=== PATIENT | male | born 1960 | race African-American/Black ===

== ENCOUNTER 2018-08-30 11:48 | Inpatient (IN) | payer SELFPAY ==
[2018-08-30] MEDS ORDERED: ONDANSETRON 4 MG/2 ML VIAL ONE (11:58)
[2018-08-30] MEDS ORDERED: NA CHLORIDE 0.9% 2,000 ML ONE (11:58)
[2018-08-30 12:06] LABS: Absolute Lymphocytes (CBC) 3.4 K/uL (0.7-4.9); Absolute Monocytes 0.7 K/uL (0.1-1.3); Absolute Neutrophil 4.2 K/uL (1.8-8.0); Basophils % 1.1 % (0-1.3); Hematocrit 43.3 % (39.6-49.0); Lymphocytes % 40.2 % (15.3-44.8); MCV 86.4 fL (80-100); MPV 8.7 fL (7.6-11.3); Monocytes % 8.1 % (3.3-12.3); RBC Red Blood Cell Count 5.01 M/uL (4.33-5.43)
[2018-08-30] MEDS ORDERED: ASPIRIN 81 MG CHEWABLE TABLET ONE (12:11)
[2018-08-30] MEDS ORDERED: PROMETHAZINE 25 MG/ML VIAL ONE ×2 (12:11→12:43)
[2018-08-30] MEDS ORDERED: HEPARIN/D5W 25,000 UNIT/500 ML BAG IV ONE (12:11)
[2018-08-30] MEDS ORDERED: TICAGRELOR 90 MG TABLET PO ONE (12:11)
[2018-08-30] MEDS ORDERED: HEPARIN 5000 UNIT/ML 1 ML VIAL ONE (12:11)
[2018-08-30] MEDS ORDERED: HEPA 1000U/500MLS 2,000 UNIT/1,000 ML BAG IV ONE (12:19)
[2018-08-30] MEDS ORDERED: LIDOCAINE 1% MPF 30 ML VIAL ONE (12:20)
[2018-08-30] MEDS ORDERED: ATROPINE SULF 1 MG/10 ML SYR IV ONE (12:20)
[2018-08-30] MEDS ORDERED: NA CHLORIDE 0.9% 50 ML ONE (12:20)
--- NOTE | 2018-08-30 12:21 | EDPHYS ---
Physician Documentation [facility] Name: Chad Rahman Age: 57 yrs Sex: Male : 1960 Arrival Date: 08/30/2018 Time: 11:50 Bed 4 Private MD: ED Physician Jonathon Sorensen HPI: 08/30 12:12 This 57 yrs old Black Male presents to ER via EMS with complaints of Chest Pain. rn 12:12 The patient has experienced near-syncope. Onset: The symptoms/episode began/occurred rn just prior to arrival. Duration: This was a single episode. Associated injury: The patient did not suffer any apparent associated injury. Current symptoms: chest pain, nausea. The patient has not experienced similar symptoms in the past. Was outside for 1 hour, drinking water, felt generalized weakness, nausea, chest pain, getting worse, brought in by EMS for heat exhaustion.. Historical: - Allergies: 11:55 No Known Allergies; ph - Home Meds: 11:55 None [Active]; ph - PMHx: 11:55 None; ph - Immunization history:: Adult Immunizations unknown. - Social history:: Smoking status: unknown. - Family history:: not pertinent. - Ebola Screening: : No symptoms or risks identified at this time. - Hospitalizations: : No recent hospitalization is reported. ROS: 12:12 Constitutional: Negative for fever, chills, and weight loss, Eyes: Negative for injury, rn pain, redness, and discharge, Neck: Negative for injury, pain, and swelling, Cardiovascular: + chest pain Respiratory: Negative for shortness of breath, cough, wheezing, and pleuritic chest pain, Abdomen/GI: + nausea/vomiting MS/Extremity: Negative for injury and deformity, Skin: Negative for injury, rash, and discoloration, Neuro: Negative for headache, numbness, tingling, and seizure. Exam: 12:12 Constitutional: This is a well developed, well nourished patient who is awake, answers rn questions, vomiting Head/Face: Normocephalic, atraumatic. Eyes: Pupils equal round and reactive to light, extra-ocular motions intact. Lids and lashes normal. Conjunctiva and sclera are non-icteric and not injected. Cornea within normal limits. Periorbital areas with no swelling, redness, or edema. Neck: Trachea midline, no thyromegaly or masses palpated, and no cervical lymphadenopathy. Supple, full range of motion without nuchal rigidity, or vertebral point tenderness. No Meningismus. Cardiovascular: regular rate, occasional PVCs, no murmur Respiratory: + mild tachypnea, no retractions, clear bilaterally Abdomen/GI: soft, non-tender Skin: clammy, diaphoretic MS/ Extremity: Pulses equal, no cyanosis. Neurovascular intact. Full, normal range of motion. Equal circumference. Neuro: Awake, vomiting, moves all 4 extremities Vital Signs: 11:54 BP 144 / 108; Pulse 67; Resp 26; Temp 97.6(O); Weight 83.91 kg; Height 5 ft. 11 in. ph (180.34 cm); 11:54 Body Mass Index 25.80 (83.91 kg, 180.34 cm) ph MDM: 11:50 Patient medically screened. rn 12:00 ED course: Pt with ST elevation on ECG, dynamic changes, story of heat exhaustion does rn not fit given vitals and was drinking water, only outside for 1 hour. Pt diaphoretic, + chest pain is mild, + nausea. Treating as STEMI, paging cardiology. . 12:10 ED course: Spoke with Dr. Downs, will take him to laborer pipelines right now.. rn 12:12 Differential Diagnosis: STEMI, dehydration, heat exhaustion. Data reviewed: vital rn signs, nurses notes, EKG, and as a result, I will admit patient. Counseling: I had a detailed discussion with the patient and/or guardian regarding: the historical points, exam findings, and any diagnostic results supporting the discharge/admit diagnosis, the need for further work-up and treatment in the hospital. Response to treatment: the patient's symptoms have mildly improved after treatment. 08/30 11:52 Order name: CBC with Diff rn 08/30 11:52 Order name: Basic Metabolic Panel rn 08/30 11:52 Order name: CK rn 08/30 11:52 Order name: Troponin (emerg Dept Use Only) rn 08/30 11:52 Order name: Urine Drug Screen rn 08/30 12:07 Order name: CBC Smear Scan EDMS 08/30 11:52 Order name: CT Head Brain wo Cont rn 08/30 12:03 Order name: XRAY Chest (1 view) rn 08/30 11:52 Order name: IV Start; Complete Time: 12:10 rn 08/30 11:52 Order name: EKG; Complete Time: 11:52 rn 08/30 11:52 Order name: EKG - Nurse/Tech; Complete Time: 12:09 rn Administered Medications: 12:05 Drug: Zofran 4 mg Route: IVP; Site: right antecubital; ph 12:15 Follow up: Response: No adverse reaction; Nausea unchanged; Vomiting unchanged ph 12:05 Drug: NS 0.9% 1000 ml Route: IV; Rate: 1000 ml; Site: right antecubital; sv 12:20 Follow up: Response: No adverse reaction; IV Status: Infusion continued upon admission ph 12:05 Drug: NS 0.9% 1000 ml Route: IV; Rate: 1000 ml; Site: left antecubital; sv 12:20 Follow up: Response: No adverse reaction; IV Status: Infusion continued upon admission ph 12:13 Drug: Phenergan 12.5 mg Route: IVP; Site: right antecubital; ph 12:16 Follow up: Response: No adverse reaction; Nausea unchanged ph 12:15 Drug: Heparin (OK Drip) 12 units/kg/hr - (HEParin 22612 units, D5W 500 ml) ph {Co-Signature: hb (Maryam Lemus RN).} Route: IV; Rate: calculated rate; Site: right antecubital; 12:25 Follow up: Response: No adverse reaction; IV Status: Infusion continued upon admission ph 12:15 Drug: Heparin (OK-Bolus No thrombolytic) - HEParin 60 units/kg {Co-Signature: hb ph (Maryam Lemus RN).} Route: IVP; Site: right antecubital; 12:25 Follow up: Response: No adverse reaction ph 12:17 Drug: Phenergan 12.5 mg Route: IVP; Site: left antecubital; ph 12:21 Follow up: Response: No adverse reaction; Vomiting decreased ph 12:19 Drug: Aspirin Chewable Tablet 324 mg Route: PO; ph 12:22 Follow up: Response: No adverse reaction ph 12:19 Drug: Brilinta - Ticagrelor 180 mg Route: PO; ph 12:25 Follow up: Response: No adverse reaction ph Point of Care Testing: Blood Glucose: 12:02 Blood Glucose: 200 mg/dL; ph Ranges: Critical Glucose Levels:Adult <50 mg/dl or >400 mg/dl <40 mg/dl or >180 mg/dl Disposition: 08/30/18 12:20 Hospitalization ordered by Cece Renteria for Inpatient Admission. Preliminary diagnosis is ST elevation (STEMI) myocardial infarction of unspecified site. - Bed requested for Intensive Care Unit. - Status is Inpatient Admission. ph - Condition is Fair. - Problem is new. - Symptoms have improved. UTI on Admission? No Critical care time excluding procedures: 12:12 Critical care time: Bedside Care: 20 minutes, Consultation: 5 minutes, Family rn Intervention: 5 minutes. Total time: 30 minutes Signatures: Dispatcher [employer] Magy Alarcon, RN RN Jonathon Sorensen MD MD rn Hall, Patricia, RN RN Maryam Lemus RN Corrections: (The following items were deleted from the chart) 12:26 12:20 Hospitalization Ordered by Cece Renteria MD for Inpatient Admission. Preliminary ph diagnosis is ST elevation (STEMI) myocardial infarction of unspecified site. Bed requested for Intensive Care Unit. Status is Inpatient Admission. Condition is Fair. Problem is new. Symptoms have improved. UTI on Admission? No. rn
--- NOTE | 2018-08-30 12:21 | ER ---
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 Transition of care: patient was not received from another setting of care. Onset of symptoms was August 30, 2018. Risk Assessment: Do you want to hurt yourself or someone else? Patient reports no desire to harm self or others. Initial Sepsis Screen: Does the patient meet any 2 criteria? No. Patient's initial sepsis screen is negative. Does the patient have a suspected source of infection? No. Patient's initial sepsis screen is negative. Care prior to arrival: None. 11:51 Method Of Arrival: EMS: [facility] 11:51 Acuity: ROSALIA 2 ph Historical: - Allergies: 11:55 No Known Allergies; ph - Home Meds: 11:55 None [Active]; ph - PMHx: 11:55 None; ph - Immunization history:: Adult Immunizations unknown. - Social history:: Smoking status: unknown. - Family history:: not pertinent. - Ebola Screening: : No symptoms or risks identified at this time. - Hospitalizations: : No recent hospitalization is reported. Screenin:13 Abuse screen: Denies threats or abuse. Denies injuries from another. Nutritional sv screening: No deficits noted. Tuberculosis screening: No symptoms or risk factors identified. Fall Risk No fall in past 12 months (0 pts). No secondary diagnosis (0 pts). IV access (20 points). Ambulatory Aid- None/Bed Rest/Nurse Assist (0 pts). Gait- Weak (10 pts.). Mental Status- Overestimates/Forgets Limitations (15 pts.). Total Melendez Fall Scale indicates High Risk Score (45 or more points). Fall prevention measures have been instituted. Side Rails Up X 2 Placed Close to Nursing Station Frequent Obs/Assessments Occuring Family Present and informed to notify staff if the need to leave the bedside As available patient and family educated on Fall Prevention Program and Strategies. Assessment: 12:05 General: Appears distressed, uncomfortable, slender, Behavior is calm, cooperative, ph quiet. Pain: Complains of pain in chest. Neuro: Level of Consciousness is awake, alert, obeys commands, Oriented to person, place, time, situation. Cardiovascular: Reports chest pain, nausea, vomiting, Capillary refill < 3 seconds Patient's skin is warm and dry. Chest pain quality is heaviness, pressure, is located in left anterior chest wall substernal area began suddenly. Respiratory: Airway is patent Respiratory effort is even, Respiratory pattern is tachypnea. GI: Reports nausea, vomiting, Patient currently denies abdominal pain, diarrhea. Derm: Skin is intact, Skin is clammy, Skin is normal, Skin temperature is cool. Musculoskeletal: Circulation, motion, and sensation intact. Range of motion: intact in all extremities. 12:21 Reassessment: Pt taken to cath lab manager. ph Vital Signs: 11:54 BP 144 / 108; Pulse 67; Resp 26; Temp 97.6(O); Weight 83.91 kg; Height 5 ft. 11 in. ph (180.34 cm); 11:54 Body Mass Index 25.80 (83.91 kg, 180.34 cm) ph ED Course: 11:50 Patient arrived in ED. rn 11:50 Jonathon Sorensen MD is Attending Physician. rn 11:51 Ketty Hernandez, EBONI is Primary Nurse. ph 11:54 Triage completed. ph 11:54 Inserted saline lock: 18 gauge in right antecubital area, using aseptic technique. sv Blood collected. Flushed right antecubital with 5 ml normal saline. 11:55 monitoring analyst on. Pulse ox on. NIBP on. sv 12:04 EKG DONE BY TECH REVIEWED BY YU STALLINGS x3. sm3 12:06 Inserted saline lock: 18 gauge in left antecubital area, using aseptic technique. sv Flushed left antecubital with 5 ml normal saline. 12:13 Arm band placed on. sv 12:13 Patient has correct armband on for positive identification. Bed in low position. Side sv rails up X2. Adult w/ patient. 12:19 Cece Renteria MD is Hospitalizing Provider. rn 12:24 Note: cxr delayed due to pt taken to cath lab manager. ml 12:24 No provider procedures requiring assistance completed. Patient admitted, IV remains in ph place. Administered Medications: 12:05 Drug: Zofran 4 mg Route: IVP; Site: right antecubital; ph 12:15 Follow up: Response: No adverse reaction; Nausea unchanged; Vomiting unchanged ph 12:05 Drug: NS 0.9% 1000 ml Route: IV; Rate: 1000 ml; Site: right antecubital; sv 12:20 Follow up: Response: No adverse reaction; IV Status: Infusion continued upon admission ph 12:05 Drug: NS 0.9% 1000 ml Route: IV; Rate: 1000 ml; Site: left antecubital; sv 12:20 Follow up: Response: No adverse reaction; IV Status: Infusion continued upon admission ph 12:13 Drug: Phenergan 12.5 mg Route: IVP; Site: right antecubital; ph 12:16 Follow up: Response: No adverse reaction; Nausea unchanged ph 12:15 Drug: Heparin (IA Drip) 12 units/kg/hr - (HEParin 37699 units, D5W 500 ml) ph {Co-Signature: hb (Maryam Lemus RN).} Route: IV; Rate: calculated rate; Site: right antecubital; 12:25 Follow up: Response: No adverse reaction; IV Status: Infusion continued upon admission ph 12:15 Drug: Heparin (IA-Bolus No thrombolytic) - HEParin 60 units/kg {Co-Signature: hb ph (Maryam Lemus RN).} Route: IVP; Site: right antecubital; 12:25 Follow up: Response: No adverse reaction ph 12:17 Drug: Phenergan 12.5 mg Route: IVP; Site: left antecubital; ph 12:21 Follow up: Response: No adverse reaction; Vomiting decreased ph 12:19 Drug: Aspirin Chewable Tablet 324 mg Route: PO; ph 12:22 Follow up: Response: No adverse reaction ph 12:19 Drug: Brilinta - Ticagrelor 180 mg Route: PO; ph 12:25 Follow up: Response: No adverse reaction ph Point of Care Testing: Blood Glucose: 12:02 Blood Glucose: 200 mg/dL; ph Ranges: Outcome: 12:20 Decision to Hospitalize by Provider. rn 12:26 Patient left the ED. ph 12:26 Admitted to Pipe C[facility] accompanied by nurse, accompanied by tech, family with patient, ph via stretcher, with oxygen, on monitor, with chart. 12:26 critical 12:26 Instructed on the need for admit. Signatures: Magy Mak RN RN sv Lopez, Melissa ml Nieto, Roman, MD MD rn Hall, Patricia, RN RN Luo, Sindi [facility] Maryam Lemus RN hb Corrections: (The following items were deleted from the chart) 12:01 11:54 BP 144 / 108; Pulse 67bpm; Resp 26bpm; 83.91 kg; Height 5 ft. 11 in.; BMI: 25.8; ph ph 12:05 12:03 EKG done, by sleep tech. reviewed by Jonathon Sorensen MD [place] [id number] 12:06 11:54 Inserted saline lock: 18 gauge in right antecubital area, using aseptic sv technique. Blood collected. ph
[2018-08-30 12:25] LABS: Potassium 3.5 mmol/L (3.5-5.1); Troponin (Emerg Dept Use Only) 0.05 ng/mL (0.0-0.045)
[2018-08-30] MEDS ORDERED: FENTANYL CITR 100 MCG/2 ML ONE (12:39)
[2018-08-30] MEDS ORDERED: MIDAZOLAM HCL 2 MG/2 ML INJ ONE ×2 (12:39→13:02)
[2018-08-30] MEDS ORDERED: ACETAMINOPHEN 500 MG TAB PO PRN (12:41)
[2018-08-30] MEDS ORDERED: MORPHINE 4 MG/ML SYR IV PRN (12:41)
[2018-08-30] MEDS ORDERED: METOPROLOL TARTRATE 5 MG/5 ML INJ IV ONE (13:11)
[2018-08-30] MEDS ORDERED: AMIODARONE HCL 150 MG/3 ML INJ IV ONE (13:12)
[2018-08-30] MEDS ORDERED: NITROGLYCERIN 0.4 MG/TAB SL PRN (14:01)
[2018-08-30 14:03] LABS: Blood Morphology Comment NOT SEEN (NOT SEEN); Platelet Estimate ADEQ; Urine White Blood Cell Casts OK
[2018-08-30] MEDS ORDERED: NA CHLORIDE 0.9% 1,000 ML ONE (14:51)
[2018-08-30] MEDS ORDERED: NA CHLORIDE 0.9% 1,000 ML IV SCH (15:00)
[2018-08-30] MEDS: ONDANSETRON 4 MG/2 ML VIAL IV PRN ×2 (15:11→19:45)
[2018-08-30] MEDS ORDERED: CLOPIDOGREL 75 MG TABLET PO SCH (15:15)
[2018-08-30] MEDS ORDERED: ENOXAPARIN 80 MG/0.8 ML SQ SCH (15:30)
[2018-08-30 16:51] LABS: Barbiturates NEGATIVE (NEGATIVE); Benzodiazepines POSITIVE (NEGATIVE); Cocaine NEGATIVE (NEGATIVE); METHAMPHETAM NEGATIVE (NEGATIVE); Methadone NEGATIVE (NEGATIVE); Opiates NEGATIVE (NEGATIVE); Phencyclidine NEGATIVE (NEGATIVE); THC Cannibis POSITIVE (NEGATIVE)
[2018-08-30] MEDS: PROMETHAZINE 25 MG/ML VIAL IV PRN ×2 (17:49→23:16)
[2018-08-30] MEDS: METOPROLOL TAR 25 MG TAB PO SCH (18:20)
[2018-08-30] MEDS: ENOXAPARIN 80 MG/0.8 ML SQ SCH (18:20)
--- NOTE | 2018-08-30 18:24 | RAD REPORT ---
EXAM DESCRIPTION: RAD - Chest Single View - 08/30/2018 6:18 pm CLINICAL HISTORY: CHEST PAIN Chest pain. COMPARISON: No comparisons FINDINGS: Portable technique limits examination quality. The lungs are grossly clear. The heart is normal in size. No displaced fractures. IMPRESSION: No acute intrathoracic process suspected.
[2018-08-30] MEDS: ATORVASTATIN 80 MG TAB PO SCH (19:45)
[2018-08-30] MEDS ORDERED: METOPROLOL TAR 25 MG TAB PO SCH (21:00)
--- NOTE | 2018-08-31 03:57 | HP ---
Date of Admission: 08/30/2018 Consultants: Dr. Downs with Cardiology. Chief Complaint: Chest pain. Hpi: The patient is a 57-year-old male with no significant past medical history, comes in with chest pain and near syncopal episode. The patient had some nausea, vomiting, chest pressure, felt to have heat exhaustion. His symptoms are constant, moderate, progressively worsening. The patient did fee l better after about an hour after drinking water, but due to his generalized weakness and symptoms w orsening, he came into the ER. Upon arrival, his workup revealed rapid troponin level of 0.05. His EKG showed ST elevations in the anterior leads. Repeat EKG showed some ST depressions. Dr. Downs with Cardiology was consulted by the ER and the patient was taken to the quality assurance/r&d lab technician. The patient recei andreas a stent in the LAD and was transferred to the ICU. The patient was seen in the ICU. After the p rocedure in the quality assurance/r&d lab technician, he was feeling better, stating that he feels weak and tired. Past Medical History: None. Surgical History: None other than cardiac catheterization couple of hours ago. Allergies: NO KNOWN DRUG ALLERGIES. Medications: None. Social History: The patient denies any alcohol use. States he smokes 5 cigarettes per day for the p ast 5 years. Denies any illicit drug use or alcohol use. Family History: Sister has diabetes. Review of Systems: Ten point system reviewed, negative except as per HPI. Physical Examination: Vital Signs: Blood pressure 144/108, pulse 67, respirations 26, temperature 97.6, O2 is 96% on 3 L v ia nasal cannula. General: Awake, alert, oriented x3, some mild distress, ill-appearing male. HEENT: Normocephalic, atraumatic. PERRLA. EOMI. Moist mucous membranes. Oropharynx is clear. Co njunctivae anicteric. Neck: Supple. No JVD. Trachea midline. CV: S1, S2. No murmurs. Regular rate and rhythm. Peripheral pulses present bilaterally. Respiratory: Clear to auscultation bilaterally. No wheezing or stridor. No use of accessory muscle s. Gastrointestinal: Abdomen is soft, nontender, nondistended. Positive bowel sounds. No guarding or rigidity. Extremities: No clubbing, cyanosis, or edema. No calf tenderness. Neuro: Cranial nerves 2 through 12 intact grossly. No focal neurological deficits. Speech is ruddy l. Strength is 5/5 bilateral upper and lower extremities. Skin: No rashes. Normal skin turgor. Incision site at the right groin is clean, dry, intact. No h ematoma. Laboratory Data: Sodium 140, potassium 3.5, chloride 106, CO2 20, BUN 19, creatinine 1.8, glucose 22 4, calcium 9.8. CK 177, troponin 0.05. WBC 8.6, H and H 14.6 and 43.3, platelets 314, neutrophils 4 9%. UDS positive for benzodiazepines and THC, negative for cocaine. Of note, the patient did receiv e sedated medications including fentanyl, Versed, morphine. Chest x-ray pending. EKG shows ST eleva tions in the anterior leads. Assessment And Plan: A 57-year-old male with: 1.Acute ST-elevation myocardial infarction, status post cardiac catheterization with stent in the le ft anterior descending. The patient has been started on Plavix and therapeutic Lovenox. We will sta rt on chest pain guidelines with statin, RALPH inhibitor, beta-teresita, nitroglycerin p.r.n., morphine for angina. 2.Uncontrolled blood pressure. 3.Marijuana abuse. 4.Acute kidney injury. We will start on IV fluids and monitor. We will likely expect worsening kid babak function due to contrast. 5.Heat exhaustion. 6.Intractable nausea and vomiting, improved. 7.Continue antiemetics. Plan: Admit to ICU, place as inpatient. OLE Voice ID: [id number]
[2018-08-31] MEDS: METOPROLOL TAR 25 MG TAB PO SCH ×2 (05:46→18:18)
[2018-08-31] MEDS: ONDANSETRON 4 MG/2 ML VIAL IV PRN (05:47)
[2018-08-31 06:16] LABS: Absolute Lymphocytes (CBC) 1.2 K/uL (0.7-4.9); Absolute Monocytes 0.8 K/uL (0.1-1.3); Absolute Neutrophil 9.9 K/uL (1.8-8.0); Basophils % 0.2 % (0-1.3); Hematocrit 41.7 % (39.6-49.0); Lymphocytes % 9.8 % (15.3-44.8); MCH 28.8 pg (27.0-35.0); MCV 87.3 fL (80-100); MPV 8.6 fL (7.6-11.3); Monocytes % 6.9 % (3.3-12.3); RBC Red Blood Cell Count 4.77 M/uL (4.33-5.43)
[2018-08-31 06:47] LABS: Albumin 3.5 g/dL (3.4-5.0); Bilirubin Total 0.7 mg/dL (0.2-1.0); Phosphorus 3.3 mg/dL (2.5-4.9); Potassium 4.9 mmol/L (3.5-5.1); Protein, Total 7.8 g/dL (6.4-8.2)
--- NOTE | 2018-08-31 07:27 | OP ---
Surgeon: Jarret Downs MD Active Directory Specialist: Zee Marsh. Indications: Admitted to Dr. Renteria's service for an acute HI on 08/30/2018. Reason for consultation was acute anterior HI. Mr. Rahman is a 57-year-old black male without any past medical history who came into the emergency room with an acute anterior HI. I was called then. The patient was brought from the emergency room to the laborer [facility] emergently for an acute intervention. Procedure Note: The patient was brought to the laborer [facility] and prepped and draped in the routine steril e fashion. He was given 4 mg of Versed for sedation. He was having severe chest pain with ST elevat ion in leads V1 through V4. A 6-Sinhala sheath was introduced in the right common femoral artery succ essfully. Angio-Seal was used to close the case. 6-Sinhala Joseluis catheter was used to do the diagn ostic catheterization. He was found to have a normal RCA. Circumflex had about 30% to 40% distal st enosis. The LAD was completely occluded proximally with a large thrombus load. XB LAD 3.5 with side holes was used as a guide catheter. A Henderson wire was used to cross the lesion in the LAD successfu lly. Multiple dilatations with an Emerge balloon 3.0 x 15 were done throughout the proximal LAD lesi on. We established MAO-3 flow after that, but prior to it, the patient had MAO 0 flow. The angiop lasty was followed with a 3.5 x 16 Synergy stent. There was some thrombus remaining. Thrombectomy w as done using an EXPO catheter. The patient received intracoronary nitroglycerin. The result was ex cellent with minimal thrombus residual. The patient received Angiomax during the procedure. He had gotten Brilinta in the emergency room and aspirin. We will resume Lovenox 6 hours after the case. T otal conscious sedation was 45 minutes. Complications: None. Blood Loss: 10 cc. Final Diagnoses: Status post acute myocardial infarction. Status post successful angioplasty, stent , and thrombectomy of the left anterior descending. Pluck Separator: Kathryn Borjas Voice ID: [id number] Report ID: [id number]
--- NOTE | 2018-08-31 07:42 | CON ---
Date of Consultation: 08/30/2018 Reason For Consultation: Acute anterior AK. History Of Present Illness: Mr. Rahman is a 57-year-old black male without any significant past med ical history, who came into the emergency room with chest pain. His symptoms have been going on for about an hour or two. He was found to have acute AK in the anterior lead with ST elevation in V1 thr ough V4 and severe chest pain. He was given Brilinta, aspirin, started on heparin. He was given nit roglycerin and beta-blockers, and I was consulted. He was sent to the [facility] lab[facility] emergently for a proc edure, where he underwent an angioplasty and stent and a thrombectomy of the LAD and he did very well and he was being admitted to the ICU for further evaluation and treatment. Past Medical History: Negative. Allergies: NONE. Review of Systems: Negative. Social History: Positive for tobacco. Possible drug use. No alcohol use. Family History: Positive for heart disease. Medications: None. Physical Examination: General: When I initially saw him in the [facility] conservation lab[facility], he was having chest pain, he was diaphoretic, he was having occasional PVCs. Vital Signs: Stable. He was afebrile. HEENT: Negative. Neck: Supple. No bruit. Chest: Clear. Cardiac Exam: Revealed a regular rhythm and rate without any murmurs, gallops, or rubs. Abdomen: Benign. Extremities: Revealed no clubbing, cyanosis, or edema. Diagnostic Data: Basically was pretty unremarkable, except for the glucose of 224. His initial crea tinine was 1.8, troponin was 0.05. He has positive THC in his urine. EKG showed acute anterior AK. Chest x-ray was negative. Impression And Plan: 1.Acute anterior myocardial infarction, now status post angioplasty, stent, and thrombectomy of the left anterior descending artery. The patient now is on aspirin, Plavix, Lipitor, metoprolol, lisinop ril. I will resume Lovenox because of persistent thrombus. The patient received 1 dose of amiodaron e bolus and IV beta-teresita in the [facility]lands conservation laborer because he had ventricular tachycardia after reperfusion. That has resolved. We will continue his present regimen, keep him in the ICU 24 hours, move on to the regular floor, and then send him home in about a day or two. It may be good to have him do an ec hocardiogram sometimes as an outpatient. 2.Elevated creatinine. We will have to watch that. 3.Elevated glucose. We will have to watch that as well. I will discuss the case further with Dr. Renteria. RHIANNON/ABNER Voice ID: [id number] Report ID: [id number]
--- NOTE | 2018-08-31 07:51 | EKG ---
Test Date: 2018-08-30 Test Time: 11:59:26 Conduit Helper: TAMMY MEASUREMENT RESULTS: Intervals: Rate: 64 SC: 168 QRSD: 88 QT: 434 QTc: 447 Adin: P: 7 SC: 168 QRS: 18 T: 37 INTERPRETIVE STATEMENTS: Normal sinus rhythm Anteroseptal infarct, possibly acute ACUTE CO Abnormal ECG Compared to ECG 08/30/2018 11:54:12 No significant changes Electronically Signed On 08-31-18 07:48:57 CDT by Jarret Downs
--- NOTE | 2018-08-31 07:51 | EKG ---
Test Date: 2018-08-30 Test Time: 11:54:12 General Repairer: TAMMY MEASUREMENT RESULTS: Intervals: Rate: 68 [place]: 166 QRSD: 86 QT: 420 QTc: 446 [place]: P: 16 [place]: 166 QRS: 39 T: 36 INTERPRETIVE STATEMENTS: Normal sinus rhythm Anteroseptal infarct, possibly acute ACUTE VT Abnormal ECG Compared to ECG 08/30/2018 11:53:16 No significant changes Electronically Signed On 08-31-18 07:48:58 CDT by Jarret Donws
--- NOTE | 2018-08-31 07:52 | EKG ---
Test Date: 2018-08-30 Test Time: 11:53:16 Artifacts Conservator: TAMMY MEASUREMENT RESULTS: Intervals: Rate: 71 [place]: 160 QRSD: 90 QT: 416 QTc: 452 [place]: P: 17 [place]: 160 QRS: 39 T: -24 INTERPRETIVE STATEMENTS: Normal sinus rhythm Anteroseptal infarct, possibly acute Lateral injury pattern ACUTE ND Abnormal ECG No previous ECG available for comparison Electronically Signed On 08-31-18 07:48:59 CDT by Jarret Downs
[2018-08-31] MEDS: ENOXAPARIN 80 MG/0.8 ML SQ SCH ×2 (08:43→20:57)
[2018-08-31] MEDS: CLOPIDOGREL 75 MG TABLET PO SCH (08:44)
[2018-08-31] MEDS: ASPIRIN EC 81 MG TAB PO SCH (08:44)
[2018-08-31] MEDS: LISINOPRIL 10 MG TAB PO SCH (08:44)
--- NOTE | 2018-08-31 10:57 | PN ---
Date of Progress Note: 08/31/2018 Subjective: The patient was admitted on 08/30/2018 with an acute anterior OR. Had a thrombectomy of the LAD with angioplasty and stent with excellent results. Had ventricular tachycardia during reper fusion during the procedure, resolved after IV amiodarone bolus of 150 mg as well as beta-blockers. Overnight, he had done well. No arrhythmia. No CHF. Objective: Vital signs: Stable. General: No complaint. Extremities: Right groin is intact. He is on aspirin, Plavix, Lovenox, metoprolol, lisinopril, and Lipitor. We will send him to a regula r room for today and then home tomorrow. I will make arrangement for an outpatient appointment and a n echocardiogram in the near future. RHIANNON/ABNER Voice ID: [id number] Report ID: [id number]
[2018-08-31] MEDS ORDERED: METOCLOPRAMIDE 10 MG/2mL INJ IV ONE (12:00)
[2018-08-31 17:06] LABS: Albumin 3.5 g/dL (3.4-5.0); Bilirubin Direct 0.1 mg/dL (0-0.2); Bilirubin Total 0.6 mg/dL (0.2-1.0); Protein, Total 7.5 g/dL (6.4-8.2)
--- NOTE | 2018-08-31 18:18 | PN ---
Subjective: Currently, the patient lying in bed. He looks comfortable. He has no chest pain. No a bdominal pain. this morning. No fever no chills. Dr. Yareli edwards to transfer to the [facility]. Objective: Vital Signs: Blood pressure 129/88, respiratory rate 22, pulse 70, temperature 98.1. General: The patient is alert and oriented x3. Does not look in any distress. HEENT: Atraumatic, normocephalic. PERRLA. Oral mucosa is moist. Neck: Supple. No JVD. No carotid bruits. Chest: Clear to auscultation. Good air entry. Heart: Regular rate, regular rhythm. S1, S2 normal. No gallop or murmur. Abdomen: Soft, nontender. No masses. No hepatosplenomegaly. Positive bowel sounds. Positive mariano l sounds. Laboratory Data: Today, CBC within normal except for white blood cells 7.9. Chemistry within normal except for GFR of 68, creatinine down to 1.3 from 1.8. Glucose 138, AST of 5.2, ALT of 83. Plan: 1.Acute ST-elevation myocardial infarction. Status post cardiac cath with stent to the left anterio r descending artery. Continue the patient on Plavix, Lovenox, aspirin, RALPH inhibitor which is lisino pril, and Lopressor 25 mg twice a day p.r.n. pain medication. 2.Transfer to regular [facility]. 3.Lipid panel checked in patient with elevated triglyceride and low HDL. Continue statin. 4.Elevated AST. We will check LFTs tomorrow and if it still continues to be elevated, we will consider an ultrasound. 5. hopefully we will discharge in a.m. GREGG/ABNER Voice ID: [id number] Report ID: [id number]
[2018-08-31] MEDS ORDERED: ZOLPIDEM TARTRATE 10 MG TABLET PO PRN (19:24)
[2018-08-31] MEDS: ATORVASTATIN 80 MG TAB PO SCH (20:56)
[2018-09-01] MEDS: ONDANSETRON 4 MG/2 ML VIAL IV PRN ×2 (03:10→08:12)
[2018-09-01 06:20] LABS: Absolute Lymphocytes (CBC) 1.5 K/uL (0.7-4.9); Absolute Neutrophil 7.7 K/uL (1.8-8.0); Basophils % 0.2 % (0-1.3); Hematocrit 40.6 % (39.6-49.0); Lymphocytes % 14.4 % (15.3-44.8); MCH 29.1 pg (27.0-35.0); MCV 86.4 fL (80-100); MPV 9.4 fL (7.6-11.3); Monocytes % 9.8 % (3.3-12.3)
[2018-09-01] MEDS: METOPROLOL TAR 25 MG TAB PO SCH (06:32)
[2018-09-01 06:37] LABS: Albumin 3.1 g/dL (3.4-5.0); Bilirubin Total 0.7 mg/dL (0.2-1.0); Protein, Total 7.2 g/dL (6.4-8.2)
[2018-09-01] MEDS: CLOPIDOGREL 75 MG TABLET PO SCH (08:12)
[2018-09-01] MEDS: LISINOPRIL 10 MG TAB PO SCH (08:12)
[2018-09-01] MEDS: ENOXAPARIN 80 MG/0.8 ML SQ SCH (08:13)
[2018-09-01] MEDS: ASPIRIN EC 81 MG TAB PO SCH (08:13)
[2018-09-01] MEDS ORDERED: CHLORPROMAZINE 25 MG TAB PO PRN (10:42)
--- NOTE | 2018-09-02 12:20 | DS ---
Date of Discharge: 09/01/2018 Discharge Diagnoses: 1.Acute myocardial infarction status post cardiac cath with stent placement in his left anterior karyna cending. 2.Hyperlipidemia. 3.Elevated liver enzymes, improving. 4. . Consult: Dr. Downs. Procedure: Cardiac cath done on August 31 with successful angioplasty stent placement, thrombectomy of the left anterior descending. History Of Present Illness: Please refer to Dr. Renteria's admission note. Hospital Course: Initially, the patient presented with the progressive chest pain and near syncopal episode associated with nausea vomiting. In the ER, he was evaluated and EKG showed ST elevations in the anterior leads. The cardiac consult requested, Dr. Downs proceeded immediately to the cath la b. The patient had cardiac cath and stent placed in the left anterior descending artery with thrombe ctomy. The patient had done well. He was watched overnight in the ICU and will be discharged today in stable condition. RAPLH inhibitor, statin, aspirin and Plavix, and he was advised to yadi id extreme exertion. He will follow up with Dr. Downs as advised , followup with primary care phys aliyah this week. Discharge Condition: Stable. Discharged Diet: Cardiac. Discharge Followup: With Dr. Downs as advised follow up with Physician this week. Discharge Physical Examination: Vital Signs: Blood pressure is 135/88, respiratory rate 16, pulse 7 2, temperature 97.9, saturating 97% on room air. General: He is alert and oriented x3. Does not look in any distress. HEENT: Atraumatic, normocephalic. PERRLA. Oral mucosa is moist. Neck: Supple. No JVD. No carotid bruits. Chest: Clear to auscultation. Good air entry. Heart: Regular rate and rhythm. S1, S2 normal. No gallop or murmur. Abdomen: Soft, nontender. No masses. No hepatosplenomegaly. Positive bowel sounds. Extremities: No clubbing, cyanosis, or edema. No calf tenderness. Neurologic: Grossly intact. Discharge Medications: Aspirin 81 mg once a day, Lipitor 80 mg once a day, Plavix 75 mg once a day, metoprolol 25 mg twice a day, nitroglycerin sublingual 0.5 mg as needed. MT/MODL Voice ID: [id number] Report ID: [id number]
== END 2018-09-01 13:10 | disposition home or self-care (01) | DRG 247 ==
LOC: ER 11:48 → CCL 12:25 → 3RD-ICU 13:30 → 4TH 08-31 14:35
PROVIDERS: ADMIT Internal Medicine; ATTEND Internal Medicine
PROC: 027034Z Dilation of Coronary Artery, One Artery with Drug-eluting Intraluminal Device, Percutaneous Approach (ICD-10-PCS; principal; 2018-08-30)
PROC: 02C03ZZ Extirpation of Matter from Coronary Artery, One Artery, Percutaneous Approach (ICD-10-PCS; 2018-08-30)
PROC: 4A023N7 Measurement of Cardiac Sampling and Pressure, Left Heart, Percutaneous Approach (ICD-10-PCS; 2018-08-30)
PROC: B211YZZ Fluoroscopy of Multiple Coronary Arteries using Other Contrast (ICD-10-PCS; 2018-08-30)
DX: I21.09 ST elevation (STEMI) myocardial infarction involving other coronary artery of anterior wall (principal); N17.9 Acute kidney failure, unspecified; F17.210 Nicotine dependence, cigarettes, uncomplicated; F12.10 Cannabis abuse, uncomplicated; R11.2 Nausea with vomiting, unspecified; E78.5 Hyperlipidemia, unspecified; R74.8 Abnormal levels of other serum enzymes
CPT/HCPCS: 36415; 71045; 80048; 80053; 80061; 80076; 80307; 82550; 82962; 83735; 84100; 84484; 85025; 85347; 92941; 93005; 93454; 94760; 99285; C1725; C1760; C1877; C1893; J0282; J0583; J1644; J1650; J2250; J2405; J2550; J2765; J3010; J7030

== ENCOUNTER 2019-03-25 18:27 | Emergency (ER) | payer SELFPAY ==
[2019-03-25 18:49] LABS: Protime INR 1.07
[2019-03-25] MEDS ORDERED: ASPIRIN 81 MG CHEWABLE TABLET ONE (18:53)
[2019-03-25] MEDS ORDERED: ONDANSETRON 4 MG/2 ML VIAL ONE (18:56)
[2019-03-25] MEDS ORDERED: FENTANYL CITR 100 MCG/2 ML ONE (18:56)
[2019-03-25 19:00] LABS: Absolute Lymphocytes (CBC) 1.1 K/uL (0.7-4.9); Absolute Monocytes 0.5 K/uL (0.1-1.3); Absolute Neutrophil 8.6 K/uL (1.8-8.0); Basophils % 0.4 % (0-1.3); Eosinophils % 0.1 % (0-4.4); Hematocrit 43.6 % (39.6-49.0); Lymphocytes % 11.1 % (15.3-44.8); MPV 8.7 fL (7.6-11.3); Monocytes % 4.9 % (3.3-12.3); RBC Red Blood Cell Count 4.98 M/uL (4.33-5.43)
[2019-03-25] MEDS ORDERED: NA CHLORIDE 0.9% 1,000 ML ONE (19:04)
[2019-03-25 19:08] LABS: Bilirubin Direct 0.1 mg/dL (0-0.2); Bilirubin Total 0.7 mg/dL (0.2-1.0); Protein, Total 8.7 g/dL (6.4-8.2)
[2019-03-25 19:10] LABS: Troponin (Emerg Dept Use Only) 1.3 ng/mL (0.0-0.045)
[2019-03-25] MEDS ORDERED: CLOPIDOGREL 75 MG TABLET ONE (19:21)
[2019-03-25] MEDS ORDERED: HEPARIN 5000 UNIT/ML 1 ML VIAL ONE (19:22)
[2019-03-25] MEDS ORDERED: TENECTEPLASE 50 MG/10 ML VIAL IV ONE (19:22)
[2019-03-25] MEDS ORDERED: HEPARIN/D5W 25,000 UNIT/500 ML BAG IV ONE (19:22)
--- NOTE | 2019-03-25 19:22 | EDPHYS ---
Physician Documentation [facility] Name: Chad Rahman Age: 58 yrs Sex: Male : 1960 Arrival Date: 03/25/2019 Time: 18:28 Bed 6 Private MD: ED Physician Kwame Sanders HPI: 03/25 18:40 This 58 yrs old Black Male presents to ER via Wheelchair with complaints of Abdominal jmm Pain. 18:40 The patient presents with abdominal pain in the epigastric area. Onset: The jmm symptoms/episode began/occurred gradually, at 11:00. The symptoms radiate to chest. Associated signs and symptoms: Pertinent positives: nausea and vomiting. The symptoms are described as achy, sharp. This is a 58 year old male with a history of CAD that presents to the ED with complaints of epigastric abdominal pain radiating to his chest. Patient states his symptoms began at 11 am this morning. Patient states he currently takes no medications and denies known chronic medical conditions. Patient was admitted for STEMI in 2016 with stent placement. . Historical: - Allergies: 18:31 No Known Allergies; ss - Home Meds: 18:31 None [Active]; ss - PMHx: 18:31 Myocardial infarction; ss - PSHx: 18:31 unknown cardiac stents; ss - Immunization history:: Adult Immunizations up to date. - Social history:: Smoking status: Patient uses tobacco products, denies chronic smoking, but will smoke occasionally. - Ebola Screening: : Patient denies exposure to infectious person Patient denies travel to an Ebola-affected area in the 21 days before illness onset. ROS: 18:40 Constitutional: Negative for fever, chills, and weight loss. jmm 18:40 Respiratory: Negative for shortness of breath, cough, wheezing, and pleuritic chest pain. 18:40 Cardiovascular: Positive for chest pain. 18:40 Abdomen/GI: Positive for abdominal pain, nausea and vomiting. 18:40 Back: Negative for pain at rest, radiated pain. 18:40 All other systems are negative. Exam: 18:40 Head/Face: atraumatic. Eyes: EOMI, no conjunctival erythema appreciated ENT: Moist jmm Mucus Membranes Neck: Trachea midline, Supple Chest/axilla: Normal chest wall appearance and motion. 18:40 Constitutional: The patient appears alert, awake, anxious, uncomfortable. 18:40 Cardiovascular: Rate: normal, Rhythm: regular, Pulses: no pulse deficits are appreciated. 18:40 Respiratory: the patient does not display signs of respiratory distress, Respirations: normal, Breath sounds: are clear throughout. 18:40 Abdomen/GI: Inspection: abdomen appears normal, Bowel sounds: normal, Palpation: abdomen is soft and non-tender. 18:40 Back: ROM is normal, vertebral tenderness, is not appreciated. 18:40 Musculoskeletal/extremity: Extremities: ROM: no acute changes, no edema appreciated bilaterally. 18:40 Skin: Appearance: Color: normal in color. 18:40 Neuro: Orientation: is normal, Mentation: is normal, Memory: is normal. 18:40 Psych: Behavior/mood is pleasant, cooperative. 19:35 ECG was reviewed by the Attending Physician. Vital Signs: 18:31 BP 136 / 95; Pulse 67; Resp 15; Pulse Ox 100% on R/A; hb 18:31 Weight 73.03 kg; Height 5 ft. 8 in. (172.72 cm); Pain 8/10; ss 19:10 Temp 97.4(TE); bb 19:19 Weight 75.2 kg (M); ak1 19:33 BP 145 / 99; Pulse 68; Resp 20; Temp 97.4; Pulse Ox 100% on 2 lpm NC; ak1 19:19 Body Mass Index 25.21 (75.20 kg, 172.72 cm) ak1 MDM: 18:40 Patient medically screened. [facility] 19:05 Data reviewed: vital signs, nurses notes. ED course: Dr. Sanders evaluated the patient at [facility] bedside upon reviewing EKG. Cardiology was immediately notified. Dr. Sanders then discussed the patient with Dr. Downs whom recommended transfer for catheterization. Sr. Sandres then consulted with Dr. Mkuherjee from [facility] whom advised to administer heparin and tenecteplase. Accepted transfer. 19:35 Differential Diagnosis cad,mi,nstemi. Response to treatment: the patient's symptoms gs have markedly improved after treatment. 19:35 Counseling: I had a detailed discussion with the patient and/or guardian regarding: the gs historical points, exam findings, and any diagnostic results supporting the discharge/admit diagnosis, the need to transfer to another facility. 04/30 18:32 Order name: Basic Metabolic Panel; Complete Time: 19:22 sv 30 18:32 Order name: CBC with Diff; Complete Time: 19:22 sv 03/25 18:32 Order name: LFT's; Complete Time: 19:22 sv 03/25 18:32 Order name: Magnesium; Complete Time: 19:22 sv 03/25 18:32 Order name: NT PRO-BNP; Complete Time: 19:22 sv 03/25 18:32 Order name: PT-INR; Complete Time: 19: sv 03/25 18:32 Order name: Troponin (emerg Dept Use Only); Complete Time: 19:22 sv 03/25 18:32 Order name: XRAY Chest (1 view); Complete Time: 20:09 sv 03/25 18:32 Order name: EKG; Complete Time: 18:33 sv 03/25 18:32 Order name: Cardiac monitoring; Complete Time: 18:32 sv 03/25 18:32 Order name: EKG - Nurse/Tech; Complete Time: 18:32 sv 03/25 18:32 Order name: IV Saline Lock; Complete Time: 18:32 sv 03/25 18:32 Order name: Labs collected and sent; Complete Time: 18:32 sv 03/25 18:32 Order name: O2 Per Protocol; Complete Time: 18:32 sv 03/25 18:32 Order name: O2 Sat Monitoring; Complete Time: 18:33 sv EC:35 Rate is 67 beats/min. AR interval is normal. QRS interval is prolonged. Q waves are New gs in leads V2, V3, V4, V5. ST Segment is elevated in leads V2, V3, V4, V5. Clinical impression: Anterior MO - acute. Interpreted by me. Administered Medications: 18:40 Drug: Aspirin Chewable Tablet 324 mg Route: PO; sv 18:49 Follow up: Response: No adverse reaction sv 18:45 Drug: Zofran 4 mg Route: IVP; Site: right antecubital; sv 20:48 Follow up: Response: No adverse reaction ak1 18:47 Drug: fentaNYL (PF) 50 mcg Route: IVP; Site: right antecubital; sv 20:49 Follow up: Response: No adverse reaction ak1 18:52 Drug: NS 0.9% 1000 ml Route: IV; Rate: 1 bolus; Site: left antecubital; sv 19:05 CANCELLED (Physician Discretion): Tenecteplase 45 mg IV at 40 calculated rate once bb 19:15 Drug: Heparin (MO-Bolus with thrombolytic) - HEParin 60 units/kg {Co-Signature: lp1 ruba (Yaima Wild RN).} Route: IVP; Site: left antecubital; 19:40 Follow up: Response: No adverse reaction ak1 19:15 Drug: PlaVIX 300 mg Route: PO; bb 19:40 Follow up: Response: No adverse reaction ak1 19:33 Drug: Tenecteplase 40 mg {Co-Signature: lp1 (Yaima Wild RN).} Route: IV; Rate: bb calculated rate; Site: right antecubital; 19:33 Follow up: IV Intake: 8ml ak1 19:41 Drug: Heparin (MO Drip) 12 units/kg/hr - (HEParin 70393 units, D5W 500 ml) bb {Co-Signature: lp1 (Yaima Wild RN).} Route: IV; Rate: calculated rate; Site: left antecubital; Disposition: 19:35 Co-signature as Attending Physician, Kwame Sanders MD. Disposition: 03/25/19 19:21 Transfer ordered to [facility]. Diagnosis is ST elevation (STEMI) myocardial infarction of anterior wall. - Reason for transfer: Higher level of care. - Accepting physician is Yaz. - Condition is Stable. - Problem is new. - Symptoms are unchanged. Critical care time excluding procedures: 19:35 Critical care time: Bedside Care: 10 minutes, Consultation: 10 minutes, Family Intervention: 10 minutes. Total time: 30 minutes Signatures: Dispatcher [employer] Magy Alarcon RN RN Catrachito Larson PA PA jmm Ballard, Brenda RN Sharona Oakley RN RN ss Krenek, Amber, RN RN ak1 Starr, Gregory, MD MD Yaima Wild RN lp1 Corrections: (The following items were deleted from the chart) 19:05 19:03 Tenecteplase 45 mg IV at 40 calculated rate once ordered. bb 19:48 19:21 03/25/2019 19:21 Transfer ordered to [facility]. Diagnosis is ak1 ST elevation (STEMI) myocardial infarction of anterior wall. Reason for transfer: Higher level of care. Accepting physician is Yaz. Condition is Stable. Problem is new. Symptoms are unchanged. marycarmen
--- NOTE | 2019-03-25 19:22 | ER ---
Nurse's Notes [facility] Name: Chad Rahman Age: 58 yrs Sex: Male : 1960 Arrival Date: 03/25/2019 Time: 18:28 Bed 6 Private MD: Diagnosis: ST elevation (STEMI) myocardial infarction of anterior wall Presentation: 03/25 18:25 Presenting complaint: Patient states: abd pain, N/V that began mid-morning today. ss Transition of care: patient was not received from another setting of care. Onset of symptoms was March 25, 2019. Risk Assessment: Do you want to hurt yourself or someone else? Patient reports no desire to harm self or others. Initial Sepsis Screen: Does the patient meet any 2 criteria? No. Patient's initial sepsis screen is negative. Does the patient have a suspected source of infection? No. Patient's initial sepsis screen is negative. Care prior to arrival: None. 18:25 Method Of Arrival: Wheelchair ss 18:25 Acuity: ROSALIA 3 ss Historical: - Allergies: 18:31 No Known Allergies; ss - Home Meds: 18:31 None [Active]; ss - PMHx: 18:31 Myocardial infarction; ss - PSHx: 18:31 unknown cardiac stents; ss - Immunization history:: Adult Immunizations up to date. - Social history:: Smoking status: Patient uses tobacco products, denies chronic smoking, but will smoke occasionally. - Ebola Screening: : Patient denies exposure to infectious person Patient denies travel to an Ebola-affected area in the 21 days before illness onset. Screenin:31 Abuse screen: Denies threats or abuse. Denies injuries from another. Nutritional hb screening: No deficits noted. Tuberculosis screening: No symptoms or risk factors identified. Fall Risk None identified. Assessment: 18:30 General: Appears in no apparent distress. uncomfortable, well developed, Behavior is sv cooperative, appropriate for age. Pain: Complains of pain in epigastric area Pain currently is 8 out of 10 on a pain scale. Pain began this morning Is continuous. Neuro: Level of Consciousness is awake, alert, obeys commands, Oriented to person, place, time, situation, Moves all extremities. Full function Speech is normal. Cardiovascular: Patient's skin is warm and dry. Pulses are 3+ in right brachial artery and left brachial artery Rhythm is sinus rhythm. Respiratory: Airway is patent Respiratory effort is even, unlabored, Respiratory pattern is regular, symmetrical. GI: Abdomen is flat, Abd is soft X 4 quads Reports nausea, vomiting. Derm: Skin is normal. 19:46 GI: ak1 Vital Signs: 18:31 BP 136 / 95; Pulse 67; Resp 15; Pulse Ox 100% on R/A; hb 18:31 Weight 73.03 kg; Height 5 ft. 8 in. (172.72 cm); Pain 8/10; ss 19:10 Temp 97.4(TE); bb 19:19 Weight 75.2 kg (M); ak1 19:33 BP 145 / 99; Pulse 68; Resp 20; Temp 97.4; Pulse Ox 100% on 2 lpm NC; ak1 19:19 Body Mass Index 25.21 (75.20 kg, 172.72 cm) ak1 ED Course: 18:28 Patient arrived in ED. mr 18:30 Triage completed. ss 18:30 Catrachito Saravia PA is PHCP. [facility] 18:30 Kwame Sanders MD is Attending Physician. [facility] 18:30 Initial lab(s) drawn, by wi, sent to lab. Inserted saline lock: 18 gauge in right sv antecubital area, using aseptic technique. Blood collected. Flushed right antecubital with 5 ml normal saline. 18:31 Magy Mak, RN is Primary Nurse. sv 18:31 Arm band placed on. hb 18:31 Patient has correct armband on for positive identification. Bed in low position. Call hb light in reach. Side rails up X 1. gambling monitor on. Pulse ox on. NIBP on. 18:48 Inserted saline lock: 20 gauge in left antecubital area, using aseptic technique. hb 19:02 Report given to Temitope RN and Temitope RN. sv 19:03 Primary Nurse role handed off by Magy Mak, EBONI sv 19:08 X-ray completed. Portable x-ray completed in exam room. Patient tolerated procedure mh1 well. 19:10 XRAY Chest (1 view) In Process Unspecified. EDMS 19:11 Fe Le, RN is Primary Nurse. ak1 19:13 Notified ED physician of a critical lab result(s). 1.30 trop. ak1 19:15 Tenecteplase consent signed. ak1 19:45 No provider procedures requiring assistance completed. Missed attempt(s): 20 gauge in ak1 right forearm. 19:46 Patient transferred, IV remains in place. ak1 Administered Medications: 18:40 Drug: Aspirin Chewable Tablet 324 mg Route: PO; sv 18:49 Follow up: Response: No adverse reaction sv 18:45 Drug: Zofran 4 mg Route: IVP; Site: right antecubital; sv 20:48 Follow up: Response: No adverse reaction ak1 18:47 Drug: fentaNYL (PF) 50 mcg Route: IVP; Site: right antecubital; sv 20:49 Follow up: Response: No adverse reaction ak1 18:52 Drug: NS 0.9% 1000 ml Route: IV; Rate: 1 bolus; Site: left antecubital; sv 19:05 CANCELLED (Physician Discretion): Tenecteplase 45 mg IV at 40 calculated rate once bb 19:15 Drug: Heparin (PR-Bolus with thrombolytic) - HEParin 60 units/kg {Co-Signature: iqra1 ruba (Yaima Wild RN).} Route: IVP; Site: left antecubital; 19:40 Follow up: Response: No adverse reaction ak1 19:15 Drug: PlaVIX 300 mg Route: PO; bb 19:40 Follow up: Response: No adverse reaction ak1 19:33 Drug: Tenecteplase 40 mg {Co-Signature: iqra1 (Yaima Wild RN).} Route: IV; Rate: bb calculated rate; Site: right antecubital; 19:33 Follow up: IV Intake: 8ml ak1 19:41 Drug: Heparin (PR Drip) 12 units/kg/hr - (HEParin 25011 units, D5W 500 ml) bb {Co-Signature: lp1 (Yaima Wild RN).} Route: IV; Rate: calculated rate; Site: left antecubital; Intake: 19:33 IV: 8ml; Total: 8ml. ak1 Outcome: 19:21 ER care complete, transfer ordered by . marycarmen 19:47 Transferred by helicopter to [facility], Transfer form completed. ak1 X-rays sent w/ patient. Note: pt transferred to [facility]. report given to Latrell LYN for [facility] geophysical [facility], report given to Carrillo Nichols telesales agent with [employer]. 19:47 critical 19:47 Instructed on the need for transfer. 19:48 Patient left the ED. ak1 Signatures: Dispatcher [employer] EDMagy Rodriguez, RN RN Catrachito Larson PA PA jmm Rivera, Mary mr Nivia Reynolds 1 Jossy Phillips RN RN bb Sharona Robert RN RN Fe Le RN RN ak1 Maryam Lemus RN RN Yaima Wild RN lp1
--- NOTE | 2019-03-25 19:45 | RAD REPORT ---
EXAM DESCRIPTION: RAD - Chest Single View - 03/25/2019 7:11 pm CLINICAL HISTORY: Chest pain COMPARISON: August 1018 TECHNIQUE: AP portable chest image was obtained 1907 hours . FINDINGS: Lungs are clear. Heart and vasculature are normal. No measurable pleural effusion and no p neumothorax. No acute bony abnormality seen. No acute aortic findings suspected. IMPRESSION: No acute cardiopulmonary process.
--- NOTE | 2019-03-26 16:53 | EKG ---
Test Date: 2019-03-25 Test Time: 18:34:43 Sales Service Representative: MEASUREMENT RESULTS: Intervals: Rate: 72 NM: 168 QRSD: 80 QT: 498 QTc: 545 [place]: P: 36 NM: 168 QRS: 36 T: 69 INTERPRETIVE STATEMENTS: Normal sinus rhythm Anteroseptal infarct, possibly acute T wave abnormality, consider lateral ischemia Prolonged QT ST abnormality possibly due to LV aneurysm Abnormal ECG Compared to ECG 08/30/2018 11:59:26 T-wave abnormality now present ST less depressed in anterior leads Myocardial infarct finding still present Electronically Signed On 03-26-19 16:53:09 CDT by Connor Price
== END 2019-03-25 19:48 | disposition short-term general hospital (02) ==
LOC: ER 18:27
DX: I21.09 ST elevation (STEMI) myocardial infarction involving other coronary artery of anterior wall (principal); I25.2 Old myocardial infarction; Z72.0 Tobacco use; Z95.818 Presence of other cardiac implants and grafts
CPT/HCPCS: 36415; 71045; 80048; 80076; 83735; 83880; 84484; 85025; 85610; 93005; J1644; J2405; J3010; J3101; J7030

== ENCOUNTER 2021-06-09 14:38 | Inpatient (IN) | payer SELFPAY ==
--- OUTSIDE RECORDS SUMMARY | 2021-06-09 14:41 | XMS REPORT | Continuity of Care Document ---
:1960 Author Organization [facility] t Address [address] [place] [address] Care Team Providers Name Role Phone SRAVANI HOLDEN Attending Clinician Unavailable SRAVANI HOLDEN Admitting Clinician Unavailable Problems Condition Condition Condition Status Onset Resolution Last Treating Co mments Source Name Details Category Date Date Treatment Clinician Date ST ST Disease Active [facility] - [facility] - myocardial myocardial 00:00: Me dical infarction infarction 00 Ce nter involving involving left left anterior anterior descending descending (LAD) (LAD) coronary coronary artery artery Allergies, Adverse Reactions, Alerts This patient has no known allergies or adverse reactions. Social History Social Habit Start Date Stop Date Quantity Comments Source History [facility] - Alcohol Binge Medical [facility] Sex Assigned At [facility] History [facility] - Alcohol Std Drinks [facility] Cigarettes smoked 2019-03-31 2019-03-[address] [facility] - current (pack per 00:00:00 00:00:00 [facility] day) - Reported Cigarette 2019-03-31 2019-03-[address] [facility] - pack-years 00:00:00 00:00:00 [facility] Tobacco use and 2019-03-31 2019-03-31 Never used [facility] - exposure 00:00:00 00:00:00 [facility] Alcohol intake 2019-03-31 2019-03-[address] [facility] - 00:00:00 00:00:00 non-drinker of Medical Ce nter alcohol (finding) History SDOH 2019-03-27 2019-03-[address] [facility] - Alcohol Frequency 00:00:00 00:00:00 [facility] Smoking Status Start Date Stop Date Source Current some day smoker 2019-03-31 00:00:[address] [facility] - [facility] Medications Ordered Filled Start Stop Current Ordering Indication Dosage Frequency Signature Comments Components Source Medication Medication Date Date Medication? Clinician (SIG) Name Name rivaroxaban Yes 20mg Take [address] (XARELTO) 5-03 tablet (20 [facility] - 20 mg Tab 00:00: mg total) Med ical tablet 00 by mouth Center daily with dinner. Procedures This patient has no known procedures. Plan of Care Planned Activity Planned Date Details Comments Source Future Scheduled 2022-03-[address] [facility] - Test 00:00:00 (procedure) [code = [facility] [id number]] Future Scheduled 2020-11-[address] [facility] - Test 00:00:00 (12+) [code = [facility] DEPRESSION SCREENING (12+)] Future Scheduled 2020-07-27 INFLUENZA VACCINE (#1) [facility] 00:[facility]:00 [code = INFLUENZA Medical Ce nter VACCINE (#1)] Future Scheduled 2008 SHINGLES VACCINES ([address] [facility] - Test 00:00:00 of 2) [code = SHINGLES Medic al Center VACCINES (1 of 2)] Future Scheduled 1977 DTAP/TDAP/TD VACCINES [facility] Test 00:00:00 (1 - Tdap) [code = Medical C enter DTAP/TDAP/TD VACCINES (1 - Tdap)] Future Scheduled 1976 HEPATITIS C [facility]CRE[facility]ING [facility] Test 00:00:00 [code = HEPATITIS C Medical Center SCREENING] Future Scheduled [address] [facility] - Test 00:00:00 0-64 YRS (1 of 1 - Medical C enter PPSV23) [code = PNEUMOCOCCAL VACCINE 0-64 YRS (1 of 1 - PPSV23)] Future Scheduled [address] [facility] - Test 00:00:00 malignant neoplasm of Medica l Center colon (procedure) [code = 166314485] Results Test Description Test Time Test Comments Results Result Comments Source MAGNESIUM 2019-03-28 06:18:00 Test Item Value Reference Range Interpretation Comme nts MAGNESIUM (BEAKER) (test code = 627) 1.9 mg/dL 1.6-2.6 BASIC METABOLIC [id number] 06:18:00 Test Item Value Reference Range Interpretation Comments SODIUM (BEAKER) 138 meq/L 136-145 (test code = 381) POTASSIUM (BEAKER) 4.0 meq/L 3.5-5.1 (test code = 379) CHLORIDE (BEAKER) 106 meq/L 98-107 (test code = 382) CO2 (BEAKER) (test 26 meq/L 22-29 code = 355) BLOOD UREA NITROGEN 19 mg/dL 7-21 (BEAKER) (test code = 354) CREATININE (BEAKER) 1.00 mg/dL 0.57-1.25 (test code = 358) GLUCOSE RANDOM 96 mg/dL 70-105 (BEAKER) (test code = 652) CALCIUM (BEAKER) 8.9 mg/dL 8.4-10.2 (test code = 697) EGFR (BEAKER) (test 92 mL/min/1.73 ESTIMA SIMIN GFR IS code = 1092) sq m NOT ACCURATE CREATININE CLEARANCE IN PREDICTING GLOMERULAR FILTRATION RATE . ESTIMATED GFR I S NOT APPLICABLE FOR DIALYSIS PATIEN TS. [id number] 06:01:00 Test Item Value Reference Range Interpretation Comments PARTIAL THROMBOPLASTIN TIME 39.4 seconds 22.5-36.0 H (BEAKER) (test code = 760) 6 hours after starting heparin infusion and as indicated per sliding scaleCBC W/PLT COUNT & AUTO [id number] 05:54:00 Test Item Value Reference Range Interpretation Comments WHITE BLOOD CELL COUNT (BEAKER) 8.2 K/ L 3.5-10.5 (test code = 775) RED BLOOD CELL COUNT (BEAKER) 4.41 M/ L 4.63-6.08 L (test code = 761) HEMOGLOBIN (BEAKER) (test code = 12.5 GM/DL 13.7-17.5 L 410) HEMATOCRIT (BEAKER) (test code = 39.1 % 40.1-51.0 L 411) MEAN CORPUSCULAR VOLUME (BEAKER) 88.7 fL 79.0-92.2 (test code = 753) MEAN CORPUSCULAR HEMOGLOBIN 28.3 pg 25.7-32.2 (BEAKER) (test code = 751) MEAN CORPUSCULAR HEMOGLOBIN CONC 32.0 GM/DL 32.3-36.5 L (BEAKER) (test code = 752) RED CELL DISTRIBUTION WIDTH 15.6 % 11.6-14.4 H (BEAKER) (test code = 412) PLATELET COUNT (BEAKER) (test 271 K/CU MM 150-450 code = 756) MEAN PLATELET VOLUME (BEAKER) 9.9 fL 9.4-12.4 (test code = 754) NUCLEATED RED BLOOD CELLS 0 /100 WBC 0-0 (BEAKER) (test code = 413) NEUTROPHILS RELATIVE PERCENT 58 % (BEAKER) (test code = 429) LYMPHOCYTES RELATIVE PERCENT 31 % (BEAKER) (test code = 430) MONOCYTES RELATIVE PERCENT 9 % (BEAKER) (test code = 431) EOSINOPHILS RELATIVE PERCENT 0 % (BEAKER) (test code = 432) BASOPHILS RELATIVE PERCENT 0 % (BEAKER) (test code = 437) NEUTROPHILS ABSOLUTE COUNT 4.76 K/ L 1.78-5.38 (BEAKER) (test code = 670) LYMPHOCYTES ABSOLUTE COUNT 2.56 K/ L 1.32-3.57 (BEAKER) (test code = 414) MONOCYTES ABSOLUTE COUNT (BEAKER) 0.75 K/ L 0.30-0.82 (test code = 415) EOSINOPHILS ABSOLUTE COUNT 0.03 K/ L 0.04-0.54 L (BEAKER) (test code = 416) BASOPHILS ABSOLUTE COUNT (BEAKER) 0.02 K/ L 0.01-0.08 (test code = 417) IMMATURE GRANULOCYTES-RELATIVE 0 % 0-1 PERCENT (BEAKER) (test code = 2801) [id number] 11:15:00 Test Item Value Reference Range Interpretation Comments PARTIAL THROMBOPLASTIN TIME 92.3 seconds 22.5-36.0 H (BEAKER) (test code = 760) TROPONIN [id number] 05:41:00 Test Item Value Reference Range Interpretation Comments TROPONIN I (BEAKER) (test code = 31.56 ng/mL 0.00-0.03 HH [facility]) Troponin I (TnI) levels must be interpreted in the context of the presenting symptoms and the clinical findings. Elevated TnI levels indicate myocardial damage, but are not specific for ischemic heart disease. Elevated TnI levels are seen in patients with other cardiac conditions (including myocarditis and congestive heart failure), and slight TnI elevations occur in patients with other conditions, including sepsis, renal failure, acidosis, acute neurological disease, and persistent tachyarrhythmia.[id number] 04:09:00 Test Item Value Reference Range Interpretation Comments MAGNESIUM (BEAKER) (test code = 1.9 mg/dL 1.6-2.6 627) BASIC METABOLIC [id number] 04:09:00 Test Item Value Reference Range Interpretation Comments SODIUM (BEAKER) 139 meq/L 136-145 (test code = 381) POTASSIUM (BEAKER) 3.8 meq/L 3.5-5.1 (test code = 379) CHLORIDE (BEAKER) 105 meq/L 98-107 (test code = 382) CO2 (BEAKER) (test 27 meq/L 22-29 code = 355) BLOOD UREA NITROGEN 16 mg/dL 7-21 (BEAKER) (test code = 354) CREATININE (BEAKER) 1.03 mg/dL 0.57-1.25 (test code = 358) GLUCOSE RANDOM 82 mg/dL 70-105 (BEAKER) (test code = 652) CALCIUM (BEAKER) 9.3 mg/dL 8.4-10.2 (test code = 697) EGFR (BEAKER) (test 89 mL/min/1.73 ESTIMA SIMIN GFR IS code = 1092) sq m NOT ACCURATE CREATININE CLEARANCE IN PREDICTING GLOMERULAR FILTRATION RATE . ESTIMATED GFR I S NOT APPLICABLE FOR DIALYSIS PATIEN TS. HEPATIC FUNCTION [id number] 04:09:00 Test Item Value Reference Range Interpretation Comments TOTAL PROTEIN (BEAKER) (test code = 7.0 gm/dL 6.0-8.3 770) ALBUMIN (BEAKER) (test code = 1145) 3.6 g/dL 3.5-5.0 BILIRUBIN TOTAL (BEAKER) (test code 1.0 mg/dL 0.2-1.2 = 377) BILIRUBIN DIRECT (BEAKER) (test 0.3 mg/dL 0.1-0.5 code = 706) ALKALINE PHOSPHATASE (BEAKER) (test 35 U/L 40-150 L code = 346) AST (SGOT) (BEAKER) (test code = 126 U/L 5-34 H 353) ALT (SGPT) (BEAKER) (test code = 25 U/L 6-55 347) [id number] 03:36:00 Test Item Value Reference Range Interpretation Comments PARTIAL THROMBOPLASTIN TIME 57.8 seconds 22.5-36.0 H (BEAKER) (test code = 760) CBC W/PLT COUNT & AUTO [id number] 03:16:00 Test Item Value Reference Range Interpretation Comments WHITE BLOOD CELL COUNT (BEAKER) 9.6 K/ L 3.5-10.5 (test code = 775) RED BLOOD CELL COUNT (BEAKER) 4.13 M/ L 4.63-6.08 L (test code = 761) HEMOGLOBIN (BEAKER) (test code = 11.8 GM/DL 13.7-17.5 L 410) HEMATOCRIT (BEAKER) (test code = 36.1 % 40.1-51.0 L 411) MEAN CORPUSCULAR VOLUME (BEAKER) 87.4 fL 79.0-92.2 (test code = 753) MEAN CORPUSCULAR HEMOGLOBIN 28.6 pg 25.7-32.2 (BEAKER) (test code = 751) MEAN CORPUSCULAR HEMOGLOBIN CONC 32.7 GM/DL 32.3-36.5 (BEAKER) (test code = 752) RED CELL DISTRIBUTION WIDTH 15.7 % 11.6-14.4 H (BEAKER) (test code = 412) PLATELET COUNT (BEAKER) (test 259 K/CU MM 150-450 code = 756) MEAN PLATELET VOLUME (BEAKER) 10.1 fL 9.4-12.4 (test code = 754) NUCLEATED RED BLOOD CELLS 0 /100 WBC 0-0 (BEAKER) (test code = 413) NEUTROPHILS RELATIVE PERCENT 63 % (BEAKER) (test code = 429) LYMPHOCYTES RELATIVE PERCENT 27 % (BEAKER) (test code = 430) MONOCYTES RELATIVE PERCENT 9 % (BEAKER) (test code = 431) EOSINOPHILS RELATIVE PERCENT 0 % (BEAKER) (test code = 432) BASOPHILS RELATIVE PERCENT 0 % (BEAKER) (test code = 437) NEUTROPHILS ABSOLUTE COUNT 6.10 K/ L 1.78-5.38 H (BEAKER) (test code = 670) LYMPHOCYTES ABSOLUTE COUNT 2.59 K/ L 1.32-3.57 (BEAKER) (test code = 414) MONOCYTES ABSOLUTE COUNT (BEAKER) 0.88 K/ L 0.30-0.82 H (test code = 415) EOSINOPHILS ABSOLUTE COUNT 0.00 K/ L 0.04-0.54 L (BEAKER) (test code = 416) BASOPHILS ABSOLUTE COUNT (BEAKER) 0.01 K/ L 0.01-0.08 (test code = 417) IMMATURE GRANULOCYTES-RELATIVE 0 % 0-1 PERCENT (BEAKER) (test code = 2801) [id number] 17:05:00 Test Item Value Reference Range Interpretation Comments PROTIME (BEAKER) (test code = 14.4 seconds 11.7-14.7 759) INR (BEAKER) (test code = 370) 1.2 <=5.9 PARTIAL THROMBOPLASTIN TIME 31.0 seconds 22.5-36.0 (BEAKER) (test code = 760) RECOMMENDED COUMADIN/WARFARIN INR THERAPY RANGESSTANDARD DOSE: 2.0 - 3.0 Includes: PROPHYLAXIS forvenous thrombosis, systemic embolization; TREATMENT for venous thrombosis and/or pulmonary embolus.HIGH RISK: Target INR is 2.5-3.5 for patients with mechanical heart valves.PROTHROMBIN [id number] 17:04:00 Test Item Value Reference Range Interpretation Comments PROTIME (BEAKER) (test code = 14.4 seconds 11.7-14.7 759) INR (BEAKER) (test code = 370) 1.2 <=5.9 RECOMMENDED COUMADIN/WARFARIN INR THERAPY RANGESSTANDARD DOSE: 2.0 - 3.0 Includes: PROPHYLAXIS forvenous thrombosis, systemic embolization; TREATMENT for venous thrombosis and/or pulmonary embolus.HIGH RISK: Target INR is 2.5-3.5 for patients with mechanical heart valves.CBC W/PLT COUNT & AUTO DIFFERENTIAL 2019-03-26 16:50:00 Test Item Value Reference Range Interpretation Comments WHITE BLOOD CELL COUNT (BEAKER) 10.2 K/ L 3.5-10.5 (test code = 775) RED BLOOD CELL COUNT (BEAKER) 4.17 M/ L 4.63-6.08 L (test code = 761) HEMOGLOBIN (BEAKER) (test code = 12.0 GM/DL 13.7-17.5 L 410) HEMATOCRIT (BEAKER) (test code = 36.7 % 40.1-51.0 L 411) MEAN CORPUSCULAR VOLUME (BEAKER) 88.0 fL 79.0-92.2 (test code = 753) MEAN CORPUSCULAR HEMOGLOBIN 28.8 pg 25.7-32.2 (BEAKER) (test code = 751) MEAN CORPUSCULAR HEMOGLOBIN CONC 32.7 GM/DL 32.3-36.5 (BEAKER) (test code = 752) RED CELL DISTRIBUTION WIDTH 15.8 % 11.6-14.4 H (BEAKER) (test code = 412) PLATELET COUNT (BEAKER) (test 272 K/CU MM 150-450 code = 756) MEAN PLATELET VOLUME (BEAKER) 10.1 fL 9.4-12.4 (test code = 754) NUCLEATED RED BLOOD CELLS 0 /100 WBC 0-0 (BEAKER) (test code = 413) NEUTROPHILS RELATIVE PERCENT 80 % (BEAKER) (test code = 429) LYMPHOCYTES RELATIVE PERCENT 12 % (BEAKER) (test code = 430) MONOCYTES RELATIVE PERCENT 8 % (BEAKER) (test code = 431) EOSINOPHILS RELATIVE PERCENT 0 % (BEAKER) (test code = 432) BASOPHILS RELATIVE PERCENT 0 % (BEAKER) (test code = 437) NEUTROPHILS ABSOLUTE COUNT 8.15 K/ L 1.78-5.38 H (BEAKER) (test code = 670) LYMPHOCYTES ABSOLUTE COUNT 1.24 K/ L 1.32-3.57 L (BEAKER) (test code = 414) MONOCYTES ABSOLUTE COUNT (BEAKER) 0.79 K/ L 0.30-0.82 (test code = 415) EOSINOPHILS ABSOLUTE COUNT 0.00 K/ L 0.04-0.54 L (BEAKER) (test code = 416) BASOPHILS ABSOLUTE COUNT (BEAKER) 0.01 K/ L 0.01-0.08 (test code = 417) IMMATURE GRANULOCYTES-RELATIVE 0 % 0-1 PERCENT (BEAKER) (test code = 2801) TROPONIN [id number] 15:28:00 Test Item Value Reference Range Interpretation Comments TROPONIN I (BEAKER) (test code = 37.53 ng/mL 0.00-0.03 HH 397) Troponin I (TnI) levels must be interpreted in the context of the presenting symptoms and the clinical findings. Elevated TnI levels indicate myocardial damage, but are not specific for ischemic heart disease. Elevated TnI levels are seen in patients with other cardiac conditions (including myocarditis and congestive heart failure), and slight TnI elevations occur in patients with other conditions, including sepsis, renal failure, acidosis, acute neurological disease, and persistent tachyarrhythmia.HEMOGLOBIN [id number] 12:07:00 Test Item Value Reference Range Interpretation Comments HEMOGLOBIN A1C (BEAKER) (test code = 5.6 % 4.3-6.1 368) RAD, CHEST, 1 VIEW, NON [id number] 07:27:00Reason for exam:->chest painShould this be performed at the bedside?->YesFINAL REPORT Portable chest 03/26/2019, 0349 hours COMPARISON: None The lungs appear clear. Heart and mediastinal structures are within normal limits. No pleural effusions are seen. No significant osseous abnormalities are identified although there are some degenerative changes inboth acromioclavicular joints. Signed: Harry Green [facility] Verified Date/Time: 03/26/2019 07:27:22 Reading Location: [facility] Radiology Reading Room B-TYPE NATRIURETIC FACTOR (BNP) 2019-03-26 05:27:00 Test Item Value Reference Range Interpretation Comments B-TYPE NATRIURETIC PEPTIDE (BEAKER) 798 pg/mL 0-100 H (test code = 700) [id number] 05:22:00 Test Item Value Reference Range Interpretation Comments MAGNESIUM (BEAKER) 1.8 mg/dL 1.6-2.6 Specimen slightly (test code = 627) hemolyzed BASIC METABOLIC [id number] 05:22:00 Test Item Value Reference Range Interpretation Comments SODIUM (BEAKER) 136 meq/L 136-145 (test code = 381) POTASSIUM (BEAKER) 4.0 meq/L 3.5-5.1 Specimen slightly (test code = 379) hemolyzed CHLORIDE (BEAKER) 105 meq/L 98-107 (test code = 382) CO2 (BEAKER) (test 21 meq/L 22-29 L code = 355) BLOOD UREA NITROGEN 17 mg/dL 7-21 (BEAKER) (test code = 354) CREATININE (BEAKER) 0.83 mg/dL 0.57-1.25 Specimen slightly (test code = 358) hemolyzed GLUCOSE RANDOM 116 mg/dL 70-105 H (BEAKER) (test code = 652) CALCIUM (BEAKER) 9.2 mg/dL 8.4-10.2 (test code = 697) EGFR (BEAKER) (test 115 mL/min/1.73 ESTIM ATED GFR IS code = 1092) sq m NOT ACCURATE CREATININE CLEARANCE IN PREDICTING GLOMERULAR FILTRATION RATE . ESTIMATED GFR I S NOT APPLICABLE FOR DIALYSIS PATIEN TS. CBC W/PLT COUNT & AUTO [id number] 05:07:00 Test Item Value Reference Range Interpretation Comments WHITE BLOOD CELL COUNT (BEAKER) 9.6 K/ L 3.5-10.5 (test code = 775) RED BLOOD CELL COUNT (BEAKER) 4.04 M/ L 4.63-6.08 L (test code = 761) HEMOGLOBIN (BEAKER) (test code = 11.4 GM/DL 13.7-17.5 L 410) HEMATOCRIT (BEAKER) (test code = 35.2 % 40.1-51.0 L 411) MEAN CORPUSCULAR VOLUME (BEAKER) 87.1 fL 79.0-92.2 (test code = 753) MEAN CORPUSCULAR HEMOGLOBIN 28.2 pg 25.7-32.2 (BEAKER) (test code = 751) MEAN CORPUSCULAR HEMOGLOBIN CONC 32.4 GM/DL 32.3-36.5 (BEAKER) (test code = 752) RED CELL DISTRIBUTION WIDTH 15.5 % 11.6-14.4 H (BEAKER) (test code = 412) PLATELET COUNT (BEAKER) (test 260 K/CU MM 150-450 code = 756) MEAN PLATELET VOLUME (BEAKER) 10.0 fL 9.4-12.4 (test code = 754) NUCLEATED RED BLOOD CELLS 0 /100 WBC 0-0 (BEAKER) (test code = 413) NEUTROPHILS RELATIVE PERCENT 79 % (BEAKER) (test code = 429) LYMPHOCYTES RELATIVE PERCENT 14 % (BEAKER) (test code = 430) MONOCYTES RELATIVE PERCENT 7 % (BEAKER) (test code = 431) EOSINOPHILS RELATIVE PERCENT 0 % (BEAKER) (test code = 432) BASOPHILS RELATIVE PERCENT 0 % (BEAKER) (test code = 437) NEUTROPHILS ABSOLUTE COUNT 7.59 K/ L 1.78-5.38 H (BEAKER) (test code = 670) LYMPHOCYTES ABSOLUTE COUNT 1.34 K/ L 1.32-3.57 (BEAKER) (test code = 414) MONOCYTES ABSOLUTE COUNT (BEAKER) 0.65 K/ L 0.30-0.82 (test code = 415) EOSINOPHILS ABSOLUTE COUNT 0.00 K/ L 0.04-0.54 L (BEAKER) (test code = 416) BASOPHILS ABSOLUTE COUNT (BEAKER) 0.00 K/ L 0.01-0.08 L (test code = 417) IMMATURE GRANULOCYTES-RELATIVE 1 % 0-1 PERCENT (BEAKER) (test code = 2801) [id number] 00:56:00 Test Item Value Reference Range Interpretation Comments PARTIAL THROMBOPLASTIN TIME > seconds 22.5-36.0 HH (BEAKER) (test code = 760) TROPONIN [id number] 00:36:00 Test Item Value Reference Range Interpretation Comments TROPONIN I (BEAKER) (test code = 23.60 ng/mL 0.00-0.03 HH 397) Troponin I (TnI) levels must be interpreted in the context of the presenting symptoms and the clinical findings. Elevated TnI levels indicate myocardial damage, but are not specific for ischemic heart disease. Elevated TnI levels are seen in patients with other cardiac conditions (including myocarditis and congestive heart failure), and slight TnI elevations occur in patients with other conditions, including sepsis, renal failure, acidosis, acute neurological disease, and persistent tachyarrhythmia.PROTHROMBIN [id number] 00:28:00 Test Item Value Reference Range Interpretation Comments PROTIME (BEAKER) (test code = 35.8 seconds 11.7-14.7 H 759) INR (BEAKER) (test code = 370) 3.9 <=5.9 RECOMMENDED COUMADIN/WARFARIN INR THERAPY RANGESSTANDARD DOSE: 2.0 - 3.0 Includes: PROPHYLAXIS forvenous thrombosis, systemic embolization; TREATMENT for venous thrombosis and/or pulmonary embolus.HIGH RISK: Target INR is 2.5-3.5 for patients with mechanical heart valves.[id number] 00:25:00 Test Item Value Reference Range Interpretation Comments MAGNESIUM (BEAKER) (test code = 1.7 mg/dL 1.6-2.6 627) COMPREHENSIVE METABOLIC [id number] 00:25:00 Test Item Value Reference Range Interpretation Comments TOTAL PROTEIN 7.5 gm/dL 6.0-8.3 (BEAKER) (test code = 770) ALBUMIN (BEAKER) 3.9 g/dL 3.5-5.0 (test code = 1145) ALKALINE PHOSPHATASE 39 U/L 40-150 L (BEAKER) (test code = 346) BILIRUBIN TOTAL 1.0 mg/dL 0.2-1.2 (BEAKER) (test code = 377) SODIUM (BEAKER) (test 139 meq/L 136-145 code = 381) POTASSIUM (BEAKER) 4.0 meq/L 3.5-5.1 (test code = 379) CHLORIDE (BEAKER) 107 meq/L 98-107 (test code = 382) CO2 (BEAKER) (test 20 meq/L 22-29 L code = 355) BLOOD UREA NITROGEN 15 mg/dL 7-21 (BEAKER) (test code = 354) CREATININE (BEAKER) 0.96 mg/dL 0.57-1.25 (test code = 358) GLUCOSE RANDOM 126 mg/dL 70-105 H (BEAKER) (test code = 652) CALCIUM (BEAKER) 9.4 mg/dL 8.4-10.2 (test code = 697) AST (SGOT) (BEAKER) 90 U/L 5-34 H (test code = 353) ALT (SGPT) (BEAKER) 13 U/L 6-55 (test code = 347) EGFR (BEAKER) (test 97 mL/min/1.73 ESTIMA SIMIN GFR IS code = 1092) sq m NOT ACCURATE CREATININE CLEARANCE IN PREDICTING GLOMERULAR FILTRATION RATE . ESTIMATED GFR I S NOT APPLICABLE FOR DIALYSIS PATIEN TS. LIPID [id number] 00:25:00 Test Item Value Reference Range Interpretation Comments TRIGLYCERIDES (BEAKER) (test code = 52 mg/dL 540) CHOLESTEROL (BEAKER) (test code = 165 mg/dL 631) HDL CHOLESTEROL (BEAKER) (test code 35 mg/dL = 976) LDL CHOLESTEROL CALCULATED (BEAKER) 120 mg/dL (test code = 633) Triglyceride Reference Range: Low Risk <150 Borderline 150-199 High Risk 200-499 Very High Risk >=500Cholesterol Reference Range: Low Risk <200 Borderline 200-239 High Risk >240HDL Cholesterol Reference Range: Low Risk >=60 High Risk <40LDL Cholesterol Reference Range: Optimal <100 Near Optimal 100-129 Borderline 130-159 High 160-189 Very High >=190CBC W/PLT COUNT & AUTO [id number] 00:18:00 Test Item Value Reference Range Interpretation Comments WHITE BLOOD CELL COUNT (BEAKER) 9.7 K/ L 3.5-10.5 (test code = 775) RED BLOOD CELL COUNT (BEAKER) 4.51 M/ L 4.63-6.08 L (test code = 761) HEMOGLOBIN (BEAKER) (test code = 13.0 GM/DL 13.7-17.5 L 410) HEMATOCRIT (BEAKER) (test code = 40.1 % 40.1-51.0 411) MEAN CORPUSCULAR VOLUME (BEAKER) 88.9 fL 79.0-92.2 (test code = 753) MEAN CORPUSCULAR HEMOGLOBIN 28.8 pg 25.7-32.2 (BEAKER) (test code = 751) MEAN CORPUSCULAR HEMOGLOBIN CONC 32.4 GM/DL 32.3-36.5 (BEAKER) (test code = 752) RED CELL DISTRIBUTION WIDTH 15.8 % 11.6-14.4 H (BEAKER) (test code = 412) PLATELET COUNT (BEAKER) (test 298 K/CU MM 150-450 code = 756) MEAN PLATELET VOLUME (BEAKER) 9.9 fL 9.4-12.4 (test code = 754) NUCLEATED RED BLOOD CELLS 0 /100 WBC 0-0 (BEAKER) (test code = 413) NEUTROPHILS RELATIVE PERCENT 83 % (BEAKER) (test code = 429) LYMPHOCYTES RELATIVE PERCENT 12 % (BEAKER) (test code = 430) MONOCYTES RELATIVE PERCENT 5 % (BEAKER) (test code = 431) EOSINOPHILS RELATIVE PERCENT 0 % (BEAKER) (test code = 432) BASOPHILS RELATIVE PERCENT 0 % (BEAKER) (test code = 437) NEUTROPHILS ABSOLUTE COUNT 8.10 K/ L 1.78-5.38 H (BEAKER) (test code = 670) LYMPHOCYTES ABSOLUTE COUNT 1.15 K/ L 1.32-3.57 L (BEAKER) (test code = 414) MONOCYTES ABSOLUTE COUNT (BEAKER) 0.46 K/ L 0.30-0.82 (test code = 415) EOSINOPHILS ABSOLUTE COUNT 0.00 K/ L 0.04-0.54 L (BEAKER) (test code = 416) BASOPHILS ABSOLUTE COUNT (BEAKER) 0.00 K/ L 0.01-0.08 L (test code = 417) IMMATURE GRANULOCYTES-RELATIVE 0 % 0-1 PERCENT (BEAKER) (test code = 9967)
[2021-06-09] MEDS ORDERED: ONDANSETRON 4 MG/2 ML VIAL ONE (15:28)
[2021-06-09] MEDS ORDERED: MORPHINE 4 MG/ML SYR ONE ×2 (15:28→18:36)
[2021-06-09] MEDS ORDERED: NA CHLORIDE 0.9% 1,000 ML ONE ×2 (15:28→17:46)
[2021-06-09] MEDS ORDERED: FAMOTIDINE 20 MG/2 ML VIAL IV ONE (15:28)
[2021-06-09 16:08] LABS: Albumin 3.8 g/dL (3.4-5.0); Bilirubin Direct 0.1 mg/dL (0-0.2); Bilirubin Total 0.7 mg/dL (0.2-1.0); Protein, Total 8.6 g/dL (6.4-8.2)
[2021-06-09 16:09] LABS: Potassium 4.4 mmol/L (3.5-5.1)
--- NOTE | 2021-06-09 16:10 | RAD REPORT ---
EXAM DESCRIPTION: RAD - Chest Single View - 06/09/2021 3:44 pm CLINICAL HISTORY: abdominal pain COMPARISON: February 2019 TECHNIQUE: AP portable chest image was obtained 06/09/2021 3:44 pm . FINDINGS: No focal lung parenchymal process. Lung markings are similar to the prior study. Heart siz e and vasculature are normal range. Fullness along the right side of the mediastinum is believed to b e tortuous ascending aorta. Been no change from 2019. No measurable pleural effusion and no pneumothorax. No acute bony abnormality seen. No acute aortic findings suspected. IMPRESSION: No acute cardiopulmonary process. No significant change from comparison study.
--- NOTE | 2021-06-09 17:02 | RAD REPORT ---
EXAM DESCRIPTION: CT - Abdomen Pelvis W Contrast - 06/09/2021 4:39 pm CLINICAL HISTORY: epigastric and mid abdomen pain COMPARISON: No comparisons TECHNIQUE: Biphasic, helical CT imaging of the abdomen and pelvis was performed following 100 ml non -ionic IV contrast. No oral contrast administered. All CT scans are performed using dose optimization technique as appropriate and may include automated exposure control or mA/KV adjustment according to patient size. FINDINGS: No suspicious findings in the lung bases. The liver, spleen, and pancreas show no suspicious findings. Liver is borderline fatty infiltrated. N o gallbladder or biliary tree abnormality. Symmetric renal function is seen with no hydronephrosis or suspicious renal mass. No pyelonephritis o r acute parenchymal process. No bladder abnormalities. No adrenal abnormalities. A small [address] medial upper left renal cyst present. No gastric dilatation or wall thickening. Duodenal C-loop is unremarkable. The small bowel loops show no suspicious findings. Most of the colon is decompressed with no acute colon process identifiable. There is a very minimal hiatal hernia is seen. Appendix is not clearly defined. No focal abnormalitie s in the right lower quadrant. No free air, free fluid or inflammatory stranding. No mass or bulky lymphadenopathy. No omental thic kening. Small fat only inguinal hernias are present with small amount of fat extending into each No suspicious bony findings. IMPRESSION: Contrast enhanced CT abdomen and pelvis showing no acute or emergent finding.
[2021-06-09] MEDS ORDERED: PANTOPRAZOLE 40 MG INJ ONE (17:47)
[2021-06-09 17:56] LABS: Urine Blood Negative (Negative); Urine Glucose Negative (Negative); Urine Protein Negative (Negative); Urine Specific Gravity 1.015 (1.005-1.030)
[2021-06-09 18:20] LABS: Urine Bacteria NONE SEEN /HPF (NONE SEEN); Urine RBC NONE SEEN /HPF (NONE SEEN)
[2021-06-09 18:26] LABS: Barbiturates NEGATIVE (NEGATIVE); Benzodiazepines NEGATIVE (NEGATIVE); Cocaine NEGATIVE (NEGATIVE); METHAMPHETAM NEGATIVE (NEGATIVE); Methadone NEGATIVE (NEGATIVE); Opiates POSITIVE (NEGATIVE); Phencyclidine NEGATIVE (NEGATIVE); THC Cannibis POSITIVE (NEGATIVE)
--- NOTE | 2021-06-09 18:42 | ER ---
Nurse's Notes [facility] Name: Chad Rahman Age: 60 yrs Sex: Male : 1960 Arrival Date: 06/09/2021 Time: 14:41 Bed 24 Private MD: Diagnosis: Acute pancreatitis without necrosis or infection, unspecified Presentation: 06/09 14:43 Chief complaint: EMS states: Pt c/o abdominal pain that began this morning around 0400. vg1 Pt states sharp pain. Pt still has gallbladder and appendix. Coronavirus screen: Client denies travel out of the [place] in the last 14 days. Ebola Screen: Patient negative for fever greater than or equal to 101.5 degrees Fahrenheit, and additional compatible Ebola Virus Disease symptoms. Initial Sepsis Screen: Does the patient meet any 2 criteria? No. Patient's initial sepsis screen is negative. Does the patient have a suspected source of infection? No. Patient's initial sepsis screen is negative. Risk Assessment: Do you want to hurt yourself or someone else? Patient reports no desire to harm self or others. Onset of symptoms was June 09, 2021. 14:43 Method Of Arrival: EMS: [facility] vg1 14:43 Acuity: ROSALIA 3 vg1 Triage Assessment: 14:45 General: Appears in no apparent distress. uncomfortable, Behavior is calm, cooperative. vg1 Pain: Complains of pain in abdomen Pain currently is 9 out of 10 on a pain scale. Pain began this morning around 0400 Noted to be grimacing, moaning. EENT: No signs and/or symptoms were reported regarding the EENT system. Neuro: Level of Consciousness is awake, alert, obeys commands, Oriented to person, place, time, situation. Cardiovascular: Patient's skin is warm and dry. Respiratory: Airway Respiratory effort is even, unlabored. GI: Abdomen is round non-distended, Pt stated normal BM Bowel sounds present X 4 quads. Abdomen is tender to palpation X 4 quads. Reports nausea, Patient currently denies diarrhea, vomiting. : No signs and/or symptoms were reported regarding the genitourinary system. Derm: Skin is intact, is healthy with good turgor. Musculoskeletal: Circulation, motion, and sensation intact. Historical: - Allergies: 14:45 No Known Allergies; vg1 - PMHx: 14:45 Myocardial infarction; vg1 - PSHx: 14:45 Stented artery; vg1 - Immunization history:: Adult Immunizations up to date. - Social history:: Smoking status: Patient reports the use of cigarette tobacco products, denies chronic smoking, but will smoke occasionally. Screenin:48 Abuse screen: Denies threats or abuse. Nutritional screening: No deficits noted. vg1 Tuberculosis screening: No symptoms or risk factors identified. Fall Risk No fall in past 12 months (0 pts). No secondary diagnosis (0 pts). IV access (20 points). Ambulatory Aid- None/Bed Rest/Nurse Assist (0 pts). Gait- Normal/Bed Rest/Wheelchair (0 pts) Mental Status- Oriented to own ability (0 pts). Total Melendez Fall Scale indicates No Risk (0-24 pts). Assessment: 15:03 Reassessment: SEE TRIAGE. vg1 15:03 Reassessment: Pt stated last IN was 03/25/2019. vg1 16:14 Reassessment: Patient appears in no apparent distress at this time. No changes from vg1 previously documented assessment. Patient and/or family updated on plan of care and expected duration. Pain level reassessed. Patient is alert, oriented x 3, equal unlabored respirations, skin warm/dry/pink. 17:25 Reassessment: Received VO from NANCIE JACOBSON to administer Protonix 40 mg IVP x1. vg1 17:32 Reassessment: Patient appears in no apparent distress at this time. Patient and/or vg1 family updated on plan of care and expected duration. Pain level reassessed. Patient is alert, oriented x 3, equal unlabored respirations, skin warm/dry/pink. Patient states feeling better. 18:31 Reassessment: Patient appears in no apparent distress at this time. Patient and/or vg1 family updated on plan of care and expected duration. Pain level reassessed. Patient is alert, oriented x 3, equal unlabored respirations, skin warm/dry/pink. 20:22 Reassessment: Patient appears in no apparent distress at this time. Pt is resting with vg1 eyes closed. 21:52 Reassessment: Patient appears in no apparent distress at this time. Patient and/or vg1 family updated on plan of care and expected duration. Pain level reassessed. Patient is alert, oriented x 3, equal unlabored respirations, skin warm/dry/pink. Pt states is having hiccups that are causing ABD discomfort, refused morphine. Received VO from Hospitalist Cipriano, to administer GI cocktail PO x1. 22:45 Reassessment: Pt is A\T\O x 4, resp unlabored, IV to right AC intact, no erythema or bb edema noted. Report called to Mechelle LYN for room 215. Vital Signs: 14:43 BP 158 / 95; Pulse 63; Resp 18; Temp 97.5; Pulse Ox 100% ; Weight 80.74 kg; Height 5 vg1 ft. 8 in. (172.72 cm); Pain 9/10; 16:14 BP 137 / 86; Pulse 63; Resp 16; Pulse Ox 99% on R/A; vg1 17:33 BP 142 / 82; Pulse 62; Resp 14; Pulse Ox 100% ; vg1 18:30 BP 155 / 96; Pulse 77; Resp 16; Pulse Ox 100% ; vg1 19:00 BP 107 / 60; Pulse 83; Resp 14; Pulse Ox 100% on R/A; vg1 20:00 BP 122 / 82; Pulse 87; Resp 14; Pulse Ox 100% ; vg1 21:00 BP 154 / 93; Pulse 68; Resp 14; Temp 98.4(O); Pulse Ox 100% on R/A; vg1 22:48 BP 137 / 75; Pulse 73; Resp 18 S; Pulse Ox 99% on R/A; bb 14:43 Body Mass Index 27.06 (80.74 kg, 172.72 cm) vg1 ED Course: 14:41 Patient arrived in ED. am2 14:42 Jorge Davenport PA is PHCP. cp 14:42 Abdulkadir Garcia MD is Attending Physician. cp 14:43 Cherise Ambrocio, EBONI is Primary Nurse. vg1 14:45 Triage completed. vg1 14:45 Arm band placed on. vg1 14:48 Patient has correct armband on for positive identification. Bed in low position. Call vg1 light in reach. Side rails up X 1. 15:33 Inserted saline lock: 22 gauge in right antecubital area, using aseptic technique. aa5 15:44 XRAY Chest (1 view) In Process Unspecified. EDMS 16:39 CT Abd/Pelvis - IV Contrast Only In Process Unspecified. EDMS 18:41 Cipriano Rahman PA is Hospitalizing Provider. cp 22:45 No provider procedures requiring assistance completed. Patient admitted, IV remains in bb place. Administered Medications: 15:33 Drug: NS 0.9% 1000 ml Route: IV; Rate: 1 bolus; Site: right antecubital; aa5 17:31 Follow up: IV Status: Completed infusion; IV Intake: 1000ml vg1 15:33 Drug: Zofran (Ondansetron) 4 mg Route: IVP; Site: right antecubital; aa5 17:32 Follow up: Response: No adverse reaction; Marked relief of symptoms vg1 15:33 Drug: Pepcid (famotidine) 20 mg Route: IVP; Site: right antecubital; aa5 17:32 Follow up: Response: No adverse reaction vg1 15:35 Drug: morphine 4 mg Route: IVP; Site: right antecubital; aa5 17:31 Follow up: Response: No adverse reaction; Marked relief of symptoms vg1 17:31 Drug: NS 0.9% 1000 ml Route: IV; Rate: 1 bolus; Site: right antecubital; vg1 18:30 Follow up: IV Status: Completed infusion; IV Intake: 1000ml bb 17:31 Drug: ProTONIX (pantoprazole) 40 mg Route: IVP; Site: right antecubital; vg1 18:31 Follow up: Response: No adverse reaction vg1 18:25 Drug: morphine 4 mg Route: IVP; Site: right antecubital; vg1 20:23 Follow up: Response: No adverse reaction; Marked relief of symptoms vg1 22:01 Drug: GI Cocktail without - (Maalox Suspension 30 ml, Lidocaine Liquid 2 % 15 vg1 ml) Route: PO; 22:47 Follow up: Response: No adverse reaction bb Intake: 17:31 IV: 1000ml; Total: 1000ml. vg1 18:30 IV: 1000ml; Total: 2000ml. bb Outcome: 18:42 Decision to Hospitalize by Provider. cp 22:46 Admitted to Tele accompanied by tech, via wheelchair, room 215, with chart, Report bb called to Mechelle LYN 22:46 Condition: stable 22:46 Instructed on the need for admit. 23:01 Patient left the ED. bb Signatures: Dispatcher [employer] EDMervat Coronadonda, RN RN bb Carmella Salazar RN RN aa5 Jorge Davenport PA PA cp Moreno, Amanda am2 Cherise Ambrocio RN RN vg1
--- NOTE | 2021-06-09 18:42 | EDPHYS ---
Physician Documentation [facility] Name: Chad Rahman Age: 60 yrs Sex: Male : 1960 Arrival Date: 06/09/2021 Time: 14:41 Bed 24 Private MD: ED Physician Abdulkadir Garcia HPI: 06/09 14:51 This 60 yrs old Black Male presents to ER via EMS with complaints of Abdominal Pain. cp 14:51 The patient presents with abdominal pain in the epigastric area, in the periumbilical cp area. Onset: The symptoms/episode began/occurred this morning. The symptoms do not radiate. Associated signs and symptoms: Pertinent positives: nausea and vomiting, Pertinent negatives: constipation, diarrhea, fever, testicular pain, vomiting blood. The symptoms are described as throbbing. Historical: - Allergies: 14:45 No Known Allergies; vg1 - PMHx: 14:45 Myocardial infarction; vg1 - PSHx: 14:45 Stented artery; vg1 - Immunization history:: Adult Immunizations up to date. - Social history:: Smoking status: Patient reports the use of cigarette tobacco products, denies chronic smoking, but will smoke occasionally. ROS: 14:52 Cardiovascular: Negative for chest pain. cp 14:52 Abdomen/GI: Positive for abdominal pain, nausea and vomiting, Negative for hematemesis. 14:52 Eyes: Negative for injury, pain, redness, and discharge. cp 14:52 Constitutional: Negative for body aches, chills, fever, poor PO intake. 14:52 Respiratory: Negative for cough, shortness of breath, wheezing. 14:52 Neuro: Negative for altered mental status, dizziness, headache, weakness. 14:52 All other systems are negative. Exam: 14:57 Constitutional: The patient appears in no acute distress, alert, awake, cp non-diaphoretic, non-toxic, well developed, well nourished, uncomfortable. 14:57 Head/Face: Normocephalic, atraumatic. cp 14:57 Eyes: Periorbital structures: appear normal, Conjunctiva: normal, no exudate, no injection, Sclera: no appreciated abnormality, Lids and lashes: appear normal, bilaterally. 14:57 ENT: External ear(s): are unremarkable, Nose: is normal, Mouth: Lips: moist, Oral mucosa: moist, Posterior pharynx: Airway: no evidence of obstruction, patent. 14:57 Chest/axilla: Inspection: normal, Palpation: is normal, no crepitus, no tenderness. 14:57 Cardiovascular: Rate: normal, Rhythm: regular, Edema: is not appreciated, JVD: is not appreciated. 14:57 Respiratory: the patient does not display signs of respiratory distress, Respirations: normal, no use of accessory muscles, no retractions, labored breathing, is not present, Breath sounds: are clear throughout, no decreased breath sounds, no stridor, no wheezing. 14:57 Abdomen/GI: Inspection: abdomen appears normal, Bowel sounds: active, all quadrants, Palpation: soft, in all quadrants, severe abdominal tenderness, in the epigastric area and umbilical area, rebound tenderness, is not appreciated, voluntary guarding, is elicited in the epigastric area and umbilical area. 14:57 Back: ROM is normal. Vital Signs: 14:43 BP 158 / 95; Pulse 63; Resp 18; Temp 97.5; Pulse Ox 100% ; Weight 80.74 kg; Height 5 vg1 ft. 8 in. (172.72 cm); Pain 9/10; 16:14 BP 137 / 86; Pulse 63; Resp 16; Pulse Ox 99% on R/A; vg1 17:33 BP 142 / 82; Pulse 62; Resp 14; Pulse Ox 100% ; vg1 18:30 BP 155 / 96; Pulse 77; Resp 16; Pulse Ox 100% ; vg1 19:00 BP 107 / 60; Pulse 83; Resp 14; Pulse Ox 100% on R/A; vg1 20:00 BP 122 / 82; Pulse 87; Resp 14; Pulse Ox 100% ; vg1 21:00 BP 154 / 93; Pulse 68; Resp 14; Temp 98.4(O); Pulse Ox 100% on R/A; vg1 22:48 BP 137 / 75; Pulse 73; Resp 18 S; Pulse Ox 99% on R/A; bb 14:43 Body Mass Index 27.06 (80.74 kg, 172.72 cm) vg1 MDM: 14:46 Patient medically screened. cp 18:45 Data reviewed: vital signs, nurses notes, lab test result(s), radiologic studies, CT cp scan. 18:45 Differential diagnosis: AAA, bowel obstruction, cholecystitis, Cholelithiasis, cp pancreatitis, Peptic Ulcer Disease, Perf. Duodenal Ulcer, Perf. Gastric Ulcer, Ureterolithiasis, urinary tract infection. Counseling: I had a detailed discussion with the patient and/or guardian regarding: the historical points, exam findings, and any diagnostic results supporting the discharge/admit diagnosis, lab results, radiology results. Response to treatment: the patient's symptoms have markedly improved after treatment, and as a result, I will admit patient. Physician consultation: Cipriano JACOBSON was contacted at 18:45, regarding admission, to the medical/surgical unit. patient's condition. 06/09 14:51 Order name: Basic Metabolic Panel; Complete Time: 17:17 06/09 17:17 Interpretation: Normal except: CL 113; GLUC 140. 06/09 14:51 Order name: CBC with Diff 06/09 14:51 Order name: Hepatic Function; Complete Time: 17:17 06/09 18:52 Interpretation: Normal except: ALK 38; TP 8.6; GLOB 4.8; A/G 0.8. 06/09 14:51 Order name: Lipase; Complete Time: 17:17 06/09 18:51 Interpretation: Abnormal: LIP 428. 06/09 14:51 Order name: Lactate; Complete Time: 17:17 06/09 14:51 Order name: Urine Microscopic Only; Complete Time: 18:51 06/09 15:10 Order name: Magnesium 06/09 15:10 Order name: Magnesium; Complete Time: 17:17 EDCT 06/09 17:19 Order name: UDS; Complete Time: 18:51 06/09 18:52 Interpretation: Normal except: THC POSITIVE; OPI POSITIVE. 06/09 17:56 Order name: Urine Dipstick-Ancillary EDCT 06/09 17:56 Order name: Urine Dipstick-Ancillary; Complete Time: 18:25 EDCT 06/09 18:47 Order name: COVID-19 : Document "Date of Symptom Onset" if Symptomatic. vg1 06/09 18:50 Order name: Lactate Sepsis 2 HR Follow-up; Complete Time: 18:51 EDCT 06/09 20:21 Order name: SARS-COV-2 RT PCR EDCT 06/09 14:51 Order name: IV Saline Lock; Complete Time: 15:38 06/09 14:51 Order name: Labs collected and sent; Complete Time: 15:38 cp 06/09 14:51 Order name: XRAY Chest (1 view); Complete Time: 17:17 cp 06/09 14:51 Order name: Urine Dipstick-Ancillary (obtain specimen); Complete Time: 17:55 cp 06/09 15:32 Order name: CT Abd/Pelvis - IV Contrast Only; Complete Time: 17:17 cp 06/09 19:19 Order name: US Abdomen Limited: RUQ/epigastric area cp 06/09 20:33 Order name: US EDMS 06/09 20:51 Order name: CBC Smear Scan EDMS Administered Medications: 15:33 Drug: NS 0.9% 1000 ml Route: IV; Rate: 1 bolus; Site: right antecubital; aa5 17:31 Follow up: IV Status: Completed infusion; IV Intake: 1000ml vg1 15:33 Drug: Zofran (Ondansetron) 4 mg Route: IVP; Site: right antecubital; aa5 17:32 Follow up: Response: No adverse reaction; Marked relief of symptoms vg1 15:33 Drug: Pepcid (famotidine) 20 mg Route: IVP; Site: right antecubital; aa5 17:32 Follow up: Response: No adverse reaction vg1 15:35 Drug: morphine 4 mg Route: IVP; Site: right antecubital; aa5 17:31 Follow up: Response: No adverse reaction; Marked relief of symptoms vg1 17:31 Drug: NS 0.9% 1000 ml Route: IV; Rate: 1 bolus; Site: right antecubital; vg1 18:30 Follow up: IV Status: Completed infusion; IV Intake: 1000ml bb 17:31 Drug: ProTONIX (pantoprazole) 40 mg Route: IVP; Site: right antecubital; vg1 18:31 Follow up: Response: No adverse reaction vg1 18:25 Drug: morphine 4 mg Route: IVP; Site: right antecubital; vg1 20:23 Follow up: Response: No adverse reaction; Marked relief of symptoms vg1 22:01 Drug: GI Cocktail without - (Maalox Suspension 30 ml, Lidocaine Liquid 2 % 15 vg1 ml) Route: PO; 22:47 Follow up: Response: No adverse reaction bb Disposition: 06/10 07:28 Co-signature as Attending Physician, Abdulkadir Garcia MD I agree with the assessment and kdr plan of care. Disposition Summary: 06/09/21 18:42 Hospitalization Ordered Hospitalization Status: Observation cp Provider: Cipriano Rahman cp Location: Telemetry/MedSurg (observation) cp Condition: Stable cp Problem: new cp Symptoms: have improved cp Bed/Room Type: Standard cp Room Assignment: 215(06/09/21 22:40) bb Diagnosis - Acute pancreatitis without necrosis or infection, unspecified cp Forms: - Medication Reconciliation Form cp - SBAR form cp Signatures: Dispatcher [employer] EDAbdulkadir Cowan MD MD kdr Jossy Phillips RN RN bb Carmella Salazar, RN RN aa5 Jorge Davenport PA PA cp Garcia, Victoria, RN RN vg1 Corrections: (The following items were deleted from the chart) 06/09 18:52 18:52 Normal except: ALK 38; TP 8.6; GLOB 4.8. cp cp 22:40 18:42 cp bb
[2021-06-09 19:17] LABS: Absolute Lymphocytes (CBC) 0.8 K/uL (0.7-4.9); Basophils % 0.3 % (0-1.3); Hematocrit 38.7 % (39.6-49.0); Lymphocytes % 8.4 % (15.3-44.8); MPV 8.2 fL (7.6-11.3); RBC Red Blood Cell Count 4.38 M/uL (4.33-5.43)
--- NOTE | 2021-06-09 20:33 | RAD REPORT ---
EXAM DESCRIPTION: US - Abdomen Exam Limited - 06/09/2021 7:48 pm CLINICAL HISTORY: ABD PAIN COMPARISON: Abdomen Pelvis W Contrast dated 06/09/2021 FINDINGS: No gallstones, sludge or other abnormalities within the gallbladder lumen. There is no wal l thickening or pericholecystic fluid. No common duct stone or biliary tree dilatation identified. IMPRESSION: Normal gallbladder and biliary tree ultrasound.
[2021-06-09 20:51] LABS: Blood Morphology Comment NOT SEEN (NOT SEEN); Platelet Estimate ADEQ; White Blood Cell Scan OK (OK)
[2021-06-09] MEDS ORDERED: LIDOCAINE VISCOUS 2% SOLN 15 ML UDC ONE (22:18)
[2021-06-09] MEDS ORDERED: MAGNES/ALUMIN/SIMET 30ML UCUP ONE (22:18)
[2021-06-09] MEDS: INSULIN -REGULAR HUMAN 50 UNIT/0.5 ML ML SQ SCH (23:11)
[2021-06-09] MEDS ORDERED: ONDANSETRON 4 MG/2 ML VIAL IV PRN (23:11)
[2021-06-09] MEDS ORDERED: HYDRALAZINE HCL 20 MG/ML VIAL IV PRN (23:11)
[2021-06-09] MEDS ORDERED: ACETAMINOPHEN 500 MG TAB PO PRN (23:11)
[2021-06-09] MEDS ORDERED: MORPHINE 2 MG/ML SYR IV PRN (23:11)
[2021-06-09 23:13] VITALS: BMI 26.3
--- NOTE | 2021-06-09 23:33 | P.HP ---
Certification for Inpatient Patient admitted to: Observation With expected LOS: <2 Midnights Patient will require the following post-hospital care: None Practitioner: I am a practitioner with admitting privileges, knowledge of patient current condition, hospital course, and medical plan of care. Services: Services provided to patient in accordance with Admission requirements found in Title 42 Section 412.3 of the Code of Federal Regulations Patient History Date of Service: 06/09/21 Reason for admission: intractable nausea and vomiting History of Present Illness: Mr. Rahman is a 60 yo M with history of NSTEMIs here today with intractable nausea and vomiting that has continued to worsen since 4am. He says this is the first time symptoms have been this bad. reports anorexia. Denies diarrhea. Glu 140. Initial lactate 2.3, resolved. UDS positive for opiates and THC. Smokes, occasional alcohol consumption. CT Abdomen and Abdominal US wnl. Allergies No Known Allergies Allergy (Unverified 08/30/18 14:11) Home Medications: Aspirin Chewable [Aspirin Chewable*] 81 mg PO DAILY #30 tab.chew 09/01/18 Atorvastatin Calcium [Lipitor] 80 mg PO DAILY #30 tablet 09/01/18 Clopidogrel Bisulfate [Plavix] 75 mg PO DAILY #30 tablet 09/01/18 Metoclopramide HCl [Reglan] 10 mg PO Q6HP PRN #40 tablet 09/01/18 Metoprolol Tartrate [Lopressor*] 25 mg PO BID #60 tab 09/01/18 Nitroglycerin [Nitrostat*] 0.4 mg SL UD PRN tab 09/01/18 - Past Medical/Surgical History Diabetic: No -: history of VT -: 2 cardiac stents - Family History Mother -: Diabetes Father -: Diabetes - Social History Smoking Status: Current some day smoker Alcohol use: Yes CD- Drugs: No Caffeine use: Yes Place of Residence: Home Review of Systems 10-point ROS is otherwise unremarkable Gastrointestinal: Nausea Physical Examination - Vital Signs Blood Pressure: 142/82 Pulse: 62 Respirations: 14 - Physical Exam General: Alert, In no apparent distress HEENT: Atraumatic, PERRLA, Mucous membr. moist/pink, EOMI, Sclerae nonicteric Neck: Supple, 2+ carotid pulse no bruit, No LAD, Without JVD or thyroid abnormality Cardiovascular: Regular rate/rhythm, Normal S1 S2 Gastrointestinal: Normal bowel sounds, No tenderness Musculoskeletal: No tenderness Integumentary: No rashes Neurological: Normal gait, Normal speech, Normal strength at 5/5 x4 extr, Normal tone, Normal affect Lymphatics: No axilla or inguinal lymphadenopathy - Studies Laboratory Data (last 24 hrs) 06/09/21 15:27: Magnesium 1.9 06/09/21 15:27: Sodium 142, Potassium 4.4, BUN 15, Creatinine 1.02, Glucose 140 H, Total Bilirubin 0.7, AST 19, ALT 16, Alkaline Phosphatase 38 L, Lipase 428 H Assessment and Plan - Plan Assessment intractable nausea and vomiting CAD Plan lipid panel, amylase and lipase, CRP pending continue IVF hydration, advance diet as tolerated antiemetics, pain management, O2 as needed DVT ppx Discharge Plan: Home Plan to discharge in: 24 Hours - Advance Directives Does patient have a Living Will: No Does patient have a Durable POA for Healthcare: No - Code Status/Comfort Care Code Status Assessed: Yes (full code ) Critical Care: No Time Spent Managing Pts Care (In Minutes): 70
[2021-06-09] MEDS: NA CHLORIDE 0.9% 1,000 ML IV SCH (23:51)
[2021-06-10 00:37] LABS: C-Reactive Protein 13.4 mg/L (<3.00)
[2021-06-10 00:45] LABS: Urine Appearance CLEAR (Clear); Urine Bilirubin NEGATIVE (Negative); Urine Blood TRACE (Negative); Urine Color YELLOW (Yellow); Urine Glucose NEGATIVE (Negative); Urine Protein NEGATIVE (Negative); Urine Specific Gravity >=1.030 (1.005-1.030); Urine Urobilinogen 0.2 mg/dL (0.2-1.0); Urine pH 5.5 (5.0-7.0)
[2021-06-10 00:46] LABS: Urine Microscopic Reflex ORDER UMIC
[2021-06-10 01:26] LABS: Urine Bacteria <20 /HPF (NONE SEEN); Urine RBC <5 /HPF (NONE SEEN); Urine Trichomonas PRESENT (NONE SEEN)
[2021-06-10] MEDS ORDERED: METOCLOPRAMIDE 10 MG/2mL INJ IV SCH (06:00)
[2021-06-10 06:08] LABS: Absolute Lymphocytes (CBC) 1.5 K/uL (0.7-4.9); Basophils % 0.4 % (0-1.3); Hematocrit 38.6 % (39.6-49.0); Lymphocytes % 15.5 % (15.3-44.8); MPV 8.2 fL (7.6-11.3); RBC Red Blood Cell Count 4.36 M/uL (4.33-5.43)
[2021-06-10 06:20] LABS: ALT/SGPT 16 U/L (12-78); AST/SGOT 13 U/L (15-37); Albumin 3.6 g/dL (3.4-5.0); Alkaline Phosphatase 36 U/L (45-117); BUN Blood Urea Nitrogen 12 mg/dL (7-18); Bicarbonate 23 mmol/L (21-32); Bilirubin Total 0.5 mg/dL (0.2-1.0); Glucose Level 105 mg/dL (74-106); Phosphorus 2.8 mg/dL (2.5-4.9); Potassium 3.6 mmol/L (3.5-5.1); Protein, Total 7.7 g/dL (6.4-8.2); Sodium Level 142 mmol/L (136-145)
[2021-06-10] MEDS: NA CHLORIDE 0.9% 1,000 ML IV SCH (06:24)
[2021-06-10] MEDS: INSULIN -REGULAR HUMAN 50 UNIT/0.5 ML ML SQ SCH (07:30)
--- NOTE | 2021-06-10 08:51 | P.DS ---
Admission Date: 06/09/21 Discharge Date: 06/10/21 Disposition: ROUTINE DISCHARGE Discharge Condition: FAIR Reason for Admission: intractable nausea and vomiting - Problems (1) Acute pancreatitis Status: Acute (2) Trichomoniasis Status: Acute (3) Marijuana abuse Onset Date: 09/02/18 Status: Acute Brief History of Present Illness: 60-year-old gentleman with a history of coronary artery disease presented to the emergency department with a complaint of intractable nausea and vomiting. CT abdomen and pelvis done in the emergency department unremarkable. Lipase level elevated to 400. Abdominal ultrasound shows no gallstones and normal biliary tree. UDS positive for marijuana and opiates. Patient hospitalized for acute pancreatitis. Hospital Course: Patient admitted to the medical floor and treated supportively with IV hydration. Patient's symptoms resolved. He tolerated regular diet. His urinalysis is positive for Trichomonas. Patient prescribed 1 week course of oral Flagyl. He is informed that his partner also needs to be treated for the Trichomonas. Patient deemed stable for discharge. Vital Signs/Physical Exam: Temp Pulse Resp BP Pulse Ox 98.3 F 59 18 133/77 98 06/10/21 04:00 06/10/21 04:00 06/10/21 04:00 06/10/21 04:00 06/10/21 04:00 General: Alert, In no apparent distress, Oriented x3 HEENT: Mucous membr. moist/pink Neck: JVD not distended Respiratory: Clear to auscultation bilaterally, Normal air movement Cardiovascular: No edema, Regular rate/rhythm, Normal S1 S2 Gastrointestinal: Normal bowel sounds, Soft and benign, Non-distended, No tenderness Musculoskeletal: No swelling Integumentary: No rashes, No erythema Neurological: Normal speech, Normal strength at 5/5 x4 extr, Cranial nerves 3-12 intact Laboratory Data at Discharge: WBC 9.50 K/uL (4.3-10.9) 06/10/21 05:39 Hgb 12.9 g/dL (13.6-17.9) L 06/10/21 05:39 Hct 38.6 % (39.6-49.0) L 06/10/21 05:39 Plt Count 284 K/uL (152-406) 06/10/21 05:39 Sodium 142 mmol/L (136-145) 06/10/21 05:39 Potassium 3.6 mmol/L (3.5-5.1) 06/10/21 05:39 BUN 12 mg/dL (7-18) 06/10/21 05:39 Creatinine 0.91 mg/dL (0.55-1.3) 06/10/21 05:39 Glucose 105 mg/dL (74-106) 06/10/21 05:39 Phosphorus 2.8 mg/dL (2.5-4.9) 06/10/21 05:39 Magnesium 2.0 mg/dL (1.8-2.4) 06/10/21 05:39 Total Bilirubin 0.5 mg/dL (0.2-1.0) 06/10/21 05:39 AST 13 U/L (15-37) L 06/10/21 05:39 ALT 16 U/L (12-78) 06/10/21 05:39 Alkaline Phosphatase 36 U/L (45-117) L 06/10/21 05:39 Triglycerides 81 mg/dL (<150) 06/09/21 23:45 Cholesterol 182 mg/dL (<200) 06/09/21 23:45 HDL Cholesterol 43 mg/dL (40-60) 06/09/21 23:45 Cholesterol/HDL Ratio 4.23 06/09/21 23:45 Amylase 149 U/L (25-115) H 06/09/21 23:45 Lipase 428 U/L (73-393) H 06/09/21 15:27 Home Medications: Aspirin Chewable [Aspirin Chewable*] 81 mg PO DAILY #30 tab.chew 09/01/18 Atorvastatin Calcium [Lipitor] 80 mg PO DAILY #30 tablet 09/01/18 Clopidogrel Bisulfate [Plavix*] 75 mg PO DAILY #30 tablet 09/01/18 Metoclopramide HCl [Reglan] 10 mg PO Q6HP PRN #40 tablet 09/01/18 Metoprolol Tartrate [Lopressor*] 25 mg PO BID #60 tab 09/01/18 Nitroglycerin [Nitrostat*] 0.4 mg SL UD PRN tab 09/01/18 metroNIDAZOLE [Flagyl*] 500 mg PO Q8H #21 tablet 06/10/21 New Medications: metroNIDAZOLE [Flagyl*] 500 mg PO Q8H #21 tablet Physician Discharge Instructions: PROBLEM: Pancreatitis GOAL: Clear understanding of disease process INSTRUCTIONS: Diet: Heart healthy Activity: As tolerated If you have any questions regarding your stay call [phone] If your symptoms worsen call 911 or go to the ED. Diet: AHA Activity: Ad florinda Followup: NONE,NONE [Primary Care Provider] - 1-2 Weeks Time spent managing pt's care (in minutes): 33
[2021-06-10] MEDS ORDERED: POTASSIUM CL SA 10 MEQ TAB PO ONE (09:00)
[2021-06-10] MEDS ORDERED: ENOXAPARIN 40 MG/0.4 ML SQ SCH (09:00)
[2021-06-10 09:21] VITALS: BP 162/85; TEMP 96.9
[2021-06-10 10:10] VITALS: O2SAT 100
== END 2021-06-10 11:04 | disposition home or self-care (01) | DRG 440 ==
LOC: ER 14:38 → ERHOLD 18:38 → 2ND 22:47
PROVIDERS: ADMIT Internal Medicine; ATTEND Internal Medicine
DX: K85.90 Acute pancreatitis without necrosis or infection, unspecified (principal); A59.9 Trichomoniasis, unspecified; F12.10 Cannabis abuse, uncomplicated; I25.10 Atherosclerotic heart disease of native coronary artery without angina pectoris; F17.210 Nicotine dependence, cigarettes, uncomplicated; I25.2 Old myocardial infarction; Z79.82 Long term (current) use of aspirin; Z79.02 Long term (current) use of antithrombotics/antiplatelets; Z79.899 Other long term (current) drug therapy; Z95.5 Presence of coronary angioplasty implant and graft; Z20.822 Contact with and (suspected) exposure to COVID-19
CPT/HCPCS: 36415; 71045; 74177; 76705; 80048; 80053; 80061; 80076; 80307; 80320; 81003; 81015; 82150; 82947; 83036; 83605; 83690; 83735; 84100; 85025; 86140; 87077; 87086; 87088; 87186; 94760; 96361; 96374; 96375; 99285; C9113; J1650; J2405; J2765; J7030; Q9967; U0003

== ENCOUNTER 2021-06-11 05:34 | Emergency (ER) | payer SELFPAY ==
--- OUTSIDE RECORDS SUMMARY | 2021-06-11 05:38 | XMS REPORT | Continuity of Care Document ---
:1960 Author Organization [facility] t Address [address] [place] [address] Care Team Providers Name Role Phone SRAVANI [...] Date Stop Date Quantity Comments Source History [facility] - Alcohol Binge Medical [facility] ter Sex Assigned At [facility] History [facility] - Alcohol Std Drinks [facility] Cigarettes smoked 2019-03-31 2019-03-[address] [facility] - current (pack per 00:00:00 [facility] day) - Reported Cigarette 2019-03-31 2019-03-[address] [facility] - pack-years 00:00:00 00:00:00 [facility] Tobacco use and 2019-03-31 2019-03-31 Never used [facility] - exposure 00:00:00 00:00:00 [facility] Alcohol intake 2019-03-31 2019-03-[address] [facility] - 00:[facility]00 00:00:00 non-drinker of Medical Ce nter alcohol (finding) History SDOH 2019-03-27 2019-03-[address] [facility] - Alcohol Frequency 00:00:00 00:00:00 [facility] Smoking Status Start Date Stop Date Source Current some day smoker 2019-03-31 00:00:[address] [facility] Medications Ordered Filled Start Stop Current [...] s - Test 00:00:00 (procedure) [code = [facility] [id number]] Future Scheduled 2020-11-[address] [facility] - Test 00:00:00 (12+) [code = Medical Center DEPRESSION SCREENING (12+)] Future Scheduled 2020-07-27 [...] [facility] colon (procedure) [code = 673975624] Results Test Description Test Time Test Comments Results Result Comments Source MAGNESIUM 2019-03-28 06:18:00 Test Item Value Reference Range Interpretation Comme nts MAGNESIUM (BEAKER) (test code = 627) 1.9 mg/dL 1.6-2.6 BASIC METABOLIC [id number] 06:18:00 Test Item Value Reference Range Interpretation [...] S NOT APPLICABLE FOR DIALYSIS PATIEN TS. [id number] 06:01:00 Test Item Value Reference Range Interpretation Comments PARTIAL THROMBOPLASTIN TIME 39.4 seconds 22.5-36.0 H (BEAKER) (test code = 760) 6 hours after starting heparin infusion and as indicated per sliding scaleCBC W/PLT COUNT & AUTO [id number] 05:54:00 Test Item Value Reference Range Interpretation [...] 0-1 PERCENT (BEAKER) (test code = 2801) [id number] 11:15:00 Test Item Value Reference Range Interpretation Comments PARTIAL THROMBOPLASTIN TIME 92.3 seconds 22.5-36.0 H (BEAKER) (test code = 760) TROPONIN [id number] 05:41:00 Test Item Value Reference Range Interpretation Comments TROPONIN I (BEAKER) (test code = 31.56 ng/mL 0.00-0.03 HH 397) Troponin I (TnI) [...] failure, acidosis, acute neurological disease, and persistent tachyarrhythmia.[id number] 04:09:00 Test Item Value Reference Range Interpretation Comments MAGNESIUM (BEAKER) (test code = 1.9 mg/dL 1.6-2.6 627) BASIC METABOLIC [id number] 04:09:00 Test Item Value Reference Range Interpretation [...] APPLICABLE FOR DIALYSIS PATIEN TS. HEPATIC FUNCTION [id number] 04:09:00 Test Item Value Reference Range Interpretation [...] (test code = 25 U/L 6-55 347) [id number] 03:36:00 Test Item Value Reference Range Interpretation Comments PARTIAL THROMBOPLASTIN TIME 57.8 seconds 22.5-36.0 H (BEAKER) (test code = 760) CBC W/PLT COUNT & AUTO [id number] 03:16:00 Test Item Value Reference Range Interpretation [...] 0-1 PERCENT (BEAKER) (test code = 2801) [id number] 17:05:00 Test Item Value Reference Range Interpretation [...] 2.5-3.5 for patients with mechanical heart valves.PROTHROMBIN [id number] 17:04:00 Test Item Value Reference Range Interpretation [...] PERCENT (BEAKER) (test code = 2801) TROPONIN [id number] 15:28:00 Test Item Value Reference Range Interpretation [...] acidosis, acute neurological disease, and persistent tachyarrhythmia.HEMOGLOBIN [id number] 12:07:00 Test Item Value Reference Range Interpretation Comments HEMOGLOBIN A1C (BEAKER) (test code = 5.6 % 4.3-6.1 368) RAD, CHEST, 1 VIEW, NON [id number] 07:27:00Reason for exam:->chest painShould this be performed at the bedside?->YesFINAL REPORT Portable chest 03/26/2019, 0349 hours COMPARISON: None The lungs appear clear. Heart and mediastinal structures are within normal limits. No pleural effusions are seen. No significant osseous abnormalities are identified although there are some degenerative changes inboth acromioclavicular joints. Signed: Harry Green [facility] Verified Date/Time: 03/26/2019 07:27:22 Reading Location: [facility] Radiology Reading Room B-TYPE NATRIURETIC FACTOR (BNP) 2019-03-26 05:27:00 Test Item Value Reference Range Interpretation Comments B-TYPE NATRIURETIC PEPTIDE (BEAKER) 798 pg/mL 0-100 H (test code = 700) [id number] 05:22:00 Test Item Value Reference Range Interpretation Comments MAGNESIUM (BEAKER) 1.8 mg/dL 1.6-2.6 Specimen slightly (test code = 627) hemolyzed BASIC METABOLIC [id number] 05:22:00 Test Item Value Reference Range Interpretation [...] PATIEN TS. CBC W/PLT COUNT & AUTO [id number] 05:07:00 Test Item Value Reference Range Interpretation [...] 0-1 PERCENT (BEAKER) (test code = 2801) [id number] 00:56:00 Test Item Value Reference Range Interpretation Comments PARTIAL THROMBOPLASTIN TIME > seconds 22.5-36.0 HH (BEAKER) (test code = 760) TROPONIN [id number] 00:36:00 Test Item Value Reference Range Interpretation [...] acidosis, acute neurological disease, and persistent tachyarrhythmia.PROTHROMBIN [id number] 00:28:00 Test Item Value Reference Range Interpretation Comments PROTIME (BEAKER) (test code = 35.8 seconds 11.7-14.7 H 759) INR (BEAKER) (test code = 370) 3.9 <=5.9 RECOMMENDED COUMADIN/WARFARIN INR THERAPY RANGESSTANDARD DOSE: 2.0 - 3.0 Includes: PROPHYLAXIS forvenous thrombosis, systemic embolization; TREATMENT for venous thrombosis and/or pulmonary embolus.HIGH RISK: Target INR is 2.5-3.5 for patients with mechanical heart valves.[id number] 00:25:00 Test Item Value Reference Range Interpretation Comments MAGNESIUM (BEAKER) (test code = 1.7 mg/dL 1.6-2.6 627) COMPREHENSIVE METABOLIC [id number] 00:25:00 Test Item Value Reference Range Interpretation [...] NOT APPLICABLE FOR DIALYSIS PATIEN TS. LIPID [id number] 00:25:00 Test Item Value Reference Range Interpretation [...] Very High >=190CBC W/PLT COUNT & AUTO [id number] 00:18:00 Test Item Value Reference Range Interpretation [...]
[2021-06-11 06:18] LABS: Basophils % 0.4 % (0-1.3); Hematocrit 40.5 % (39.6-49.0); Lymphocytes % 8.4 % (15.3-44.8); MPV 8.2 fL (7.6-11.3); RBC Red Blood Cell Count 4.61 M/uL (4.33-5.43)
[2021-06-11] MEDS ORDERED: MORPHINE 4 MG/ML SYR ONE ×2 (06:33→10:13)
[2021-06-11] MEDS ORDERED: ONDANSETRON 4 MG/2 ML VIAL ONE (06:33)
--- NOTE | 2021-06-11 08:46 | RAD REPORT ---
EXAM DESCRIPTION: CTAbdomen Pelvis W Contrast - 06/11/2021 8:22 am CLINICAL HISTORY: Abdominal pain. abd pain COMPARISON: Abdomen Pelvis W Contrast dated 06/09/2021; Abdomen Exam Limited dated 06/09/2021 TECHNIQUE: Biphasic CT imaging of the abdomen and pelvis was performed with 100 ml non-ionic IV cont rast. All CT scans are performed using dose optimization technique as appropriate and may include automated exposure control or mA/KV adjustment according to patient size. FINDINGS: The lung bases are clear. No focal liver lesions identified. Prominent extrahepatic bile duct. Gallbladder is within normal pat its. Adrenal glands unremarkable. Too small to characterize renal lesions which are statistically lewis ign. Ectasia of the infrarenal abdominal aorta. Inflammatory changes are present along the pancreatic head with small volume of fluid in reactive thickening of the duodenum. The downstream pancreatic du ct has increased in diameter compared with 06/09/2021 presumably related to edema. No bowel obstruction, free air, free fluid or abscess. The appendix is normal. No evidence of signi ficant lymphadenopathy. No suspicious bony findings. Scattered degenerative changes are present in spine. IMPRESSION: Interval development of inflammatory changes surrounding the pancreatic head concerning for acute pancreatitis. No complicating features identified at this time.
[2021-06-11 09:17] LABS: ALT/SGPT 15 U/L (12-78); Albumin 3.4 g/dL (3.4-5.0); Alkaline Phosphatase 35 U/L (45-117); BUN Blood Urea Nitrogen 12 mg/dL (7-18); Bicarbonate 26 mmol/L (21-32); Bilirubin Direct 0.1 mg/dL (0-0.2); Bilirubin Total 0.6 mg/dL (0.2-1.0); Glucose Level 97 mg/dL (74-106); Lipase 290 U/L (73-393); Protein, Total 7.9 g/dL (6.4-8.2); Sodium Level 138 mmol/L (136-145)
[2021-06-11 09:21] LABS: AST/SGOT 24 U/L (15-37); Potassium 3.5 mmol/L (3.5-5.1)
[2021-06-11] MEDS ORDERED: NA CHLORIDE 0.9% 1,000 ML ONE (09:39)
--- NOTE | 2021-06-11 10:31 | EDPHYS ---
Physician Documentation [facility] Name: Chad Rahman Age: 60 yrs Sex: Male : 1960 Arrival Date: 06/11/2021 Time: 05:37 Bed 2 Private MD: ED Physician Emmanuel Wu HPI: 06/11 06:19 This 60 yrs old Black Male presents to ER via Ambulatory with complaints of Abdominal pm1 Pain. 06:19 The patient presents with abdominal pain. pm1 06:19 Onset: The symptoms/episode began/occurred yesterday. The symptoms do not radiate. pm1 Associated signs and symptoms: Pertinent positives: nausea and vomiting, Pertinent negatives: chest pain, diarrhea, dysuria, fever, shortness of breath. The symptoms are described as achy, throbbing. Modifying factors: the symptoms are aggravated by food. Severity of pain: in the emergency department the pain same level from 2 days ago. The patient has been recently been admitted at [facility], was discharged yesterday. Patient with onset of abdominal pain with n/v 2 days ago. Was admitted for pancreatitis and discharged home yesterday. Patient ate some chicken when he got home and his abdominal pain came back. Historical: - Allergies: 05:57 No Known Allergies; bb - PMHx: 05:57 Myocardial infarction; Pancreatitis; bb - PSHx: 05:57 Stented artery; CAD; bb - Immunization history:: Adult Immunizations up to date. - Social history:: Smoking status: Patient reports the use of cigarette tobacco products, smokes one-half pack cigarettes per day. ROS: 06:19 Constitutional: Negative for fever, chills, and weight loss, Cardiovascular: Negative pm1 for chest pain, palpitations, and edema, Respiratory: Negative for shortness of breath, cough, wheezing, and pleuritic chest pain. 06:19 Back: Negative for injury and pain, : Negative for injury, bleeding, discharge, and swelling, MS/Extremity: Negative for injury and deformity, Skin: Negative for injury, rash, and discoloration, Neuro: Negative for headache, weakness, numbness, tingling, and seizure. 06:19 Abdomen/GI: Positive for abdominal pain, nausea and vomiting, Negative for diarrhea, constipation. 06:19 All other systems are negative. Exam: 06:19 Constitutional: This is a well developed, well nourished patient who is awake, alert, pm1 and in no acute distress. Head/Face: Normocephalic, atraumatic. 06:19 Back: No spinal tenderness. No costovertebral tenderness. Full range of motion. Skin: Warm, dry with normal turgor. Normal color with no rashes, no lesions, and no evidence of cellulitis. MS/ Extremity: Pulses equal, no cyanosis. Neurovascular intact. Full, normal range of motion. 06:19 Eyes: Exam is negative for acute changes, Extraocular movements: no acute changes, Conjunctiva: no acute changes, no injection. 06:19 ENT: Exam is negative for acute changes, Mouth: Lips: normal, Oral mucosa: normal, pink and intact, moist. 06:19 Cardiovascular: Rate: normal, Rhythm: regular, Pulses: no pulse deficits are appreciated. 06:19 Respiratory: Exam negative for acute changes, respiratory distress, shortness of breath. 06:19 Abdomen/GI: Inspection: abdomen appears normal, Palpation: soft, in all quadrants, mild abdominal tenderness, in the left upper quadrant. 06:19 Neuro: Exam negative for acute changes, Orientation: is normal, Mentation: is normal, Motor: is normal, moves all fours. Vital Signs: 05:55 BP 164 / 100; Pulse 67; Resp 18 S; Temp 99.4(TE); Pulse Ox 100% on R/A; Weight 81.65 kg bb (R); Height 5 ft. 8 in. (172.72 cm) (R); Pain 10/10; 07:21 BP 127 / 77; Pulse 70; Resp 17; Pulse Ox 99% on R/A; tw2 08:30 BP 152 / 92; Pulse 69; Resp 17; Pulse Ox 97% on R/A; tw2 09:53 BP 132 / 93; Pulse 71; Resp 17; Pulse Ox 99% on R/A; Pain 8/10; tw2 05:55 Body Mass Index 27.37 (81.65 kg, 172.72 cm) bb MDM: 06:19 Patient medically screened. pm1 10:29 Data reviewed: vital signs. Data interpreted: Pulse oximetry: on room air is 99 %. pm1 Interpretation: normal. Counseling: I had a detailed discussion with the patient and/or guardian regarding: the historical points, exam findings, and any diagnostic results supporting the discharge/admit diagnosis, lab results, radiology results, the need for outpatient follow up, to return to the emergency department if symptoms worsen or persist or if there are any questions or concerns that arise at home. 06/11 06:15 Order name: Basic Metabolic Panel; Complete Time: 09:49 EDIL 06/11 06:15 Order name: Liver (Hepatic) Function; Complete Time: 09:49 EDIL 06/11 06:15 Order name: Lipase; Complete Time: 09:49 EDIL 06/11 06:15 Order name: CBC with Automated Diff; Complete Time: 06:28 EDIL 06/11 07:30 Order name: Abdomen ; Complete Time: 08:53 [facility] 06/11 06:01 Order name: IV Saline Lock; Complete Time: 06:01 ea 06/11 06:01 Order name: Labs collected and sent; Complete Time: 06:01 ea Administered Medications: 10:49 Discontinued: NS 0.9% 1000 ml IV at 100 ml/hr once ss 06:16 Drug: morphine 4 mg {Note: RASS 0.} Route: IVP; Site: right antecubital; ad5 07:52 Follow up: Response: No adverse reaction; Pain is unchanged, physician notified; RASS: tw2 Alert and Calm (0) 06:16 Drug: Zofran (Ondansetron) 4 mg Route: IVP; Site: right antecubital; ad5 07:52 Follow up: Response: No adverse reaction tw2 06:22 Drug: NS 0.9% 1000 ml Route: IV; Rate: 1000 ml; Site: right antecubital; ea 07:22 Follow up: Response: No adverse reaction; IV Status: Completed infusion; IV Intake: tw2 1000ml 09:20 Drug: NS 0.9% 1000 ml Route: IV; Rate: 100 ml/hr; Site: right antecubital; tw2 09:54 Drug: morphine 4 mg {Note: RASS 0.} Route: IVP; Site: right antecubital; tw2 10:49 Follow up: Response: No adverse reaction; Pain is decreased ss Disposition: 06/12 06:36 Co-signature as Attending Physician, Emmanuel Wu MD. [email or web address] Disposition Summary: 06/11/21 10:30 Discharge Ordered Location: Home pm1 Problem: new pm1 Symptoms: have improved pm1 Condition: Stable pm1 Diagnosis - Acute pancreatitis without necrosis or infection, unspecified pm1 Followup: pm1 - With: Emergency Department - When: As needed - Reason: Worsening of condition Followup: pm1 - With: Private Physician - When: 2 - 3 days - Reason: Recheck today's complaints, Continuance of care, Re-evaluation by your physician Discharge Instructions: - Discharge Summary Sheet pm1 - Clear Liquid Diet, Adult pm1 - Acute Pancreatitis pm1 - Pancreatitis Eating Plan pm1 Forms: - Medication Reconciliation Form pm1 - Thank You Letter pm1 - Antibiotic Education pm1 - Prescription Opioid Use pm1 Prescriptions: - acetaminophen-codeine 300-15 mg Oral tablet - take 2 tablet by ORAL route every 6 hours As needed as needed; 20 tablet; pm1 Refills: 0, Product Selection Permitted - ondansetron 4 mg Oral tablet,disintegrating - place 1 tablet by TRANSLINGUAL route every 8 hours As needed; 20 tablet; pm1 Refills: 0, Product Selection Permitted Signatures: Dispatcher [employer] EDMS Jossy Phillips, RN RN Praneeth Back, [employer] SYSTEM ADMINISTRATOR pm1 Arlene Montgomery RN RN tw2 Isha Todd RN RN ea Holmes, Maurice, MD MD 7 Kamron Sharpe Shelby RN ss Corrections: (The following items were deleted from the chart) 06/11 08:41 08:32 Abdomen Pelvis W Con+CT.RAD.BRZ ordered. EDMS EDMS
--- NOTE | 2021-06-11 10:31 | ER ---
Nurse's Notes [facility] Name: Chad Rahman Age: 60 yrs Sex: Male : 1960 Arrival Date: 06/11/2021 Time: 05:37 Bed 2 Private MD: Diagnosis: Acute pancreatitis without necrosis or infection, unspecified Presentation: 06/11 05:55 Chief complaint: Patient states: he was here yesterday for the same symptoms of bb abdominal pain and vomiting was admitted for pancreatitis and discharged yesterday the pain came back again last night. Coronavirus screen: At this time, the client does not indicate any symptoms associated with coronavirus-19. Ebola Screen: No symptoms or risks identified at this time. Initial Sepsis Screen: Does the patient meet any 2 criteria? No. Patient's initial sepsis screen is negative. Does the patient have a suspected source of infection? No. Patient's initial sepsis screen is negative. Risk Assessment: Do you want to hurt yourself or someone else? Patient reports no desire to harm self or others. Onset of symptoms was June 10, 2021. 05:55 Method Of Arrival: Ambulatory 05:55 Acuity: ROSALIA 3 bb Historical: - Allergies: 05:57 No Known Allergies; bb - PMHx: 05:57 Myocardial infarction; Pancreatitis; bb - PSHx: 05:57 Stented artery; CAD; bb - Immunization history:: Adult Immunizations up to date. - Social history:: Smoking status: Patient reports the use of cigarette tobacco products, smokes one-half pack cigarettes per day. Screenin:17 Abuse screen: Denies threats or abuse. Denies injuries from another. Nutritional ad5 screening: No deficits noted. Tuberculosis screening: No symptoms or risk factors identified. Fall Risk None identified. Assessment: 06:16 General: Appears uncomfortable, Behavior is cooperative, appropriate for age. Pain: ad5 Complains of pain in abdomen. Neuro: No deficits noted. Level of Consciousness is awake, alert, obeys commands, Oriented to person, place, time, situation, Appropriate for age. Cardiovascular: No deficits noted. Heart tones present Capillary refill < 3 seconds Patient's skin is warm and dry. Respiratory: No deficits noted. Airway is patent Respiratory effort is even, unlabored, Respiratory pattern is regular, symmetrical. GI: Bowel sounds present X 4 quads. Abd is soft Abdomen is tender to palpation in epigastric area and left upper quadrant Reports upper abdominal pain, nausea. : No deficits noted. No signs and/or symptoms were reported regarding the genitourinary system. Derm: Skin is dry, Skin is normal, Skin temperature is warm. 07:21 Reassessment: No changes from previously documented assessment. Patient and/or family tw2 updated on plan of care and expected duration. Pain level reassessed. Patient is alert, oriented x 3, equal unlabored respirations, skin warm/dry/pink. provider notified. Patient states symptoms have not improved. 09:53 Reassessment: No changes from previously documented assessment. Patient and/or family tw2 updated on plan of care and expected duration. Pain level reassessed. Patient is alert, oriented x 3, equal unlabored respirations, skin warm/dry/pink. Patient states symptoms have not improved. 10:30 Reassessment: Patient appears in no apparent distress at this time. Patient and/or hb family updated on plan of care and expected duration. Pain level reassessed. Patient is alert, oriented x 3, equal unlabored respirations, skin warm/dry/pink. Vital Signs: 05:55 BP 164 / 100; Pulse 67; Resp 18 S; Temp 99.4(TE); Pulse Ox 100% on R/A; Weight 81.65 kg bb (R); Height 5 ft. 8 in. (172.72 cm) (R); Pain 10/10; 07:21 BP 127 / 77; Pulse 70; Resp 17; Pulse Ox 99% on R/A; tw2 08:30 BP 152 / 92; Pulse 69; Resp 17; Pulse Ox 97% on R/A; tw2 09:53 BP 132 / 93; Pulse 71; Resp 17; Pulse Ox 99% on R/A; Pain 8/10; tw2 05:55 Body Mass Index 27.37 (81.65 kg, 172.72 cm) bb ED Course: 05:37 Patient arrived in ED. es 05:57 Triage completed. bb 05:57 Arm band placed on Patient placed in an exam room, on a stretcher, on pulse oximetry. bb 06:01 Praneeth Day NP is PHCP. pm1 06:01 Emmanuel Wu MD is Attending Physician. pm1 06:01 Inserted saline lock: 20 gauge in right antecubital area, using aseptic technique. ea Blood collected. 06:17 Patient has correct armband on for positive identification. Bed in low position. Call ad5 light in reach. Side rails up X 1. sheet sewer on. Pulse ox on. NIBP on. 07:19 Arlene Montgomery RN is Primary Nurse. tw2 08:22 Abdomen In Process Unspecified. EDMS 10:41 No provider procedures requiring assistance completed. IV discontinued, intact, hb bleeding controlled, No redness/swelling at site. Administered Medications: 10:49 Discontinued: NS 0.9% 1000 ml IV at 100 ml/hr once ss 06:16 Drug: morphine 4 mg {Note: RASS 0.} Route: IVP; Site: right antecubital; ad5 07:52 Follow up: Response: No adverse reaction; Pain is unchanged, physician notified; RASS: tw2 Alert and Calm (0) 06:16 Drug: Zofran (Ondansetron) 4 mg Route: IVP; Site: right antecubital; ad5 07:52 Follow up: Response: No adverse reaction tw2 06:22 Drug: NS 0.9% 1000 ml Route: IV; Rate: 1000 ml; Site: right antecubital; ea 07:22 Follow up: Response: No adverse reaction; IV Status: Completed infusion; IV Intake: tw2 1000ml 09:20 Drug: NS 0.9% 1000 ml Route: IV; Rate: 100 ml/hr; Site: right antecubital; tw2 09:54 Drug: morphine 4 mg {Note: RASS 0.} Route: IVP; Site: right antecubital; tw2 10:49 Follow up: Response: No adverse reaction; Pain is decreased ss Intake: 07:22 IV: 1000ml; Total: 1000ml. tw2 Outcome: 10:30 Discharge ordered by MD. pm1 10:41 Discharged to home ambulatory. hb 10:41 Condition: stable 10:41 Discharge instructions given to patient, Instructed on discharge instructions, follow up and referral plans. medication usage, Demonstrated understanding of instructions, follow-up care, medications, Prescriptions given X 2. 10:49 Patient left the ED. Signatures: Dispatcher [employer] Mini Mason Brenda, RN RN bb Smirch, Shelby, RN RN Praneeth Small, CHART COMPUTER CHART COMPUTER pm1 Maryam Lemus RN RN hb Wise, Tara, RN RN tw2 Isha Todd RN RN ea Davidson, Andrea ad5 Corrections: (The following items were deleted from the chart) 07:53 07:21 Reassessment: Patient appears in no apparent distress at this time. No changes tw2 from previously documented assessment. Patient and/or family updated on plan of care and expected duration. Pain level reassessed. Patient is alert, oriented x 3, equal unlabored respirations, skin warm/dry/pink. tw2
[2021-06-11 11:04] VITALS: TEMP 99.4
[2021-06-11 11:11] VITALS: BP 132/93; O2SAT 99
== END 2021-06-11 10:49 | disposition home or self-care (01) ==
LOC: ER 05:34
DX: K85.90 Acute pancreatitis without necrosis or infection, unspecified (principal); F17.210 Nicotine dependence, cigarettes, uncomplicated
CPT/HCPCS: 36415; 74177; 80048; 80076; 83690; 85025; 96361; 96374; 96375; 99284; J2405; J7030; Q9967

== ENCOUNTER 2021-06-12 18:19 | Inpatient (IN) | payer SELFPAY ==
--- OUTSIDE RECORDS SUMMARY | 2021-06-12 18:24 | XMS REPORT | Continuity of Care Document ---
:1960 [address] [facility] t Address [address] [place] [address] Care Team Providers Name Role Phone SRAVANI [...] Date Stop Date Quantity Comments Source History [facility] - Alcohol Binge Medical Nicanor ter Sex Assigned At [facility] History [facility] - Alcohol Std Drinks [facility] Cigarettes smoked 2019-03-31 2019-03-[address] [facility] - current (pack per 00:00:00 00:00:00 [facility] day) - Reported Cigarette 2019-03-31 2019-03-[address] [facility] - pack-years 00:00:00 00:00:00 [facility] Tobacco use and 2019-03-31 2019-03-31 Never used [facility] kes - exposure 00:00:00 00:00:00 [facility] Alcohol intake 2019-03-31 2019-03-[address] [facility] - 00:[facility]:00 00:00:00 non-drinker of Medical Ce nter alcohol (finding) History SDOH 2019-03-27 2019-03-[address] [facility] - Alcohol Frequency 00:00:00 00:00:00 [facility] Smoking Status Start Date Stop Date Source Current some day smoker 2019-03-31 00:00:[address] [facility] Medications Ordered Filled Start Stop Current [...] s - Test 00:00:00 (procedure) [code = [facility] [id number]] Future Scheduled 2020-11-[address] [...] Medica l Center colon (procedure) [code = 928412240] Results Test Description Test Time Test Comments Results Result Comments Source MAGNESIUM 2019-03-28 06:18:00 Test Item Value Reference Range Interpretation Comme nts MAGNESIUM (BEAKER) (test code = 627) 1.9 mg/dL 1.6-2.6 BASIC METABOLIC [id number] 06:18:00 Test Item Value Reference Range Interpretation [...] S NOT APPLICABLE FOR DIALYSIS PATIEN TS. [id number] 06:01:00 Test Item Value Reference Range Interpretation Comments PARTIAL THROMBOPLASTIN TIME 39.4 seconds 22.5-36.0 H (BEAKER) (test code = 760) 6 hours after starting heparin infusion and as indicated per sliding scaleCBC W/PLT COUNT & AUTO [id number] 05:54:00 Test Item Value Reference Range Interpretation [...] 0-1 PERCENT (BEAKER) (test code = 2801) [id number] 11:15:00 Test Item Value Reference Range Interpretation Comments PARTIAL THROMBOPLASTIN TIME 92.3 seconds 22.5-36.0 H (BEAKER) (test code = 760) TROPONIN [id number] 05:41:00 Test Item Value Reference Range Interpretation [...] failure, acidosis, acute neurological disease, and persistent tachyarrhythmia.[id number] 04:09:00 Test Item Value Reference Range Interpretation Comments MAGNESIUM (BEAKER) (test code = 1.9 mg/dL 1.6-2.6 627) BASIC METABOLIC [id number] 04:09:00 Test Item Value Reference Range Interpretation [...] APPLICABLE FOR DIALYSIS PATIEN TS. HEPATIC FUNCTION [id number] 04:09:00 Test Item Value Reference Range Interpretation [...] (test code = 25 U/L 6-55 347) [id number] 03:36:00 Test Item Value Reference Range Interpretation Comments PARTIAL THROMBOPLASTIN TIME 57.8 seconds 22.5-36.0 H (BEAKER) (test code = 760) CBC W/PLT COUNT & AUTO [id number] 03:16:00 Test Item Value Reference Range Interpretation [...] 0-1 PERCENT (BEAKER) (test code = 2801) [id number] 17:05:00 Test Item Value Reference Range Interpretation [...] 2.5-3.5 for patients with mechanical heart valves.PROTHROMBIN [id number] 17:04:00 Test Item Value Reference Range Interpretation [...] PERCENT (BEAKER) (test code = 2801) TROPONIN [id number] 15:28:00 Test Item Value Reference Range Interpretation [...] acidosis, acute neurological disease, and persistent tachyarrhythmia.HEMOGLOBIN [id number] 12:07:00 Test Item Value Reference Range Interpretation Comments HEMOGLOBIN A1C (BEAKER) (test code = 5.6 % 4.3-6.1 368) RAD, CHEST, 1 VIEW, NON [id number] 07:27:00Reason for exam:->chest painShould this be performed at the bedside?->YesFINAL REPORT Portable chest 03/26/2019, 0349 hours COMPARISON: None The lungs appear clear. Heart and mediastinal structures are within normal limits. No pleural effusions are seen. No significant osseous abnormalities are identified although there are some degenerative changes inboth acromioclavicular joints. Signed: Harry Green [facility] Verified Date/Time: 03/26/2019 07:27:22 Reading Location: [facility] Radiology Reading Room B-TYPE NATRIURETIC FACTOR (BNP) 2019-03-26 05:27:00 Test Item Value Reference Range Interpretation Comments B-TYPE NATRIURETIC PEPTIDE (BEAKER) 798 pg/mL 0-100 H (test code = 700) [id number] 05:22:00 Test Item Value Reference Range Interpretation Comments MAGNESIUM (BEAKER) 1.8 mg/dL 1.6-2.6 Specimen slightly (test code = 627) hemolyzed BASIC METABOLIC [id number] 05:22:00 Test Item Value Reference Range Interpretation [...] PATIEN TS. CBC W/PLT COUNT & AUTO [id number] 05:07:00 Test Item Value Reference Range Interpretation [...] 0-1 PERCENT (BEAKER) (test code = 2801) [id number] 00:56:00 Test Item Value Reference Range Interpretation Comments PARTIAL THROMBOPLASTIN TIME > seconds 22.5-36.0 HH (BEAKER) (test code = 760) TROPONIN [id number] 00:36:00 Test Item Value Reference Range Interpretation [...] acidosis, acute neurological disease, and persistent tachyarrhythmia.PROTHROMBIN [id number] 00:28:00 Test Item Value Reference Range Interpretation Comments PROTIME (BEAKER) (test code = 35.8 seconds 11.7-14.7 H 759) INR (BEAKER) (test code = 370) 3.9 <=5.9 RECOMMENDED COUMADIN/WARFARIN INR THERAPY RANGESSTANDARD DOSE: 2.0 - 3.0 Includes: PROPHYLAXIS forvenous thrombosis, systemic embolization; TREATMENT for venous thrombosis and/or pulmonary embolus.HIGH RISK: Target INR is 2.5-3.5 for patients with mechanical heart valves.[id number] 00:25:00 Test Item Value Reference Range Interpretation Comments MAGNESIUM (BEAKER) (test code = 1.7 mg/dL 1.6-2.6 627) COMPREHENSIVE METABOLIC [id number] 00:25:00 Test Item Value Reference Range Interpretation [...] NOT APPLICABLE FOR DIALYSIS PATIEN TS. LIPID [id number] 00:25:00 Test Item Value Reference Range Interpretation [...] Very High >=190CBC W/PLT COUNT & AUTO [id number] 00:18:00 Test Item Value Reference Range Interpretation [...] % 0-1 PERCENT (BEAKER) (test code = 2803)
[2021-06-12 18:59] LABS: Hematocrit 41.7 % (39.6-49.0); RBC Red Blood Cell Count 4.75 M/uL (4.33-5.43)
[2021-06-12 19:00] LABS: Absolute Lymphocytes (CBC) 1.2 K/uL (0.7-4.9); Basophils % 0.3 % (0-1.3); Lymphocytes % 7.8 % (15.3-44.8); MPV 8.9 fL (7.6-11.3)
[2021-06-12 19:18] LABS: ALT/SGPT 17 U/L (12-78); AST/SGOT 20 U/L (15-37); Albumin 3.4 g/dL (3.4-5.0); Alkaline Phosphatase 58 U/L (45-117); BUN Blood Urea Nitrogen 18 mg/dL (7-18); Bicarbonate 26 mmol/L (21-32); Bilirubin Direct 0.2 mg/dL (0-0.2); Bilirubin Total 0.8 mg/dL (0.2-1.0); Glucose Level 98 mg/dL (74-106); Lipase 140 U/L (73-393); Potassium 3.1 mmol/L (3.5-5.1); Protein, Total 8.1 g/dL (6.4-8.2); Sodium Level 136 mmol/L (136-145)
--- NOTE | 2021-06-12 20:33 | ER ---
Nurse's Notes [facility] Name: Chad Rahman Age: 60 yrs Sex: Male : 1960 Arrival Date: 06/12/2021 Time: 18:22 Bed 24 Private MD: Diagnosis: Abdominal pain. Intractable hiccups. Acute pancreatitis. Leukocyctosis Presentation: 06/12 18:29 Chief complaint: Patient states: Abd pain with hiccups, and N/V for 4 days. No fever or ll1 dysuria. Coronavirus screen: Client denies travel out of the [place] in the last 14 days. At this time, the client does not indicate any symptoms associated with coronavirus-19. Ebola Screen: Patient denies travel to an Ebola-affected area in the 21 days before illness onset. Initial Sepsis Screen: Does the patient meet any 2 criteria? No. Patient's initial sepsis screen is negative. Does the patient have a suspected source of infection? Yes: Acute abdominal pain. Risk Assessment: Do you want to hurt yourself or someone else? Patient reports no desire to harm self or others. Onset of symptoms was June 09, 2021. 18:29 Method Of Arrival: Wheelchair ll1 18:29 Acuity: ROSALIA 3 ll1 Historical: - Allergies: 18:31 No Known Allergies; ll1 - PMHx: 18:31 Myocardial infarction; Pancreatitis; ll1 - PSHx: 18:31 CAD; Stented artery; ll1 - Immunization history:: Flu vaccine is up to date. - Social history:: Smoking status: Patient reports the use of cigarette tobacco products, denies chronic smoking, but will smoke occasionally. Screenin:47 Abuse screen: Denies threats or abuse. Denies injuries from another. Nutritional tr6 screening: No deficits noted. Tuberculosis screening: No symptoms or risk factors identified. Fall Risk None identified. Assessment: 18:46 General: Appears distressed, uncomfortable, Behavior is cooperative, appropriate for tr6 age. Pain: Complains of pain in RUQ. Neuro: No deficits noted. Cardiovascular: No deficits noted. Respiratory: No deficits noted. GI: Abdomen is flat, Bowel sounds Abdomen is tender to palpation in abdomen diffusely Reports upper abdominal pain. : No deficits noted. EENT: No deficits noted. Derm: No deficits noted. Musculoskeletal: No deficits noted. 19:10 Reassessment: Patient appears in no apparent distress at this time. Patient and/or jb4 family updated on plan of care and expected duration. Pain level reassessed. Patient is alert, oriented x 3, equal unlabored respirations, skin warm/dry/pink. 20:19 Reassessment: Provider informed that we do not have IV thorazine, received verbal order jb4 to change current order for IV thorazine 25mg to PO thorazine 50mg. Vital Signs: 18:29 BP 150 / 110; Pulse 93; Resp 18; Temp 97.9; Pulse Ox 99% ; Weight 78.47 kg; Height 5 ll1 ft. 8 in. (172.72 cm); Pain 9/10; 20:45 BP 178 / 106; Pulse 77; Resp 16; Pulse Ox 100% on R/A; jb4 18:29 Body Mass Index 26.30 (78.47 kg, 172.72 cm) ll1 ED Course: 18:22 Patient arrived in ED. mr 18:31 Triage completed. ll1 18:31 Arm band placed on. ll1 18:39 Alina Weber, RN is Primary Nurse. tr6 18:45 Inserted saline lock: 18 gauge in right antecubital area, using aseptic technique. tr6 Blood collected. 18:47 Patient has correct armband on for positive identification. Diet: Patient is NPO. tr6 18:47 No provider procedures requiring assistance completed. tr6 19:32 Primary Nurse role handed off by Alina Weber, EBONI tt3 19:39 Adryan Nye, EBONI is Primary Nurse. jb4 20:06 Gamaliel Greene MD is Attending Physician. pkl 20:31 Abiel Skinner DO is Hospitalizing Provider. pkl Administered Medications: 20:21 Not Given (Other Intervention Used): chlorproMAZINE 25 mg IV at calculated rate once jb4 20:31 Drug: NS 0.9% 1000 ml Route: IV; Rate: 125 ml/hr; Site: right antecubital; jb4 20:51 Drug: K-Dur (potassium chloride) 40 mEq Route: PO; jb4 21:15 Drug: hydrALAZINE 10 mg Route: IVP; Site: right antecubital; jb4 21:21 Not Given (Patient Refused; Pt no longer having hiccupss): chlorproMAZINE 50 mg PO once jb4 Outcome: 20:32 Decision to Hospitalize by Provider. pkl 06/13 14:21 Patient left the ED. aa5 Signatures: Gamaliel Greene MD MD pkl Schreiber, Alicia mr Salazar, Carmella, RN RN aa5 Adryan Nye RN RN jb4 Claus Dc RN RN ll1 Guanakito Aviles tt3 Alina Weber RN RN tr6
--- NOTE | 2021-06-12 20:33 | EDPHYS ---
Physician Documentation [facility] Name: Chad Rahman Age: 60 yrs Sex: Male : 1960 Arrival Date: 06/12/2021 Time: 18:22 Bed 24 Private MD: ED Physician Gamaliel Greene HPI: 06/12 20:16 This 60 yrs old Black Male presents to ER via Wheelchair with complaints of Abdominal pkl Pain. 20:16 The patient presents with abdominal pain in the upper abdomen. Onset: The pkl symptoms/episode began/occurred 4 day(s) ago. The symptoms do not radiate. Associated signs and symptoms: Pertinent positives: nausea and vomiting, persistent hiccups. The patient has been recently seen at the [facility] Emergency Department, patient seen in this ER for the past 2 days for same complaints. Historical: - Allergies: 18:31 No Known Allergies; ll1 - PMHx: 18:31 Myocardial infarction; Pancreatitis; ll1 - PSHx: 18:31 CAD; Stented artery; ll1 - Immunization history:: Flu vaccine is up to date. - Social history:: Smoking status: Patient reports the use of cigarette tobacco products, denies chronic smoking, but will smoke occasionally. ROS: 20:16 Eyes: Negative for injury, pain, redness, and discharge, ENT: Negative for injury, pkl pain, and discharge, Neck: Negative for injury, pain, and swelling, Cardiovascular: Negative for chest pain, palpitations, and edema, Respiratory: Negative for shortness of breath, cough, wheezing, and pleuritic chest pain. 20:16 Abdomen/GI: Positive for abdominal pain, nausea and vomiting, of the right upper quadrant and left upper quadrant, persistent hiccups. 20:16 Back: Negative for acute changes. 20:16 : Negative for urinary symptoms. 20:16 MS/extremity: Negative for acute changes. 20:16 Skin: Negative for rash. 20:16 Neuro: Negative for altered mental status, loss of consciousness. Exam: 20:16 Head/Face: Normocephalic, atraumatic. Eyes: Pupils equal round and reactive to light, pkl extra-ocular motions intact. Lids and lashes normal. Conjunctiva and sclera are non-icteric and not injected. Cornea within normal limits. Periorbital areas with no swelling, redness, or edema. ENT: Nares patent. No nasal discharge, no septal abnormalities noted. Tympanic membranes are normal and external auditory canals are clear. Oropharynx with no redness, swelling, or masses, exudates, or evidence of obstruction, uvula midline. Mucous membranes moist. Neck: Trachea midline, no thyromegaly or masses palpated, and no cervical lymphadenopathy. Supple, full range of motion without nuchal rigidity, or vertebral point tenderness. No Meningismus. Chest/axilla: Normal chest wall appearance and motion. Nontender with no deformity. No lesions are appreciated. Cardiovascular: Regular rate and rhythm with a normal S1 and S2. No gallops, murmurs, or rubs. Normal PMI, no JVD. No pulse deficits. Respiratory: Lungs have equal breath sounds bilaterally, clear to auscultation and percussion. No rales, rhonchi or wheezes noted. No increased work of breathing, no retractions or nasal flaring. 20:16 Abdomen/GI: Bowel sounds: normal, Palpation: soft, mild abdominal tenderness, in the right upper quadrant and left upper quadrant. 20:16 Back: Exam negative for acute changes. 20:16 : Exam negative for acute changes. 20:16 Musculoskeletal/extremity: Exam is negative for acute changes. 20:16 Skin: Exam negative for rash. 20:16 Neuro: Orientation: is normal, Mentation: is normal, Cranial nerves: grossly normal, Motor: is normal. Vital Signs: 18:29 BP 150 / 110; Pulse 93; Resp 18; Temp 97.9; Pulse Ox 99% ; Weight 78.47 kg; Height 5 ll1 ft. 8 in. (172.72 cm); Pain 9/10; 20:45 BP 178 / 106; Pulse 77; Resp 16; Pulse Ox 100% on R/A; jb4 18:29 Body Mass Index 26.30 (78.47 kg, 172.72 cm) ll1 MDM: 20:06 Patient medically screened. pkl 20:28 Data reviewed: vital signs, nurses notes, lab test result(s). ED course: Talked to Cipriano lindo ( KAVON ) Admit to Dr. Skinner. 06/12 18:45 Order name: Basic Metabolic Panel; Complete Time: 20:14 tr6 06/12 18:45 Order name: CBC with Diff; Complete Time: 20:14 tr6 06/12 18:45 Order name: Hepatic Function; Complete Time: 20:14 tr6 06/12 18:45 Order name: Lipase; Complete Time: 20:14 6 06/12 20:33 Order name: Urinalysis ej 06/12 20:33 Order name: Urinalysis EDMS 06/12 22:41 Order name: Lactate EDMS 06/12 22:42 Order name: C-Reactive Protein EDMS 06/12 22:42 Order name: Amylase EDMS 06/12 23:05 Order name: Procalcitonin EDMS 06/12 23:08 Order name: Urine Microscopic Only EDMS 06/13 03:57 Order name: CBC with Automated Diff EDMS 06/13 03:58 Order name: Comprehensive Metabolic Panel EDW[facility] 06/13 03:58 Order name: Phosphorus EDMS 06/12 18:45 Order name: IV Saline Lock; Complete Time: 18:46 tr6 06/12 18:45 Order name: Labs collected and sent; Complete Time: 18:46 [facility] 06/13 03:58 Order name: Magnesium EDW[facility] 06/13 10:34 Order name: Lipase EDMS Administered Medications: 20:21 Not Given (Other Intervention Used): chlorproMAZINE 25 mg IV at calculated rate once jb4 20:31 Drug: NS 0.9% 1000 ml Route: IV; Rate: 125 ml/hr; Site: right antecubital; jb4 20:51 Drug: K-Dur (potassium chloride) 40 mEq Route: PO; jb4 21:15 Drug: hydrALAZINE 10 mg Route: IVP; Site: right antecubital; jb4 21:21 Not Given (Patient Refused; Pt no longer having hiccupss): chlorproMAZINE 50 mg PO once jb4 Disposition Summary: 06/12/21 20:32 Hospitalization Ordered Hospitalization Status: Inpatient Admission pkl Provider: Abiel Skinner pkl Condition: Stable pkl Problem: new pkl Symptoms: are unchanged pkl Bed/Room Type: Standard pkl Location: [facility] ER HOLD(06/12/21 20:38) em Room Assignment: ERHOLD-(06/12/21 20:38) em Diagnosis - Abdominal pain. Intractable hiccups. Acute pancreatitis. Leukocyctosis pkl Forms: - Medication Reconciliation Form pkl - SBAR form pkl Signatures: Dispatcher [employer] Gamaliel Werner MD MD pkl Lucho Figueroa RN RN em Adryan Nye RN RN jb4 Claus Dc RN RN ll1 Alina Weber RN RN tr6 Corrections: (The following items were deleted from the chart) 20:38 20:32 Telemetry/MedSurg (Inpatient) pkl em 20:38 20:32 pkl em
[2021-06-12] MEDS ORDERED: NA CHLORIDE 0.9% 1,000 ML ONE (20:40)
[2021-06-12] MEDS ORDERED: POTASSIUM CL SA 10 MEQ TAB PO ONE (21:06)
--- NOTE | 2021-06-12 21:26 | P.HP ---
Certification for Inpatient Patient admitted to: Inpatient With expected LOS: <2 Midnights Patient will require the following post-hospital care: None Practitioner: I am a practitioner with admitting privileges, knowledge of patient current condition, hospital course, and medical plan of care. Services: Services provided to patient in accordance with Admission requirements found in Title 42 Section 412.3 of the Code of Federal Regulations Patient History Date of Service: 06/12/21 Reason for admission: acute pancreatitis History of Present Illness: Mr. Rahman is a 60 yo M with CAD who presents with nausea, lower abdominal pain and hiccups. This is his third time presenting to the ED. Patient's chief complaint is the hiccups which are worse today. He says no relief with chicken broth. Mild relief with ice chips. Reports night sweats. Denies vomiting, dysuria, frequency, urgency. Last BM 3 days ago. WBC 15.1.CT scan shows interval development of inflammatory changes surrounding the pancreatic head concerning for acute pancreatitis. Lipase wnl. Waiting on repeat UA. Allergies No Known Allergies Allergy (Unverified 08/30/18 14:11) Home Medications: RX: Aspirin Chewable [Aspirin Chewable*] 81 mg PO DAILY #30 tab.chew 09/01/18 RX: Atorvastatin Calcium [Lipitor] 80 mg PO DAILY #30 tablet 09/01/18 RX: Clopidogrel Bisulfate [Plavix*] 75 mg PO DAILY #30 tablet 09/01/18 RX: Metoclopramide HCl [Reglan] 10 mg PO Q6HP PRN #40 tablet 09/01/18 RX: Metoprolol Tartrate [Lopressor*] 25 mg PO BID #60 tab 09/01/18 RX: Nitroglycerin [Nitrostat*] 0.4 mg SL UD PRN tab 09/01/18 RX: metroNIDAZOLE [Flagyl*] 500 mg PO Q8H #21 tablet 06/10/21 - Past Medical/Surgical History Diabetic: No -: history of [facility] -: 2 cardiac stents - Family History Mother -: Diabetes Father -: Diabetes - Social History Alcohol use: Yes CD- Drugs: No Caffeine use: Yes Review of Systems General: Sweats Gastrointestinal: Nausea, Abdominal Pain Physical Examination - Physical Exam General: Alert, In no apparent distress HEENT: Atraumatic, PERRLA, Mucous membr. moist/pink, EOMI, Sclerae nonicteric Neck: Supple, 2+ carotid pulse no bruit, No LAD, Without JVD or thyroid abnormality Respiratory: Clear to auscultation bilaterally, Normal air movement Cardiovascular: Regular rate/rhythm, Normal S1 S2 Gastrointestinal: Normal bowel sounds, No ascites, No masses, No rebound, No guarding, Tenderness Musculoskeletal: No tenderness Integumentary: No rashes Neurological: Normal gait, Normal speech, Normal strength at 5/5 x4 extr, Normal tone, Normal affect Lymphatics: No axilla or inguinal lymphadenopathy - Studies Laboratory Data (last 24 hrs) 06/12/21 18:50: WBC 15.10 H D, Hgb 13.7, Hct 41.7, Plt Count 268 06/12/21 18:50: Sodium 136, Potassium 3.1 L, BUN 18, Creatinine 0.98, Glucose 98, Total Bilirubin 0.8, AST 20, ALT 17, Alkaline Phosphatase 58 D, Lipase 140 Assessment and Plan - Problems (Diagnosis) (1) Acute pancreatitis Current Visit: No Status: Acute Qualifiers: Pancreatitis type: unspecified pancreatitis type Acute pancreatitis complication: unspecified Qualified Code(s): K85.90 - Acute pancreatitis without necrosis or infection, unspecified (2) Hypertension Onset Date: 09/02/18 Current Visit: No Status: Chronic Qualifiers: Hypertension type: primary hypertension Qualified Code(s): I10 - Essential (primary) hypertension (3) Marijuana abuse Onset Date: 09/02/18 Current Visit: No Status: Chronic (4) Trichomoniasis Current Visit: No Status: Chronic - Plan NPO, continue IVF hydration hydralazine for PRN BP spikes repeat UA pending amylase, CRP, procal, lactate, blood cultures pending will consider starting ceftriaxone and flagyl protonix and reglan PRN for hiccups potassium replacement protocol Discharge Plan: Home Plan to discharge in: 24 Hours - Advance Directives Does patient have a Living Will: No Does patient have a Durable POA for Healthcare: No - Code Status/Comfort Care Code Status Assessed: Yes (full code ) Critical Care: No Time Spent Managing Pts Care (In Minutes): 70
[2021-06-12] MEDS ORDERED: HYDRALAZINE HCL 20 MG/ML VIAL ONE (21:32)
[2021-06-12] MEDS ORDERED: NA CHLORIDE 0.9% 1,000 ML IV SCH (21:57)
[2021-06-12] MEDS ORDERED: MORPHINE 2 MG/ML SYR IV PRN (21:57)
[2021-06-12] MEDS ORDERED: ONDANSETRON 4 MG/2 ML VIAL IV PRN (21:57)
[2021-06-12] MEDS ORDERED: ACETAMINOPHEN 500 MG TAB PO PRN (21:57)
[2021-06-12] MEDS ORDERED: HYDRALAZINE HCL 20 MG/ML VIAL IV PRN (21:57)
[2021-06-12 22:13] VITALS: BMI 26.3
[2021-06-12 22:47] LABS: Urine Appearance CLEAR (Clear); Urine Bilirubin NEGATIVE (Negative); Urine Blood NEGATIVE (Negative); Urine Color YELLOW (Yellow); Urine Glucose NEGATIVE (Negative); Urine Protein 1+ (Negative)
[2021-06-12] MEDS ORDERED: CHLORPROMAZINE 25 MG TAB PO ONE ×2 (22:53→23:00)
[2021-06-12 22:56] LABS: Urine Microscopic Reflex ORDER UMIC
[2021-06-12 23:08] LABS: Urine Bacteria <20 /HPF (NONE SEEN); Urine RBC <5 /HPF (NONE SEEN)
[2021-06-12] MEDS ORDERED: MORPHINE 2 MG/ML SYR ONE (23:48)
[2021-06-13] MEDS: METRONIDAZOLE 500mg IVPB 500 MG/100 ML BAG IV SCH ×3 (01:00→16:45)
[2021-06-13] MEDS ORDERED: METRONIDAZOLE 500mg IVPB 500 MG/100 ML BAG IV ONE ×3 (02:05→17:06)
[2021-06-13 03:48] LABS: Absolute Lymphocytes (CBC) 1.3 K/uL (0.7-4.9); Basophils % 0.1 % (0-1.3); Hematocrit 38.6 % (39.6-49.0); Lymphocytes % 11.6 % (15.3-44.8); MPV 8.8 fL (7.6-11.3); RBC Red Blood Cell Count 4.34 M/uL (4.33-5.43)
[2021-06-13 03:58] LABS: ALT/SGPT 15 U/L (12-78); AST/SGOT 17 U/L (15-37); Albumin 2.9 g/dL (3.4-5.0); Alkaline Phosphatase 38 U/L (45-117); BUN Blood Urea Nitrogen 16 mg/dL (7-18); Bicarbonate 24 mmol/L (21-32); Bilirubin Total 0.6 mg/dL (0.2-1.0); Glucose Level 101 mg/dL (74-106); Magnesium 2.3 mg/dL (1.8-2.4); Potassium 3.2 mmol/L (3.5-5.1); Protein, Total 7.2 g/dL (6.4-8.2); Sodium Level 137 mmol/L (136-145)
--- NOTE | 2021-06-13 06:18 | P.PN ---
Subjective Date of Service: 06/13/21 Primary Care Provider: None Chief Complaint: acute pancreatitis Subjective: Improving (No pain noted. No nausea noted. He reports no history of alcohol.) Physical Examination - Vital Signs Temperature: 98.7 F Blood Pressure: 97/58 Pulse: 83 Respirations: 16 Pulse Ox (%): 99 - Studies Laboratory Data (last 24 hrs) 06/12/21 18:50: WBC 15.10 H D, Hgb 13.7, Hct 41.7, Plt Count 268 06/12/21 18:50: Sodium 136, Potassium 3.1 L, BUN 18, Creatinine 0.98, Glucose 98, Total Bilirubin 0.8, AST 20, ALT 17, Alkaline Phosphatase 58 D, Lipase 140 Assessment & Plan Discharge Plan: Home Plan to discharge in: 48 Hours Physician Review Additional Text: Physical exam: General: Alert, In no apparent distress HEENT: Atraumatic, PERRLA, Mucous membr. moist/pink, EOMI, Sclerae nonicteric Neck: Supple, 2+ carotid pulse no bruit, No LAD, Without JVD or thyroid abnormality Respiratory: Clear to auscultation bilaterally, Normal air movement Cardiovascular: Regular rate/rhythm, Normal S1 S2 Gastrointestinal: Normal bowel sounds, No ascites, No masses, No rebound, No guarding, Tenderness Musculoskeletal: No tenderness Integumentary: No rashes Neurological: Normal gait, Normal speech, Normal strength at 5/5 x4 extr, Normal tone, Normal affect Lymphatics: No axilla or inguinal lymphadenopathy Impression: Acute pancreatitis Hypertension THC use History of recent trichomonas infection Plan: Acute pancreatitis: Continue IV fluid hydration. Patient much improved. Will advance diet to clear liquid. Await recommendations from GI who is been consulted. Hypertension: Need to review home medication. Will provide medication IV. THC use: Cessation education provided. History of recent trichomonas infection: Continue antibiotic therapy. DVT prophylaxis: Lovenox CODE STATUS: Full code Advance care [id number] minutes: Home at discharge. Time Spent Managing Pts Care (In Minutes): 55
[2021-06-13] MEDS: D5 0.45 NS 1,000 ML IV SCH ×2 (07:26→16:40)
[2021-06-13] MEDS ORDERED: D5 0.45 NS 1,000 ML IV ONE ×2 (07:38→17:00)
[2021-06-13] MEDS: ENOXAPARIN 40 MG/0.4 ML SQ SCH ×2 (08:40→09:00)
[2021-06-13] MEDS: METOCLOPRAMIDE 5 MG TAB PO SCH ×4 (08:40→20:48)
[2021-06-13] MEDS: PANTOPRAZOLE 40MG TABLET PO SCH ×2 (08:41→16:30)
[2021-06-13] MEDS: CEFTRIAXONE/SWI 1gm 1 GM/10 ML SYR IV SCH (08:43)
[2021-06-13] MEDS ORDERED: METOCLOPRAMIDE 5 MG TAB ONE ×3 (08:47→20:28)
[2021-06-13] MEDS ORDERED: PANTOPRAZOLE 40MG TABLET PO ONE (08:47)
[2021-06-13] MEDS ORDERED: CEFTRIAXONE 1000 MG/VIAL ONE (08:48)
[2021-06-13] MEDS ORDERED: ENOXAPARIN 40 MG/0.4 ML SQ ONE (08:48)
[2021-06-13] MEDS: DOCUSATE NA 100 MG CAP PO SCH ×2 (08:55→20:47)
[2021-06-13] MEDS ORDERED: POTASSIUM CL SA 10 MEQ TAB PO ONE ×2 (08:59→10:08)
[2021-06-13] MEDS ORDERED: CEFTRIAXONE 1 GM/NS 50 ML 1 GM/50 ML BAG IV SCH (09:00)
[2021-06-13] MEDS ORDERED: CEFTRIAXONE/SWI 1gm 1 GM/10 ML SYR ONE (09:05)
[2021-06-13] MEDS ORDERED: DOCUSATE NA 100 MG CAP PO ONE ×2 (09:08→20:29)
[2021-06-13] MEDS ORDERED: ADENOSINE 6 MG/ 2ML VIAL IV ONE (09:24)
[2021-06-13] MEDS ORDERED: NA CHLORIDE 0.9% 1,000 ML ONE (09:24)
[2021-06-13] MEDS ORDERED: AMIODARONE HCL 150 MG/3 ML INJ IV ONE (09:31)
[2021-06-13] MEDS ORDERED: METOPROLOL TARTRATE 5 MG/5 ML INJ IV ONE (09:31)
[2021-06-13] MEDS ORDERED: D5W 100 ML IV ONE (09:32)
[2021-06-13] MEDS ORDERED: NA CHLORIDE 0.9% 500 ML IV ONE (09:43)
[2021-06-13] MEDS ORDERED: ENOXAPARIN 80 MG/0.8 ML SQ SCH ×2 (09:45→21:00)
[2021-06-13] MEDS ORDERED: ENOXAPARIN 80 MG/0.8 ML SQ ONE ×2 (10:29→20:28)
[2021-06-13] MEDS: ENOXAPARIN 80 MG/0.8 ML SQ SCH ×2 (10:50→21:06)
[2021-06-13] MEDS: POTASS/SODIUM PHOSPHATE 1 PKT POWD.PACK PO SCH ×3 (14:56→16:42)
[2021-06-13] MEDS ORDERED: POTASS/SODIUM PHOSPHATE 1 PKT POWD.PACK ONE (15:17)
[2021-06-13] MEDS ORDERED: PANTOPRAZOLE 40 MG INJ ONE (17:00)
[2021-06-13] MEDS ORDERED: METOCLOPRAMIDE 10 MG/2mL INJ ONE (17:00)
[2021-06-13] MEDS ORDERED: POTASSIUM 25 MEQ EFFERV TAB PO ONE (19:11)
[2021-06-13] MEDS ORDERED: METOPROLOL TAR 50 MG TAB ONE (20:27)
[2021-06-13] MEDS ORDERED: POTASSIUM 25 MEQ EFFERV TAB ONE (20:28)
[2021-06-13] MEDS: METOPROLOL TAR 50 MG TAB PO SCH (20:47)
[2021-06-13] MEDS ORDERED: CHLORPROMAZINE 25 MG TAB PO SCH (21:00)
[2021-06-14] MEDS: METRONIDAZOLE 500mg IVPB 500 MG/100 ML BAG IV SCH ×3 (00:10→17:00)
[2021-06-14] MEDS ORDERED: METRONIDAZOLE 500mg IVPB 500 MG/100 ML BAG IV ONE ×2 (00:31→07:47)
[2021-06-14 04:38] LABS: Absolute Lymphocytes (CBC) 1.4 K/uL (0.7-4.9); Basophils % 0.4 % (0-1.3); Hematocrit 37.9 % (39.6-49.0); Lymphocytes % 15.1 % (15.3-44.8); MPV 8.9 fL (7.6-11.3); RBC Red Blood Cell Count 4.29 M/uL (4.33-5.43)
[2021-06-14 04:48] LABS: ALT/SGPT 12 U/L (12-78); AST/SGOT 11 U/L (15-37); Albumin 2.6 g/dL (3.4-5.0); Alkaline Phosphatase 32 U/L (45-117); BUN Blood Urea Nitrogen 10 mg/dL (7-18); Bicarbonate 31 mmol/L (21-32); Bilirubin Total 0.5 mg/dL (0.2-1.0); Glucose Level 119 mg/dL (74-106); HDL Cholesterol 37 mg/dL (40-60); LDL Cholesterol, Calculated 86 (<130); Phosphorus 1.6 mg/dL (2.5-4.9); Protein, Total 6.6 g/dL (6.4-8.2); Sodium Level 139 mmol/L (136-145)
[2021-06-14 04:49] LABS: Lipase 90 U/L (73-393); Magnesium 2.1 mg/dL (1.8-2.4)
--- NOTE | 2021-06-14 06:21 | P.PN ---
Subjective Date of Service: 06/14/21 Primary Care Provider: None Chief Complaint: acute pancreatitis Subjective: Improving, Doing well Physical Examination - Vital Signs Temperature: 98.2 F Blood Pressure: 149/102 Pulse: 68 Respirations: 16 Pulse Ox (%): 100 Assessment & Plan Discharge Plan: Home Plan to discharge in: 24 Hours Physician Review Additional Text: Physical exam: General: Alert, In no apparent distress HEENT: Atraumatic, PERRLA, Mucous membr. moist/pink, EOMI, Sclerae nonicteric Neck: Supple, 2+ carotid pulse no bruit, No LAD, Without JVD or thyroid abnormality Respiratory: Clear to auscultation bilaterally, Normal air movement Cardiovascular: Regular rate/rhythm, Normal S1 S2 Gastrointestinal: Normal bowel sounds, No ascites, No masses, No rebound, No guarding, No pain Musculoskeletal: No tenderness Integumentary: No rashes Neurological: Normal gait, Normal speech, Normal strength at 5/5 x4 extr, Normal tone, Normal affect Lymphatics: No axilla or inguinal lymphadenopathy Impression: Acute pancreatitis Hypertension Atrial fibrillation THC use History of recent trichomonas infection CAD Plan: Acute pancreatitis: Continue IV fluid hydration. Will start a GI soft diet. If doing well then will DC home later today. Patient Await recommendations from GI who is been consulted. Hypertension: Now on Metoprolol. NSR. Will also start Norvasc. Atrial fibrillation: Now in NSR. Case discussed with Cardiology yesterday. Will discuss with Cardiology on whether patient will need anticoagulation with Metoprolol. THC use: Cessation education provided. History of recent trichomonas infection: Continue antibiotic therapy. CAD: Stable. Hx of stent in the past DVT prophylaxis: Lovenox CODE STATUS: Full code Advance care [id number] minutes: Home at discharge. Time Spent Managing Pts Care (In Minutes): 55
[2021-06-14] MEDS: D5 0.45 NS 1,000 ML IV SCH ×3 (06:59→20:41)
[2021-06-14] MEDS ORDERED: D5 0.45 NS 1,000 ML IV ONE (07:11)
[2021-06-14] MEDS: METOCLOPRAMIDE 5 MG TAB PO SCH ×4 (07:26→20:42)
[2021-06-14] MEDS: METOPROLOL TAR 50 MG TAB PO SCH ×2 (07:26→20:41)
[2021-06-14] MEDS: PANTOPRAZOLE 40MG TABLET PO SCH ×2 (07:26→16:02)
[2021-06-14] MEDS: CEFTRIAXONE/SWI 1gm 1 GM/10 ML SYR IV SCH (07:27)
[2021-06-14] MEDS: ENOXAPARIN 80 MG/0.8 ML SQ SCH ×2 (07:27→20:42)
--- NOTE | 2021-06-14 07:28 | EKG ---
Test Date: 2021-06-13 Test Time: 08:59:22 Delivery Driver/Customer Service: MEASUREMENT RESULTS: Intervals: Rate: 176 [place]: QRSD: 74 QT: 274 QTc: 468 [place]: P: NV: QRS: -12 T: -84 INTERPRETIVE STATEMENTS: Undetermined rhythm Anteroseptal infarct, age undetermined Lateral injury pattern ACUTE [place] Abnormal ECG Compared to ECG 03/25/2019 18:34:43 Sinus rhythm no longer present T-wave abnormality no longer present Possible ischemia no longer present Prolonged QT interval no longer present ST (T wave) deviation no longer present Myocardial infarct finding still present Electronically Signed On 06-14-21 07:27:52 CDT by Jarret Downs
[2021-06-14] MEDS ORDERED: METOPROLOL TAR 50 MG TAB ONE (07:46)
[2021-06-14] MEDS ORDERED: METOCLOPRAMIDE 5 MG TAB ONE ×4 (07:46→16:22)
[2021-06-14] MEDS ORDERED: PANTOPRAZOLE 40MG TABLET PO ONE ×2 (07:46→16:22)
[2021-06-14] MEDS ORDERED: ENOXAPARIN 80 MG/0.8 ML SQ ONE (07:47)
[2021-06-14] MEDS ORDERED: CEFTRIAXONE/SWI 1gm 1 GM/10 ML SYR ONE (07:47)
[2021-06-14] MEDS ORDERED: AMLODIPINE 5 MG TAB ONE (08:59)
[2021-06-14] MEDS ORDERED: AMLODIPINE 5 MG TAB PO SCH (09:00)
--- NOTE | 2021-06-14 11:49 | EKG ---
Test Date: 2021-06-13 Test Time: 09:14:36 Offline Editor: MEASUREMENT RESULTS: Intervals: Rate: 91 FL: 148 QRSD: 82 QT: 400 QTc: 492 [place]: P: 43 FL: 148 QRS: 0 T: 104 INTERPRETIVE STATEMENTS: Sinus rhythm with premature atrial complexes Right atrial enlargement Anteroseptal infarct, age undetermined Abnormal ECG Compared to ECG 06/13/2021 08:59:22 Atrial premature complex(es) now present Atrial abnormality now present Myocardial infarct finding still present Electronically Signed On 06-14-21 11:47:20 CDT by Jarret Downs
--- NOTE | 2021-06-14 11:59 | CON ---
Date of Consultation: 06/13/2021 Reason For Consultation: New onset atrial fibrillation. History Of Present Illness: Mr. Rahman is a 60-year-old black male with history of CAD. He had an angioplasty and stent of his LAD in 2018. Has been lost to follow up. Came in with acute pancreatit is and while he was being treated for that, he went to the rapid atrial fibrillation. I was called t o the emergency room to see him. Then, it was initially unclear what rhythm he was in, but after giv ing Adenocard IV, it was clear that he was in atrial fibrillation. He received 5 mg of IV Lopressor x3 and he went back to normal rhythm. He did not have any cardiac symptoms, except for palpitation. Past Medical History: As stated above. Allergies: NONE. Review of Systems: Negative. Social History: Negative. Family History: Noncontributory. Medications: At home include aspirin, Plavix, Lipitor, Reglan, Lopressor, and nitroglycerin as neede d. Physical Examination: General: He was in moderate abdominal discomfort. Vital Signs: Initially were stable, except for the atrial fibrillation, but his blood pressure was n ormal. He was afebrile. HEENT: Negative. Neck: Supple with no bruit. Chest: Clear. Cardiac: Revealed atrial fibrillation. Abdomen: Tender in the midepigastric region. Extremities: Revealed no clubbing, cyanosis, or edema. Laboratory Data: His blood work was unremarkable, except for a white count of 15,000, CT of the abdo men showing pancreatitis and CRP was 175. Impression And Plan: Atrial fibrillation, resolved with IV metoprolol. If it reoccurs, I would put him on IV amiodarone. For now, we will watch him. It would be reasonable to get an echocardiogram, watch his electrolytes, watch his thyroid level, continue his metoprolol that he takes at home. Once he is able to take p.o., I will continue to follow him as needed. RHIANNON/ABNER Voice ID: [id number] Report ID: [id number]
--- NOTE | 2021-06-14 12:29 | PN ---
Date of Progress Note: 06/14/2021 Mr. Rahman is 60, came in with acute pancreatitis and atrial fibrillation that resolved after IV bet a-teresita. Has not been able to take p.o. yet, but his pain is much better. I think we can put him back on his p.o. metoprolol that he was taking at home. No need for any further cardiac workup or in tervention at this point. An echocardiogram may be reasonable. He has a history of CAD, dyslipidemi a, and hypertension that are stable. If he goes back into atrial fibrillation, we will put him on IV amiodarone. I will sign off his case. RHIANNON/ABNER Voice ID: [id number] Report ID: [id number]
[2021-06-14] MEDS: POTASS/SODIUM PHOSPHATE 1 PKT POWD.PACK PO SCH ×3 (15:00→16:57)
[2021-06-14] MEDS: lisinopriL 10 MG TAB PO SCH (16:01)
[2021-06-14] MEDS ORDERED: lisinopriL 10 MG TAB ONE (16:22)
[2021-06-15] MEDS: METRONIDAZOLE 500mg IVPB 500 MG/100 ML BAG IV SCH ×2 (00:49→08:33)
[2021-06-15 05:23] LABS: ALT/SGPT 13 U/L (12-78); AST/SGOT 11 U/L (15-37); Albumin 2.8 g/dL (3.4-5.0); Alkaline Phosphatase 31 U/L (45-117); BUN Blood Urea Nitrogen 8 mg/dL (7-18); Bicarbonate 27 mmol/L (21-32); Bilirubin Total 0.4 mg/dL (0.2-1.0); Glucose Level 121 mg/dL (74-106); Lipase 151 U/L (73-393); Magnesium 1.9 mg/dL (1.8-2.4); Potassium 3.4 mmol/L (3.5-5.1); Protein, Total 6.7 g/dL (6.4-8.2); Sodium Level 138 mmol/L (136-145)
[2021-06-15 05:24] LABS: Absolute Lymphocytes (CBC) 1.4 K/uL (0.7-4.9); Basophils % 0.5 % (0-1.3); Hematocrit 37.9 % (39.6-49.0); Lymphocytes % 17.3 % (15.3-44.8); MPV 9.1 fL (7.6-11.3); RBC Red Blood Cell Count 4.29 M/uL (4.33-5.43)
--- NOTE | 2021-06-15 06:04 | P.DS ---
Admission Date: 06/12/21 Discharge Date: 06/15/21 Primary Care Provider: None Disposition: ROUTINE DISCHARGE Discharge Condition: GOOD Reason for Admission: acute pancreatitis Consultations: Cardiology-Dr. Downs GI-Dr. Ferrera Procedures: CT scan: COMPARISON: Abdomen Pelvis W Contrast dated 06/09/2021; Abdomen Exam Limited dated 06/09/2021 TECHNIQUE: Biphasic CT imaging of the abdomen and pelvis was performed with 100 ml non-ionic IV contrast. All CT scans are performed using dose optimization technique as appropriate and may include automated exposure control or mA/KV adjustment according to patient size. FINDINGS: The lung bases are clear. No focal liver lesions identified. Prominent extrahepatic bile duct. Gallbladder is within normal limits. Adrenal glands unremarkable. Too small to characterize renal lesions which are statistically benign. Ectasia of the infrarenal abdominal aorta. Inflammatory changes are present along the pancreatic head with small volume of fluid in reactive thickening of the duodenum. The downstream pancreatic duct has increased in diameter compared with 06/09/2021 presumably related to edema. No bowel obstruction, free air, free fluid or abscess. The appendix is normal. No evidence of significant lymphadenopathy. No suspicious bony findings. Scattered degenerative changes are present in spine. IMPRESSION: Interval development of inflammatory changes surrounding the pancreatic head concerning for acute pancreatitis. No complicating features identified at this time. ECHO: Spoke with cardiology. EF around 35%. Medical Problem List: Acute pancreatitis Hypertension Hyperlipidemia New onset Atrial fibrillation Chronic systolic CHF THC use History of recent trichomonas infection CAD Brief History of Present Illness: 60-year-old -[place] male with history of CAD, hypertension. Patient presented with nausea, abdominal pain and hiccups. Patient had been to the ER multiple times. CT scan revealed inflammation to the pancreatic head concerning for acute pancreatitis. Patient was admitted for treatment. Hospital Course: Patient presented with abdominal pain and nausea. He he had been to the ER multiple times. CT scan revealed inflammation to the pancreatic head suggestive of acute pancreatitis. The patient was admitted for treatment. Patient denied any alcohol use. Lipid panel unremarkable. The patient was given IV fluids w ith improvement. Patient was seen and evaluated by GI. No intervention was required. At discharge patient will continue with a low-fat diet. Recommend no alcohol use. Patient will need to follow-up with GI in 1 to 2 weeks to follow- up his hospitalization and continue his care. Education on pancreatitis provided. Patient had episode of elevated heart rate. Patient found to have atrial fibri llation. Patient was initially given carotid massage then adenosine. Once atrial fibrillation was identified patient was given multiple doses of IV metoprolol which converted to normal sinus rhythm. This was addressed with cardiology in detail. Echocardiogram performed. Ejection fraction around 35%. At discharge patient stable on metoprolol. No chronic anticoagulation therapy recommended at this time. At discharge patient will continue with metoprolol 50 mg 1 pill twice daily and aspirin 81 mg daily. Recommend follow-up with cardiology in 1 to 2 weeks to follow-up hospitalization and continue his care. Patient with hypertension, hyperlipidemia and CAD. Patient with history of prior stent. Echocardiogram performed. Patient was seen by cardiology. Medications were adjusted for better blood pressure control. Patient also had episode of atrial fibrillation which resolved with medication. Continue with above recommendations. At discharge patient will continue with aspirin 81 mg daily, Plavix 75 mg daily, metoprolol 50 mg 1 pill twice daily, lisinopril 10 mg daily, and Lipitor 80 mg daily. Patient will continue with nitroglycerin at home to be used as needed for chest pain. Recommend to maintain blood pressure less than 130/80. If blood pressures remain above 140/90 further adjustment in medication can be addressed by his PCP or cardiology. Recommend follow-up with PCP and cardiology in 1 to 2 weeks to follow-up hospitalization and to continue his care. Patient with recent history of trichomonas. Patient received antibiotic therapy. Patient had been given medicationFlagyl with recent discharge. Patient will complete treatment along with his partner. Suspect underlying GERD. At discharge patient will continue with Protonix 40 mg daily. Patient seen and evaluated by GI. Recommend follow-up with GI as directed. Patient with ejection fraction around 35%. Patient with chronic systolic CHF. Recommend to continue 1500 cc/day fluid restriction and low-salt diet. No need for diuretics therapy at this time. Recommend to monitor his weight daily. If he has an increase in his weight or edema patient may require diuretic therapy in the future. For now patient will continue with lisinopril 10 mg daily. Recommend follow-up with cardiology in 1 to 2 weeks to follow-up his hospitalization. Vital Signs/Physical Exam: Temp Pulse Resp BP Pulse Ox 98.8 F 88 18 135/89 100 06/14/21 20:00 06/14/21 20:41 06/14/21 20:00 06/14/21 20:41 06/14/21 20:00 General: Alert, In no apparent distress, Oriented x3, Cooperative HEENT: Atraumatic Neck: Supple Respiratory: Clear to auscultation bilaterally, Normal air movement Cardiovascular: Normal pulses, Regular rate/rhythm Gastrointestinal: Normal bowel sounds, No tenderness, No masses, No rebound, No guarding Musculoskeletal: No erythema, No tenderness, No warmth Integumentary: No tenderness/swelling Neurological: Normal speech, Normal strength at 5/5 x4 extr, Normal tone, Normal affect Laboratory Data at Discharge: WBC 8.10 K/uL (4.3-10.9) D 06/15/21 03:29 Hgb 12.7 g/dL (13.6-17.9) L 06/15/21 03:29 Hct 37.9 % (39.6-49.0) L 06/15/21 03:29 Plt Count 264 K/uL (152-406) 06/15/21 03:29 Sodium 138 mmol/L (136-145) 06/15/21 03:29 Potassium 3.4 mmol/L (3.5-5.1) L 06/15/21 03:29 BUN 8 mg/dL (7-18) 06/15/21 03:29 Creatinine 0.75 mg/dL (0.55-1.3) 06/15/21 03:29 Glucose 121 mg/dL (74-106) H 06/15/21 03:29 Phosphorus 1.6 mg/dL (2.5-4.9) L 06/14/21 04:17 Magnesium 1.9 mg/dL (1.8-2.4) 06/15/21 03:29 Total Bilirubin 0.4 mg/dL (0.2-1.0) 06/15/21 03:29 AST 11 U/L (15-37) L 06/15/21 03:29 ALT 13 U/L (12-78) 06/15/21 03:29 Alkaline Phosphatase 31 U/L (45-117) L 06/15/21 03:29 Triglycerides 117 mg/dL (<150) 06/14/21 04:17 Cholesterol 146 mg/dL (<200) 06/14/21 04:17 HDL Cholesterol 37 mg/dL (40-60) L 06/14/21 04:17 Cholesterol/HDL Ratio 3.95 06/14/21 04:17 Amylase 69 U/L (25-115) D 06/12/21 22:12 Lipase 151 U/L (73-393) 06/15/21 03:29 Home Medications: Aspirin Chewable [Aspirin Chewable*] 81 mg PO DAILY #30 tab.chew 09/01/18 Atorvastatin Calcium [Lipitor] 80 mg PO DAILY #30 tablet 09/01/18 Clopidogrel Bisulfate [Plavix*] 75 mg PO DAILY #30 tablet 09/01/18 Nitroglycerin [Nitrostat*] 0.4 mg SL UD PRN tab 09/01/18 metroNIDAZOLE [Flagyl*] 500 mg PO Q8H #21 tablet 06/10/21 Metoprolol Tartrate [Lopressor*] 50 mg PO BID #60 tab 06/15/21 Pantoprazole [Protonix Tab] 40 mg PO DAILY #30 tab 06/15/21 lisinopriL [Prinivil*] 10 mg PO DAILY #30 tab 06/15/21 New Medications: Metoprolol Tartrate [Lopressor*] 50 mg PO BID #60 tab lisinopriL [Prinivil*] 10 mg PO DAILY #30 tab Pantoprazole [Protonix Tab] 40 mg PO DAILY #30 tab Physician Discharge Instructions: Patient presented with abdominal pain and nausea. He he had been to the ER multiple times. CT scan revealed inflammation to the pancreatic head suggestive of acute pancreatitis. The patient was admitted for treatment. Patient denied any alcohol use. Lipid panel unremarkable. The patient was given IV fluids with improvement. Patient was seen and evaluated by GI. No intervention was required. At discharge patient will continue with a low-fat diet. Recommend no alcohol use. Patient will need to follow-up with GI in 1 to 2 weeks to follow- up his hospitalization and continue his care. Education on pancreatitis provided. Patient had episode of elevated heart rate. Patient found to have atrial fibrillation. Patient was initially given carotid massage then adenosine. Once atrial fibrillation was identified patient was given multiple doses of IV metoprolol which converted to normal sinus rhythm. This was addressed with c ardiology in detail. Echocardiogram performed. Ejection fraction around 35%. At discharge patient stable on metoprolol. No chronic anticoagulation therapy recommended at this time. At discharge patient will continue with metoprolol 50 mg 1 pill twice daily and aspirin 81 mg daily. Recommend follow-up with cardiology in 1 to 2 weeks to follow-up hospitalization and continue his care. Patient with hypertension, hyperlipidemia and CAD. Patient with history of prior stent. Echocardiogram performed. Patient was seen by cardiology. Medications were adjusted for better blood pressure control. Patient also had episode of atrial fibrillation which resolved with medication. Continue with above recommendations. At discharge patient will continue with aspirin 81 mg daily, Plavix 75 mg daily, metoprolol 50 mg 1 pill twice daily, lisinopril 10 mg daily, and Lipitor 80 mg daily. Patient will continue with nitroglycerin at home to be used as needed for chest pain. Recommend to maintain blood pressure less than 130/80. If blood pressures remain above 140/90 further adjustment in medication can be addressed by his PCP or cardiology. Recommend follow-up with PCP and cardiology in 1 to 2 weeks to follow-up hospitalization and to continue his care. Patient with recent history of trichomonas. Patient received antibiotic therapy. Patient had been given medicationFlagyl with recent discharge. Patient will complete treatment along with his partner. Suspect underlying GERD. At discharge patient will continue with Protonix 40 mg daily. Patient seen and evaluated by GI. Recommend follow-up with GI as directed. Patient with ejection fraction around 35%. Patient with chronic systolic CHF. Recommend to continue 1500 cc/day fluid restriction and low-salt diet. No need for diuretics therapy at this time. Recommend to monitor his weight daily. If he has an increase in his weight or edema patient may require diuretic therapy in the future. For now patient will continue with lisinopril 10 mg daily. Recommend follow-up with cardiology in 1 to 2 weeks to follow-up his hospitalization. Diet: AHA Activity: Ad florinda Followup: NONE,NONE [Primary Care Provider] - Time spent managing pt's care (in minutes): 55
[2021-06-15] MEDS: CEFTRIAXONE/SWI 1gm 1 GM/10 ML SYR IV SCH (08:33)
[2021-06-15] MEDS: METOCLOPRAMIDE 5 MG TAB PO SCH ×2 (08:33→14:15)
[2021-06-15] MEDS: ENOXAPARIN 80 MG/0.8 ML SQ SCH (08:34)
[2021-06-15] MEDS: METOPROLOL TAR 50 MG TAB PO SCH (08:34)
[2021-06-15] MEDS: lisinopriL 10 MG TAB PO SCH (08:39)
[2021-06-15] MEDS: PANTOPRAZOLE 40MG TABLET PO SCH (08:39)
[2021-06-15] MEDS ORDERED: POTASSIUM CL SA 10 MEQ TAB PO ONE (09:00)
[2021-06-15 10:28] VITALS: O2SAT 96
--- NOTE | 2021-06-15 11:00 | ECHO ---
HEIGHT: 5 ft 8 in WEIGHT: 173 lb 0 oz DATE OF STUDY: 06/15/[address]: Abiel Skinner DO 2-DIMENSIONAL: YES M.MODE: YES DOPPLER: YES COLOR FLOW: YES TDS: PORTABLE: DEFINITY: BUBBLE STUDY: DIAGNOSIS: IRREGULAR HEART RATE CARDIAC HISTORY: CATHERIZATION: SURGERY: PROSTHETIC VALVE: PACEMAKER: MEASUREMENTS (cm) DIASTOLIC (NORMALS) SYSTOLIC (NORMALS) IVSd 1.0 (0.6-1.2) LA Diam (1.9-4.0) LVEF 39% LVIDd 5.8 (3.5-5.7) LVIDs 4.7 (2.0-3.5) %FS 19% LVPWd 1.0 (0.6-1.2) Ao Diam 4.0 (2.0-3.7) 2 DIMENSIONAL ASSESSMENT: RIGHT ATRIUM: NORMAL LEFT ATRIUM: DILATED RIGHT VENTRICLE: NORMAL LEFT VENTRICLE: DILATED TRICUSPID VALVE: NORMAL MITRAL VALVE: NORMAL PULMONIC VALVE: NORMAL AORTIC VALVE: NORMAL PERICARDIAL EFFUSION: NONE AORTIC ROOT: NORMAL LEFT VENTRICULAR WALL MOTION: MODERATE TO SEVERE GLOBAL HYPOKINESIS DOPPLER/COLOR FLOW: NORMAL COMMENTS: MODERATE TO SEVERE GLOBAL HYPOKINESIS. EJECTION FRACTION 35-40%. DILATED LEFT ATRIUM AND LEFT VENTRICLE. TECHNOLOGIST: NADIA ROBERTS
[2021-06-15 13:31] VITALS: BP 139/90; TEMP 97.6
== END 2021-06-15 14:28 | disposition home or self-care (01) | DRG 439 ==
LOC: ER 18:19 → ERHOLD 21:06 → 2ND 06-14 16:20
PROVIDERS: ADMIT Family Medicine; ATTEND Family Medicine
DX: K85.90 Acute pancreatitis without necrosis or infection, unspecified (principal); I50.22 Chronic systolic (congestive) heart failure; I48.91 Unspecified atrial fibrillation; I11.0 Hypertensive heart disease with heart failure; E78.5 Hyperlipidemia, unspecified; F12.90 Cannabis use, unspecified, uncomplicated; I25.10 Atherosclerotic heart disease of native coronary artery without angina pectoris; K21.9 Gastro-esophageal reflux disease without esophagitis; A59.9 Trichomoniasis, unspecified; Z95.5 Presence of coronary angioplasty implant and graft
CPT/HCPCS: 36415; 80048; 80053; 80061; 80076; 81003; 81015; 82150; 83605; 83690; 83735; 84100; 84132; 84145; 85025; 86140; 87040; 87086; 87088; 93005; 93306; 94760; 96374; 99283; C9113; J0153; J0282; J0360; J0696; J1650; J2270; J2765; J7030; J7799

== ENCOUNTER 2021-11-18 10:54 | Emergency (ER) | payer SELFPAY ==
--- OUTSIDE RECORDS SUMMARY | 2021-11-18 10:57 | XMS REPORT | Continuity of Care Document ---
:1960 Author Organization [facility] t Address [address] [place] [address] Care Team Providers Name Role Phone SRAVANI HOLDEN Attending Clinician Unavailable SRAVANI HOLDEN Admitting Clinician Unavailable Problems This patient has no known problems. Allergies, Adverse Reactions, Alerts Allergy Allergy Status Severity Reaction(s) Onset Inactive Treating Comm ents Source Name Type Date Date Clinician NO KNOWN Allergy Active [facility] Medications This patient has no known medications. Procedures This patient has no known procedures. Results Test Description Test Time Test Comments Results Result Comments Source MAGNESIUM 2019-03-28 06:18:00 Test Item Value Reference Range Interpretation Comme nts MAGNESIUM (BEAKER) (test code = 627) 1.9 mg/dL 1.6-2.6 BASIC METABOLIC [id number] 06:18:00 Test Item Value Reference Range Interpretation [...] I S NOT APPLICABLE FOR DIALYSIS PATIEN [id number] 06:01:00 Test Item Value Reference Range Interpretation Comments PARTIAL THROMBOPLASTIN TIME 39.4 seconds 22.5-36.0 H (BEAKER) (test code = 760) 6 hours after starting heparin infusion and as indicated per sliding scaleCBC W/PLT COUNT & AUTO [id number] 05:54:00 Test Item Value Reference Range Interpretation [...] 0-1 PERCENT (BEAKER) (test code = 2801) [id number] 11:15:00 Test Item Value Reference Range Interpretation Comments PARTIAL THROMBOPLASTIN TIME 92.3 seconds 22.5-36.0 H (BEAKER) (test code = 760) TROPONIN [id number] 05:41:00 Test Item Value Reference Range Interpretation Comments TROPONIN I (BEAKER) (test code = 31.56 ng/mL 0.00-0.03 397) Troponin I (TnI) levels must be [...] failure, acidosis, acute neurological disease, and persistent tachyarrhythmia.[id number] 04:09:00 Test Item Value Reference Range Interpretation Comments MAGNESIUM (BEAKER) (test code = 1.9 mg/dL 1.6-2.6 627) BASIC METABOLIC [id number] 04:09:00 Test Item Value Reference Range Interpretation [...] APPLICABLE FOR DIALYSIS PATIEN TS. HEPATIC FUNCTION [id number] 04:09:00 Test Item Value Reference Range Interpretation [...] (test code = 25 U/L 6-55 347) [id number] 03:36:00 Test Item Value Reference Range Interpretation Comments PARTIAL THROMBOPLASTIN TIME 57.8 seconds 22.5-36.0 H (BEAKER) (test code = 760) CBC W/PLT COUNT & AUTO [id number] 03:16:00 Test Item Value Reference Range Interpretation [...] 0-1 PERCENT (BEAKER) (test code = 2801) [id number] 17:05:00 Test Item Value Reference Range Interpretation [...] 2.5-3.5 for patients with mechanical heart valves.PROTHROMBIN [id number] 17:04:00 Test Item Value Reference Range Interpretation [...] PERCENT (BEAKER) (test code = 2801) TROPONIN [id number] 15:28:00 Test Item Value Reference Range Interpretation [...] acidosis, acute neurological disease, and persistent tachyarrhythmia.HEMOGLOBIN [id number] 12:07:00 Test Item Value Reference Range Interpretation Comments HEMOGLOBIN A1C (BEAKER) (test code = 5.6 % 4.3-6.1 368) RAD, CHEST, 1 VIEW, NON [id number] 07:27:00Reason for exam:->chest painShould this be performed at the bedside?->YesFINAL REPORT Portable chest 03/26/2019, 0349 hours COMPARISON: None The lungs appear clear. Heart and mediastinal structures are within normal limits. No pleural effusions are seen. No significant osseous abnormalities are identified although there are some degenerative changes inboth acromioclavicular joints. Signed: Harry Green MDReport Verified Date/Time: 03/26/2019 07:27:22 Reading Location: [facility] Radiology Reading Room B-TYPE NATRIURETIC FACTOR (BNP) 2019-03-26 05:27:00 Test Item Value Reference Range Interpretation Comments B-TYPE NATRIURETIC PEPTIDE (BEAKER) 798 pg/mL 0-100 H (test code = 700) [id number] 05:22:00 Test Item Value Reference Range Interpretation Comments MAGNESIUM (BEAKER) 1.8 mg/dL 1.6-2.6 Specimen slightly (test code = 627) hemolyzed BASIC METABOLIC [id number] 05:22:00 Test Item Value Reference Range Interpretation [...] PATIEN TS. CBC W/PLT COUNT & AUTO [id number] 05:07:00 Test Item Value Reference Range Interpretation [...] 0-1 PERCENT (BEAKER) (test code = 2801) [id number] 00:56:00 Test Item Value Reference Range Interpretation Comments PARTIAL THROMBOPLASTIN TIME > seconds 22.5-36.0 HH (BEAKER) (test code = 760) TROPONIN [id number] 00:36:00 Test Item Value Reference Range Interpretation [...] acidosis, acute neurological disease, and persistent tachyarrhythmia.PROTHROMBIN [id number] 00:28:00 Test Item Value Reference Range Interpretation Comments PROTIME (BEAKER) (test code = 35.8 seconds 11.7-14.7 H 759) INR (BEAKER) (test code = 370) 3.9 <=5.9 RECOMMENDED COUMADIN/WARFARIN INR THERAPY RANGESSTANDARD DOSE: 2.0 - 3.0 Includes: PROPHYLAXIS forvenous thrombosis, systemic embolization; TREATMENT for venous thrombosis and/or pulmonary embolus.HIGH RISK: Target INR is 2.5-3.5 for patients with mechanical heart valves.[id number] 00:25:00 Test Item Value Reference Range Interpretation Comments MAGNESIUM (BEAKER) (test code = 1.7 mg/dL 1.6-2.6 627) COMPREHENSIVE METABOLIC [id number] 00:25:00 Test Item Value Reference Range Interpretation [...] NOT APPLICABLE FOR DIALYSIS PATIEN TS. LIPID [id number] 00:25:00 Test Item Value Reference Range Interpretation [...] Very High >=190CBC W/PLT COUNT & AUTO [id number] 00:18:00 Test Item Value Reference Range Interpretation [...] % 0-1 PERCENT (BEAKER) (test code = 9431)
[2021-11-18 12:05] LABS: Absolute Lymphocytes (CBC) 1.4 K/uL (0.7-4.9); Basophils % 0.4 % (0-1.3); Hematocrit 47.6 % (39.6-49.0); Lymphocytes % 10.8 % (15.3-44.8); MPV 8.8 fL (7.6-11.3); RBC Red Blood Cell Count 5.21 M/uL (4.33-5.43)
[2021-11-18 12:47] LABS: White Blood Cell Scan OK (OK)
[2021-11-18 12:48] LABS: Albumin 4.2 g/dL (3.4-5.0); Bilirubin Direct 0.2 mg/dL (0-0.2); Bilirubin Total 0.8 mg/dL (0.2-1.0); Blood Morphology Comment NOT SEEN (NOT SEEN); Platelet Estimate ADEQ; Potassium 3.7 mmol/L (3.5-5.1); Protein, Total 9.2 g/dL (6.4-8.2)
[2021-11-18] MEDS ORDERED: NA CHLORIDE 0.9% 500 ML ONE (13:00)
[2021-11-18] MEDS ORDERED: ONDANSETRON 4 MG/2 ML VIAL ONE (13:00)
[2021-11-18] MEDS ORDERED: MORPHINE 4 MG/ML SYR ONE (13:00)
--- NOTE | 2021-11-18 13:25 | RAD REPORT ---
EXAM DESCRIPTION: CTAbdomen Pelvis W Contrast - 11/18/2021 1:16 pm CLINICAL HISTORY: Abdominal pain. ABD PAIN COMPARISON: Abdomen Pelvis W Contrast dated 06/11/2021; Abdomen Pelvis W Contrast dated 06/09/2021 TECHNIQUE: Biphasic CT imaging of the abdomen and pelvis was performed with 100 ml non-ionic IV cont rast. All CT scans are performed using dose optimization technique as appropriate and may include automated exposure control or mA/KV adjustment according to patient size. FINDINGS: The lung bases are clear.Small hiatal hernia. The liver, spleen, pancreas, adrenal glands and kidneys are within normal limits. No bowel obstruction, free air, free fluid or abscess. The appendix is normal. No evidence of signi ficant lymphadenopathy. No suspicious bony findings. IMPRESSION: No acute intra-abdominal or pelvic finding.
--- NOTE | 2021-11-18 14:17 | EDPHYS ---
Physician Documentation [facility] Name: Chad Rahman Age: 61 yrs Sex: Male : 1960 Arrival Date: 11/18/2021 Time: 10:56 Bed 16 Private MD: ED Physician Rickey Pardo HPI: 11/18 13:12 This 61 yrs old Black Male presents to ER via Ambulatory with complaints of Abdominal jr8 Pain, Vomiting. 13:12 The patient presents with abdominal pain in the lower abdomen. Onset: The jr8 symptoms/episode began/occurred acutely, today. The symptoms do not radiate. Associated signs and symptoms: Pertinent positives: nausea, vomiting. The symptoms are described as stabbing. Modifying factors: The symptoms are alleviated by nothing, the symptoms are aggravated by movement. Severity of pain: At its worst the pain was moderate in the emergency department the pain is unchanged. The patient has not experienced similar symptoms in the past. The patient has not recently seen a physician. Historical: - Allergies: 11:29 No Known Allergies; ss - Home Meds: 11:29 None [Active]; ss - PMHx: 11:29 Myocardial infarction; Pancreatitis; ss - PSHx: 11:29 CAD; Stented artery; ss - Immunization history:: Client reports having NOT received the Covid vaccine. - Social history:: Smoking status: Patient reports the use of cigarette tobacco products, smokes one-half pack cigarettes per day. ROS: 13:12 Eyes: Negative for injury, pain, redness, and discharge, ENT: Negative for injury, jr8 pain, and discharge, Neck: Negative for injury, pain, and swelling, Cardiovascular: Negative for chest pain, palpitations, and edema, Respiratory: Negative for shortness of breath, cough, wheezing, and pleuritic chest pain, Back: Negative for injury and pain, MS/Extremity: Negative for injury and deformity, Skin: Negative for injury, rash, and discoloration, Neuro: Negative for headache, weakness, numbness, tingling, and seizure. 13:12 Abdomen/GI: Positive for abdominal pain, nausea and vomiting, Negative for diarrhea. Exam: 13:12 Eyes: Pupils equal round and reactive to light, extra-ocular motions intact. Lids and jr8 lashes normal. Conjunctiva and sclera are non-icteric and not injected. Cornea within normal limits. Periorbital areas with no swelling, redness, or edema. ENT: Nares patent. No nasal discharge, no septal abnormalities noted. Tympanic membranes are normal and external auditory canals are clear. Oropharynx with no redness, swelling, or masses, exudates, or evidence of obstruction, uvula midline. Mucous membranes moist. Neck: Trachea midline, no thyromegaly or masses palpated, and no cervical lymphadenopathy. Supple, full range of motion without nuchal rigidity, or vertebral point tenderness. No Meningismus. Cardiovascular: Regular rate and rhythm with a normal S1 and S2. No gallops, murmurs, or rubs. Normal PMI, no JVD. No pulse deficits. Respiratory: Lungs have equal breath sounds bilaterally, clear to auscultation and percussion. No rales, rhonchi or wheezes noted. No increased work of breathing, no retractions or nasal flaring. Back: No spinal tenderness. No costovertebral tenderness. Full range of motion. Skin: Warm, dry with normal turgor. Normal color with no rashes, no lesions, and no evidence of cellulitis. MS/ Extremity: Pulses equal, no cyanosis. Neurovascular intact. Full, normal range of motion. Neuro: Awake and alert, GCS 15, oriented to person, place, time, and situation. Cranial nerves II-XII grossly intact. Motor strength 5/5 in all extremities. Sensory grossly intact. 13:12 Abdomen/GI: Inspection: abdomen appears normal, Bowel sounds: active, all quadrants, Palpation: soft, in all quadrants, moderate abdominal tenderness, in the right lower quadrant and left lower quadrant, mass, is not appreciated, rebound tenderness, is not appreciated, voluntary guarding, is not appreciated, involuntary guarding, is not appreciated, no appreciated organomegaly, Indicators: McBurney's point is not tender, Quintanilla's sign is negative, Rovsing's sign is negative, Liver: tenderness, is not appreciated. Vital Signs: 11:22 Pulse 75; Resp 18; Temp 97.0(TE); Pulse Ox 100% on R/A; Weight 72.57 kg; Height 5 ft. 9 ss in. (175.26 cm); Pain 9/10; 11:29 BP 154 / 104; ss 11:30 BP 154 / 104; ss 13:08 BP 137 / 93; Pulse 79; Resp 17; Pulse Ox 100% on R/A; Pain 9/10; tw2 14:00 BP 146 / 98; Pulse 77; Resp 17; Pulse Ox 100% on R/A; tw2 11:22 Body Mass Index 23.63 (72.57 kg, 175.26 cm) ss MDM: 11:32 Patient medically screened. jr8 14:16 Data reviewed: vital signs, nurses notes, lab test result(s), radiologic studies, CT jr8 scan. Data interpreted: Pulse oximetry: on room air is 100 %. Interpretation: normal. 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 Special discussion: Based on the patient's Hx, exam, and Dx evaluation, there is no indication for emergent surgery or inpatient Tx. It is understood by the patient/guardian that if the Sx's persist or worsen they need to return immediately for re-evaluation. 11/18 11:36 Order name: Basic Metabolic Panel; Complete Time: 12:49 jr8 11/18 11:36 Order name: CBC with Diff; Complete Time: 12:49 jr8 11/18 11:36 Order name: Hepatic Function; Complete Time: 12:49 jr8 11/18 11:36 Order name: Lipase; Complete Time: 12:49 jr8 11/18 12:13 Order name: CT Abd/Pelvis - IV Contrast Only; Complete Time: 13:30 jr8 11/18 12:47 Order name: CBC Smear Scan; Complete Time: 12:49 EDMS 11/18 11:36 Order name: IV Saline Lock; Complete Time: 12:19 jr8 11/18 11:36 Order name: Labs collected and sent; Complete Time: 12:03 jr8 Administered Medications: 13:03 Drug: NS 0.9% 500 ml Route: IV; Rate: bolus; Site: left upper arm; tw2 14:02 Follow up: Response: No adverse reaction; IV Status: Completed infusion; IV Intake: tw2 500ml 13:03 Drug: Zofran (Ondansetron) 4 mg Route: IVP; Site: left upper arm; tw2 14:03 Follow up: Response: No adverse reaction tw2 13:06 Drug: morphine 4 mg {Note: RASS 0.} Route: IVP; Site: left upper arm; tw2 14:02 Follow up: Response: No adverse reaction; Pain is decreased; RASS: Drowsy (-1) tw2 Disposition Summary: 11/18/21 14:17 Discharge Ordered Location: Home jr8 Problem: new jr8 Symptoms: have improved jr8 Condition: Stable jr8 Diagnosis - Lower abdominal pain, unspecified jr8 - Vomiting jr8 Followup: jr8 - With: Mohan Patton MD - When: 2 - 3 days - Reason: Recheck today's complaints, Continuance of care, Re-evaluation by your physician Discharge Instructions: - Discharge Summary Sheet jr8 - Abdominal Pain, Adult jr8 - Vomiting, Adult jr8 Forms: - Medication Reconciliation Form jr8 - Thank You Letter jr8 - Antibiotic Education jr8 - Prescription Opioid Use jr8 Prescriptions: - promethazine 25 mg Oral Tablet - take 1 tablet by ORAL route every 6 hours As needed; 20 tablet; Refills: 0, jr8 Product Selection Permitted - dicyclomine 20 mg Oral Tablet - take 1 tablet by ORAL route 3 times per day As needed; 20 tablet; Refills: 0, jr8 Product Selection Permitted Addendum: 11/20/2021 18:49 Co-signature as Attending Physician, Rickey Pardo MD. m a2 Signatures: Dispatcher [employer] Sharona Logan RN RN Rashard Cancino PA PA 8 Arlene Montgomery RN RN tw2 Rickey Pardo MD MD ar2
--- NOTE | 2021-11-18 14:17 | ER ---
Nurse's Notes [facility] Name: Chad Rahman Age: 61 yrs Sex: Male : 1960 Arrival Date: 11/18/2021 Time: 10:56 Bed 16 Private MD: Diagnosis: Lower abdominal pain, unspecified;Vomiting Presentation: 11/18 11:22 Chief complaint: Patient states: lower abd pain and hiccups that began 2 days ago. ss Coronavirus screen: Client denies travel out of the [place] in the last 14 days. Ebola Screen: Patient denies exposure to infectious person. Patient denies travel to an Ebola-affected area in the 21 days before illness onset. Initial Sepsis Screen: Does the patient meet any 2 criteria? No. Patient's initial sepsis screen is negative. Does the patient have a suspected source of infection? No. Patient's initial sepsis screen is negative. Risk Assessment: Do you want to hurt yourself or someone else? Patient reports no desire to harm self or others. Onset of symptoms was November 16, 2021. 11:22 Method Of Arrival: Ambulatory 11:22 Acuity: ROSALIA 2 ss Historical: - Allergies: 11:29 No Known Allergies; ss - Home Meds: 11:29 None [Active]; ss - PMHx: 11:29 Myocardial infarction; Pancreatitis; ss - PSHx: 11:29 CAD; Stented artery; ss - Immunization history:: Client reports having NOT received the Covid vaccine. - Social history:: Smoking status: Patient reports the use of cigarette tobacco products, smokes one-half pack cigarettes per day. Screenin:03 Abuse screen: Denies threats or abuse. Nutritional screening: No deficits noted. tw2 Tuberculosis screening: No symptoms or risk factors identified. Fall Risk None identified. Assessment: 12:03 Reassessment: provider at bedside at this time. tw2 14:01 Reassessment: Patient and/or family updated on plan of care and expected duration. Pain tw2 level reassessed. Patient is alert, oriented x 3, equal unlabored respirations, skin warm/dry/pink. pt states hiccups are removed. Patient states feeling better. Patient states symptoms have improved. 14:31 Reassessment: provider at bedside going over results at this time. tw2 Vital Signs: 11:22 Pulse 75; Resp 18; Temp 97.0(TE); Pulse Ox 100% on R/A; Weight 72.57 kg; Height 5 ft. 9 ss in. (175.26 cm); Pain 9/10; 11:29 BP 154 / 104; ss 11:30 BP 154 / 104; ss 13:08 BP 137 / 93; Pulse 79; Resp 17; Pulse Ox 100% on R/A; Pain 9/10; tw2 14:00 BP 146 / 98; Pulse 77; Resp 17; Pulse Ox 100% on R/A; tw2 11:22 Body Mass Index 23.63 (72.57 kg, 175.26 cm) ED Course: 10:56 Patient arrived in ED. ds1 11:29 Triage completed. ss 11:29 Arm band placed on right wrist. ss 11:32 Rashard Cancino PA is PHCP. jr8 11:32 Rickey Pardo MD is Attending Physician. jr8 11:40 Bed in low position. Call light in reach. Pulse ox on. NIBP on. Warm blanket given. tw2 11:43 Arlene Montgomery, EBONI is Primary Nurse. tw2 12:04 Missed attempt(s): 22 gauge in left blood collected. Bleeding controlled, band aid tw2 applied, catheter tip intact. Missed attempt(s): 22 gauge in right antecubital area. notified Lisa Ellsworth of need for iv at this time.. Bleeding controlled, band aid applied, catheter tip intact. 12:18 Lab(s) recollected, by me, sent to lab. Inserted saline lock: 22 gauge in left upper dh3 arm, using aseptic technique. Blood collected. 13:16 CT Abd/Pelvis - IV Contrast Only In Process Unspecified. EDMS 14:17 Mohan Patton MD is Referral Physician. jr8 14:37 No provider procedures requiring assistance completed. IV discontinued, intact, tw2 bleeding controlled, No redness/swelling at site. Pressure dressing applied. Administered Medications: 13:03 Drug: NS 0.9% 500 ml Route: IV; Rate: bolus; Site: left upper arm; tw2 14:02 Follow up: Response: No adverse reaction; IV Status: Completed infusion; IV Intake: tw2 500ml 13:03 Drug: Zofran (Ondansetron) 4 mg Route: IVP; Site: left upper arm; tw2 14:03 Follow up: Response: No adverse reaction tw2 13:06 Drug: morphine 4 mg {Note: RASS 0.} Route: IVP; Site: left upper arm; tw2 14:02 Follow up: Response: No adverse reaction; Pain is decreased; RASS: Drowsy (-1) tw2 Intake: 14:02 IV: 500ml; Total: 500ml. tw2 Outcome: 14:17 Discharge ordered by MD. lacey 14:37 Discharged to home ambulatory. tw2 14:37 Condition: stable 14:37 Discharge instructions given to patient, Instructed on discharge instructions, follow up and referral plans. no drinking with medication, no driving heavy equipment, medication usage, Demonstrated understanding of instructions, follow-up care, medications, Prescriptions given X 2. 14:38 Patient left the ED. tw2 Signatures: Dispatcher [employer] EDDE AyalaHildai ds1 Sharona Robert RN RN ss Roszak, Josh, PA PA jr8 Arlene Montgomery RN RN tw2 Jodee Mazariegos 3 Corrections: (The following items were deleted from the chart) 14:03 14:01 Reassessment: Patient and/or family updated on plan of care and expected tw2 duration. Pain level reassessed. Patient is alert, oriented x 3, equal unlabored respirations, skin warm/dry/pink. tw2
[2021-11-18 14:44] VITALS: TEMP 97; O2SAT 100
[2021-11-18 14:48] VITALS: BP 146/98
== END 2021-11-18 14:38 | disposition home or self-care (01) ==
LOC: ER 10:54
DX: R11.2 Nausea with vomiting, unspecified (principal); F17.210 Nicotine dependence, cigarettes, uncomplicated; I25.10 Atherosclerotic heart disease of native coronary artery without angina pectoris
CPT/HCPCS: 36415; 74177; 80048; 80076; 83690; 85025; 96361; 96374; 96375; 99284; J2405; J7040; Q9967

== ENCOUNTER 2022-05-21 06:30 | Inpatient (IN) | payer SELFPAY ==
--- OUTSIDE RECORDS SUMMARY | 2022-05-21 06:33 | XMS REPORT | Continuity of Care Document ---
:1960 Author Organization [facility] t Address [address] [place] [address] Care Team Providers Name Role Phone SRAVANI HOLDEN Attending Clinician Unavailable SRAVANI HOLDEN Admitting Clinician Unavailable Problems This patient has no known problems. Allergies, Adverse Reactions, Alerts Allergy Allergy Status Severity Reaction(s) Onset Inactive Treating Comm ents Source Name Type Date Date Clinician NO KNOWN Allergy Active [facility] Medications This patient has no known medications. Procedures This patient has no known procedures. Results Test Description Test Time Test Comments Results Result Comments Source MAGNESIUM 2019-03-28 06:18:00 Test Item Value Reference Range Interpretation Comme nts MAGNESIUM (BEAKER) (test code = 627) 1.9 mg/dL 1.6-2.6 BASIC METABOLIC [id number] 06:18:00 Test Item Value Reference Range Interpretation [...] S NOT APPLICABLE FOR DIALYSIS PATIEN TS. [id number] 06:01:00 Test Item Value Reference Range Interpretation Comments PARTIAL THROMBOPLASTIN TIME 39.4 seconds 22.5-36.0 H (BEAKER) (test code = 760) 6 hours after starting heparin infusion and as indicated per sliding scaleCBC W/PLT COUNT & AUTO [id number] 05:54:00 Test Item Value Reference Range Interpretation [...] 0-1 PERCENT (BEAKER) (test code = 2801) [id number] 11:15:00 Test Item Value Reference Range Interpretation Comments PARTIAL THROMBOPLASTIN TIME 92.3 seconds 22.5-36.0 H (BEAKER) (test code = 760) TROPONIN [id number] 05:41:00 Test Item Value Reference Range Interpretation [...] failure, acidosis, acute neurological disease, and persistent tachyarrhythmia.[id number] 04:09:00 Test Item Value Reference Range Interpretation Comments MAGNESIUM (BEAKER) (test code = 1.9 mg/dL 1.6-2.6 627) BASIC METABOLIC [id number] 04:09:00 Test Item Value Reference Range Interpretation [...] APPLICABLE FOR DIALYSIS PATIEN TS. HEPATIC FUNCTION [id number] 04:09:00 Test Item Value Reference Range Interpretation [...] (test code = 25 U/L 6-55 347) [id number] 03:36:00 Test Item Value Reference Range Interpretation Comments PARTIAL THROMBOPLASTIN TIME 57.8 seconds 22.5-36.0 H (BEAKER) (test code = 760) CBC W/PLT COUNT & AUTO [id number] 03:16:00 Test Item Value Reference Range Interpretation [...] 0-1 PERCENT (BEAKER) (test code = 2801) [id number] 17:05:00 Test Item Value Reference Range Interpretation [...] 2.5-3.5 for patients with mechanical heart valves.PROTHROMBIN [id number] 17:04:00 Test Item Value Reference Range Interpretation [...] PERCENT (BEAKER) (test code = 2801) TROPONIN [id number] 15:28:00 Test Item Value Reference Range Interpretation [...] acidosis, acute neurological disease, and persistent tachyarrhythmia.HEMOGLOBIN [id number] 12:07:00 Test Item Value Reference Range Interpretation Comments HEMOGLOBIN A1C (BEAKER) (test code = 5.6 % 4.3-6.1 368) RAD, CHEST, 1 VIEW, NON [id number] 07:27:00Reason for exam:->chest painShould this be performed at the bedside?->YesFINAL REPORT Portable chest 03/26/2019, 0349 hours COMPARISON: None The lungs appear clear. Heart and mediastinal structures are within normal limits. No pleural effusions are seen. No significant osseous abnormalities are identified although there are some degenerative changes inboth acromioclavicular joints. Signed: Harry Green MDReport Verified Date/Time: 03/26/2019 07:27:22 Reading Location: [facility] Radiology Reading Room B-TYPE NATRIURETIC FACTOR (BNP) 2019-03-26 05:27:00 Test Item Value Reference Range Interpretation Comments B-TYPE NATRIURETIC PEPTIDE (BEAKER) 798 pg/mL 0-100 H (test code = 700) [id number] 05:22:00 Test Item Value Reference Range Interpretation Comments MAGNESIUM (BEAKER) 1.8 mg/dL 1.6-2.6 Specimen slightly (test code = 627) hemolyzed BASIC METABOLIC [id number] 05:22:00 Test Item Value Reference Range Interpretation [...] PATIEN TS. CBC W/PLT COUNT & AUTO [id number] 05:07:00 Test Item Value Reference Range Interpretation [...] 0-1 PERCENT (BEAKER) (test code = 2801) [id number] 00:56:00 Test Item Value Reference Range Interpretation Comments PARTIAL THROMBOPLASTIN TIME > seconds 22.5-36.0 HH (BEAKER) (test code = 760) TROPONIN [id number] 00:36:00 Test Item Value Reference Range Interpretation [...] acidosis, acute neurological disease, and persistent tachyarrhythmia.PROTHROMBIN [id number] 00:28:00 Test Item Value Reference Range Interpretation Comments PROTIME (BEAKER) (test code = 35.8 seconds 11.7-14.7 H 759) INR (BEAKER) (test code = 370) 3.9 <=5.9 RECOMMENDED COUMADIN/WARFARIN INR THERAPY RANGESSTANDARD DOSE: 2.0 - 3.0 Includes: PROPHYLAXIS forvenous thrombosis, systemic embolization; TREATMENT for venous thrombosis and/or pulmonary embolus.HIGH RISK: Target INR is 2.5-3.5 for patients with mechanical heart valves.[id number] 00:25:00 Test Item Value Reference Range Interpretation Comments MAGNESIUM (BEAKER) (test code = 1.7 mg/dL 1.6-2.6 627) COMPREHENSIVE METABOLIC [id number] 00:25:00 Test Item Value Reference Range Interpretation [...] NOT APPLICABLE FOR DIALYSIS PATIEN TS. LIPID [id number] 00:25:00 Test Item Value Reference Range Interpretation [...] Very High >=190CBC W/PLT COUNT & AUTO [id number] 00:18:00 Test Item Value Reference Range Interpretation [...] % 0-1 PERCENT (BEAKER) (test code = 1912)
[2022-05-21] MEDS ORDERED: FUROSEMIDE 100 MG/10 ML VIAL IV ONE (07:39)
[2022-05-21 07:41] LABS: Absolute Lymphocytes (CBC) 1.8 K/uL (0.7-4.9); Hematocrit 35.7 % (39.6-49.0); Lymphocytes % 26.7 % (15.3-44.8); MCV 86.5 fL (80-100); RBC Red Blood Cell Count 4.13 M/uL (4.33-5.43)
[2022-05-21 07:48] LABS: Protime INR 1.52
[2022-05-21 07:58] LABS: Albumin 2.9 g/dL (3.4-5.0); Bilirubin Direct 0.5 mg/dL (0-0.2); Bilirubin Total 1.2 mg/dL (0.2-1.0); Magnesium 1.8 mg/dL (1.8-2.4); Potassium 3.9 mmol/L (3.5-5.1); Protein, Total 7.2 g/dL (6.4-8.2)
[2022-05-21 08:11] LABS: Troponin High Sensitivity 462.1 pg/mL (<58.9)
[2022-05-21] MEDS ORDERED: ASPIRIN 81 MG CHEWABLE TABLET ONE (08:19)
--- NOTE | 2022-05-21 08:50 | RAD REPORT ---
EXAM DESCRIPTION: RAD - Chest Single View - 05/21/2022 8:16 am CLINICAL HISTORY: CONGESTION, shortness of breath COMPARISON: May 2015 TECHNIQUE: AP portable chest image was obtained 05/21/2022 8:16 am . FINDINGS: No dense consolidation seen. Interstitial and patchy alveolar opacities are present increa sed over prior imaging. Central vasculature is increased in prominence. Hilar regions are greater in fullness. Heart size is increased from prior imaging. No measurable pleural effusion and no pneumothorax. No acute bony abnormality seen. No acute aortic findings suspected. IMPRESSION: Mild or early CHF/volume overload pattern is present.
--- NOTE | 2022-05-21 09:54 | EDPHYS ---
Physician Documentation [facility] Name: Chad Rahman Age: 61 yrs Sex: Male : 1960 Arrival Date: 05/21/2022 Time: 06:33 Bed 13 Private MD: ED Physician Rickey Pardo HPI: 05/21 07:55 This 61 yrs old Black Male presents to ER via Ambulatory with complaints of Shortness ma2 Of Breath, Leg Swelling. 07:55 Onset: The symptoms/episode began/occurred gradually, 1 day(s) ago. Patient presents ma2 with bilateral lower extremity edema mild shortness of breath on exertion, denies chest pain or any anginal component symptoms, symptoms been constant and stable over the last 3 days, patient states he has CHF, coronary artery disease, however has not been taking his medication for long time because he is out of them.. Historical: - Allergies: 06:57 No Known Allergies; vc1 - Home Meds: 06:57 None [Active]; vc1 - PMHx: 06:57 Myocardial infarction; Pancreatitis; vc1 - PSHx: 06:57 CAD; Stented artery; vc1 - Immunization history:: Adult Immunizations up to date. - Social history:: Smoking status: Patient reports the use of cigarette tobacco products, smokes one-half pack cigarettes per day. - Family history:: not pertinent. ROS: 07:55 Constitutional: Negative for fever, chills, and weight loss. ma2 07:55 All other systems are negative. Exam: 07:55 Constitutional: This is a well developed, well nourished patient who is awake, alert, ma2 and in no acute distress. Head/Face: Normocephalic, atraumatic. Eyes: Pupils equal round and reactive to light, extra-ocular motions intact. Lids and lashes normal. Conjunctiva and sclera are non-icteric and not injected. Cornea within normal limits. Periorbital areas with no swelling, redness, or edema. ENT: Nares patent. No nasal discharge, no septal abnormalities noted. Tympanic membranes are normal and external auditory canals are clear. Oropharynx with no redness, swelling, or masses, exudates, or evidence of obstruction, uvula midline. Mucous membranes moist. Neck: Trachea midline, no thyromegaly or masses palpated, and no cervical lymphadenopathy. Supple, full range of motion without nuchal rigidity, or vertebral point tenderness. No Meningismus. Chest/axilla: Normal chest wall appearance and motion. Nontender with no deformity. No lesions are appreciated. Cardiovascular: Regular rate and rhythm with a normal S1 and S2. No gallops, murmurs, or rubs. Normal PMI, no JVD. No pulse deficits. Respiratory: Lungs have equal breath sounds bilaterally, clear to auscultation and percussion. No rales, rhonchi or wheezes noted. No increased work of breathing, no retractions or nasal flaring. Abdomen/GI: Soft, non-tender, with normal bowel sounds. No distension or tympany. No guarding or rebound. No evidence of tenderness throughout. Skin: Warm, dry with normal turgor. Normal color with no rashes, no lesions, and no evidence of cellulitis. MS/ Extremity: Bilateral equal edema pitting 2+ pitting to mid ankle, otherwise pulses equal, no cyanosis. Neurovascular intact. Full, normal range of motion. Neuro: Awake and alert, GCS 15, oriented to person, place, time, and situation. Cranial nerves II-XII grossly intact. Motor strength 5/5 in all extremities. Sensory grossly intact. Cerebellar exam normal. Normal gait. Vital Signs: 06:54 BP 132 / 110 LA Sitting; Pulse 102 MON; Resp 32 S; Temp 97.8(O); Pulse Ox 96% on R/A; vc1 Weight 72.57 kg; Height 5 ft. 9 in. (175.26 cm); Pain 0/10; 07:27 BP 136 / 90; Pulse 96; Resp 20; Pulse Ox 93% ; Pain 0/10; jh6 08:34 BP 131 / 110; Pulse 98; Resp 18; Pulse Ox 97% on 2 lpm NC; Pain 0/10; jh6 10:00 BP 132 / 97; Pulse 91; Resp 20; Pulse Ox 100% on 2 lpm NC; Pain 0/10; jh6 11:00 BP 129 / 89; Pulse 87; Resp 18; Pulse Ox 100% ; jh6 15:13 BP 134 / 110; Pulse 98; Resp 21; Pulse Ox 100% ; jl7 06:54 Body Mass Index 23.63 (72.57 kg, 175.26 cm) vc1 MDM: 07:22 Patient medically screened. ma2 07:55 Differential diagnosis: Bronchitis reactive airway disease, Likely CHF exacerbation ma2 setting of medication noncompliance. Data reviewed: vital signs, nurses notes, EMS record. 09:51 ED course: High-sensitivity troponin is 460, prior troponin was 1.6 that was not a ma2 High-sensitivity troponin, but regular troponin. Of note patient does not have chest pain or any angina equivalent mom patient. EKG shows LVH no ST elevation or new ischemic changes. Dr. Camargo tailings dam pumper is consulted. This is discussed with hospitalist dr Joanne sorensen . 05/21 07:21 Order name: Basic Metabolic Panel; Complete Time: 08:12 [facility] 05/21 07:21 Order name: CBC with Diff; Complete Time: 08:12 [facility] 05/21 07:21 Order name: LFT's; Complete Time: 08:12 [facility] 05/21 07:21 Order name: Magnesium; Complete Time: 08:12 [facility] 05/21 07:21 Order name: NT PRO-BNP; Complete Time: 08:12 [facility] 05/21 07:21 Order name: PT-INR; Complete Time: 08:12 [facility] 05/21 07:21 Order name: Troponin HS; Complete Time: 08:12 [facility] 05/21 07:29 Order name: Lactate; Complete Time: 08:12 [facility] 05/21 07:35 Order name: Blood Culture Adult (2) [facility] 05/21 08:13 Order name: Lipase; Complete Time: 09:15 [facility] 05/21 09:51 Order name: COVID-19 SARS RT PCR (Document "Date of Onset" if Symptomatic) 5 05/21 10:40 Order name: Lactate Sepsis 2 HR Follow-up [facility] 05/21 11:50 Order name: T4 Free [facility] 05/21 11:50 Order name: Thyroid Stimulating Hormone [facility] 05/21 07:21 Order name: XRAY Chest (1 view); Complete Time: 09:15 [facility] 05/21 07:21 Order name: EKG; Complete Time: 07:23 [facility] 05/21 11:48 Order name: CONS Physician Consult [facility] 05/21 11:50 Order name: CBC with Automated Diff [facility] 05/21 11:50 Order name: CBC with Automated Diff [facility] 05/21 11:50 Order name: Comprehensive Metabolic Panel [facility] 05/21 11:50 Order name: Comprehensive Metabolic Panel [facility] 05/21 11:50 Order name: Magnesium [facility] 05/21 11:50 Order name: Magnesium [facility] 05/21 11:50 Order name: Troponin High Sensitivity [facility] 05/21 11:50 Order name: Troponin High Sensitivity [facility] 05/21 11:50 Order name: Troponin High Sensitivity [facility] 05/21 11:51 Order name: Basic Metabolic Panel [facility] 05/21 11:51 Order name: Magnesium [facility] 05/21 07:21 Order name: Cardiac monitoring; Complete Time: 07:55 [facility] 05/21 07:21 Order name: EKG - Nurse/Tech; Complete Time: 07:55 [facility] 05/21 07:21 Order name: IV Saline Lock; Complete Time: 07:56 [facility] 05/21 07:21 Order name: Labs collected and sent; Complete Time: 08:16 [facility] 05/21 07:21 Order name: O2 Per Protocol; Complete Time: 07:56 [facility] 05/21 07:21 Order name: O2 Sat Monitoring; Complete Time: 07:56 [facility] 05/21 11:50 Order name: Heart Healthy [facility] 05/21 12:41 Order name: Diet Heart Healthy; Complete Time: 12:42 [facility] Administered Medications: 07:55 Drug: Lasix (furosemide) 100 mg Route: IVP; Site: right forearm; [facility] 09:05 Follow up: Response: No adverse reaction [facility] 08:16 Drug: Aspirin Chewable Tablet 324 mg Route: PO; [facility] Disposition Summary: 05/21/22 09:53 Hospitalization Ordered Hospitalization Status: Observation [facility] Provider: Timur Sorensen [facility] Location: Telemetry/MedSurg (observation) [facility] Condition: Stable [facility] Problem: new [facility] Symptoms: are unchanged [facility] Bed/Room Type: Standard [facility] Room Assignment: 220(05/21/22 15:02) dw Diagnosis - Acute on chronic systolic (congestive) heart failure [facility] Forms: - Medication Reconciliation Form sd2 - SBAR form [facility] Signatures: Dispatcher [employer] Jamia Jean RN RN dw Alzahri, Mohammad, MD MD sd2 Telma Gardner RN RN 6 Sheeba Momin RN RN 1 Corrections: (The following items were deleted from the chart) 15:02 09:53 ma2 dw
--- NOTE | 2022-05-21 09:54 | ER ---
Nurse's Notes [facility] Name: Chad Rahman Age: 61 yrs Sex: Male : 1960 Arrival Date: 05/21/2022 Time: 06:33 Bed 13 Private MD: Diagnosis: Acute on chronic systolic (congestive) heart failure Presentation: 05/21 06:54 Chief complaint: Patient states: "I woke up yesterday feeling short of breath and now vc1 today my legs are swollen and I am still short of breath.". Coronavirus screen: cough unrelated to allergies, shortness of breath, Client presents with at least one sign or symptom that may indicate coronavirus-19. Standard/surgical mask placed on the client. Provider contacted for isolation considerations. Ebola Screen: No symptoms or risks identified at this time. Initial Sepsis Screen: Does the patient meet any 2 criteria? RR > 20 per min. HR > 90 bpm. Yes Does the patient have a suspected source of infection? Yes: Productive cough/pneumonia Risk Assessment: Do you want to hurt yourself or someone else? Patient reports no desire to harm self or others. Onset of symptoms was May 20, 2022. 06:54 Method Of Arrival: Ambulatory vc1 06:54 Acuity: ROSALIA 3 vc1 Triage Assessment: 06:57 General: Appears in no apparent distress. Behavior is cooperative, appropriate for age. vc1 Pain: Denies pain. Neuro: Level of Consciousness is awake, alert, obeys commands, Oriented to person, place, time, situation, Appropriate for age. Cardiovascular: Capillary refill < 3 seconds Patient's skin is warm and dry. Cardiovascular: Patient's skin is warm and dry. Edema. Respiratory: Reports shortness of breath at rest cough that is Airway is patent Respiratory effort is even, labored, Respiratory pattern is tachypnea Onset: The symptoms/episode began/occurred yesterday, the patient has mild shortness of breath. GI: No deficits noted. : No deficits noted. Derm: Skin is intact. Musculoskeletal: No deficits noted. Historical: - Allergies: 06:57 No Known Allergies; vc1 - Home Meds: 06:57 None [Active]; vc1 - PMHx: 06:57 Myocardial infarction; Pancreatitis; vc1 - PSHx: 06:57 CAD; Stented artery; vc1 - Immunization history:: Adult Immunizations up to date. - Social history:: Smoking status: Patient reports the use of cigarette tobacco products, smokes one-half pack cigarettes per day. - Family history:: not pertinent. Screenin:59 Abuse screen: Denies threats or abuse. Nutritional screening: No deficits noted. vc1 Tuberculosis screening: No symptoms or risk factors identified. Fall Risk None identified. Assessment: 07:19 General: Appears in no apparent distress. Behavior is calm, cooperative. jh6 Cardiovascular: Denies Rhythm is regular. 07:29 Respiratory: Airway is patent Trachea midline Respiratory effort is labored, jh6 Respiratory pattern is regular, Sputum is thin, clear Breath sounds are clear bilaterally. in right upper lobe, left upper lobe, left posterior upper lobe and right posterior upper lobe Breath sounds with rhonchi bilaterally. in left lower lobe, right lower lobe, left posterior lower lobe and right posterior lower lobe. 09:00 Reassessment: Patient and/or family updated on plan of care and expected duration. Pain jh6 level reassessed. Patient is alert, oriented x 3, equal unlabored respirations, skin warm/dry/pink. pt stating that he is feeling a little better and that his ankles arent feeling as tight Patient denies pain at this time. 10:00 Reassessment: No changes from previously documented assessment. jh6 11:00 Reassessment: Patient and/or family updated on plan of care and expected duration. Pain jh6 level reassessed. Patient is alert, oriented x 3, equal unlabored respirations, skin warm/dry/pink. pt did have a 2-3 min episode of lower leg cramping when dr sorensen was at bedside but has since resolved. Patient denies pain at this time. Patient states feeling better. Patient states symptoms have improved. Vital Signs: 06:54 BP 132 / 110 LA Sitting; Pulse 102 MON; Resp 32 S; Temp 97.8(O); Pulse Ox 96% on R/A; vc1 Weight 72.57 kg; Height 5 ft. 9 in. (175.26 cm); Pain 0/10; 07:27 BP 136 / 90; Pulse 96; Resp 20; Pulse Ox 93% ; Pain 0/10; jh6 08:34 BP 131 / 110; Pulse 98; Resp 18; Pulse Ox 97% on 2 lpm NC; Pain 0/10; jh6 10:00 BP 132 / 97; Pulse 91; Resp 20; Pulse Ox 100% on 2 lpm NC; Pain 0/10; jh6 11:00 BP 129 / 89; Pulse 87; Resp 18; Pulse Ox 100% ; jh6 15:13 BP 134 / 110; Pulse 98; Resp 21; Pulse Ox 100% ; jl7 06:54 Body Mass Index 23.63 (72.57 kg, 175.26 cm) vc1 ED Course: 06:33 Patient arrived in ED. bp1 06:57 Triage completed. vc1 06:57 Arm band placed on right wrist. vc1 07:00 Patient has correct armband on for positive identification. Bed in low position. Call vc1 light in reach. Client placed on continuous cardiac and pulse oximetry monitoring. NIBP monitoring applied. 07:04 Leandro Kirk, EBONI is Primary Nurse. as6 07:21 Rickey Pardo MD is Attending Physician. ma2 07:29 Inserted saline lock: 20 gauge in right antecubital area, using aseptic technique. jh6 Blood collected. 07:55 XRAY Chest (1 view) Sent. jh6 08:17 XRAY Chest (1 view) In Process Unspecified. EDMS 09:53 Timur Sorensen MD is Hospitalizing Provider. ma2 Administered Medications: 07:55 Drug: Lasix (furosemide) 100 mg Route: IVP; Site: right forearm; jh6 09:05 Follow up: Response: No adverse reaction jh6 08:16 Drug: Aspirin Chewable Tablet 324 mg Route: PO; 6 Medication: 08:36 VIS not applicable for this client. 6 Output: 08:36 Urine: 400ml ([place]); Total: 400ml. jh6 10:00 Urine: 1200ml (Voided); Total: 1600ml. jh6 11:00 Urine: 1200ml (Voided); Total: 2800ml. 6 Outcome: 09:53 Decision to Hospitalize by Provider. ma2 16:47 Admitted to Tele accompanied by tech, via wheelchair, room 220. jh6 16:47 Condition: improved jh6 16:47 Instructed on the need for admit. 17:01 Patient left the ED. em1 Signatures: Dispatcher [employer] EDMS Josh Olivares em1 Obi Patel RN RN jl7 Rickey Pardo MD MD ma2 Jen Brownlee Ashby, RN RN as6 Telma Gardner RN RN jh6 Sheeba Momin RN RN vc1
--- NOTE | 2022-05-21 11:51 | P.HP ---
Certification for Inpatient Patient admitted to: Observation With expected LOS: <2 Midnights Practitioner: I am a practitioner with admitting privileges, knowledge of patient current condition, hospital course, and medical plan of care. Services: Services provided to patient in accordance with Admission requirements found in Title 42 Section 412.3 of the Code of Federal Regulations Patient History Date of Service: 05/21/22 Reason for admission: acute CHF exacerbation History of Present Illness: 61yo M, PMH: CAD s/p stent, HFrEF, pancreatitis Presents to ED due to several days of progressively worsening shortness of breath, orthopnea, and lower extremity swelling. Patient ran out of some of his medications several months ago. He is unsure of what medications, but possibly lasix and plavix. Reports financial cost has been an issue in the past. Denies chest pain/pressure, fever/chills, nausea/vomiting. no dysuria, no diarrhea, no sick contacts. In the ED, patient noted to have 3+ pitting edema bilaterally, tachypnea and increased work of breathing with crackles, CXR: pulm edema, elevated BNP. Given 100mg IV lasix for CHF exacerbation. Troponin: 400s, EKG without acute ischemic changes. Allergies No Known Allergies Allergy (Unverified 08/30/18 14:11) Home Medications: Aspirin Chewable [Aspirin Chewable*] 81 mg PO DAILY #30 tab.chew 09/01/18 Atorvastatin Calcium [Lipitor] 80 mg PO DAILY #30 tablet 09/01/18 Clopidogrel Bisulfate [Plavix*] 75 mg PO DAILY #30 tablet 09/01/18 Nitroglycerin [Nitrostat*] 0.4 mg SL UD PRN tab 09/01/18 metroNIDAZOLE [Flagyl*] 500 mg PO Q8H #21 tablet 06/10/21 Metoprolol Tartrate [Lopressor*] 50 mg PO BID #60 tab 06/15/21 Pantoprazole [Protonix Tab] 40 mg PO DAILY #30 tab 06/15/21 lisinopriL [Prinivil*] 10 mg PO DAILY #30 tab 06/15/21 - Past Medical/Surgical History Diabetic: No -: history of MT -: 2 cardiac stents - Family History Mother -: Diabetes Father -: Diabetes - Social History Smoking Status: Current every day smoker Alcohol use: Yes CD- Drugs: No Caffeine use: Yes Place of Residence: Home Review of Systems 10-point ROS is otherwise unremarkable Physical Examination - Physical Exam General: Alert, Oriented x3, Mild distress HEENT: EOMI, Sclerae nonicteric Respiratory: Diminished, Crackles/rales Cardiovascular: Regular rate/rhythm, Edema (2-3+ bilaterally to thighs) Gastrointestinal: Soft and benign, Non-distended, No tenderness Musculoskeletal: No contractures, No erythema Integumentary: No rashes, No significant lesion Neurological: Normal speech, Normal affect - Studies Laboratory Data (last 24 hrs) 05/21/22 07:18: Lipase 53 L 05/21/22 07:18: PT 16.9 H, INR 1.52 05/21/22 07:18: WBC 6.7, Hgb 11.5 L, Hct 35.7 L, Plt Count 321 05/21/22 07:18: Sodium 139, Potassium 3.9, BUN 21 H, Creatinine 1.16, Glucose 90, Magnesium 1.8, Total Bilirubin 1.2 H, AST 60 H, ALT 87 H, Alkaline Phosphatase 72 Assessment and Plan - Advance Directives Does patient have a Living Will: No Does patient have a Durable POA for Healthcare: No Physician Review Additional Text: Problem list Acute hypoxemic respiratory failure secondary to acute CHF exacerbation, (HFrEF) CAD s/p stent h/o pancreatitis TTE (05/2021): Moderatesevere global hypokinesis, EF: 35-40%. Dilated left atrium and left ventricle Patient had MT previously, and has been off his medications Troponin elevated Aspirin, statin, beta-teresita, Plavix 100 mg IV Lasix given in ED, patient experienced some cramping, which is now res olved Continue 40 mg IV Lasix twice daily Patient is already diuresing well and beginning to feel better Wean oxygen as tolerated Cardiology consulted VTE: Lovenox Code: Full Dispo: Home, possibly tomorrow Time Spent Managing Pts Care (In Minutes): 75
[2022-05-21 12:30] LABS: Thyroid Stimulating Hormone 2.27 uIU/mL (0.360-3.740)
[2022-05-21 13:23] LABS: Magnesium 1.9 mg/dL (1.8-2.4); Potassium 3.8 mmol/L (3.5-5.1)
[2022-05-21 13:26] LABS: Troponin High Sensitivity 512.9 pg/mL (<58.9)
[2022-05-21] MEDS: ENOXAPARIN 40 MG/0.4 ML SQ SCH (17:00)
[2022-05-21] MEDS: FUROSEMIDE 40 MG/4 ML VIAL IV SCH (17:00)
[2022-05-21] MEDS: ATORVASTATIN 80 MG TAB PO SCH (20:48)
[2022-05-21] MEDS ORDERED: MORPHINE 2 MG/ML SYR IV PRN (22:56)
--- NOTE | 2022-05-22 01:10 | CON ---
Date of Consultation: 05/21/2022 Reason For Consultation: Congestive heart failure exacerbation. History Of Present Illness: A 61-year-old male with history of coronary artery disease, status post LAD, STEMI in 2018, status post PCI, history of heart failure with reduced ejection fraction, present ed with progressive shortness of breath and lower extremity edema. No orthopnea. No chest pain. No nausea, vomiting, or diarrhea. No other complaints. Past Medical History: As outlined above in the HPI. Medications: Refer reconciliation sheet for detailed list. Allergies: NO KNOWN DRUG ALLERGIES. Family History: No premature coronary artery disease or cancer. Social History: He is a smoker 1 pack per day and drinks alcohol on a regular basis. Does not use a [place] drugs. Review of Systems: All systems reviewed and they were negative except for above mentioned in HPI. Physical Examination: Vital Signs: Reviewed. Head and Neck: Pupils are equal and reactive to light. Intact eye movements. No JVD. No cervical lymphadenopathy. Neck is supple. Thyroid is not enlarged. Lungs: Clear to auscultation bilaterally. No rhonchi, rales, or crackles. No accessory muscle use. Heart: Regular rate and rhythm. No extra sounds. Abdomen: Soft, nontender. Bowel sounds positive. No organomegaly. No masses or hernia. No rigidi ty or rebound. Extremities: No clubbing or cyanosis. Intact pulses. Skin: No rashes. Neurologic: Alert, awake, oriented x3. No focal deficits appreciated. Investigations: Troponin on arrival was . Creatinine is 1.08. Assessment And Recommendation: 1.Acute on chronic systolic heart failure exacerbation. He has no chest pain. Agree with Lasix 40 mg IV q.12 h. Monitor BUN, creatinine, electrolytes, and daily body weight, and low-salt diet. 2.Coronary artery disease. There is a troponin leak. He has no chest pain. Plan for an exercise n uclear stress test and an echocardiogram to be done as an inpatient. SR/MODL Voice ID: [id number] Report ID: [id number]
[2022-05-22 06:15] LABS: Absolute Lymphocytes (CBC) 2.6 K/uL (0.7-4.9); Hematocrit 33.9 % (39.6-49.0); Lymphocytes % 33.6 % (15.3-44.8); MCV 85.6 fL (80-100); RBC Red Blood Cell Count 3.96 M/uL (4.33-5.43)
[2022-05-22 06:25] LABS: Albumin 2.5 g/dL (3.4-5.0); Bilirubin Total 0.8 mg/dL (0.2-1.0); Magnesium 1.9 mg/dL (1.8-2.4); Potassium 3.2 mmol/L (3.5-5.1); Protein, Total 6.1 g/dL (6.4-8.2)
--- NOTE | 2022-05-22 06:43 | P.PN ---
Date of Service: 05/22/22 Subjective: improving diuresing breathing more comfortably still with significant edema ROS: 10 point ROS as noted above, otherwise negative Physical exam General: Alert, Oriented x3, Mild distress Respiratory: Diminished, Crackles/rales Cardiovascular: Regular rate/rhythm, Edema (2+ bilaterally to thighs) Gastrointestinal: Soft and benign, Non-distended, No tenderness Neurological: Normal speech, Normal affect Problem list Acute hypoxemic respiratory failure secondary to acute CHF exacerbation, (HFrEF) CAD s/p stent h/o pancreatitis TTE (05/2021): Moderatesevere global hypokinesis, EF: 35-40%. Dilated left atrium and left ventricle Patient had [place] previously, and has been off his medications Troponin elevated Aspirin, statin, beta-teresita, Plavix 100 mg IV Lasix given in ED, patient experienced some cramping, which is now resolved Continue 40mg IV lasix echo ordered improving may need stress / cath Cardiology consulted VTE: Lovenox Code: Full Dispo: Home, 1-2 days pending results Time Spent Managing Pts Care (In Minutes): 35
[2022-05-22] MEDS ORDERED: POTASSIUM CL SA 10 MEQ TAB PO ONE ×2 (07:24→16:22)
[2022-05-22] MEDS: FUROSEMIDE 40 MG/4 ML VIAL IV SCH ×2 (07:58→16:35)
[2022-05-22] MEDS: CLOPIDOGREL 75 MG TABLET PO SCH (07:58)
[2022-05-22] MEDS: ASPIRIN EC 81 MG TAB PO SCH (07:58)
[2022-05-22] MEDS: ENOXAPARIN 40 MG/0.4 ML SQ SCH (07:59)
[2022-05-22] MEDS ORDERED: REGADENOSON 0.4 MG/5 ML SYR IV ONE (11:56)
[2022-05-22 12:02] VITALS: BMI 23.6
--- NOTE | 2022-05-22 13:50 | ECHO ---
HEIGHT: 5 ft 9 in WEIGHT: 159 lb 15.831 oz DATE OF STUDY: 05/22/[address]: Clarence So NP 2-DIMENSIONAL: YES M.MODE: YES DOPPLER: YES COLOR FLOW: YES TDS: NO PORTABLE: YES DEFINITY: NO BUBBLE STUDY: NO DIAGNOSIS: CONGESTIVE HEART FAILURE CARDIAC HISTORY: CATHERIZATION: SURGERY: PROSTHETIC VALVE: PACEMAKER: MEASUREMENTS (cm) DIASTOLIC (NORMALS) SYSTOLIC (NORMALS) IVSd 0.9 (0.6-1.2) LA Diam 4.3 (1.9-4.0) LVEF 12% LVIDd 6.8 (3.5-5.7) LVIDs 6.4 (2.0-3.5) %FS 6% LVPWd 1.1 (0.6-1.2) Ao Diam 2.7 (2.0-3.7) 2 DIMENSIONAL ASSESSMENT: RIGHT ATRIUM: NORMAL LEFT ATRIUM: ENLARGED RIGHT VENTRICLE: NORMLA LEFT VENTRICLE: SEVERELY DILATED TRICUSPID VALVE: MITRAL VALVE: PULMONIC VALVE: AORTIC VALVE: NORMAL PERICARDIAL EFFUSION: NONE AORTIC ROOT: NORMAL LEFT VENTRICULAR WALL MOTION: SEVERE GLOBAL HYPOKINESIS. DOPPLER/COLOR FLOW: SEE BELOW COMMENTS: SEVERELY DEPRESSED LEFT VENTRICULAR EJECTION FRACTION 10-15%. SEVERE GLOBAL HYPOKINESIS. MODERATE MITRAL AND TRICUSPID REGURGITATION. SEVERE DIASTOLIC DYSFUNCTION. SEVERE PULMONARY HYPERTENSION WITH RIGHT VENTRICULAR SYSTOLIC PRESSURE 60-65% WITH ELEVATED FILLING PRESSURES. TECHNOLOGIST: Carolyn ROBERTS
--- NOTE | 2022-05-22 13:51 | RAD REPORT ---
EXAM DESCRIPTION: NM - Rest Stress Cardiac Imaging - 05/22/2022 1:36 pm CLINICAL HISTORY: Chest pain COMPARISON: None. TECHNIQUE: The patient was administered 10.9 mCi of Tc 99m Sestamibi prior to resting SPECT imaging of the heart. The patient was then administered 30.7 mCi of Tc 99m Sestamibi following exercise or ph armacologic stress. Multiplanar SPECT images were reviewed. FINDINGS: The end diastolic volume is 562 ml, the end systolic volume is 507 ml, and the ejection fr action is 10 %. The degree of left ventricular or chamber dilatation makes it difficult to fit the left ventricular w alls within the available [id number] of the equipment. There is preserved activity along most of the lateral left ventricular wall, unchanged between rest and stress imaging. Anterior wall, muscular septum and inferior wall show little activity. This stress-induced ischemic focus is not confirmed. IMPRESSION: Exam is technically limited due to the degree of left ventricular dilatation. It is dif ficult to get the left ventricle fully within the available [id number]. Large areas of scarring seen in the anterior, septal and inferior pérez. End-diastolic volume was calculated at 562 mL with a 10% ejection fraction. Accuracy of these numbers is somewhat suspect due to the technical limitations. Values may not be exact but do indicate marked ventricular dilatation and extremely poor ejection fraction.
--- NOTE | 2022-05-22 14:43 | EKG ---
Test Date: 2022-05-21 Test Time: 07:15:56 Scrub Nurse: DAVID MEASUREMENT RESULTS: Intervals: Rate: 96 [place]: 160 QRSD: 88 QT: 390 QTc: 492 [place]: P: 40 [place]: 160 QRS: -34 T: 131 INTERPRETIVE STATEMENTS: Normal sinus rhythm Possible Left atrial enlargement Left axis deviation Left ventricular hypertrophy with repolarization abnormality Anteroseptal infarct, age undetermined Abnormal ECG Compared to ECG 06/13/2021 09:14:36 Left-axis deviation now present Left ventricular hypertrophy now present Early repolarization now present Atrial premature complex(es) no longer present Myocardial infarct finding still present Electronically Signed On 05-22-22 14:41:03 CDT by Gurwinder Arboleda
--- NOTE | 2022-05-22 20:01 | PN ---
Date of Progress Note: 05/22/2022 Subjective: Seen by bedside. He is doing clinically better. There is no chest pain and the lower e xtremity edema is better. Review of Systems: No chest pain, shortness of breath, orthopnea, cough. No nausea, vomiting, diarrhea. All other syst ems reviewed and are negative. Physical Examination: Vital Signs: Reviewed. Head and Neck: Pupils are equal, reactive to light. Mild JVD elevation. No cervical lymphadenopath y. Heart: Regular rate and rhythm. No extra sounds. Abdomen: Soft, nontender. Bowel sounds positive. No organomegaly. No masses or hernia. No rigidi ty or rebound. Extremities: No clubbing or cyanosis. Intact pulses. Positive edema bilaterally. Skin: No rash. Neurologic: Alert, awake, oriented x3. No acute focal deficits appreciated. Investigations: Labs were reviewed. His troponin is still around 500 range. Assessment And Recommendations: 1.Acute on chronic systolic congestive heart failure. His EF on echo was extremely low. Continue I V Lasix for 1 more day and then transition to oral by tomorrow. 2.Elevated troponin. Known to have history of coronary artery disease, however, he has no chest pain. Obtain a Lexiscan nuclear stress test to further evaluate. SR/MODL Voice ID: [id number] Report ID: [id number]
[2022-05-22] MEDS: ATORVASTATIN 80 MG TAB PO SCH (22:01)
[2022-05-23 05:05] VITALS: O2SAT 96
[2022-05-23 06:32] LABS: Potassium 3.7 mmol/L (3.5-5.1)
[2022-05-23 06:33] LABS: Troponin High Sensitivity 489.9 pg/mL (<58.9)
--- NOTE | 2022-05-23 07:08 | TREADPHA ---
DX: ELEVATED TROPONIN Date of Study: 05/22/2022 Ht: 5' 9 " Wt: 159 lb 15.831 oz Consulting Physician: RODRIGUE MEDICATIONS: HISTORY: MYOCARDIAL INFARCTION, STENTS - TWO YEARS AGO PHYSICIAL EXAMINATION: RESTING B.P.: 131/44 RESTING H.R.: 99 RESTING EKG: SINUS WITH LEFT VENTRICULAR HYPERTROPHY AND DIFFUSE T WAVE ABNORMALITY AND PREMATURE VENTRICULAR COMPLEXES PROTOCOL: PHARAMACOLGIC EXERCISE TIME: 3:30 B.P. AT [facility] STRESS: 132/93 IMPRESSION: CARDIAC STRESS TEST PERFORMED. LEXISCAN INJECTED, CARDIOLITE INJECTED PER PROTOCOL, SEE NUCLEAR MEDICINE REPORT. NO CHEST PAIN, NO VENTRICULAR TACHYCARDIA OR SUPRAVENTRICULAR TACHYCARDIA NOTED. FREQUENT PREMATURE VENTRICULAR COMPLEXES NOTED PRE PROCEDURE, DURING PROCEDURE AND POST PROCEDURE. SHORTNESS OF BREATH AFTER LEXISCAN INJECTION. SHORTNESS OF BREATH SUBSIDDED BEFORE PROCEDURE COMPLETED. NO ELECTROCARDIOGRAM CHANGES OF ISCHEMIA WITH LEXISCAN.
[2022-05-23] MEDS ORDERED: POTASSIUM CL SA 10 MEQ TAB PO ONE (07:22)
[2022-05-23] MEDS: ENOXAPARIN 40 MG/0.4 ML SQ SCH (08:02)
[2022-05-23] MEDS: ASPIRIN EC 81 MG TAB PO SCH (08:03)
[2022-05-23] MEDS: FUROSEMIDE 40 MG/4 ML VIAL IV SCH ×2 (08:03→17:00)
[2022-05-23] MEDS: CLOPIDOGREL 75 MG TABLET PO SCH (08:03)
[2022-05-23 16:45] VITALS: BP 121/93; TEMP 97.8
--- NOTE | 2022-05-23 18:28 | P.DS ---
Admission Date: 05/22/22 Discharge Date: 05/23/22 Disposition: ROUTINE DISCHARGE Discharge Condition: FAIR Reason for Admission: acute CHF exacerbation Brief History of Present Illness: 61yo M, PMH: CAD s/p stent, HFrEF, pancreatitis presented to the ED due to several days of progressively worsening shortness of breath, orthopnea, and lower extremity swelling. Patient ran out of some of his medications several months ago. He is unsure of what medications. He reports cost of medications has been an issue in the past. He denied chest pain/pressure, fever/chills, nausea/vomiting. no dysuria, no diarrhea, no sick contacts. In the ED, patient noted to have 3+ pitting edema bilaterally, tachypnea and increased work of breathing with crackles, CXR: pulm edema, elevated BNP. He was given 100mg IV lasix for CHF exacerbation. Troponin: 400s, EKG without acute ischemic changes. Patient admitted for further management. Hospital Course: Acute hypoxemic respiratory failure secondary to acute on chronic systolic heart failure (HFrEF) CAD s/p stent h/o pancreatitis Patient admitted to the medical floor and treated with IV Lasix. Her troponin was elevated but trended flat. TTE (05/2021): Moderatesevere global hypokinesis, EF: 35-40%. Dilated left atrium and left ventricle. Repeat echocardiogram showed EF of 10% Patient had [place] previously, and has been off his medications Patient put on aspirin, statin, beta-teresita, Plavix He was seen by cardiology who recommended nuclear stress test. Stress test showed markedly dilated LV, large area of scarring defect. Stress test was all discussed with cardiology who recommended outpatient follow- up. Patient given refill for his medications including Lasix. Patient stated his shortness of breath and edema have resolved Vitals are stable for discharge. He is discharged to follow with cardiology for further management of his advanced LV dysfunction. Vital Signs/Physical Exam: Temp Pulse Resp BP Pulse Ox 97.8 F 93 H 18 121/93 H 100 05/23/22 16:00 05/23/22 17:00 05/23/22 16:00 05/23/22 17:00 05/23/22 16:00 General: Alert, In no apparent distress, Oriented x3 HEENT: Mucous membr. moist/pink Neck: Supple, JVD not distended Respiratory: Clear to auscultation bilaterally, Normal air movement Cardiovascular: No edema, Regular rate/rhythm, Normal S1 S2 Gastrointestinal: Normal bowel sounds, Soft and benign, Non-distended, No tenderness Musculoskeletal: No swelling Integumentary: No rashes Neurological: Normal strength at 5/5 x4 extr Laboratory Data at Discharge: WBC 7.6 K/uL (4.3-10.9) 05/22/22 05:23 Hgb 11.1 g/dL (13.6-17.9) L 05/22/22 05:23 Hct 33.9 % (39.6-49.0) L 05/22/22 05:23 Plt Count 282 K/uL (152-406) 05/22/22 05:23 PT 16.9 SECONDS (9.5-12.5) H 05/21/22 07:18 INR 1.52 05/21/22 07:18 Sodium 142 mmol/L (136-145) 05/23/22 05:53 Potassium 3.7 mmol/L (3.5-5.1) 05/23/22 05:53 BUN 19 mg/dL (7-18) H 05/23/22 05:53 Creatinine 1.09 mg/dL (0.55-1.3) 05/23/22 05:53 Glucose 98 mg/dL (74-106) 05/23/22 05:53 Magnesium 2.0 mg/dL (1.8-2.4) 05/23/22 05:53 Total Bilirubin 0.8 mg/dL (0.2-1.0) 05/22/22 05:23 AST 41 U/L (15-37) H 05/22/22 05:23 ALT 70 U/L (12-78) 05/22/22 05:23 Alkaline Phosphatase 57 U/L (45-117) 05/22/22 05:23 Lipase 53 U/L (73-393) L 05/21/22 07:18 Home Medications: Dicyclomine [Bentyl*] 20 mg PO TID 05/21/22 Aspirin [Aspirin EC 81 MG] 81 mg PO DAILY #30 tablet. 05/23/22 Atorvastatin Calcium [Lipitor] 40 mg PO BEDTIME #30 tab 05/23/22 Clopidogrel Bisulfate [Plavix*] 75 mg PO DAILY #30 tablet 05/23/22 Furosemide [Lasix] 40 mg PO BID #60 tablet 05/23/22 Metoprolol Tartrate [Lopressor*] 50 mg PO BID #60 tab 05/23/22 Pantoprazole [Protonix Tab*] 40 mg PO DAILY #30 tab 05/23/22 lisinopriL [Prinivil*] 10 mg PO DAILY #30 tab 05/23/22 New Medications: Aspirin [Aspirin EC 81 MG] 81 mg PO DAILY #30 tablet. Furosemide [Lasix] 40 mg PO BID #60 tablet Atorvastatin Calcium [Lipitor] 40 mg PO BEDTIME #30 tab Metoprolol Tartrate [Lopressor*] 50 mg PO BID #60 tab Clopidogrel Bisulfate [Plavix*] 75 mg PO DAILY #30 tablet lisinopriL [Prinivil*] 10 mg PO DAILY #30 tab Pantoprazole [Protonix Tab*] 40 mg PO DAILY #30 tab Diet: AHA Activity: Ad florinda Followup: Jarret Downs MD [ACTIVE - CAN ADMIT] - 1 Week NONE,NONE [Primary Care Provider] - 1 Week Time spent managing pt's care (in minutes): 37
== END 2022-05-23 19:00 | disposition home or self-care (01) | DRG 291 ==
LOC: ER 06:30 → ERHOLD 11:45 → 2ND 16:41 → OBSVTOIN 05-22 17:25
PROVIDERS: ADMIT Hospitalist; ATTEND Hospitalist
DX: I11.0 Hypertensive heart disease with heart failure (principal); I50.23 Acute on chronic systolic (congestive) heart failure; J96.01 Acute respiratory failure with hypoxia; I25.10 Atherosclerotic heart disease of native coronary artery without angina pectoris; R77.8 Other specified abnormalities of plasma proteins; I25.2 Old myocardial infarction; F17.210 Nicotine dependence, cigarettes, uncomplicated; Z79.82 Long term (current) use of aspirin; Z95.5 Presence of coronary angioplasty implant and graft; Z20.822 Contact with and (suspected) exposure to COVID-19
CPT/HCPCS: 36415; 71045; 78452; 80048; 80053; 80076; 83605; 83690; 83735; 83880; 84132; 84439; 84443; 84484; 85025; 85610; 87040; 93005; 93017; 93306; 94760; 96374; 99285; A9500; G0378; J1650; J1940; J2270; J2785; U0003

== ENCOUNTER 2022-10-06 17:56 | Inpatient (IN) | payer SELFPAY ==
--- OUTSIDE RECORDS SUMMARY | 2022-10-06 18:00 | XMS REPORT | Continuity of Care Document ---
:1960 Author Organization [facility] t Address [address] [place] [address] Care Team Providers Name Role Phone FAITH HOLDEN Attending Clinician Unavailable FAITH HOLDEN Admitting Clinician Unavailable Problems Condition Condition Condition Status Onset Resolution Last Treating Co mments Source Name Details Category Date Date Treatment Clinician Date ST ST Disease Active [facility] 5- Luke s myocardial myocardial 00:00: Me dical infarction infarction 00 Ce nter involving involving left left anterior anterior descending descending (LAD) (LAD) coronary coronary artery artery Allergies, Adverse Reactions, Alerts Allergy Allergy Status Severity Reaction(s) Onset Inactive Treating Comm ents Source Name Type Date Date Clinician NO KNOWN Allergy Active [facility] Social History Social Habit Start Date Stop Date Quantity Comments Source History SDOH [facility] Alcohol Comment Medical C enter History SDOH [facility] Alcohol Std Drinks Medica [facility] Center History SDOH [facility] Alcohol Binge Medical [facility] Alcohol intake 2019-03-31 2019-03-[address] [facility] 00:[facility]:00 00:00:00 non-drinker of Medical Ce nter alcohol (finding) Cigarettes smoked 2019-03-27 2019-03-[address] [facility] current (pack per 00:00:00 00:00:00 Medical Center day) - Reported Cigarette 2019-03-27 2019-03-[address] [facility] pack-years 00:00:00 00:00:00 [facility] Tobacco use and 2019-03-27 2019-03-[address] [facility] [address] [facility] kes exposure 00:00:00 00:00:00 Medical Center History SDOH 2019-03-27 2019-03-27 1 ZEKE Anguiano Alcohol Frequency 00:00:00 00:00:00 Medical Center Sex Assigned At [birth year] [facility] Car[facility] woodards 00:00:00 00:00:00 Medical Center Smoking Status Start Date Stop Date Source Current some day smoker 2019-03-27 00:00:00 [facility] Medications Ordered Filled Start Stop Current Ordering Indication Dosage Frequency Signature Comments Components Source Medication Medication Date Date Medication? Clinician (SIG) Name Name rivaroxaban Yes 20mg Take 1 [facility] (XARELTO) 5-03 tablet (20 Luke s 20 mg Tab 00:00: mg total) Med ical tablet 00 by mouth Center daily with dinner. Procedures This patient has no known procedures. Results Test Description Test Time Test Comments Results Result Comments Source MAGNESIUM 2019-03-28 06:18:00 Test Item Value Reference Range Interpretation Comme nts MAGNESIUM (BEAKER) (test code = 627) 1.9 mg/dL 1.6-2.6 BASIC METABOLIC [id number] 06:18:00 Test Item Value Reference Range Interpretation [...] GFR I S NOT APPLICABLE FOR DIALYSIS MALGORZATA ROBERTS. [id number] 06:01:00 Test Item Value Reference Range Interpretation Comments PARTIAL THROMBOPLASTIN TIME 39.4 seconds 22.5-36.0 H (BEAKER) (test code = 760) 6 hours after starting heparin infusion and as [facility] AUTO [id number] 05:54:00 Test Item Value Reference Range Interpretation [...] 0-1 PERCENT (BEAKER) (test code = 2801) [id number] 11:15:00 Test Item Value Reference Range Interpretation Comments PARTIAL THROMBOPLASTIN TIME 92.3 seconds 22.5-36.0 H (BEAKER) (test code = 760) TROPONIN [id number] 05:41:00 Test Item Value Reference Range Interpretation [...] failure, acidosis, acute neurological disease, and persistent tachyarrhythmia.[id number] 04:09:00 Test Item Value Reference Range Interpretation Comments MAGNESIUM (BEAKER) (test code = 1.9 mg/dL 1.6-2.6 627) BASIC METABOLIC [id number] 04:09:00 Test Item Value Reference Range Interpretation [...] APPLICABLE FOR DIALYSIS PATIEN TS. HEPATIC FUNCTION [id number] 04:09:00 Test Item Value Reference Range Interpretation [...] (test code = 25 U/L 6-55 347) [id number] 03:36:00 Test Item Value Reference Range Interpretation Comments PARTIAL THROMBOPLASTIN TIME 57.8 seconds 22.5-36.0 H (BEAKER) (test code = 760) CBC W/PLT COUNT & AUTO [id number] 03:16:00 Test Item Value Reference Range Interpretation [...] 0-1 PERCENT (BEAKER) (test code = 2801) [id number] 17:05:00 Test Item Value Reference Range Interpretation Comments PROTIME (BEAKER) (test code = 14.4 seconds 11.7-14.7 759) INR (BEAKER) (test code = 370) 1.2 <=5.9 PARTIAL THROMBOPLASTIN TIME 31.0 seconds 22.5-36.0 (BEAKER) (test code = 760) RECOMMENDED COUMADIN/WARFARIN INR THERAPY RANGESSTANDARD DOSE: 2.0 - 3.0 Includes: PROPHYLAXIS for venous thrombosis, systemic embolization; TREATMENT for venous thrombosis and/or pulmonary embolus.HIGH RISK: Target INR is 2.5-3.5 for patients with mechanical heart valves.PROTHROMBIN [id number] 17:04:00 Test Item Value Reference Range Interpretation Comments PROTIME (BEAKER) (test code = 14.4 seconds 11.7-14.7 759) INR (BEAKER) (test code = 370) 1.2 <=5.9 RECOMMENDED COUMADIN/WARFARIN INR THERAPY RANGESSTANDARD DOSE: 2.0 - 3.0 Includes: PROPHYLAXIS for venous thrombosis, systemic embolization; TREATMENT for venous thrombosis and/or pulmonary embolus.HIGH RISK: Target INR is 2.5-3.5 for patients with mechanical heart valves.CBC W/PLT COUNT & AUTO [id number] 16:50:00 Test Item Value Reference Range Interpretation [...] PERCENT (BEAKER) (test code = 2801) TROPONIN [id number] 15:28:00 Test Item Value Reference Range Interpretation [...] acidosis, acute neurological disease, and persistent tachyarrhythmia.HEMOGLOBIN [id number] 12:07:00 Test Item Value Reference Range Interpretation Comments HEMOGLOBIN A1C (BEAKER) (test code = 5.6 % 4.3-6.1 368) RAD, CHEST, 1 VIEW, NON [id number] 07:27:00Reason for exam:->chest painShould this be performed at the bedside?->YesFINAL REPORT Portable chest 03/26/2019, 0349 hours COMPARISON: None The lungs appear clear. Heart and mediastinal structures are within normal limits. No pleural effusions are seen. No significant osseous abnormalities are identified although there are some degenerative changes in both acromioclavicular joints. Signed: Lisette Green Verified Date/Time: 03/26/2019 07:27:22 Reading Location: [facility] Radiology Reading Room Electronically signed by: LISETTE GREEN M.D.on 03/26/2019 07:27 AMB-TYPE NATRIURETIC FACTOR (BNP)2019-03-26 05:27:00 Test Item Value Reference Range Interpretation Comments B-TYPE NATRIURETIC PEPTIDE (BEAKER) 798 pg/mL 0-100 H (test code = 700) [id number] 05:22:00 Test Item Value Reference Range Interpretation Comments MAGNESIUM (BEAKER) 1.8 mg/dL 1.6-2.6 Specimen slightly (test code = 627) hemolyzed BASIC METABOLIC [id number] 05:22:00 Test Item Value Reference Range Interpretation [...] PATIEN TS. CBC W/PLT COUNT & AUTO [id number] 05:07:00 Test Item Value Reference Range Interpretation [...] 0-1 PERCENT (BEAKER) (test code = 2801) [id number] 00:56:00 Test Item Value Reference Range Interpretation Comments PARTIAL THROMBOPLASTIN TIME > seconds 22.5-36.0 HH (BEAKER) (test code = 760) TROPONIN [id number] 00:36:00 Test Item Value Reference Range Interpretation [...] acidosis, acute neurological disease, and persistent tachyarrhythmia.PROTHROMBIN [id number] 00:28:00 Test Item Value Reference Range Interpretation Comments PROTIME (BEAKER) (test code = 35.8 seconds 11.7-14.7 H 759) INR (BEAKER) (test code = 370) 3.9 <=5.9 RECOMMENDED COUMADIN/WARFARIN INR THERAPY RANGESSTANDARD DOSE: 2.0 - 3.0 Includes: PROPHYLAXIS for venous thrombosis, systemic embolization; TREATMENT for venous thrombosis and/or pulmonary embolus.HIGH RISK: Target INR is 2.5-3.5 for patients with mechanical heart valves.[id number] 00:25:00 Test Item Value Reference Range Interpretation Comments MAGNESIUM (BEAKER) (test code = 1.7 mg/dL 1.6-2.6 627) COMPREHENSIVE METABOLIC [id number] 00:25:00 Test Item Value Reference Range Interpretation [...] NOT APPLICABLE FOR DIALYSIS PATIEN TS. LIPID [id number] 00:25:00 Test Item Value Reference Range Interpretation [...] Very High >=190CBC W/PLT COUNT & AUTO [id number] 00:18:00 Test Item Value Reference Range Interpretation [...] % 0-1 PERCENT (BEAKER) (test code = 8518)
[2022-10-06 18:57] LABS: Absolute Lymphocytes (CBC) 2.4 K/uL (0.7-4.9); Hematocrit 34.3 % (39.6-49.0); Lymphocytes % 39.3 % (15.3-44.8); MCV 81.7 fL (80-100)
[2022-10-06 19:04] LABS: SARS-CoV-2 Antigen Rapid Res Negative (Negative)
[2022-10-06 19:12] LABS: Troponin High Sensitivity 330.2 pg/mL (<58.9)
[2022-10-06] MEDS ORDERED: FUROSEMIDE 100 MG/10 ML VIAL IV ONE (19:51)
--- NOTE | 2022-10-06 20:00 | RAD REPORT ---
EXAM DESCRIPTION: RAD - Chest Single View - 10/06/2022 7:55 pm CLINICAL HISTORY: CHEST PAIN COMPARISON: <Comparisons> FINDINGS: Lines: None. Lungs: Improved aeration of the lungs compared with prior. Pleural: No significant pleural effusions or pneumothorax. Cardiac: Cardiomegaly. Mediastinum: Within normal limits. Bones: No acute fractures. Other: None IMPRESSION: No acute cardiopulmonary disease. Improved aeration compared with prior.
--- NOTE | 2022-10-06 20:27 | EDPHYS ---
Physician Documentation [facility] Name: Chad Rahman Age: 61 yrs Sex: Male : 1960 Arrival Date: 10/06/2022 Time: 17:57 Bed 15 Private MD: ED Physician Abdulkadir Garcia HPI: 10/06 18:35 This 61 yrs old Black Male presents to ER via Ambulatory with complaints of SOB and jl9 feet swelling. Patient reports being out of his lasix for a few weeks. . 18:35 Onset: The symptoms/episode began/occurred 1 week(s) ago. Associated signs and jl9 symptoms: The patient has no apparent associated signs or symptoms. Modifying factors: the patient symptoms are aggravated by activity. The patient has experienced similar episodes in the past. Historical: - Allergies: 18:01 No Known Allergies; iw - PMHx: 18:01 Myocardial infarction; Pancreatitis; iw - PSHx: 18:01 CAD; Stented artery; iw - Immunization history:: Adult Immunizations up to date. - Social history:: Smoking status: Patient reports the use of cigarette tobacco products, denies chronic smoking, but will smoke occasionally. ROS: 18:35 Constitutional: Negative for fever, chills, and weight loss, Eyes: Negative for injury, jl9 pain, redness, and discharge, ENT: Negative for injury, pain, and discharge, Neck: Negative for injury, pain, and swelling, Cardiovascular: Negative for chest pain, palpitations, and edema. 18:35 Abdomen/GI: Negative for abdominal pain, nausea, vomiting, diarrhea, and constipation, Back: Negative for injury and pain, : Negative for injury, bleeding, discharge, and swelling, MS/Extremity: Negative for injury and deformity, Skin: Negative for injury, rash, and discoloration, Neuro: Negative for headache, weakness, numbness, tingling, and seizure, Psych: Negative for depression, anxiety, suicide ideation, homicidal ideation, and hallucinations, Allergy/Immunology: Negative for hives, rash, and allergies, Endocrine: Negative for neck swelling, polydipsia, polyuria, polyphagia, and marked weight changes, Hematologic/Lymphatic: Negative for swollen nodes, abnormal bleeding, and unusual bruising. 18:35 Respiratory: Positive for orthopnea, shortness of breath. Exam: 18:36 Constitutional: This is a well developed, well nourished patient who is awake, alert, jl9 and in no acute distress. Head/Face: Normocephalic, atraumatic. Eyes: Pupils equal round and reactive to light, extra-ocular motions intact. Lids and lashes normal. Conjunctiva and sclera are non-icteric and not injected. Cornea within normal limits. Periorbital areas with no swelling, redness, or edema. ENT: Mucous membranes moist. Neck: Trachea midline, no thyromegaly or masses palpated, and no cervical lymphadenopathy. Supple, full range of motion without nuchal rigidity, or vertebral point tenderness. No Meningismus. Chest/axilla: Normal chest wall appearance and motion. Nontender with no deformity. No lesions are appreciated. Cardiovascular: Regular rate and rhythm with a normal S1 and S2. No gallops, murmurs, or rubs. Normal PMI, no JVD. No pulse deficits. Respiratory: Lungs have equal breath sounds bilaterally, clear to auscultation and percussion. No rales, rhonchi or wheezes noted. No increased work of breathing, no retractions or nasal flaring. Abdomen/GI: Soft, non-tender, with normal bowel sounds. No distension or tympany. No guarding or rebound. No evidence of tenderness throughout. Back: No spinal tenderness. No costovertebral tenderness. Full range of motion. Skin: Warm, dry with normal turgor. Normal color with no rashes, no lesions, and no evidence of cellulitis. 18:36 Neuro: Awake and alert, GCS 15, oriented to person, place, time, and situation. Cranial nerves II-XII grossly intact. Motor strength 5/5 in all extremities. Sensory grossly intact. Cerebellar exam normal. Normal gait. Psych: Awake, alert, with orientation to person, place and time. Behavior, mood, and affect are within normal limits. 18:36 Musculoskeletal/extremity: Extremities: ROM: no acute changes, Circulation is intact in all extremities. 1+ pedal edema bilaterally. . Vital Signs: 18:00 BP 128 / 89; Pulse 108; Resp 24; Temp 97.7; Pulse Ox 100% on R/A; Weight 68.04 kg; iw Height 5 ft. 9 in. (175.26 cm); Pain 8/10; 19:30 BP 110 / 94; Pulse 99; Resp 18 S; Pulse Ox 98% on R/A; bb 21:31 BP 117 / 91; Pulse 93; Resp 16 S; Pulse Ox 96% on R/A; bb 22:45 BP 100 / 85; Pulse 99; Resp 18 S; Pulse Ox 97% on R/A; bb 10/07 00:46 BP 100 / 88; Pulse 89; Resp 20 S; Pulse Ox 100% on R/A; bb 10/06 18:00 Body Mass Index 22.15 (68.04 kg, 175.26 cm) iw MDM: 10/06 18:18 Patient medically screened. jl9 18:36 Differential diagnosis: viral Infection, bacterial infection, pneumonia CHF. Data jl9 reviewed: vital signs, nurses notes. Test interpretation: by ED physician or midlevel provider: ECG. 20:26 Counseling: I had a detailed discussion with the patient and/or guardian regarding: the jl9 historical points, exam findings, and any diagnostic results supporting the discharge/admit diagnosis, lab results, radiology results, the need for further work-up and treatment in the hospital. Physician consultation: Clarence GARCIA was called at 20:26, and will see patient in ED. 10/06 18:16 Order name: Basic Metabolic Panel; Complete Time: 08:06 [facility] 10/06 18:16 Order name: CBC with Diff; Complete Time: 19:34 [facility] 10/06 18:16 Order name: Troponin HS; Complete Time: 08:06 [facility] 10/06 18:18 Order name: BNP; Complete Time: 18:57 [facility] 10/06 18:18 Order name: SARS RAPID; Complete Time: 19:09 [facility] 10/06 19:17 Order name: Troponin High Sensitivity; Complete Time: 21:04 [facility] 10/06 18:16 Order name: XRAY Chest (1 view); Complete Time: 20:02 [facility] 10/06 22:21 Order name: Urine Dipstick-Ancillary; Complete Time: 08:06 [facility] 10/07 05:23 Order name: CBC with Automated Diff; Complete Time: 08:06 [facility] 10/07 05:43 Order name: Comprehensive Metabolic Panel; Complete Time: 08:06 [facility] 10/07 05:43 Order name: Troponin High Sensitivity; Complete Time: 08:06 [facility] 11/12 05:43 Order name: Lipid Profile; Complete Time: 08:06 [facility] 10/07 05:43 Order name: Magnesium; Complete Time: 08:06 [facility] 10/06 18:16 Order name: EKG; Complete Time: 18:17 [facility] 10/06 18:16 Order name: Cardiac monitoring; Complete Time: 18:16 [facility] 10/06 18:16 Order name: EKG - Nurse/Tech; Complete Time: 18:16 [facility] 10/06 18:16 Order name: IV Saline Lock; Complete Time: 18:16 [facility] 10/06 18:16 Order name: Labs collected and sent; Complete Time: 18:16 [facility] 10/06 18:16 Order name: O2 Per Protocol; Complete Time: 18:16 [facility] 10/06 18:16 Order name: O2 Sat Monitoring; Complete Time: 18:16 vg Administered Medications: 19:55 Drug: Furosemide 60 mg Route: IVP; Site: right antecubital; aa9 21:11 Drug: Aspirin Chewable Tablet 324 mg Route: PO; bb 21:11 Drug: Lovenox (enoxaparin) 1 mg/kg Route: Sub-Q; Site: abdomen; bb Disposition Summary: 10/06/22 20:26 Hospitalization Ordered Hospitalization Status: Observation jl9 Provider: Cesar Doss jl9 Condition: Fair jl9 Problem: new jl9 Symptoms: are unchanged jl9 Bed/Room Type: Standard 9 Location: Telemetry/MedSurg (observation)(10/07/22 07:23) [facility] Room Assignment: [facility] [place][note 2](10/07/22 07:23) nati Diagnosis - Acute on chronic systolic (congestive) heart failure jl9 Forms: - Medication Reconciliation Form jl9 - SBAR form jl9 Signatures: Dispatcher [employer] EDMS Jorge Casillas MD MD cha Ballard, Brenda RN Olga Bunn, RN Clarence Cummins, GUSSET FOLDER-C GUSSET FOLDER-Katarina Mireles RN RN cg Garcia, Victoria, RN RN vg1 Jaren Strauss Aylin, RN RN aa9 Corrections: (The following items were deleted from the chart) 22:57 20:26 Telemetry/MedSurg (observation) [facility] 22:57 20:26 9 11/10/06 22:57 [facility] ER HOLD cg nati 10/07 22:57 ERHOLD- cg nati
--- NOTE | 2022-10-06 20:27 | ER ---
Nurse's Notes [facility] Name: Chad Rahman Age: 61 yrs Sex: Male : 1960 Arrival Date: 10/06/2022 Time: 17:57 Bed 15 Private MD: Diagnosis: Acute on chronic systolic (congestive) heart failure Presentation: 10/06 18:00 Chief complaint: SOB and BLE swelling x 2 days. Coronavirus screen: At this time, the iw client does not indicate any symptoms associated with coronavirus-19. Ebola Screen: No symptoms or risks identified at this time. Risk Assessment: Do you want to hurt yourself or someone else? Patient reports no desire to harm self or others. Onset of symptoms was October 06, 2022. 18:00 Method Of Arrival: Ambulatory iw 18:00 Acuity: ROSALIA 3 iw 18:22 Initial Sepsis Screen: Does the patient meet any 2 criteria? No. Patient's initial jd3 sepsis screen is negative. Does the patient have a suspected source of infection? No. Patient's initial sepsis screen is negative. Historical: - Allergies: 18:01 No Known Allergies; iw - PMHx: 18:01 Myocardial infarction; Pancreatitis; iw - PSHx: 18:01 CAD; Stented artery; iw - Immunization history:: Adult Immunizations up to date. - Social history:: Smoking status: Patient reports the use of cigarette tobacco products, denies chronic smoking, but will smoke occasionally. Screenin:22 Abuse screen: Denies threats or abuse. Nutritional screening: No deficits noted. jd3 Tuberculosis screening: No symptoms or risk factors identified. Fall Risk IV access (20 points). Ambulatory Aid- None/Bed Rest/Nurse Assist (0 pts). Gait- Normal/Bed Rest/Wheelchair (0 pts) Mental Status- Oriented to own ability (0 pts). Total Melendez Fall Scale indicates No Risk (0-24 pts). Assessment: 18:18 General: Appears in no apparent distress. comfortable, Behavior is calm, cooperative, jd3 appropriate for age. Pain: Complains of pain in chest, right leg and left leg Pain does not radiate. Pain began 2-3 days ago. Neuro: Rodriguez Agitation-Sedation Scale (RASS): 0 - Alert and Calm Level of Consciousness is awake, alert, obeys commands, Oriented to person, place, time, situation. Cardiovascular: Heart tones present Capillary refill < 3 seconds Patient's skin is warm and dry. Pulses are palpable in right radial artery, right dorsalis pedis artery, left radial artery and left dorsalis pedis artery Edema is 1+ to CHIDI lower left and right leg Rhythm is sinus tachycardia. Respiratory: Reports shortness of breath on exertion Airway is patent Respiratory effort is even, unlabored, Respiratory pattern is regular, symmetrical, Breath sounds are clear bilaterally. GI: No signs and/or symptoms were reported involving the gastrointestinal system. : No signs and/or symptoms were reported regarding the genitourinary system. EENT: No signs and/or symptoms were reported regarding the EENT system. Derm: Skin is intact, Skin is dry, Skin is normal, Skin temperature is warm. Musculoskeletal: Circulation, motion, and sensation intact. Range of motion: intact in all extremities. 20:00 Reassessment: Patient is alert, oriented x 3, equal unlabored respirations, skin bb warm/dry/pink. awaiting diagnostic results. 21:30 Reassessment: Patient is alert, oriented x 3, equal unlabored respirations, skin bb warm/dry/pink. pt notified of need for admit pt verbalized understanding of and agrees to plan of care. 10/07 00:46 Reassessment: Patient is alert, oriented x 3, equal unlabored respirations, skin bb warm/dry/pink. pt requested additional blankets more were given with a pillow instructed pt he will remain in the ED overnight due to lack of rooms upstairs. Vital Signs: 10/06 18:00 BP 128 / 89; Pulse 108; Resp 24; Temp 97.7; Pulse Ox 100% on R/A; Weight 68.04 kg; iw Height 5 ft. 9 in. (175.26 cm); Pain 8/10; 19:30 BP 110 / 94; Pulse 99; Resp 18 S; Pulse Ox 98% on R/A; bb 21:31 BP 117 / 91; Pulse 93; Resp 16 S; Pulse Ox 96% on R/A; bb 22:45 BP 100 / 85; Pulse 99; Resp 18 S; Pulse Ox 97% on R/A; bb 10/07 00:46 BP 100 / 88; Pulse 89; Resp 20 S; Pulse Ox 100% on R/A; bb 10/06 18:00 Body Mass Index 22.15 (68.04 kg, 175.26 cm) ED Course: 10/06 17:57 Patient arrived in ED. am2 18:01 Triage completed. iw 18:01 Arm band placed on. iw 18:02 Inderjit Bro RN is Primary Nurse. jd3 18:15 Initial lab(s) drawn, by nj, sent to lab. Inserted saline lock: 20 gauge in right vg1 antecubital area, using aseptic technique. Blood collected. 18:17 Jaren Strauss is PHCP. jl9 18:18 Abdulkadir Garcia MD is Attending Physician. jl9 18:21 Patient has correct armband on for positive identification. Bed in low position. Call jd3 light in reach. Side rails up X 1. Client placed on continuous cardiac and pulse oximetry monitoring. NIBP monitoring applied. court monitor on. Pulse ox on. NIBP on. Warm blanket given. 18:22 Patient maintains SpO2 saturation greater than 95% on room air. jd3 19:12 Notified ED physician of a critical lab result(s). Trop 330.2. vg1 19:48 Primary Nurse role handed off by Inderjit Bro RN mw2 19:49 Tracy Valenzuela, EBONI is Primary Nurse. aa9 19:57 XRAY Chest (1 view) In Process Unspecified. EDMS 20:25 Cesar Doss MD is Hospitalizing Provider. 9 10/07 08:23 Primary Nurse role handed off by Tracy Valenzuela, EBONI eb Administered Medications: 10/06 19:55 Drug: Furosemide 60 mg Route: IVP; Site: right antecubital; aa9 21:11 Drug: Aspirin Chewable Tablet 324 mg Route: PO; bb 21:11 Drug: Lovenox (enoxaparin) 1 mg/kg Route: Sub-Q; Site: abdomen; bb Medication: 18:30 VIS not applicable for this client. jd3 Outcome: 20:26 Decision to Hospitalize by Provider. jl9 10/07 08:37 Patient left the ED. vg1 Signatures: Dispatcher [employer] EDMS Jossy Phillips RN RN bb Olga Carmona RN RN iw Shweta Cortez am2 Inderjit Bro RN RN jd3 [place] mw2 Penny Rincon Victoria, RN RN vg1 Jaren Strauss jl9 Tracy Valenzuela, RN RN aa9
[2022-10-06] MEDS ORDERED: ASPIRIN 81 MG CHEWABLE TABLET ONE (21:05)
[2022-10-06] MEDS ORDERED: ENOXAPARIN 60 MG/0.6 ML SQ ONE (21:05)
[2022-10-06 22:21] LABS: Urine Blood Negative (Negative); Urine Glucose Negative (Negative); Urine Protein Negative (Negative)
--- NOTE | 2022-10-06 22:45 | P.HP ---
Certification for Inpatient Patient admitted to: Inpatient With expected LOS: >2 Midnights Patient will require the following post-hospital care: None Practitioner: I am a practitioner with admitting privileges, knowledge of patient current condition, hospital course, and medical plan of care. Services: Services provided to patient in accordance with Admission requirements found in Title 42 Section 412.3 of the Code of Federal Regulations <Clarence So - Last Filed: 10/06/22 22:42> Patient History Date of Service: 10/06/22 Reason for admission: CHF exacerbation, NSTEMI History of Present Illness: 61-year-old male with history of chronic systolic congestive heart failure, CAD presents emergency department for shortness of breath, chest pain. He reports he has been out of his Lasix for approximately 1 month now, noted to have pitting edema of his lower extremities, chest pain and dyspnea. His chest x-ray was negative for any acute findings patient currently saturating well on room air. His labs were significant for elevated high-sensitivity troponin 330.2 elevated BNP 8767 creatinine 1.35 GFR 59. Patient reports exertional chest pain over the last few days described as dull nonradiating. ED provider wishes to admit for NSTEMI, CHF exacerbation. - Past Medical/Surgical History Diabetic: No -: history of MS -: Chronic systolic congestive heart failure -: CAD -: 2 cardiac stents Psychosocial/ Personal History: Patient lives at home alone, is unemployed. - Family History Mother -: Diabetes Father -: Diabetes - Social History Smoking Status: Current every day smoker Counseled patient to stop smoking for: less than 10 minutes Smoking therapy provided: No (Patient declined) Alcohol use: Yes CD- Drugs: No Caffeine use: Yes Place of Residence: Home <Clarence So - Last Filed: 10/06/22 22:42> Date of Service: 10/07/22 <Cesar Doss - Last Filed: 10/07/22 16:21> Allergies No Known Allergies Allergy (Unverified 08/30/18 14:11) Home Medications: Aspirin [Aspirin EC 81 MG] 81 mg PO DAILY #30 tablet. 05/23/22 Review of Systems 10-point ROS is otherwise unremarkable Respiratory: Cough, Shortness of Breath, SOB with Excertion Cardiovascular: Chest Pain, Light Headedness <Clarence So - Last Filed: 10/06/22 22:42> Physical Examination - Physical Exam General: Alert, In no apparent distress, Oriented x3 HEENT: Atraumatic, PERRLA, Mucous membr. moist/pink, EOMI, Sclerae nonicteric Neck: Supple, 2+ carotid pulse no bruit, No LAD, Without JVD or thyroid abnormality Respiratory: Clear to auscultation bilaterally, Normal air movement Cardiovascular: Regular rate/rhythm, Normal S1 S2, Edema, Systolic murmur Capillary refill: <2 Seconds Gastrointestinal: Normal bowel sounds, No tenderness Musculoskeletal: No tenderness Integumentary: No rashes Neurological: Normal speech, Normal strength at 5/5 x4 extr, Normal tone, Normal affect Lymphatics: No axilla or inguinal lymphadenopathy - Studies Laboratory Data (last 24 hrs) 10/06/22 18:14: WBC 6.00, Hgb 10.5 L, Hct 34.3 L, Plt Count 251 10/06/22 18:14: BUN 23 H, Creatinine 1.35 H, Glucose 118 H <Clarence So - Last Filed: 10/06/22 22:42> - Studies Laboratory Data (last 24 hrs) 10/06/22 18:14: WBC 6.00, Hgb 10.5 L, Hct 34.3 L, Plt Count 251 10/06/22 18:14: Sodium 137, Potassium 4.2, BUN 23 H, Creatinine 1.35 H, Glucose 118 H <Cesar Doss - Last Filed: 10/07/22 16:21> Assessment and Plan - Plan Assessment: Acute on chronic systolic congestive heart failure NSTEMIhistory of CAD Hypertension Plan: Acute on chronic systolic congestive heart failure: Cardiology consult, last echocardiogram 05/22/2022 with EF between 10 and 15%. Patient reports nonco mpliance with his home medications reports has been out of his medications for approximate 1 month now, he is unsure what medications he was on previously. Continue diuresis with IV Lasix, aspirin, Plavix, statin. We will review previous charts to figure out what medications he was on previously and restart as appropriate. NSTEMIhistory of CAD: Continue as above, suspect this is possibly demand ischemia from acute on chronic CHF. Appreciate further input from cardiology. Continue home medications including aspirin, Plavix, statin, beta-teresita. Hypertension: Continue home medications. DVT PPX: Therapeutic Lovenox Code status: Full Discharge Plan: Home Plan to discharge in: 48 Hours - Advance Directives Does patient have a Living Will: No Does patient have a Durable POA for Healthcare: No - Code Status/Comfort Care Code Status Assessed: Yes (Full code) Critical Care: No Time Spent Managing Pts Care (In Minutes): 70 <Clarence So - Last Filed: 10/06/22 22:42> Physician Review: Patient Assessed, Agree with Above Assessment and Plan <Cesar Doss - Last Filed: 10/07/22 16:21>
[2022-10-06 23:57] LABS: Potassium 4.2 mmol/L (3.5-5.1)
[2022-10-07] MEDS: ATORVASTATIN 40 MG TAB PO SCH ×2 (04:00→20:37)
[2022-10-07] MEDS ORDERED: ONDANSETRON 4 MG/2 ML VIAL IV PRN (04:00)
[2022-10-07] MEDS ORDERED: ATORVASTATIN 20 MG TAB ONE (05:10)
[2022-10-07 05:15] LABS: Absolute Lymphocytes (CBC) 2.3 K/uL (0.7-4.9); Hematocrit 33.7 % (39.6-49.0); Lymphocytes % 39.4 % (15.3-44.8); MPV 9.2 fL (7.6-11.3); RBC Red Blood Cell Count 4.11 M/uL (4.33-5.43)
[2022-10-07 05:30] LABS: Albumin 3.3 g/dL (3.4-5.0); Bilirubin Total 1.3 mg/dL (0.2-1.0); Potassium 3.9 mmol/L (3.5-5.1); Protein, Total 7.4 g/dL (6.4-8.2)
[2022-10-07 05:31] LABS: Magnesium 1.9 mg/dL (1.8-2.4)
[2022-10-07 05:42] LABS: Troponin High Sensitivity 308.5 pg/mL (<58.9)
[2022-10-07] MEDS: METOPROLOL TAR 25 MG TAB PO SCH ×2 (06:00→17:07)
[2022-10-07] MEDS ORDERED: METOPROLOL TAR 25 MG TAB ONE (06:33)
[2022-10-07] MEDS ORDERED: CLOPIDOGREL 75 MG TABLET ONE (07:42)
[2022-10-07] MEDS ORDERED: ASPIRIN EC 81 MG TAB PO ONE (07:42)
[2022-10-07] MEDS ORDERED: ENOXAPARIN 80 MG/0.8 ML SQ ONE (07:43)
[2022-10-07] MEDS ORDERED: FUROSEMIDE 40 MG/4 ML VIAL ONE (07:43)
[2022-10-07] MEDS: ASPIRIN EC 81 MG TAB PO SCH (07:54)
[2022-10-07] MEDS: FUROSEMIDE 40 MG/4 ML VIAL IV SCH ×2 (07:54→17:08)
[2022-10-07] MEDS: ENOXAPARIN 80 MG/0.8 ML SQ SCH ×2 (07:55→20:37)
[2022-10-07] MEDS: CLOPIDOGREL 75 MG TABLET PO SCH (07:56)
--- NOTE | 2022-10-07 16:27 | P.PN ---
Subjective Date of Service: 10/07/22 Chief Complaint: CHF exacerbation, NSTEMI No acute events overnight. He reports shortness of breath, which has been worse with exertion and lying flat. He denies any chest pain or palpitations. Review of Systems 10-point ROS is otherwise unremarkable Respiratory: Cough, Dry, Shortness of Breath, SOB with Excertion Cardiovascular: Orthopnea Physical Examination - Vital Signs Temperature: 96.5 F Blood Pressure: 99/71 Pulse: 87 Respirations: 17 Pulse Ox (%): 97 - Physical Exam General: Alert, In no apparent distress, Oriented x3 HEENT: Atraumatic, PERRLA, Mucous membr. moist/pink, EOMI, Sclerae nonicteric Neck: Supple, JVD distended Respiratory: Diminished, Crackles/rales (bibasilar) Cardiovascular: Regular rate/rhythm, Normal S1 S2, No gallops, No rubs, No murmurs, Edema (2-3+ BLE) Gastrointestinal: Normal bowel sounds, Soft and benign, Non-distended, No tenderness, No rebound, No guarding Musculoskeletal: No clubbing Integumentary: No rashes Neurological: Normal speech, Cranial nerves 3-12 intact, Normal affect - Studies Laboratory Data (last 24 hrs) 10/06/22 18:14: WBC 6.00, Hgb 10.5 L, Hct 34.3 L, Plt Count 251 10/06/22 18:14: Sodium 137, Potassium 4.2, BUN 23 H, Creatinine 1.35 H, Glucose 118 H Assessment And Plan - Plan # Acute on Chronic Decompensated Combined Systolic and Diastolic Congestive Heart Failure with Reduced Ejection Fraction # Severe Pulmonary Hypertension # Moderate Mitral/Tricuspid Regurgitation - Consult Cardiology - recommendations appreciated - Ordered transthoracic echocardiogram - TTE (05/22/2022) = "severely depressed left ventricular ejection fraction 10-15%. severe global hypokinesis. moderate mitral and tricuspid regurgitation. severe diastolic dysfunction. severe pulmonary hypertension with right ventricular systolic pressure 60-65% with elevated filling pressures." - Diuresis with IV furosemide for today - Continue home metoprolol - Daily weights - Strict I/O - Cardiac diet, 1.5 L fluid restriction, 2 g Na restriction # Non-ST Segment Elevation Myocardial Infarction - Evaluation thus far: - EKG: reportedly without STEMI criteria, trend - Serial troponin: 330.2 -> 316.7 -> 308.5 -> 322.4 - Ordered transthoracic echocardiogram - Chest x-ray = "no acute cardiopulmonary disease. Improved aeration compared with prior." - Management plan: - Consult Cardiology - recommendations appreciated - Continue aspirin, atorvastatin, clopidogrel, metoprolol, and enoxaparin - Consider RALPH-inhibitor/ARB if tolerated Cesar Doss M.D.
--- NOTE | 2022-10-07 16:54 | CON ---
Date of Consultation: 10/07/2022 Reason For Consultation: CHF. History Of Present Illness: A 61-year-old male with history of severe systolic heart failure and cor onary artery disease per history and presented with shortness of breath and chest discomfort, lower e xtremity edema. He had an appointment as an outpatient see Cardiology, but could not wait due to wor sening shortness of breath, orthopnea, lower extremity edema. Past Medical History: As outlined above. Medications: Refer to reconciliation sheet for detailed list. Allergies: NO KNOWN DRUG ALLERGIES. Family History: No premature coronary artery disease or cancer. Social History: He is an active smoker. Does not drink. Does not use any drugs. Review of Systems: All systems reviewed and they were negative except what mentioned in HPI. Physical Examination: Vital Signs: Reviewed. Head and Neck: Pupils are equal, reactive to light. Intact eye movements. No JVD. No cervical lym phadenopathy. Neck is supple. Thyroid is not enlarged. Lungs: Clear to auscultation bilaterally. No rhonchi, wheezing, or crackles. No accessory muscle u se. Heart: Regular rate and rhythm. No extra sounds. Abdomen: Soft, nontender. Bowel sounds positive. No organomegaly. No masses or hernia. No rigidi ty or rebound. Extremities: 3+ pitting edema. No clubbing or cyanosis. Intact pulses. Skin: No rash. Neurologic: Alert, awake, oriented x3. No acute focal deficits appreciated. Lymph Nodes: No cervical or axillary lymphadenopathy. Investigations: Labs were reviewed. Assessment And Recommendations: 1.Acute on chronic systolic heart failure exacerbation. Continue IV diuretics. Monitor BUN, creati nine, and electrolytes. 2.Elevated troponin, likely due to demand ischemia. We will reassess after proper diuresis. Thank you for the consult. /ABNER Voice ID: [id number] Report ID: [id number]
[2022-10-08 04:53] LABS: Hematocrit 32.8 % (39.6-49.0); Lymphocytes % 34.2 % (15.3-44.8); MCV 81.3 fL (80-100); MPV 9.3 fL (7.6-11.3); RBC Red Blood Cell Count 4.04 M/uL (4.33-5.43)
[2022-10-08 05:19] LABS: Albumin 3.3 g/dL (3.4-5.0); Bilirubin Total 1.2 mg/dL (0.2-1.0); Magnesium 1.9 mg/dL (1.8-2.4); Potassium 3.9 mmol/L (3.5-5.1); Protein, Total 7.2 g/dL (6.4-8.2)
[2022-10-08 05:48] VITALS: O2SAT 100
[2022-10-08] MEDS: METOPROLOL TAR 25 MG TAB PO SCH ×2 (05:48→16:35)
[2022-10-08 05:53] VITALS: BMI 21.7
[2022-10-08] MEDS: CLOPIDOGREL 75 MG TABLET PO SCH (08:11)
[2022-10-08] MEDS: ASPIRIN EC 81 MG TAB PO SCH (08:11)
[2022-10-08] MEDS: FUROSEMIDE 40 MG/4 ML VIAL IV SCH ×2 (08:11→16:35)
[2022-10-08] MEDS: ENOXAPARIN 80 MG/0.8 ML SQ SCH ×2 (08:12→20:41)
[2022-10-08] MEDS ORDERED: POTASSIUM CL SA 10 MEQ TAB PO ONE (09:00)
--- NOTE | 2022-10-08 11:47 | P.PN ---
Subjective Date of Service: 10/08/22 Chief Complaint: CHF exacerbation, NSTEMI No acute events overnight. He reports that his shortness of breath is gradually improving, but he continues to have lower extremity edema. He reports orthopnea, but he denies any chest pain or palpitations. Review of Systems 10-point ROS is otherwise unremarkable Respiratory: Shortness of Breath Cardiovascular: Orthopnea, Edema Physical Examination - Vital Signs Temperature: 96.9 F Blood Pressure: 119/84 Pulse: 88 Respirations: 18 Pulse Ox (%): 97 Assessment And Plan - Plan - Physical Exam General: Alert, In no apparent distress, Oriented x3 HEENT: Atraumatic, PERRLA, Mucous membr. moist/pink, EOMI, Sclerae nonicteric Neck: Supple, JVD distended Respiratory: Diminished, Crackles/rales (bibasilar) Cardiovascular: Regular rate/rhythm, Normal S1 S2, No gallops, No rubs, No murmurs, Edema (1-2+ BLE) Gastrointestinal: Normal bowel sounds, Soft and benign, Non-distended, No tenderness, No rebound, No guarding Musculoskeletal: No clubbing Integumentary: No rashes Neurological: Normal speech, Cranial nerves 3-12 intact, Normal affect # Acute on Chronic Decompensated Combined Systolic and Diastolic Congestive He art Failure with Reduced Ejection Fraction # Severe Pulmonary Hypertension # Moderate Mitral/Tricuspid Regurgitation - Consult Cardiology - recommendations appreciated - Ordered transthoracic echocardiogram - TTE (05/22/2022) = "severely depressed left ventricular ejection fraction 10-15%. severe global hypokinesis. moderate mitral and tricuspid regurgitation. severe diastolic dysfunction. severe pulmonary hypertension with right ventricular systolic pressure 60-65% with elevated filling pressures." - If LVEF remains low, will require a LifeVest at discharge - Diuresis with IV furosemide for today - Continue home metoprolol - Daily weights - Strict I/O - Cardiac diet, 1.5 L fluid restriction, 2 g Na restriction # Non-ST Segment Elevation Myocardial Infarction - Evaluation thus far: - EKG: reportedly without STEMI criteria, trend - Serial troponin: 330.2 -> 316.7 -> 308.5 -> 322.4 - Ordered transthoracic echocardiogram - Chest x-ray = "no acute cardiopulmonary disease. Improved aeration compared with prior." - Management plan: - Consult Cardiology - recommendations appreciated - Continue aspirin, atorvastatin, clopidogrel, metoprolol, and enoxaparin - Consider RALPH-inhibitor/ARB if tolerated Cesar Doss M.D.
[2022-10-08] MEDS: ATORVASTATIN 40 MG TAB PO SCH (20:41)
[2022-10-08] MEDS ORDERED: INFLUENZA VACCINE (for 6+ mo) 0.5 ML DOSE IMVAC ONE (22:00)
[2022-10-09 03:48] LABS: Absolute Lymphocytes (CBC) 2.2 K/uL (0.7-4.9); Hematocrit 34.5 % (39.6-49.0); Lymphocytes % 35.4 % (15.3-44.8); MCV 81.6 fL (80-100); MPV 9.3 fL (7.6-11.3); RBC Red Blood Cell Count 4.23 M/uL (4.33-5.43)
[2022-10-09 04:17] LABS: Albumin 3.3 g/dL (3.4-5.0); Bilirubin Total 0.9 mg/dL (0.2-1.0); Potassium 3.8 mmol/L (3.5-5.1); Protein, Total 7.5 g/dL (6.4-8.2)
[2022-10-09] MEDS: METOPROLOL TAR 25 MG TAB PO SCH ×2 (05:34→16:23)
[2022-10-09] MEDS: CLOPIDOGREL 75 MG TABLET PO SCH (07:53)
[2022-10-09] MEDS: ASPIRIN EC 81 MG TAB PO SCH (07:53)
[2022-10-09] MEDS: ENOXAPARIN 80 MG/0.8 ML SQ SCH (07:54)
[2022-10-09] MEDS: FUROSEMIDE 40 MG/4 ML VIAL IV SCH ×2 (07:54→16:22)
[2022-10-09] MEDS ORDERED: POTASSIUM CL SA 10 MEQ TAB PO ONE (09:00)
--- NOTE | 2022-10-09 14:46 | ECHO ---
HEIGHT: 5 ft 9 in WEIGHT: 147 lb 0 oz DATE OF STUDY: 10/09/[address]: Clarence So NP 2-DIMENSIONAL: YES M.MODE: YES DOPPLER: YES COLOR FLOW: YES TDS: PORTABLE: YES DEFINITY: BUBBLE STUDY: DIAGNOSIS: NON ST ELEVATION MYOCARDIAL INFARCTION, CONGESTIVE HEART FAILURE CARDIAC HISTORY: CATHERIZATION: SURGERY: PROSTHETIC VALVE: PACEMAKER: MEASUREMENTS (cm) DIASTOLIC (NORMALS) SYSTOLIC (NORMALS) IVSd 1.0 (0.6-1.2) LA Diam 4.8 (1.9-4.0) LVEF 25% LVIDd 7.0 (3.5-5.7) LVIDs 6.1 (2.0-3.5) %FS 12% LVPWd 1.4 (0.6-1.2) Ao Diam 3.4 (2.0-3.7) 2 DIMENSIONAL ASSESSMENT: RIGHT ATRIUM: NORMAL LEFT ATRIUM: ENLARGED RIGHT VENTRICLE: NORMAL LEFT VENTRICLE: DILATED TRICUSPID VALVE: MODERATE TRICUSPID REGURGITATION MITRAL VALVE: MODERATE TO SEVERE MITRAL REGURGITATION PULMONIC VALVE: NORMAL AORTIC VALVE: NORMAL PERICARDIAL EFFUSION: NONE AORTIC ROOT: NORMAL LEFT VENTRICULAR WALL MOTION: SEVERE GLOBAL HYPOKINESIS DOPPLER/COLOR FLOW: SEE BELOW COMMENTS: 1. SEVERELY DEPRESSED LEFT VENTRICULAR EJECTION FRACTION 20-25%. 2. SEVERE GLOBAL HYPOKINESIS 3. SEVERE MITRAL REGURGITATION. 4. MODERATE TRICUSPID REGURGITATION 5. SEVERE HYPERTENSION WITH RIGHT VENTRICULAR SYSTOLIC PRESSURE GREATER THAN 60 mmHg 6. LEFT ATRIAL ENLARGEMENT. TECHNOLOGIST: NADIA ROBERTS
--- NOTE | 2022-10-09 15:14 | EKG ---
Test Date: 2022-10-06 Test Time: 18:14:08 Toe Former [employer]: MICHAEL MEASUREMENT RESULTS: Intervals: Rate: 105 RI: 172 QRSD: 86 QT: 352 QTc: 465 [place]: P: 62 RI: 172 QRS: -78 T: 42 INTERPRETIVE STATEMENTS: Sinus tachycardia Right atrial enlargement Left anterior fascicular block Anterolateral infarct, age undetermined Abnormal ECG Compared to ECG 05/21/2022 07:15:56 Left anterior fascicular block now present Sinus rhythm no longer present Left-axis deviation no longer present Left ventricular hypertrophy no longer present Early repolarization no longer present Myocardial infarct finding still present Electronically Signed On 10-09-22 15:10:21 COUNTER CONTROL OPERATOR by Gurwinder Arboleda
[2022-10-09 16:23] VITALS: BP 110/84
[2022-10-09 17:51] VITALS: TEMP 97
== END 2022-10-09 17:44 | disposition home or self-care (01) | DRG 280 ==
LOC: ER 17:56 → ERHOLD 20:56 → 2ND 10-07 09:01
PROVIDERS: ADMIT Internal Medicine; ATTEND Hospitalist
DX: I11.0 Hypertensive heart disease with heart failure (principal); I21.A1 Myocardial infarction type 2; I50.43 Acute on chronic combined systolic (congestive) and diastolic (congestive) heart failure; I25.10 Atherosclerotic heart disease of native coronary artery without angina pectoris; I08.1 Rheumatic disorders of both mitral and tricuspid valves; I27.20 Pulmonary hypertension, unspecified; I25.2 Old myocardial infarction; T50.1X6A Underdosing of loop [high-ceiling] diuretics, initial encounter; F17.210 Nicotine dependence, cigarettes, uncomplicated; Z60.2 Problems related to living alone; Z56.0 Unemployment, unspecified; Z95.5 Presence of coronary angioplasty implant and graft; Z79.82 Long term (current) use of aspirin; Z91.14 Patient's other noncompliance with medication regimen; Z79.01 Long term (current) use of anticoagulants; Z79.899 Other long term (current) drug therapy; Z20.822 Contact with and (suspected) exposure to COVID-19
CPT/HCPCS: 36415; 71045; 80048; 80053; 80061; 81003; 83735; 83880; 84484; 85025; 87811; 93005; 93306; 96372; 96374; 99285; J1650; J1940; Q2035

== ENCOUNTER 2022-11-24 12:05 | Inpatient (IN) | payer SELFPAY ==
--- OUTSIDE RECORDS SUMMARY | 2022-11-24 12:09 | XMS REPORT | Continuity of Care Document ---
:1960 Author Organization [facility] t Address [address] [place] [place] [address] Care Team Providers Name Role Phone FAITH HOLDEN Attending Clinician Unavailable FAITH HOLDEN Admitting Clinician Unavailable Problems Condition Condition Condition Status Onset Resolution Last Treating Co mments Source Name Details Category Date Date Treatment Clinician Date ST ST Disease Active [facility] elevation elevation 5-01 Luke s myocardial myocardial 00:00: Me dical infarction infarction 00 Ce nter involving involving left left anterior anterior descending descending (LAD) (LAD) coronary coronary artery artery Allergies, Adverse Reactions, Alerts Allergy Allergy Status Severity Reaction(s) Onset Inactive Treating Comm ents Source Name Type Date Date Clinician NO KNOWN Allergy [facility] Social History Social Habit Start Date Stop [...] 2019-03-[address] [facility] pack-years 00:00:00 00:00:00 [facility] Tobacco use and 2019-03-27 2019-03-[address] [facility] kes exposure 00:00:00 00:00:00 [facility] History SDOH 2019-03-27 2019-03-[address] [facility] Alcohol Frequency 00:00:00 00:00:00 [facility] Sex Ass[birth year] At [birth year] ZEKE Miles 00:00:00 [facility]:00 [facility] Smoking Status Start Date Stop Date Source Current some day smoker 2019-03-27 00:00:00 [facility] Medications Ordered Filled Start Stop Current Ordering Indication Dosage Frequency Signature Comments Components Source Medication Medication Date Date Medication? Clinician (SIG) Name Name rivaroxaban 2019-0 Yes 20mg Take [address] [facility] (XARELTO) 5-03 tablet (20 Luke s 20 mg Tab 00:00: mg total) Med ical tablet 00 by mouth Center daily with dinner. rivaroxaban 0 Yes 20mg Take [address] [facility] (XARELTO) 5-03 tablet (20 Luke s 20 mg Tab 00:00: mg total) Med ical tablet 00 by mouth Center daily with dinner. Procedures This patient has no known procedures. Results Test Description Test Time Test Comments Results Result Comments Source MAGNESIUM 2019-03-28 06:18:00 Test Item Value Reference Range Interpretation Comme nts MAGNESIUM (BEAKER) (test code = 627) 1.9 mg/dL 1.6-2.6 BASIC METABOLIC [id number] 06:18:00 Test Item Value Reference Range Interpretation [...] I S NOT APPLICABLE FOR DIALYSIS PATIEN ALEJANDRA. [id number] 06:01:00 Test Item Value Reference Range Interpretation Comments PARTIAL THROMBOPLASTIN TIME 39.4 seconds 22.5-36.0 H (BEAKER) (test code = 760) 6 hours after starting heparin infusion and as indicated per sliding scaleCBC W/PLT COUNT & AUTO [id number] 05:54:00 Test Item Value Reference Range Interpretation [...] 0-1 PERCENT (BEAKER) (test code = 2801) [id number] 11:15:00 Test Item Value Reference Range Interpretation Comments PARTIAL THROMBOPLASTIN TIME 92.3 seconds 22.5-36.0 H (BEAKER) (test code = 760) TROPONIN [id number] 05:41:00 Test Item Value Reference Range Interpretation Comments TROPONIN I (BEAKER) (test code = 31.56 ng/mL 0.00-0.03 [facility]) Troponin I (TnI) levels must be interpreted [...] failure, acidosis, acute neurological disease, and persistent tachyarrhythmia.[id number] 04:09:00 Test Item Value Reference Range Interpretation Comments MAGNESIUM (BEAKER) (test code = 1.9 mg/dL 1.6-2.6 627) BASIC METABOLIC [id number] 04:09:00 Test Item Value Reference Range Interpretation [...] APPLICABLE FOR DIALYSIS PATIEN TS. HEPATIC FUNCTION [id number] 04:09:00 Test Item Value Reference Range Interpretation [...] (test code = 25 U/L 6-55 347) [id number] 03:36:00 Test Item Value Reference Range Interpretation Comments PARTIAL THROMBOPLASTIN TIME 57.8 seconds 22.5-36.0 H (BEAKER) (test code = 760) CBC W/PLT COUNT & AUTO [id number] 03:16:00 Test Item Value Reference Range Interpretation [...] 0-1 PERCENT (BEAKER) (test code = 2801) [id number] 17:05:00 Test Item Value Reference Range Interpretation [...] 2.5-3.5 for patients with mechanical heart valves.PROTHROMBIN [id number] 17:04:00 Test Item Value Reference Range Interpretation Comments PROTIME (BEAKER) (test code = 14.4 seconds 11.7-14.7 759) INR (BEAKER) (test code = 370) 1.2 <=5.9 RECOMMENDED COUMADIN/WARFARIN INR THERAPY RANGESSTANDARD DOSE: 2.0 - 3.0 Includes: PROPHYLAXIS for venous thrombosis, systemic embolization; TREATMENT for venous thrombosis and/or pulmonary embolus.HIGH RISK: Target INR is 2.5-3.5 for patients with mechanical heart valves.CBC W/PLT COUNT & AUTO [id number] 16:50:00 Test Item Value Reference Range Interpretation [...] PERCENT (BEAKER) (test code = 2801) TROPONIN [id number] 15:28:00 Test Item Value Reference Range Interpretation Comments TROPONIN I (BEAKER) (test code = 37.53 ng/mL 0.00-0.03 397) Troponin I (TnI) levels [...] acidosis, acute neurological disease, and persistent tachyarrhythmia.HEMOGLOBIN [id number] 12:07:00 Test Item Value Reference Range Interpretation Comments HEMOGLOBIN A1C (BEAKER) (test code = 5.6 % 4.3-6.1 368) RAD, CHEST, 1 VIEW, NON [id number] 07:27:00Reason for exam:->chest painShould this be performed at the bedside?->YesFINAL REPORT Portable chest 03/26/2019, 0349 hours COMPARISON: None The lungs appear clear. Heart and mediastinal structures are within normal limits. No pleural effusions are seen.No significant osseous abnormalities are identified although there are some degenerative changes in both acromioclavicular joints. Signed: Lisette Green MDReport Verified Date/Time: 03/26/2019 07:27:22Reading Location: [facility] Radiology Reading Room B-TYPE NATRIURETIC FACTOR (BNP)2019-03-26 05:27:00 Test Item Value Reference Range Interpretation Comments B-TYPE NATRIURETIC PEPTIDE (BEAKER) 798 pg/mL 0-100 H (test code = 700) [id number] 05:22:00 Test Item Value Reference Range Interpretation Comments MAGNESIUM (BEAKER) 1.8 mg/dL 1.6-2.6 Specimen slightly (test code = 627) hemolyzed BASIC METABOLIC [id number] 05:22:00 Test Item Value Reference Range Interpretation [...] PATIEN TS. CBC W/PLT COUNT & AUTO [id number] 05:07:00 Test Item Value Reference Range Interpretation [...] 0-1 PERCENT (BEAKER) (test code = 2801) [id number] 00:56:00 Test Item Value Reference Range Interpretation Comments PARTIAL THROMBOPLASTIN TIME > seconds 22.5-36.0 HH (BEAKER) (test code = 760) TROPONIN [id number] 00:36:00 Test Item Value Reference Range Interpretation [...] acidosis, acute neurological disease, and persistent tachyarrhythmia.PROTHROMBIN [id number] 00:28:00 Test Item Value Reference Range Interpretation Comments PROTIME (BEAKER) (test code = 35.8 seconds 11.7-14.7 H 759) INR (BEAKER) (test code = 370) 3.9 <=5.9 RECOMMENDED COUMADIN/WARFARIN INR THERAPY RANGESSTANDARD DOSE: 2.0 - 3.0 Includes: PROPHYLAXIS for venous thrombosis, systemic embolization; TREATMENT for venous thrombosis and/or pulmonary embolus.HIGH RISK: Target INR is 2.5-3.5 for patients with mechanical heart valves.[id number] 00:25:00 Test Item Value Reference Range Interpretation Comments MAGNESIUM (BEAKER) (test code = 1.7 mg/dL 1.6-2.6 627) COMPREHENSIVE METABOLIC [id number] 00:25:00 Test Item Value Reference Range Interpretation [...] NOT APPLICABLE FOR DIALYSIS PATIEN TS. LIPID [id number] 00:25:00 Test Item Value Reference Range Interpretation Comments TRIGLYCERIDES (BEAKER) (test code = 52 mg/dL 540) CHOLESTEROL (BEAKER) (test code = 165 mg/dL 631) HDL CHOLESTEROL (BEAKER) (test code 35 mg/dL = 976) LDL CHOLESTEROL CALCULATED (BEAKER) 120 mg/dL (test code = 633) Triglyceride Reference Range: Low Risk <150 Borderline 150-199 High Risk 200- 499 Very High Risk >=500Cholesterol Reference Range: Low Risk <200 Borderline 200-239 High Risk >240HDL Cholesterol Reference Range: Low Risk >=60 High Risk <40LDL Cholesterol Reference Range: Optimal <100 Near Optimal 100-129 Borderline 130-159 High 160-189 Very High >=190CBC W/PLT COUNT & AUTO [id number] 00:18:00 Test Item Value Reference Range Interpretation [...] % 0-1 PERCENT (BEAKER) (test code = 3641)
[2022-11-24 13:27] LABS: Protime INR 1.48
[2022-11-24 13:32] LABS: Absolute Lymphocytes (CBC) 1.5 K/uL (0.7-4.9); Lymphocytes % 29.1 % (15.3-44.8); MCV 73.6 fL (80-100); MPV 9.4 fL (7.6-11.3); RBC Red Blood Cell Count 4.49 M/uL (4.33-5.43)
[2022-11-24] MEDS ORDERED: FUROSEMIDE 20 MG/ 2ML VIAL ONE (13:43)
[2022-11-24 14:03] LABS: Albumin 3.1 g/dL (3.4-5.0); Bilirubin Direct 0.5 mg/dL (0-0.2); Bilirubin Total 1.1 mg/dL (0.2-1.0); Magnesium 1.7 mg/dL (1.6-2.4); Potassium 3.6 mmol/L (3.5-5.1); Protein, Total 7.4 g/dL (6.4-8.2)
[2022-11-24 14:05] LABS: Troponin High Sensitivity 273.9 pg/mL (<58.9)
[2022-11-24] MEDS ORDERED: ASPIRIN 81 MG CHEWABLE TABLET ONE (14:19)
--- NOTE | 2022-11-24 14:21 | RAD REPORT ---
EXAM DESCRIPTION: Vanessa Single View11/24/2022 2:06 pm CLINICAL HISTORY: Chest pain COMPARISON: September 2022 FINDINGS: The lungs appear clear of acute infiltrate. The heart is moderately enlarged IMPRESSION: No acute abnormalities displayed
--- NOTE | 2022-11-24 14:25 | EDPHYS ---
Physician Documentation [facility] Name: Chad Rahman Age: 62 yrs Sex: Male : 1960 Arrival Date: 11/24/2022 Time: 12:18 Bed 14 Private MD: ED Physician Jonathon Sorensen HPI: 11/24 13:12 This 62 yrs old Black Male presents to ER via Ambulatory with complaints of Leg snw Swelling, Shortness Of Breath. 13:12 The patient has shortness of breath at rest. Onset: The symptoms/episode began/occurred snw 2 day(s) ago, and became persistent. Duration: The symptoms are continuous. Associated signs and symptoms: Pertinent positives: This patient does not have any pertinent positive signs or symptoms associated with shortness of breath. Severity of symptoms: At their worst the symptoms were moderate. The patient has experienced similar episodes in the past. The patient has not recently seen a physician, and does not have an established primary care provider. Historical: - Allergies: 12:39 No Known Allergies; hb - Home Meds: 12:39 furosemide 40 mg Oral tab 1 tab 2 times per day [Active]; potassium chloride 20 mEq hb Oral TbTQ 1 tab once daily [Active]; atorvastatin 40 mg oral tab once daily [Active]; metoprolol tartrate 25 mg Oral tab 1 tab 2 times per day [Active]; clopidogrel 75 mg oral tab 1 tab once daily [Active]; - PMHx: 12:39 Myocardial infarction; Pancreatitis; hb - PSHx: 12:39 CAD; Stented artery; hb - Immunization history:: Adult Immunizations up to date. - Social history:: Smoking status: Patient reports the use of cigarette tobacco products, smokes one-half pack cigarettes per day. ROS: 13:12 Constitutional: Negative for fever, chills, and weight loss, Eyes: Negative for injury, snw pain, redness, and discharge, ENT: Negative for injury, pain, and discharge, Neck: Negative for injury, pain, and swelling. 13:12 Abdomen/GI: Negative for abdominal pain, nausea, vomiting, diarrhea, and constipation, Back: Negative for injury and pain, : Negative for injury, bleeding, discharge, and swelling, MS/Extremity: Negative for injury and deformity, Skin: Negative for injury, rash, and discoloration, Neuro: Negative for headache, weakness, numbness, tingling, and seizure, Psych: Negative for depression, anxiety, suicide ideation, homicidal ideation, and hallucinations. 13:12 Cardiovascular: Positive for edema, orthopnea, paroxysmal nocturnal dyspnea. 13:12 Respiratory: Positive for dyspnea on exertion, orthopnea, shortness of breath. Exam: 13:11 Constitutional: This is a well developed, well nourished patient who is awake, alert, snw and in no acute distress. Head/Face: Normocephalic, atraumatic. Eyes: Pupils equal round and reactive to light, extra-ocular motions intact. Lids and lashes normal. Conjunctiva and sclera are non-icteric and not injected. Cornea within normal limits. Periorbital areas with no swelling, redness, or edema. ENT: Nares patent. No nasal discharge, no septal abnormalities noted. Tympanic membranes are normal and external auditory canals are clear. Oropharynx with no redness, swelling, or masses, exudates, or evidence of obstruction, uvula midline. Mucous membranes moist. Neck: Trachea midline, no thyromegaly or masses palpated, and no cervical lymphadenopathy. Supple, full range of motion without nuchal rigidity, or vertebral point tenderness. No Meningismus. Chest/axilla: Normal chest wall appearance and motion. Nontender with no deformity. No lesions are appreciated. Cardiovascular: Regular rate and rhythm with a normal S1 and S2. No gallops, murmurs, or rubs. Normal PMI, no JVD. No pulse deficits. + lower extremity edema Respiratory: Lungs have equal breath sounds bilaterally, clear to auscultation and percussion. No rales, rhonchi or wheezes noted. No increased work of breathing, no retractions or nasal flaring. Abdomen/GI: Soft, non-tender, with normal bowel sounds. No distension or tympany. No guarding or rebound. No evidence of tenderness throughout. Back: No spinal tenderness. No costovertebral tenderness. Full range of motion. Skin: Warm, dry with normal turgor. Normal color with no rashes, no lesions, and no evidence of cellulitis. MS/ Extremity: Pulses equal, no cyanosis. Neurovascular intact. Full, normal range of motion. Neuro: Awake and alert, GCS 15, oriented to person, place, time, and situation. Cranial nerves II-XII grossly intact. Motor strength 5/5 in all extremities. Sensory grossly intact. Cerebellar exam normal. Normal gait. Vital Signs: 12:38 BP 114 / 84; Pulse 89; Resp 24; Temp 97.7; Pulse Ox 100% on R/A; Weight 72.57 kg; hb Height 5 ft. 9 in. (175.26 cm); Pain 8/10; 13:37 BP 110 / 89; Pulse 91; Resp 20; Pulse Ox 95% ; kb3 14:00 BP 111 / 86; Pulse 84; Resp 18; Pulse Ox 96% ; kb3 15:00 BP 114 / 88; Pulse 95; Resp 20; Pulse Ox 95% ; kb3 16:00 BP 110 / 95; Pulse 83; Resp 20; Pulse Ox 100% ; kb3 17:00 BP 115 / 89; Pulse 85; Resp 18; Pulse Ox 98% ; kb3 12:38 Body Mass Index 23.63 (72.57 kg, 175.26 cm) hb MDM: 13:05 Patient medically screened. snw 14:24 Differential diagnosis: Anemia asthma, CHF exacerbation, Chronic Obstructive Pulmonary snw Disease Myocardial Infarction pneumonia. The patient's pulmonary embolism risk score was calculated as follows: Total Score: 0-2 points. This patient was found to be at low risk for a pulmonary embolism by using the Well's assessment criteria. Data reviewed: vital signs, nurses notes, lab test result(s), EKG, radiologic studies. Test interpretation: by ED physician or midlevel provider: ECG. Counseling: I had a detailed discussion with the patient and/or guardian regarding: the historical points, exam findings, and any diagnostic results supporting the discharge/admit diagnosis, lab results, radiology results, the need for further work-up and treatment in the hospital. Physician consultation: Idris Rivera was contacted at 14:25, regarding admission, to the telemetry unit. 11/24 13:02 Order name: Basic Metabolic Panel; Complete Time: 14: eb 11/24 13:02 Order name: CBC with Diff; Complete Time: 13:51 eb 11/24 13:02 Order name: LFT's; Complete Time: 14: eb 11/24 13:02 Order name: Magnesium; Complete Time: 14: eb 11/24 13:02 Order name: NT PRO-BNP; Complete Time: 14: eb 11/24 13:02 Order name: PT-INR; Complete Time: 13:30 eb 11/24 13:02 Order name: Troponin HS; Complete Time: 14:06 eb 11/24 13:02 Order name: XRAY Chest (1 view); Complete Time: 14:23 eb 11/24 13:02 Order name: EKG; Complete Time: 13:03 eb 11/24 13:02 Order name: Cardiac monitoring; Complete Time: 13:39 eb 11/24 13:02 Order name: EKG - Nurse/Tech; Complete Time: 13:27 eb 11/24 14:29 Order name: SARS RAPID; Complete Time: 15:30 snw 11/24 13:02 Order name: IV Saline Lock; Complete Time: 13:27 eb 11/24 13:02 Order name: Labs collected and sent; Complete Time: 13:27 eb 11/24 13:02 Order name: O2 Per Protocol; Complete Time: 13:27 eb 11/24 13:02 Order name: O2 Sat Monitoring; Complete Time: 13:27 eb EC:13 Rate is 90 beats/min. Rhythm is regular. AR interval is normal. QRS interval is normal. snw Clinical impression: NSR w/ Non-specific ST/T Changes. Administered Medications: 14:02 Drug: Lasix (furosemide) 20 mg Route: IVP; Site: left forearm; kb3 15:00 Follow up: Response: No adverse reaction kb3 14:42 Drug: Aspirin Chewable Tablet 324 mg Route: PO; kb3 15:11 Follow up: Response: No adverse reaction kb3 Disposition: 18:43 Co-signature as Attending Physician, Jonathon Sorensen MD. rn Disposition Summary: 11/24/22 14:24 Hospitalization Ordered Hospitalization Status: Inpatient Admission snw Provider: Idris Rivera sncandice Location: Telemetry/MedSurg (Inpatient) snw Condition: Stable snw Problem: an acute exacerbation snw Symptoms: are unchanged snw Bed/Room Type: Standard snw Room Assignment: 207(11/24/22 17:30) dw Diagnosis - Subsequent non-ST elevation (NSTEMI) myocardial infarction snw - Unspecified diastolic (congestive) heart failure snw Forms: - Medication Reconciliation Form snw - SBAR form snw Signatures: Dispatcher [employer] Jamia Jean RN RN Tegan Becker, PEDIATRIC CARDIOLOGIST-C PEDIATRIC CARDIOLOGIST-Csnw Jonathon Sorensen MD MD rn Baxter, Heather, RN RN hb Botello, Elizabeth eb Bradberry, Kelly RN RN kb3 Corrections: (The following items were deleted from the chart) 17:30 14:24 snw dw
--- NOTE | 2022-11-24 14:25 | ER ---
Nurse's Notes [facility] Name: Chad Rahman Age: 62 yrs Sex: Male : 1960 Arrival Date: 11/24/2022 Time: 12:18 Bed 14 Private MD: Diagnosis: Subsequent non-ST elevation (NSTEMI) myocardial infarction;Unspecified diastolic (congestive) heart failure Presentation: 11/24 12:38 Chief complaint: SOB and bilateral lower leg swelling x 3 days. Coronavirus screen: At this time, the client does not indicate any symptoms associated with coronavirus-19. Ebola Screen: No symptoms or risks identified at this time. Initial Sepsis Screen: Does the patient meet any 2 criteria? No. Patient's initial sepsis screen is negative. Does the patient have a suspected source of infection? No. Patient's initial sepsis screen is negative. Risk Assessment: Do you want to hurt yourself or someone else? Patient reports no desire to harm self or others. Onset of symptoms was November 21, 2022. 12:38 Method Of Arrival: Ambulatory 12:38 Acuity: ROSALIA 3 Triage Assessment: 13:45 Respiratory: Reports shortness of breath at rest on exertion cough that is dry. kb3 17:34 Respiratory: kb3 Historical: - Allergies: 12:39 No Known Allergies; - Home Meds: 12:39 furosemide 40 mg Oral tab 1 tab 2 times per day [Active]; potassium chloride 20 mEq hb Oral TbTQ 1 tab once daily [Active]; atorvastatin 40 mg oral tab once daily [Active]; metoprolol tartrate 25 mg Oral tab 1 tab 2 times per day [Active]; clopidogrel 75 mg oral tab 1 tab once daily [Active]; - PMHx: 12:39 Myocardial infarction; Pancreatitis; hb - PSHx: 12:39 CAD; Stented artery; hb - Immunization history:: Adult Immunizations up to date. - Social history:: Smoking status: Patient reports the use of cigarette tobacco products, smokes one-half pack cigarettes per day. Screenin:33 [facility] Fall Risk Assessment (Adult) History of falling in the last 3 months, kb3 including since admission No falls in past 3 months (0 pts) Confusion or Disorientation No (0 pts) Intoxicated or Sedated No (0 pts) Impaired Gait No (0 pts) Mobility Assist Device Used No (0 pt) Altered Elimination No (0 pt) Score/Fall Risk Level 0 - 2 = Low Risk Oriented to surroundings, Maintained a safe environment, Educated pt \T\ family on fall prevention, incl call for assistance when getting out of bed, Assessed \T\ reinforced patient's understanding of fall precautions, Provided non-skid footwear, Hourly rounding (assess needs \T\ fall precautionary measures) done, Used ambulatory aids as needed (educated on \T\ assisted with), Used gait belt as appropriate. Abuse screen: Denies threats or abuse. Denies injuries from another. Nutritional screening: No deficits noted. Tuberculosis screening: No symptoms or risk factors identified. Assessment: 13:33 General: Appears in no apparent distress. Behavior is calm, cooperative, Received care kb3 of pt from treatment room, ambulatory to room 14 with mild SOB. Pt reports mild chest discomfort and bilateral lower leg swelling x3 days despite taking lasix twice daily as prescribed. . Pain: Complains of pain in chest Pain does not radiate. Pain currently is 5 out of 10 on a pain scale. Quality of pain is described as pressure, Pain began 2-3 days ago. Cardiovascular: Rhythm is sinus rhythm. Respiratory: Airway is patent Respiratory effort is even, unlabored, Breath sounds are clear Breath sounds are diminished bilaterally. 14:00 General: IV flushed, noted to be infiltrated. Removed and restarted in left FA. kb3 16:00 General: Pt reports no complaints. [place] and snacks provided. kb3 17:35 General: Attempted to call report. RN unavailable, awaiting return call.. kb3 Vital Signs: 12:38 BP 114 / 84; Pulse 89; Resp 24; Temp 97.7; Pulse Ox 100% on R/A; Weight 72.57 kg; hb Height 5 ft. 9 in. (175.26 cm); Pain 8/10; 13:37 BP 110 / 89; Pulse 91; Resp 20; Pulse Ox 95% ; kb3 14:00 BP 111 / 86; Pulse 84; Resp 18; Pulse Ox 96% ; kb3 15:00 BP 114 / 88; Pulse 95; Resp 20; Pulse Ox 95% ; kb3 16:00 BP 110 / 95; Pulse 83; Resp 20; Pulse Ox 100% ; kb3 17:00 BP 115 / 89; Pulse 85; Resp 18; Pulse Ox 98% ; kb3 12:38 Body Mass Index 23.63 (72.57 kg, 175.26 cm) hb ED Course: 12:18 Patient arrived in ED. rg4 12:39 Triage completed. hb 12:39 Arm band placed on. hb 13:05 [facility]-C [facility]. snw 13:05 Jonathon Sorensen MD is Attending Physician. snw 13:33 Sachi Power, RN is Primary Nurse. kb3 13:33 Patient has correct armband on for positive identification. Bed in low position. Call kb3 light in reach. Side rails up X 1. residential monitor on. Pulse ox on. NIBP on. Warm blanket given. 13:33 No provider procedures requiring assistance completed. Inserted saline lock: 22 gauge kb3 in right antecubital area, using aseptic technique. Blood collected. Patient maintains SpO2 saturation greater than 95% on room air. 14:01 Inserted saline lock: 22 gauge in left forearm, using aseptic technique. kb3 14:01 RAC IV d/c'd. kb3 14:08 XRAY Chest (1 view) In Process Unspecified. EDMS 14:23 Idris Rivera is Hospitalizing Provider. snw Administered Medications: 14:02 Drug: Lasix (furosemide) 20 mg Route: IVP; Site: left forearm; kb3 15:00 Follow up: Response: No adverse reaction kb3 14:42 Drug: Aspirin Chewable Tablet 324 mg Route: PO; kb3 15:11 Follow up: Response: No adverse reaction kb3 Medication: 13:33 VIS not applicable for this client. kb3 Intake: 17:38 PO: 120ml (Water); Total: 120ml. kb3 Output: 17:38 Urine: 450ml (Voided); Total: 450ml. kb3 Outcome: 14:24 Decision to Hospitalize by Provider. snw 18:25 Admitted to Tele accompanied by tech, via wheelchair, Report called to Ana Laura LYN kb3 18:25 Condition: stable 18:25 Instructed on the need for admit. 18:37 Patient left the ED. mm9 Signatures: Dispatcher [employer] EDMS Tegan Pugh FNP-C ABLE SEAMAN-Csnw Maryam Lemus RN RN hb Garcia, Rubi rg4 Jannet, Sachi, RN RN kb3 Marshall, Debbie mm9
[2022-11-24 15:29] LABS: SARS-CoV-2 Antigen Rapid Res Negative (Negative)
--- NOTE | 2022-11-24 17:37 | P.HP ---
Certification for Inpatient Patient admitted to: Inpatient With expected LOS: >2 Midnights Practitioner: I am a practitioner with admitting privileges, knowledge of patient current condition, hospital course, and medical plan of care. Services: Services provided to patient in accordance with Admission requirements found in Title 42 Section 412.3 of the Code of Federal Regulations Patient History Date of Service: 11/24/22 Reason for admission: Shortness of breath and leg swelling History of Present Illness: 62-year-old gentleman with a history of chronic systolic heart failure, most recent echocardiogram with a EF of 20 to 25%, history of severe mitral regurgitation, severe pulmonary hypertension presented to the emergency department with a complaint of bilateral lower extremity swelling and shortness of breath of 3 days duration. Symptoms are associated with orthopnea. Patient reports compliance with his home medications which include Lasix 40 mg daily. He presented to the ED due to progressive worsening of symptoms. Blood work in the ED showed elevated troponin. Chest x-ray shows no acute abnormality. EKG shows sinus rhythm with sinus arrhythmia, no significant ischemic changes. Elevated troponin likely secondary to demand ischemia. Patient is hospitalized for further management of CHF exacerbation. Allergies No Known Allergies Allergy (Unverified 08/30/18 14:11) Home Medications: Aspirin [Aspirin EC 81 MG] 81 mg PO DAILY #30 tablet. 05/23/22 Atorvastatin Calcium [Lipitor] 40 mg PO BEDTIME #30 tab 10/09/22 Clopidogrel Bisulfate [Plavix*] 75 mg PO DAILY #30 tab 10/09/22 Furosemide [Lasix] 40 mg PO BIDL #60 tab 10/09/22 Metoprolol Tartrate [Lopressor*] 25 mg PO BID 6AM 6PM #60 tab 10/09/22 Potassium Chloride 20 meq PO DAILY #60 tab 10/09/22 - Past Medical/Surgical History Diabetic: No -: history of NH -: Chronic systolic congestive heart failure -: CAD -: 2 cardiac stents Psychosocial/ Personal History: Patient lives at home alone, is unemployed. - Family History Mother -: Diabetes Father -: Diabetes - Social History Alcohol use: Yes CD- Drugs: No Caffeine use: Yes Review of Systems Other: Patient denied any chest pain or palpitation. He denied any nausea or vomiting. Except as documented, all other systems reviewed and negative. Physical Examination - Physical Exam General: Alert, In no apparent distress, Oriented x3 HEENT: PERRLA, Mucous membr. moist/pink, Sclerae nonicteric Neck: Supple, JVD not distended Respiratory: Clear to auscultation bilaterally, Normal air movement Cardiovascular: Regular rate/rhythm, Normal S1 S2, Edema (Bilateral lower extremities) Capillary refill: <2 Seconds Gastrointestinal: Normal bowel sounds, Soft and benign, Non-distended, No tenderness Musculoskeletal: Swelling (Bilateral legs) Integumentary: No rashes, No erythema, No cyanosis Neurological: Normal speech, Normal strength at 5/5 x4 extr, Cranial nerves 3-12 intact Lymphatics: No axilla or inguinal lymphadenopathy - Studies Laboratory Data (last 24 hrs) 11/24/22 13:10: PT 16.3 H, INR 1.48 11/24/22 13:10: WBC 5.10, Hgb 10.2 L, Hct 33.0 L, Plt Count 241 11/24/22 13:10: Sodium 140, Potassium 3.6, BUN 23 H, Creatinine 1.21, Glucose 155 H, Magnesium 1.7, Total Bilirubin 1.1 H, AST 28, ALT 34, Alkaline Phosphatase 61 Assessment and Plan - Problems (Diagnosis) (1) Acute on chronic systolic heart failure Current Visit: Yes Status: Acute (2) Pulmonary hypertension Current Visit: Yes Status: Acute (3) Elevated troponin Current Visit: Yes Status: Acute - Plan Admit patient to the medical floor. Diuresed with IV Lasix. Daily weight, intake and output. Keep bilateral lower extremities elevated. Monitor renal function. Elevated troponin likely secondary to demand ischemia Continue to trend troponin. Resume other home medications. - Advance Directives Does patient have a Living Will: No Does patient have a Durable POA for Healthcare: No
[2022-11-24] MEDS ORDERED: ONDANSETRON 4 MG/2 ML VIAL IV PRN (18:36)
[2022-11-24] MEDS ORDERED: POTASSIUM CL SA 10 MEQ TAB PO ONE (21:00)
[2022-11-24] MEDS ORDERED: MAGNESIUM SULFATE 1 gm IVPB 1 GM/100 ML BAG IV ONE (21:00)
[2022-11-25 05:18] LABS: Absolute Lymphocytes (CBC) 1.4 K/uL (0.7-4.9); Hematocrit 30.9 % (39.6-49.0); Lymphocytes % 28.3 % (15.3-44.8); MCV 72.9 fL (80-100); MPV 9.5 fL (7.6-11.3); RBC Red Blood Cell Count 4.23 M/uL (4.33-5.43)
[2022-11-25 05:37] LABS: Magnesium 1.9 mg/dL (1.6-2.4); Phosphorus 3.2 mg/dL (2.5-4.9); Potassium 3.4 mmol/L (3.5-5.1)
[2022-11-25] MEDS ORDERED: POTASSIUM CL SA 10 MEQ TAB PO ONE ×2 (06:00→13:00)
[2022-11-25] MEDS ORDERED: INFLUENZA VACCINE (for 6+ mo) 0.5 ML DOSE IMVAC ONE (08:00)
[2022-11-25] MEDS: ASPIRIN EC 81 MG TAB PO SCH (08:01)
[2022-11-25] MEDS: ENOXAPARIN 40 MG/0.4 ML SQ SCH (08:01)
[2022-11-25] MEDS: FUROSEMIDE 40 MG/4 ML VIAL IV SCH ×2 (08:01→16:06)
--- NOTE | 2022-11-25 12:17 | P.PN ---
Subjective Date of Service: 11/25/22 Chief Complaint: Shortness of breath and leg swelling Patient has no new complaint. He states his shortness of breath is better. He is diuresing well with IV Lasix. He noted his leg swelling has improved slightly and both legs are less painful. Physical Examination - Vital Signs Temperature: 97.6 F Blood Pressure: 118/77 Pulse: 89 Respirations: 18 Pulse Ox (%): 100 - Physical Exam General: Alert, In no apparent distress, Oriented x3 HEENT: Mucous membr. moist/pink Neck: JVD not distended Respiratory: Clear to auscultation bilaterally, Normal air movement Cardiovascular: Regular rate/rhythm, Normal S1 S2, Edema (Bilateral lower extremities) Gastrointestinal: Normal bowel sounds, Soft and benign, Non-distended Musculoskeletal: Swelling (Bilateral legs) Integumentary: No cyanosis Neurological: Normal strength at 5/5 x4 extr - Studies Laboratory Data (last 24 hrs) 11/24/22 13:10: PT 16.3 H, INR 1.48 11/24/22 13:10: WBC 5.10, Hgb 10.2 L, Hct 33.0 L, Plt Count 241 11/24/22 13:10: Sodium 140, Potassium 3.6, BUN 23 H, Creatinine 1.21, Glucose 155 H, Magnesium 1.7, Total Bilirubin 1.1 H, AST 28, ALT 34, Alkaline Phosphatase 61 Assessment And Plan - Current Problems (Diagnosis) (1) Acute on chronic systolic heart failure Current Visit: Yes Status: Acute (2) Pulmonary hypertension Current Visit: Yes Status: Acute (3) Elevated troponin Current Visit: Yes Status: Acute - Plan Continue IV Lasix. Daily weight, intake and output. Keep bilateral lower extremities elevated. Monitor renal function. Patient with a history of severe LV dysfunction Elevated troponin likely secondary to demand ischemia. Repeat troponin today. Resume other home medications.
[2022-11-26 06:13] LABS: Potassium 4.1 mmol/L (3.5-5.1)
[2022-11-26] MEDS: ENOXAPARIN 40 MG/0.4 ML SQ SCH (08:14)
[2022-11-26] MEDS: ASPIRIN EC 81 MG TAB PO SCH (08:14)
[2022-11-26] MEDS: FUROSEMIDE 40 MG/4 ML VIAL IV SCH ×2 (08:14→17:22)
--- NOTE | 2022-11-26 14:16 | P.PN ---
Subjective Date of Service: 11/26/22 Chief Complaint: Shortness of breath and leg swelling Patient has no new complaint. He states his shortness of breath is better. He is diuresing well with IV Lasix. His lower extremity swelling continues to get better. Physical Examination - Vital Signs Temperature: 97.6 F Blood Pressure: 110/79 Pulse: 93 Respirations: 18 Pulse Ox (%): 99 - Physical Exam General: Alert, In no apparent distress HEENT: Mucous membr. moist/pink Neck: JVD not distended Respiratory: Clear to auscultation bilaterally, Normal air movement Cardiovascular: Regular rate/rhythm, Normal S1 S2, Edema (Bilateral lower extremity edema is improving) Gastrointestinal: Normal bowel sounds, Soft and benign, Non-distended, No tenderness Musculoskeletal: Swelling (Bilateral legs.) Integumentary: No rashes Neurological: Normal strength at 5/5 x4 extr Assessment And Plan - Current Problems (Diagnosis) (1) Acute on chronic systolic heart failure Current Visit: Yes Status: Acute (2) Pulmonary hypertension Current Visit: Yes Status: Acute (3) Elevated troponin Current Visit: Yes Status: Acute - Plan Continue IV Lasix. Daily weight, intake and output. Keep bilateral lower extremities elevated. Monitor renal function. Patient with a history of severe LV dysfunction Elevated troponin likely secondary to demand ischemia. Troponin trended flat Continue other home medications.
--- NOTE | 2022-11-26 19:08 | EKG ---
Test Date: 2022-11-24 Test Time: 13:00:41 Sludge Control Attendant: FELIX MEASUREMENT RESULTS: Intervals: Rate: 90 MN: 162 QRSD: 106 QT: 388 QTc: 474 Palmer: P: 67 MN: 162 QRS: -59 T: 77 INTERPRETIVE STATEMENTS: Normal sinus rhythm with sinus arrhythmia Possible Left atrial enlargement Left axis deviation Anterior infarct, age undetermined Abnormal ECG Compared to ECG 10/06/2022 18:14:08 Left-axis deviation now present Sinus tachycardia no longer present Left anterior fascicular block no longer present Myocardial infarct finding still present Electronically Signed On 11-26-22 19:07:11 DIGITAL MARKETING INTERN by Gurwinder Arboleda
[2022-11-27 06:25] LABS: Absolute Lymphocytes (CBC) 1.3 K/uL (0.7-4.9); Hematocrit 30.3 % (39.6-49.0); Lymphocytes % 21.1 % (15.3-44.8); MCV 73.6 fL (80-100); MPV 9.6 fL (7.6-11.3); RBC Red Blood Cell Count 4.11 M/uL (4.33-5.43)
[2022-11-27 06:44] LABS: Potassium 3.6 mmol/L (3.5-5.1)
[2022-11-27] MEDS ORDERED: POTASSIUM CL SA 10 MEQ TAB PO ONE (09:00)
[2022-11-27] MEDS: ENOXAPARIN 40 MG/0.4 ML SQ SCH (09:52)
[2022-11-27] MEDS: FUROSEMIDE 40 MG/4 ML VIAL IV SCH ×2 (09:52→16:29)
[2022-11-27] MEDS: ASPIRIN EC 81 MG TAB PO SCH (09:52)
--- NOTE | 2022-11-27 13:54 | P.PN ---
Subjective Date of Service: 11/27/22 Chief Complaint: Shortness of breath and leg swelling Patient has no new complaint. He states his shortness of breath is better. He is diuresing well with IV Lasix but his lower extremity edema is improving only slowly. Physical Examination - Vital Signs Temperature: 97.2 F Blood Pressure: 108/85 Pulse: 105 Respirations: 16 Pulse Ox (%): 96 - Physical Exam General: Alert, In no apparent distress, Oriented x3 HEENT: Mucous membr. moist/pink Neck: JVD not distended Respiratory: Clear to auscultation bilaterally, Normal air movement Cardiovascular: Regular rate/rhythm, Normal S1 S2, Edema (Bilateral lower extremities-2+ edema) Gastrointestinal: Soft and benign, Non-distended Musculoskeletal: Swelling (Bilateral legs) Integumentary: No rashes, No cyanosis Neurological: Normal strength at 5/5 x4 extr Assessment And Plan - Current Problems (Diagnosis) (1) Acute on chronic systolic heart failure Current Visit: Yes Status: Acute (2) Pulmonary hypertension Current Visit: Yes Status: Acute (3) Elevated troponin Current Visit: Yes Status: Acute - Plan Patient renal function has been stable Increase IV fluid dose to 60 mg twice a day. Daily weight, intake and output. Fluid restriction to 1200 ml/day Keep bilateral lower extremities elevated. Monitor renal function. Patient with a history of severe LV dysfunction Elevated troponin likely secondary to demand ischemia. Troponin trended flat Continue other home medications.
[2022-11-27] MEDS: ACETAMINOPHEN 500 MG TAB PO PRN ×2 (16:28→22:45)
--- NOTE | 2022-11-27 19:23 | P.DS ---
Admission Date: 11/24/22 Discharge Date: 11/27/22 Reason for Admission: Shortness of breath and leg swelling - Problems (1) Acute on chronic systolic heart failure Current Visit: Yes Status: Acute (2) Pulmonary hypertension Current Visit: Yes Status: Acute (3) Elevated troponin Current Visit: Yes Status: Acute Brief History of Present Illness: 62-year-old gentleman with a history of chronic systolic heart failure, most recent echocardiogram with a EF of 20 to 25%, history of severe mitral regurgitation, severe pulmonary hypertension presented to the emergency department with a complaint of bilateral lower extremity swelling and shortness of breath of 3 days duration. Symptoms are associated with orthopnea. Patient reports compliance with his home medications which include Lasix 40 mg daily. He presented to the ED due to progressive worsening of symptoms. Blood work in the ED showed elevated troponin. Chest x-ray shows no acute abnormality. EKG shows sinus rhythm with sinus arrhythmia, no significant ischemic changes. Elevated troponin likely secondary to demand ischemia. Patient was hospitalized for further management of CHF exacerbation. Hospital Course: Patient admitted to the medical floor and treated with IV Lasix. His major complaint was lower extremity edema which gradually improved with diuresis. Lasix was titrated to 60 mg twice daily. Renal function was stable on IV Lasix. Patient lower extremity edema significantly improved. He is discharged with oral Lasix maintenance. Vital Signs/Physical Exam: Temp Pulse Resp BP Pulse Ox 97.5 F 104 H 16 108/72 99 11/27/22 16:00 11/27/22 16:29 11/27/22 16:00 11/27/22 16:29 11/27/22 16:00 General: Alert, In no apparent distress, Oriented x3 HEENT: Mucous membr. moist/pink Neck: Supple, JVD not distended Respiratory: Clear to auscultation bilaterally, Normal air movement Cardiovascular: Regular rate/rhythm, Normal S1 S2 Gastrointestinal: Soft and benign, Non-distended Integumentary: No rashes Neurological: Normal strength at 5/5 x4 extr Laboratory Data at Discharge: WBC 6.00 K/uL (4.3-10.9) 11/27/22 06:16 Hgb 9.1 g/dL (13.6-17.9) L 11/27/22 06:16 Hct 30.3 % (39.6-49.0) L 11/27/22 06:16 Plt Count 231 K/uL (152-406) 11/27/22 06:16 PT 16.3 SECONDS (9.5-12.5) H 11/24/22 13:10 INR 1.48 11/24/22 13:10 Sodium 141 mmol/L (136-145) 11/27/22 06:06 Potassium 3.6 mmol/L (3.5-5.1) 11/27/22 06:06 BUN 22 mg/dL (7-18) H 11/27/22 06:06 Creatinine 1.09 mg/dL (0.70-1.30) 11/27/22 06:06 Glucose 105 mg/dL (74-106) 11/27/22 06:06 Phosphorus 3.2 mg/dL (2.5-4.9) 11/25/22 04:53 Magnesium 1.9 mg/dL (1.6-2.4) 11/25/22 04:53 Total Bilirubin 1.1 mg/dL (0.2-1.0) H 11/24/22 13:10 AST 28 U/L (15-37) 11/24/22 13:10 ALT 34 U/L (16-61) 11/24/22 13:10 Alkaline Phosphatase 61 U/L (45-117) 11/24/22 13:10 Home Medications: Atorvastatin Calcium [Lipitor] 40 mg PO BEDTIME #30 tab 10/09/22 Clopidogrel Bisulfate [Plavix*] 75 mg PO DAILY #30 tab 10/09/22 Furosemide [Lasix] 40 mg PO BIDL #60 tab 10/09/22 Metoprolol Tartrate [Lopressor*] 25 mg PO BID 6AM 6PM #60 tab 10/09/22 Potassium Chloride 20 meq PO DAILY #60 tab 10/09/22 Followup: NONE,NONE [Primary Care Provider] - Time spent managing pt's care (in minutes): 34
[2022-11-28] MEDS: HYDROCODONE/APAP 7.5/325 MG TAB PO PRN ×2 (00:55→05:58)
[2022-11-28 04:06] LABS: Hematocrit 29.9 % (39.6-49.0); MCV 72.1 fL (80-100); MPV 9.8 fL (7.6-11.3); RBC Red Blood Cell Count 4.15 M/uL (4.33-5.43)
[2022-11-28 04:10] LABS: Potassium 3.6 mmol/L (3.5-5.1)
[2022-11-28 06:04] VITALS: BMI 22.5
[2022-11-28 08:26] VITALS: BP 103/74; TEMP 97.7
[2022-11-28] MEDS: ENOXAPARIN 40 MG/0.4 ML SQ SCH (08:46)
[2022-11-28] MEDS: ASPIRIN EC 81 MG TAB PO SCH (08:46)
[2022-11-28] MEDS: FUROSEMIDE 40 MG/4 ML VIAL IV SCH (08:48)
[2022-11-28] MEDS ORDERED: POTASSIUM CL SA 10 MEQ TAB PO ONE (09:00)
[2022-11-28 09:25] VITALS: O2SAT 92
--- NOTE | 2022-11-28 21:56 | P.DS ---
Admission Date: 11/24/22 Discharge Date: 11/28/22 Disposition: ROUTINE DISCHARGE Discharge Condition: FAIR Reason for Admission: Shortness of breath and leg swelling Brief History of Present Illness: 62-year-old gentleman with a history of chronic systolic heart failure, most recent echocardiogram with a EF of 20 to 25%, history of severe mitral regurgitation, severe pulmonary hypertension presented to the emergency department with a complaint of bilateral lower extremity swelling and shortness of breath of 3 days duration. Symptoms are associated with orthopnea. Patient reports compliance with his home medications which include Lasix 40 mg daily. He presented to the ED due to progressive worsening of symptoms. Blood work in the ED showed elevated troponin. Chest x-ray shows no acute abnormality. EKG shows sinus rhythm with sinus arrhythmia, no significant ischemic changes. Elevated troponin likely secondary to demand ischemia. Patient was hospitalized for further management of CHF exacerbation. Hospital Course: Problem List acute on chronic systolic CHF exacerbation Pulmonary HTN Iron deficiency Patient admitted to the medical floor and treated with IV Lasix. His major complaint was lower extremity edema which gradually improved with diuresis. Lasix was titrated to 60 mg twice daily. Renal function was stable on IV Lasix. Patient lower extremity edema significantly improved. He is discharged with oral Lasix maintenance. Patient presented with acute CHF exacerbation. He slowly improved with IV lasix. Discharged home with increased lasix dose to 60mg twice daily. Monitor lower extremity swelling. Follow up with Cardiology in 1-2 weeks. Continue other home medications as prescribed. He was also noted to have microcytic anemia. Workup consistent with iron deficiency. Recommend starting daily iron supplementation. Follow up with PCP within 3-5 days. Repeat iron studies in a few months to evaluate if needs iv iron. Vital Signs/Physical Exam: Temp Pulse Resp BP Pulse Ox 97.7 F 92 H 14 103/74 92 11/28/22 08:00 11/28/22 08:00 11/28/22 08:00 11/28/22 08:00 11/28/22 08:00 General: Alert, In no apparent distress, Oriented x3 HEENT: Mucous membr. moist/pink Neck: Supple, JVD not distended Respiratory: Clear to auscultation bilaterally, Normal air movement Cardiovascular: Regular rate/rhythm, Normal S1 S2 Gastrointestinal: Soft and benign, Non-distended Integumentary: No rashes Neurological: Normal strength at 5/5 x4 extr Laboratory Data at Discharge: WBC 7.50 K/uL (4.3-10.9) 11/28/22 02:57 Hgb 9.3 g/dL (13.6-17.9) L 11/28/22 02:57 Hct 29.9 % (39.6-49.0) L 11/28/22 02:57 Plt Count 228 K/uL (152-406) 11/28/22 02:57 PT 16.3 SECONDS (9.5-12.5) H 11/24/22 13:10 INR 1.48 11/24/22 13:10 Sodium 140 mmol/L (136-145) 11/28/22 02:57 Potassium 3.6 mmol/L (3.5-5.1) 11/28/22 02:57 BUN 24 mg/dL (7-18) H 11/28/22 02:57 Creatinine 1.02 mg/dL (0.70-1.30) 11/28/22 02:57 Glucose 104 mg/dL (74-106) 11/28/22 02:57 Phosphorus 3.2 mg/dL (2.5-4.9) 11/25/22 04:53 Magnesium 1.9 mg/dL (1.6-2.4) 11/25/22 04:53 Total Bilirubin 1.1 mg/dL (0.2-1.0) H 11/24/22 13:10 AST 28 U/L (15-37) 11/24/22 13:10 ALT 34 U/L (16-61) 11/24/22 13:10 Alkaline Phosphatase 61 U/L (45-117) 11/24/22 13:10 Home Medications: Atorvastatin Calcium [Lipitor] 40 mg PO BEDTIME #30 tab 10/09/22 Clopidogrel Bisulfate [Plavix*] 75 mg PO DAILY #30 tab 10/09/22 Metoprolol Tartrate [Lopressor*] 25 mg PO BID 6AM 6PM #60 tab 10/09/22 Potassium Chloride 20 meq PO DAILY #60 tab 10/09/22 Codeine/APAP [Tylenol W/Codeine #3 tab] 1 tab PO Q8HP PRN #5 tab 11/28/22 Ferrous Sulfate [Iron] 325 mg PO DAILY 30 Days #30 tab 11/28/22 Furosemide 60 mg PO BID 30 Days #180 tab 11/28/22 New Medications: Codeine/APAP [Tylenol W/Codeine #3 tab] 1 tab PO Q8HP PRN #5 tab PRN Reason: Pain Furosemide 60 mg PO BID 30 Days #180 tab Ferrous Sulfate [Iron] 325 mg PO DAILY 30 Days #30 tab Physician Discharge Instructions: Patient presented with acute CHF exacerbation. He slowly improved with IV lasix. Discharged home with increased lasix dose to 60mg twice daily. Monitor lower extremity swelling. Follow up with Cardiology in 1-2 weeks. Continue other home medications as prescribed. He was also noted to have microcytic anemia. Workup consistent with iron deficiency. Recommend starting daily iron supplementation. Follow up with PCP within 3-5 days. Repeat iron studies in a few months to evaluate if needs iv iron. Diet: AHA Activity: Ad florinda Followup: NONE,NONE [Primary Care Provider] - Time spent managing pt's care (in minutes): 45
== END 2022-11-28 11:23 | disposition home or self-care (01) | DRG 292 ==
LOC: ER 12:05 → 2ND 17:23
PROVIDERS: ADMIT Internal Medicine; ATTEND Hospitalist
DX: I50.23 Acute on chronic systolic (congestive) heart failure (principal); I24.8 Other forms of acute ischemic heart disease; I27.20 Pulmonary hypertension, unspecified; I25.10 Atherosclerotic heart disease of native coronary artery without angina pectoris; R77.8 Other specified abnormalities of plasma proteins; I34.0 Nonrheumatic mitral (valve) insufficiency; D50.9 Iron deficiency anemia, unspecified; F17.210 Nicotine dependence, cigarettes, uncomplicated; I25.2 Old myocardial infarction; Z95.5 Presence of coronary angioplasty implant and graft; Z79.82 Long term (current) use of aspirin; Z79.02 Long term (current) use of antithrombotics/antiplatelets; Z79.899 Other long term (current) drug therapy; Z23 Encounter for immunization; Z20.822 Contact with and (suspected) exposure to COVID-19; Z83.3 Family history of diabetes mellitus
CPT/HCPCS: 36415; 71045; 80048; 80076; 83540; 83735; 83880; 84100; 84132; 84466; 84484; 85025; 85027; 85610; 87811; 90471; 93005; 96374; 99285; J1650; J1940; J3475; Q2035

== ENCOUNTER 2023-01-05 13:45 | Inpatient (IN) | payer SELFPAY ==
--- OUTSIDE RECORDS SUMMARY | 2023-01-05 13:48 | XMS REPORT | Continuity of Care Document ---
:1960 Author Organization [facility] t Address [address] [place] [place] [address] Care Team Providers Name Role Phone FAITH [...] Date Clinician NO KNOWN Allergy Active [facility] Social History Social Habit Start Date [...] 2019-03-[address] [facility] pack-years 00:00:00 00:00:00 [facility] Tobacco use and 2019-03-27 2019-03-[address] [facility] ke[facility]ara exposure 00:00:00 [facility]:00 [facility] History SDOH 2019-03-27 2019-03-[address] [facility] Alcohol Frequency 00:00:00 00:00:00 [facility] Sex Assigned At [birth year] [facility] 00:00:00 [facility]:00 [facility] Smoking Status Start Date Stop Date Source Current some day smoker 2019-03-27 00:00:00 [facility] Medications Ordered Filled Start Stop Current Ordering Indication Dosage Frequency Signature Comments Components Source Medication Medication Date Date Medication? Clinician (SIG) Name Name rivaroxaban 2019-0 Yes 20mg Take [address] [facility] (XARELTO) 5-03 tablet (20 Luke [facility] 20 mg Tab 00:00: mg total) Med ical tablet 00 by mouth Center daily with dinner. rivaroxaban 2019-0 Yes 20mg Take [address] [facility] (XARELTO) 5-03 tablet (20 Luke [facility] 20 mg Tab 00:00: mg total) Med ical tablet 00 by mouth Center daily with dinner. rivaroxaban 2019-0 Yes 20mg Take 1 [facility] [...] = 627) 1.9 mg/dL 1.6-2.6 BASIC METABOLIC [id number] 06:18:00 Test Item Value Reference Range Interpretation [...] S NOT APPLICABLE FOR DIALYSIS PATIEN TS. [id number] 06:01:00 Test Item Value Reference Range Interpretation Comments PARTIAL THROMBOPLASTIN TIME 39.4 seconds 22.5-36.0 H (BEAKER) (test code = 760) 6 hours after starting heparin infusion and as indicated per sliding scaleCBC W/PLT COUNT & AUTO [id number] 05:54:00 Test Item Value Reference Range Interpretation [...] 0-1 PERCENT (BEAKER) (test code = 2801) [id number] 11:15:00 Test Item Value Reference Range Interpretation Comments PARTIAL THROMBOPLASTIN TIME 92.3 seconds 22.5-36.0 H (BEAKER) (test code = 760) TROPONIN [id number] 05:41:00 Test Item Value Reference Range Interpretation [...] failure, acidosis, acute neurological disease, and persistent tachyarrhythmia.[id number] 04:09:00 Test Item Value Reference Range Interpretation Comments MAGNESIUM (BEAKER) (test code = 1.9 mg/dL 1.6-2.6 627) BASIC METABOLIC [id number] 04:09:00 Test Item Value Reference Range Interpretation [...] APPLICABLE FOR DIALYSIS PATIEN TS. HEPATIC FUNCTION [id number] 04:09:00 Test Item Value Reference Range Interpretation [...] (test code = 25 U/L 6-55 347) [id number] 03:36:00 Test Item Value Reference Range Interpretation Comments PARTIAL THROMBOPLASTIN TIME 57.8 seconds 22.5-36.0 H (BEAKER) (test code = 760) CBC W/PLT COUNT & AUTO [id number] 03:16:00 Test Item Value Reference Range Interpretation [...] 0-1 PERCENT (BEAKER) (test code = 2801) [id number] 17:05:00 Test Item Value Reference Range Interpretation [...] 2.5-3.5 for patients with mechanical heart valves.PROTHROMBIN [id number] 17:04:00 Test Item Value Reference Range Interpretation Comments PROTIME (BEAKER) (test code = 14.4 seconds 11.7-14.7 759) INR (BEAKER) (test code = 370) 1.2 <=5.9 RECOMMENDED COUMADIN/WARFARIN INR THERAPY RANGESSTANDARD DOSE: 2.0 - 3.0 Includes: PROPHYLAXIS for venous thrombosis, systemic embolization; TREATMENT for venous thrombosis and/or pulmonary embolus.HIGH RISK: Target INR is 2.5-3.5 for patients with mechanical heart valves.CBC W/PLT COUNT & AUTO [id number] 16:50:00 Test Item Value Reference Range Interpretation [...] PERCENT (BEAKER) (test code = 2801) TROPONIN [id number] 15:28:00 Test Item Value Reference Range Interpretation [...] acidosis, acute neurological disease, and persistent tachyarrhythmia.HEMOGLOBIN [id number] 12:07:00 Test Item Value Reference Range Interpretation Comments HEMOGLOBIN A1C (BEAKER) (test code = 5.6 % 4.3-6.1 368) RAD, CHEST, 1 VIEW, NON [id number] 07:27:00Reason for exam:->chest painShould this be performed at the bedside?->YesFINAL REPORT Portable chest 03/26/2019, 0349 hours COMPARISON: None The lungs appear clear. Heart and mediastinal structures are within normal limits. No pleural effusions are seen. No significant osseous abnormalities are identified although there are some degenerative changes in both acromioclavicular joints. Signed: Lisette Green MDReport Verified Date/Time: 03/26/2019 07:27:22 Reading Location: [facility] Radiology Reading Room Electronically signed by: LISETTE GREEN M.D.on 03/26/2019 07:27 AMB-TYPE NATRIURETIC FACTOR (BNP)2019-03-26 05:27:00 Test Item Value Reference Range Interpretation Comments B-TYPE NATRIURETIC PEPTIDE (BEAKER) 798 pg/mL 0-100 H (test code = 700) [id number] 05:22:00 Test Item Value Reference Range Interpretation Comments MAGNESIUM (BEAKER) 1.8 mg/dL 1.6-2.6 Specimen slightly (test code = 627) hemolyzed BASIC METABOLIC [id number] 05:22:00 Test Item Value Reference Range Interpretation [...] PATIEN TS. CBC W/PLT COUNT & AUTO [id number] 05:07:00 Test Item Value Reference Range Interpretation [...] 0-1 PERCENT (BEAKER) (test code = 2801) [id number] 00:56:00 Test Item Value Reference Range Interpretation Comments PARTIAL THROMBOPLASTIN TIME > seconds 22.5-36.0 HH (BEAKER) (test code = 760) TROPONIN [id number] 00:36:00 Test Item Value Reference Range Interpretation [...] acidosis, acute neurological disease, and persistent tachyarrhythmia.PROTHROMBIN [id number] 00:28:00 Test Item Value Reference Range Interpretation Comments PROTIME (BEAKER) (test code = 35.8 seconds 11.7-14.7 H 759) INR (BEAKER) (test code = 370) 3.9 <=5.9 RECOMMENDED COUMADIN/WARFARIN INR THERAPY RANGESSTANDARD DOSE: 2.0 - 3.0 Includes: PROPHYLAXIS for venous thrombosis, systemic embolization; TREATMENT for venous thrombosis and/or pulmonary embolus.HIGH RISK: Target INR is 2.5-3.5 for patients with mechanical heart valves.[id number] 00:25:00 Test Item Value Reference Range Interpretation Comments MAGNESIUM (BEAKER) (test code = 1.7 mg/dL 1.6-2.6 627) COMPREHENSIVE METABOLIC [id number] 00:25:00 Test Item Value Reference Range Interpretation [...] NOT APPLICABLE FOR DIALYSIS PATIEN TS. LIPID [id number] 00:25:00 Test Item Value Reference Range Interpretation [...] Very High >=190CBC W/PLT COUNT & AUTO [id number] 00:18:00 Test Item Value Reference Range Interpretation [...]
[2023-01-05 14:47] LABS: Absolute Lymphocytes (CBC) 0.6 K/uL (0.7-4.9); Lymphocytes % 14.9 % (15.3-44.8); MCV 81.8 fL (80-100); MPV 9.9 fL (7.6-11.3); RBC Red Blood Cell Count 4.89 M/uL (4.33-5.43)
[2023-01-05] MEDS ORDERED: FUROSEMIDE 40 MG/4 ML VIAL ONE (14:51)
[2023-01-05 15:00] LABS: Arterial Blood Carboxyhemoglob 0.7 % (0-1.5); Blood Gas Oxyhemoglobin 16.4 % (94-97); Blood O2 Saturation 16.8 % (92-98.5)
[2023-01-05 15:13] LABS: Albumin 3.2 g/dL (3.4-5.0); Bilirubin Total 2.6 mg/dL (0.2-1.0); Protein, Total 7.7 g/dL (6.4-8.2)
[2023-01-05 15:18] LABS: Troponin High Sensitivity 376.5 pg/mL (<58.9)
[2023-01-05 15:30] LABS: Blood Morphology Comment NOTED (NOT SEEN); Platelet Estimate ADEQ; White Blood Cell Scan OK (OK)
[2023-01-05 15:31] LABS: Anisocytosis 1+
--- NOTE | 2023-01-05 15:33 | RAD REPORT ---
EXAM DESCRIPTION: RAD - Chest Single View - 01/05/2023 3:22 pm CLINICAL HISTORY: DYSPNEA COMPARISON: CHEST PA AND LAT 2 VIEW dated 08/11/2014; CHEST SINGLE VIEW dated 10/27/2013; CHEST PA AND LAT 2 VIEW dated 12/22/2010Chest Single View dated 11/24/2022; Chest Single View dated 10/06/2022; Ch est Single View dated 05/21/2022; Chest Single View dated 06/09/2021 FINDINGS: Lines: None. Lungs: No evidence of edema or pneumonia. Pleural: No significant pleural effusions or pneumothorax. Cardiac: Cardiomegaly Mediastinum: Within normal limits. Bones: No acute fractures. Other: None IMPRESSION: No acute cardiopulmonary disease.
[2023-01-05] MEDS ORDERED: ALBUTEROL 2.5 MG/3 ML NEB SOL ONE ×2 (16:02→19:54)
[2023-01-05] MEDS ORDERED: ASPIRIN 81 MG CHEWABLE TABLET ONE (16:03)
[2023-01-05] MEDS ORDERED: IPRATROPIUM BROM 0.5MG/2.5ML ONE (16:03)
--- NOTE | 2023-01-05 16:46 | EDPHYS ---
Physician Documentation [facility] Name: Chad Rahman Age: 62 yrs Sex: Male : 1960 Arrival Date: 01/05/2023 Time: 14:03 Bed 17 Private MD: ED Physician Jesus Manuel Iniguez HPI: 01/05 16:09 This 62 yrs old Black Male presents to ER via EMS with complaints of Shortness Of rt Breath. 16:09 The patient has shortness of breath at rest. Onset: The symptoms/episode began/occurred rt 2 day(s) ago. The patient's shortness of breath is aggravated by exertion. Associated signs and symptoms: Pertinent negatives: chest pain. Patient presents to the ED with a few days of shortness of breath. Patient was found hypoxic to the low 80s on room air, corrected with supplemental O2. Reports cough, denies other acute complaints. Symptoms are severe in severity, no other aggravating alleviating factors.. Historical: - Home Meds: 14:16 atorvastatin 40 mg Oral tab once daily [Active]; clopidogrel 75 mg Oral tab 1 tab once db daily [Active]; furosemide 40 mg Oral tab 1 tab 2 times per day [Active]; metoprolol tartrate 25 mg Oral tab 1 tab 2 times per day [Active]; potassium chloride 20 mEq Oral TbTQ 1 tab once daily [Active]; - PMHx: 14:16 Myocardial infarction; Pancreatitis; db - PSHx: 14:16 CAD; Stented artery; db - Immunization history:: Adult Immunizations unknown, Client reports receiving the 2nd dose of the Covid vaccine. - Social history:: Smoking status: Patient reports the use of cigarette tobacco products, smokes one-half pack cigarettes per day. - Family history:: not pertinent. ROS: 16:09 Constitutional: Negative for fever, chills, and weight loss, Cardiovascular: Negative rt for chest pain, palpitations, and edema, Abdomen/GI: Negative for abdominal pain, nausea, vomiting, diarrhea, and constipation, MS/Extremity: Negative for injury and deformity, Skin: Negative for injury, rash, and discoloration, Neuro: Negative for headache, weakness, numbness, tingling, and seizure, Psych: Negative for depression, anxiety, suicide ideation, homicidal ideation, and hallucinations. 16:09 Cardiovascular: Positive for 16:09 Respiratory: Positive for cough, shortness of breath. Exam: 16:09 Constitutional: This is a well developed, well nourished patient who is awake, alert, rt and in no acute distress. Head/Face: Normocephalic, atraumatic. Chest/axilla: Normal chest wall appearance and motion. Nontender with no deformity. No lesions are appreciated. Cardiovascular: Regular rate and rhythm with a normal S1 and S2. No gallops, murmurs, or rubs. Normal PMI, no JVD. No pulse deficits. Abdomen/GI: Soft, non-tender, with normal bowel sounds. No distension or tympany. No guarding or rebound. No evidence of tenderness throughout. Skin: Warm, dry with normal turgor. Normal color with no rashes, no lesions, and no evidence of cellulitis. Neuro: Awake and alert, GCS 15, oriented to person, place, time, and situation. Cranial nerves II-XII grossly intact. Motor strength 5/5 in all extremities. Sensory grossly intact. Cerebellar exam normal. Normal gait. Psych: Awake, alert, with orientation to person, place and time. Behavior, mood, and affect are within normal limits. 16:09 ECG was reviewed by the Attending Physician. 16:09 Respiratory: Moderate respiratory distress, faint crackles heard.. Vital Signs: 14:05 BP 120 / 93; Pulse 76; Resp 36; Temp 97.3(TE); Pulse Ox 94% on 4 lpm NC; Weight 68.04 db kg; Height 5 ft. 9 in. (175.26 cm); Pain 7/10; 14:36 BP 116 / 86; Pulse 81; Resp 21; Pulse Ox 100% on 4 lpm NC; db 15:30 BP 103 / 86; Pulse 80; Resp 32 S; Pulse Ox 100% on 4 lpm NC; db 14:05 Body Mass Index 22.15 (68.04 kg, 175.26 cm) db MDM: 14:05 Patient medically screened. rt 16:09 Differential diagnosis: Pneumonia, CHF, COPD. Antibiotic administration: Not indicated, rt the patient does not have an appreciated infiltrate. Data reviewed: vital signs, nurses notes, lab test result(s), EKG, radiologic studies. Management of patient was discussed with the following: Hospitalist: Agrees to admit. I considered the following discharge prescriptions or medication management in the emergency department Medications were administered in the Emergency Department. See MAR. Independent interpretation of the following test(s) in the Emergency Department X-Ray: My interpretation is No pneumonia, no pneumothorax. Test considered but Not performed: CT: Low suspicion for PE, CTA not indicated. Care significantly affected by the following chronic conditions: Congestive Heart Failure. Counseling: I had a detailed discussion with the patient and/or guardian regarding: the historical points, exam findings, and any diagnostic results supporting the discharge/admit diagnosis, lab results, radiology results, the need for further work-up and treatment in the hospital. Response to treatment: the patient's symptoms have markedly improved after treatment. 01/05 14:05 Order name: ABG; Complete Time: 15:18 rt 01/05 14:05 Order name: CBC with Diff; Complete Time: 15:36 rt 01/05 14:05 Order name: CMP; Complete Time: 15:29 rt 01/05 14:05 Order name: Troponin High Sensitivity; Complete Time: 15:29 rt 01/05 14:05 Order name: BNP; Complete Time: 15:29 rt 01/05 14:58 Order name: CBC Smear Scan; Complete Time: 15:36 EDMS 01/05 14:05 Order name: BIPAP rt 01/05 14:05 Order name: Chest Single View XRAY; Complete Time: 15:36 rt 01/05 16:33 Order name: CBC with Automated Diff EDCA 01/05 16:33 Order name: Comprehensive Metabolic Panel EDCA 01/05 16:45 Order name: SARS RAPID eb 01/05 18:49 Order name: SARS-COV-2 Antigen Rapid EDCA 01/05 14:05 Order name: EKG; Complete Time: 14:06 rt 01/05 14:05 Order name: EKG - Nurse/Tech; Complete Time: 14:42 rt 01/05 16:33 Order name: Heart Healthy EDMS EC:09 Rate is 77 beats/min. Rhythm is regular, Normal Sinus Rhythm with Right bundle branch rt block. QRS [place] is Normal. CA interval is normal. QRS interval is normal. QT interval is normal. Administered Medications: 15:00 Drug: Lasix (furosemide) 40 mg Route: IVP; Site: right antecubital; db 16:09 Follow up: Response: No adverse reaction db 16:05 Drug: DuoNeb (albuterol 2.5 mg, ipratropium 0.5 mg) (3:1) (2.5 mg - 0.5 mg) 3 ml Route: db Nebulizer; 17:24 Follow up: Response: No adverse reaction db 16:05 Drug: Aspirin Chewable Tablet 324 mg Route: PO; db 17:24 Follow up: Response: No adverse reaction db Disposition: 16:09 Critical Care:. rt Disposition Summary: 01/05/23 16:46 Hospitalization Ordered Hospitalization Status: Inpatient Admission rt Provider: Corey Merino rt Location: Telemetry/MedSur (Inpatient) rt Condition: Fair rt Problem: an acute exacerbation rt Symptoms: have improved rt Bed/Room Type: Standard rt Room Assignment: [facility](01/05/23 19:15) Diagnosis - Unspecified systolic (congestive) heart failure rt - Acute respiratory failure with hypoxia rt Forms: - Medication Reconciliation Form rt - SBAR form rt Critical care time excluding procedures: 16:09 Critical care time: Bedside Care: 30 minutes, Consultation: 5 minutes. Total time: 35 rt minutes Signatures: Dispatcher [employer] Jamia Jean RN RN dw Catrachito Saravia PA PA jmm Benton, Danielle RN RN db Jesus Manuel Iniguez MD MD rt Corrections: (The following items were deleted from the chart) 19:15 16:46 rt dw
--- NOTE | 2023-01-05 16:46 | ER ---
Nurse's Notes [facility] Name: Chad Rahman Age: 62 yrs Sex: Male : 1960 Arrival Date: 01/05/2023 Time: 14:03 Bed 17 Private MD: Diagnosis: Unspecified systolic (congestive) heart failure;Acute respiratory failure with hypoxia Presentation: 01/05 14:05 Chief complaint: EMS states: shortness of breath for a couple of days that would come db and go got worse today. On scene per EMS patient was in tripod position and outside. They were unable to obtain a good O2 sat reading. Patient was placed on non rebreather by EMS. Coronavirus screen: Vaccine status: Patient reports receiving the 2nd dose of the covid vaccine. Client denies travel out of the [place] in the last 14 days. At this time, the client does not indicate any symptoms associated with coronavirus-19. Ebola Screen: Patient negative for fever greater than or equal to 101.5 degrees Fahrenheit, and additional compatible Ebola Virus Disease symptoms Patient denies exposure to infectious person. Patient denies travel to an Ebola-affected area in the 21 days before illness onset. No symptoms or risks identified at this time. Initial Sepsis Screen: Does the patient meet any 2 criteria? RR > 20 per min. No. Patient's initial sepsis screen is negative. Does the patient have a suspected source of infection? No. Patient's initial sepsis screen is negative. Risk Assessment: Do you want to hurt yourself or someone else? Patient reports no desire to harm self or others. Onset of symptoms was January 05, 2023. Care prior to arrival: Oxygen administered. via a non-rebreather mask. 14:05 Method Of Arrival: EMS: [facility] db 14:05 Acuity: ROSALIA 2 db Triage Assessment: 14:16 General: Appears distressed, uncomfortable, Behavior is cooperative, anxious. Pain: db Complains of pain in chest. Historical: - Home Meds: 14:16 atorvastatin 40 mg Oral tab once daily [Active]; clopidogrel 75 mg Oral tab 1 tab once db daily [Active]; furosemide 40 mg Oral tab 1 tab 2 times per day [Active]; metoprolol tartrate 25 mg Oral tab 1 tab 2 times per day [Active]; potassium chloride 20 mEq Oral TbTQ 1 tab once daily [Active]; - PMHx: 14:16 Myocardial infarction; Pancreatitis; db - PSHx: 14:16 CAD; Stented artery; db - Immunization history:: Adult Immunizations unknown, Client reports receiving the 2nd dose of the Covid vaccine. - Social history:: Smoking status: Patient reports the use of cigarette tobacco products, smokes one-half pack cigarettes per day. - Family history:: not pertinent. Screenin:17 [facility] ED Fall Risk Assessment (Adult) History of falling in the last 3 months, db including since admission No falls in past 3 months (0 pts) Confusion or Disorientation No (0 pts) Intoxicated or Sedated No (0 pts) Impaired Gait No (0 pts) Mobility Assist Device Used No (0 pt) Altered Elimination No (0 pt) Score/Fall Risk Level 0 - 2 = Low Risk Oriented to surroundings, Maintained a safe environment. Abuse screen: Denies threats or abuse. Denies injuries from another. Nutritional screening: No deficits noted. Tuberculosis screening: No symptoms or risk factors identified. Assessment: 14:18 Reassessment: RT at patient bedside. Respiratory: Airway is patent Respiratory effort db is even, labored, Respiratory pattern is regular, tachypnea Breath sounds are diminished bilaterally. the patient has severe shortness of breath. 14:45 Reassessment: patient unable to tolerate bipap machine. patient removed mask. Placed db patient on NC 4L. 15:44 Reassessment: Physician at patient bedside speaking with patient. Respiratory: Airway db is patent Respiratory effort is labored, Respiratory pattern is regular, symmetrical. 16:04 Reassessment: RT paged for Hiflo. db 16:10 Reassessment: RT at patient bedside. db 17:15 Reassessment: Patient is alert, oriented x 3, equal unlabored respirations, skin db warm/dry/pink. patient states feels better. Patient now able to speak full sentences. Patient states feeling better. Patient states symptoms have improved. 17:15 Reassessment: patient unable to speak full sentences. db 17:23 Reassessment: infant room teacher at patient bedside. db Vital Signs: 14:05 BP 120 / 93; Pulse 76; Resp 36; Temp 97.3(TE); Pulse Ox 94% on 4 lpm NC; Weight 68.04 db kg; Height 5 ft. 9 in. (175.26 cm); Pain 7/10; 14:36 BP 116 / 86; Pulse 81; Resp 21; Pulse Ox 100% on 4 lpm NC; db 15:30 BP 103 / 86; Pulse 80; Resp 32 S; Pulse Ox 100% on 4 lpm NC; db 14:05 Body Mass Index 22.15 (68.04 kg, 175.26 cm) db Vitals: 15:30 Cardiac Rhythm Assessment Regular. db ED Course: 14:03 Patient arrived in ED. eb 14:04 Jesus Manuel Iniguez MD is Attending Physician. rt 14:11 Carolyn Murphy, EBONI is Primary Nurse. db 14:16 Triage completed. db 14:17 Arm band placed on. db 14:43 Inserted saline lock: 22 gauge in right antecubital area, using aseptic technique. db Blood collected. Missed attempt(s): 20 gauge in left Bleeding controlled, band aid applied, catheter tip intact. 14:53 EKG done, by ED staff. tm3 15:23 Chest Single View XRAY In Process Unspecified. EDMS 15:46 Patient has correct armband on for positive identification. Bed in low position. Call db light in reach. Side rails up X2. Client placed on continuous cardiac and pulse oximetry monitoring. NIBP monitoring applied. Warm blanket given. 16:45 Corey Merino MD is Hospitalizing Provider. rt 20:48 No provider procedures requiring assistance completed. Patient admitted, IV remains in kr3 place. Administered Medications: 15:00 Drug: Lasix (furosemide) 40 mg Route: IVP; Site: right antecubital; db 16:09 Follow up: Response: No adverse reaction db 16:05 Drug: DuoNeb (albuterol 2.5 mg, ipratropium 0.5 mg) (3:1) (2.5 mg - 0.5 mg) 3 ml Route: db Nebulizer; 17:24 Follow up: Response: No adverse reaction db 16:05 Drug: Aspirin Chewable Tablet 324 mg Route: PO; db 17:24 Follow up: Response: No adverse reaction db Medication: 20:49 VIS not applicable for this client. kr3 Outcome: 16:46 Decision to Hospitalize by Provider. rt 20:48 Admitted to Tele accompanied by tech, via stretcher, room 428, with oxygen, Report kr3 called to EBONI Guerrero 20:49 Condition: stable kr3 20:49 Instructed on the need for admit. 20:49 Patient left the ED. kr3 Signatures: Dispatcher [employer] EDAlexis Urbano tm3 Penny Rincon Kelley RN RN kr3 Carolyn Murphy RN RN db Jesus Manuel Iniguez MD MD rt Corrections: (The following items were deleted from the chart) 17:24 14:18 Respiratory: Airway is patent Respiratory effort is even, labored, Respiratory db pattern is regular, tachypnea Breath sounds are diminished bilaterally. the patient has severe shortness of breath db
[2023-01-05] MEDS ORDERED: ENOXAPARIN 40 MG/0.4 ML SQ SCH (17:00)
[2023-01-05] MEDS: ALBUTEROL 2.5 MG/3 ML NEB SOL IH SCH ×2 (17:40→19:50)
--- NOTE | 2023-01-05 17:43 | P.HP ---
Certification for Inpatient With expected LOS: >2 Midnights Practitioner: I am a practitioner with admitting privileges, knowledge of patient current condition, hospital course, and medical plan of care. 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 however a chest x-ray does not show any evidence of volume overload apart from cardiomegaly patient is an ex-smoker Allergies No Known Allergies Allergy (Unverified 08/30/18 14:11) Home Medications: Atorvastatin Calcium [Lipitor] 40 mg PO BEDTIME #30 tab 10/09/22 Clopidogrel Bisulfate [Plavix*] 75 mg PO DAILY #30 tab 10/09/22 Metoprolol Tartrate [Lopressor*] 25 mg PO BID 6AM 6PM #60 tab 10/09/22 Potassium Chloride 20 meq PO DAILY #60 tab 10/09/22 Codeine/APAP [Tylenol W/Codeine #3 tab] 1 tab PO Q8HP PRN #5 tab 11/28/22 Ferrous Sulfate [Iron] 325 mg PO DAILY 30 Days #30 tab 11/28/22 Furosemide 60 mg PO BID 30 Days #180 tab 11/28/22 - Past Medical/Surgical History Diabetic: No -: history of IA -: Chronic systolic congestive heart failure -: CAD -: HLD -: pancreatitis -: 2 cardiac stents Psychosocial/ Personal History: Patient lives at home alone, is unemployed. - Family History Mother -: Diabetes Father -: Diabetes - Social History Alcohol use: No CD- Drugs: No Caffeine use: Yes Review of Systems 10-point ROS is otherwise unremarkable General: Weakness Respiratory: Cough, Shortness of Breath Cardiovascular: Edema Physical Examination - Vital Signs Temperature: 97.3 F Blood Pressure: 120/93 Pulse: 76 Respirations: 36 Pulse Ox (%): 94 - Physical Exam General: Alert (4 L), Oriented x3 HEENT: Atraumatic Neck: Supple, No Thyromegaly Respiratory: Diminished Cardiovascular: Edema (2+ edema) Gastrointestinal: Normal bowel sounds, Soft and benign Musculoskeletal: No clubbing, No swelling Integumentary: No rashes, No breakdown Neurological: Normal speech, Normal strength at 5/5 x4 extr - Studies Laboratory Data (last 24 hrs) 01/05/23 14:39: Sodium 132 L, Potassium 5.0, BUN 48 H, Creatinine 1.90 H, Glucose 104, Total Bilirubin 2.6 H, AST 175 H, ALT 179 H, Alkaline Phosphatase 80 01/05/23 14:39: WBC 4.10 L, Hgb 12.1 L, Hct 40.0, Plt Count 173 Assessment and Plan - Problems (Diagnosis) (1) Respiratory distress Current Visit: Yes Status: Acute Plan: Patient is 62 years of age admitted with respiratory distress he has severe CHF with pulmonary hypertension renal insufficiency renal function is a little worse x-ray shows cardiomegaly troponins liver enzymes are all elevated suggestive of cor pulmonale White count is normal is quite possible that he has underlying chronic obstructive pulmonary disease at risk for thromboembolism trial of bronchodilators steroids VQ scan to rule out thromboembolism as he has pulmonary hypertension patient is high risk for thromboembolism start empiric anticoagulation with Eliquis - Advance Directives Does patient have a Living Will: No Does patient have a Durable POA for Healthcare: No
[2023-01-05 18:48] LABS: SARS-CoV-2 Antigen Rapid Res Positive (Negative)
[2023-01-05] MEDS: ARFORMOTEROL TARTRATE 15 MCG/2 ML VIAL.NEB NEB SCH (19:50)
[2023-01-05] MEDS ORDERED: ARFORMOTEROL TARTRATE 15 MCG/2 ML VIAL.NEB ONE (19:56)
--- NOTE | 2023-01-05 20:51 | RAD REPORT ---
EXAM DESCRIPTION: US - Extrem Venous W Compress Jeffrey - 01/05/2023 8:43 pm CLINICAL HISTORY: Rule out DVT COMPARISON: No comparisons TECHNIQUE: Real-time sonographic evaluation of the lower extremity deep venous systems was performed using color Doppler, grayscale, and compression. FINDINGS: Bilateral lower extremities. Normal compressibility, flow augmentation, phasic flow and spontaneous flow is identified in both the left and right lower extremity deep venous systems. No intraluminal filling defects seen. Subcutaneous edema in the legs bilaterally. IMPRESSION: No DVT in either lower extremity.
[2023-01-05] MEDS: METHYLPREDNISOLONE 40 MG INJ IV SCH (21:20)
[2023-01-05] MEDS: APIXABAN 5 MG TABLET PO SCH (21:20)
[2023-01-06] MEDS: NICOTINE 21 MG/PAT TD SCH
[2023-01-06] MEDS: MELATONIN 5 MG TABLET PO PRN ×2 (00:01→21:06)
[2023-01-06] MEDS: ALBUTEROL 2.5 MG/3 ML NEB SOL IH SCH ×4 (01:55→20:15)
[2023-01-06 05:13] LABS: Absolute Lymphocytes (CBC) 0.3 K/uL (0.7-4.9); Hematocrit 37.4 % (39.6-49.0); Lymphocytes % 11.9 % (15.3-44.8); MCV 81.4 fL (80-100); MPV 10.3 fL (7.6-11.3)
[2023-01-06 05:31] LABS: Albumin 3.1 g/dL (3.4-5.0); Bilirubin Total 1.8 mg/dL (0.2-1.0); Potassium 4.2 mmol/L (3.5-5.1); Protein, Total 7.2 g/dL (6.4-8.2)
[2023-01-06] MEDS: ARFORMOTEROL TARTRATE 15 MCG/2 ML VIAL.NEB NEB SCH ×2 (08:30→20:15)
[2023-01-06] MEDS: FUROSEMIDE 40 MG/4 ML VIAL IV SCH ×3 (09:00→16:10)
--- NOTE | 2023-01-06 10:26 | P.PN ---
Subjective Date of Service: 01/06/23 Chief Complaint: Respiratory failure Subjective: Improving (Patient is doing much better shortness of breath has improved tested positive for COVID) Review of Systems Respiratory: Shortness of Breath Physical Examination - Vital Signs Temperature: 98.1 F Blood Pressure: 109/84 Pulse: 88 Respirations: 18 Pulse Ox (%): 100 - Physical Exam General: Alert, In no apparent distress, Oriented x3 - Studies Laboratory Data (last 24 hrs) 01/05/23 14:39: Sodium 132 L, Potassium 5.0, BUN 48 H, Creatinine 1.90 H, Glucose 104, Total Bilirubin 2.6 H, AST 175 H, ALT 179 H, Alkaline Phosphatase 80 01/05/23 14:39: WBC 4.10 L, Hgb 12.1 L, Hct 40.0, Plt Count 173 Assessment And Plan - Current Problems (Diagnosis) (1) Respiratory distress Current Visit: Yes Status: Acute Plan: Patient admitted with respiratory distress tested positive for COVID no evidence of COVID-pneumonia chest x-ray is clear cardiac cardiomegaly probably has underlying obstructive airways disease overall an improvement continue with steroids bronchodilators full anticoagulation debility of PE possible patient has chronic renal failure consider VQ scan
[2023-01-06] MEDS: METHYLPREDNISOLONE 40 MG INJ IV SCH ×2 (10:36→21:06)
[2023-01-06] MEDS: APIXABAN 5 MG TABLET PO SCH ×2 (10:36→21:06)
[2023-01-06] MEDS: METOPROLOL TAR 25 MG TAB PO SCH (17:51)
[2023-01-06] MEDS ORDERED: Magnesium Sulfate 2gm IVPB 2 G/50 ML BAG IV ONE (18:20)
[2023-01-06] MEDS: ATORVASTATIN 40 MG TAB PO SCH (21:06)
[2023-01-07] MEDS ORDERED: LEVALBUTEROL 1.25 MG/3 ML NEB NEB ONE (01:57)
[2023-01-07] MEDS: IPRATROPIUM BROM 0.5MG/2.5ML NEB PRN (02:00)
[2023-01-07] MEDS: ALBUTEROL 2.5 MG/3 ML NEB SOL IH SCH ×4 (02:00→20:00)
[2023-01-07] MEDS ORDERED: LEVALBUTEROL 1.25 MG/3 ML NEB ONE (02:02)
[2023-01-07] MEDS ORDERED: IPRATROPIUM BROM 0.5MG/2.5ML ONE (02:02)
[2023-01-07] MEDS: HYDROCODONE/CHLORPHEN 5 ML/OSYR PO PRN ×2 (02:03→21:35)
[2023-01-07] MEDS: METOPROLOL TAR 25 MG TAB PO SCH ×2 (06:00→17:06)
[2023-01-07] MEDS: ARFORMOTEROL TARTRATE 15 MCG/2 ML VIAL.NEB NEB SCH ×2 (07:45→19:40)
[2023-01-07] MEDS: NICOTINE 21 MG/PAT TD SCH (09:17)
[2023-01-07] MEDS: APIXABAN 5 MG TABLET PO SCH ×2 (09:18→21:27)
[2023-01-07] MEDS: METHYLPREDNISOLONE 40 MG INJ IV SCH ×2 (09:18→21:27)
[2023-01-07] MEDS: CLOPIDOGREL 75 MG TABLET PO SCH (09:18)
[2023-01-07] MEDS: FUROSEMIDE 40 MG/4 ML VIAL IV SCH ×2 (09:18→17:07)
[2023-01-07 11:59] LABS: Absolute Lymphocytes (CBC) 0.6 K/uL (0.7-4.9); Hematocrit 38.3 % (39.6-49.0); MCV 80.4 fL (80-100); MPV 10.4 fL (7.6-11.3); RBC Red Blood Cell Count 4.77 M/uL (4.33-5.43)
[2023-01-07 12:01] LABS: Bilirubin Total 1.5 mg/dL (0.2-1.0); Magnesium 2.5 mg/dL (1.6-2.4); Potassium 4.3 mmol/L (3.5-5.1); Protein, Total 7.3 g/dL (6.4-8.2)
--- NOTE | 2023-01-07 16:18 | P.PN ---
Subjective Date of Service: 01/06/23 Subjective: No new changes, No C/O voiced, Improving Review of Systems 10-point ROS is otherwise unremarkable Physical Examination - Vital Signs Temperature: 97 F Blood Pressure: 108/79 Pulse: 75 Respirations: 19 Pulse Ox (%): 96 - Physical Exam General: Alert, In no apparent distress HEENT: Atraumatic, PERRLA, EOMI Neck: Supple, JVD not distended Respiratory: Clear to auscultation bilaterally, Normal air movement Cardiovascular: Regular rate/rhythm, Normal S1 S2 Gastrointestinal: Normal bowel sounds, No tenderness Musculoskeletal: No tenderness Integumentary: No rashes Neurological: Normal speech, Normal tone, Normal affect Lymphatics: No axilla or inguinal lymphadenopathy - Studies Medications List Reviewed: Yes Assessment & Plan - Problems (Diagnosis) (1) Bilateral lower extremity edema Current Visit: Yes Status: Acute (2) Acute on chronic systolic heart failure Current Visit: No Status: Acute (3) Pulmonary hypertension Current Visit: No Status: Acute (4) Hypertension Onset Date: 09/02/18 Current Visit: No Status: Chronic Qualifiers: Hypertension type: primary hypertension Qualified Code(s): I10 - Essential (primary) hypertension (5) Marijuana abuse Onset Date: 09/02/18 Current Visit: No Status: Chronic - Plan PLAN: 1. Echocardiogram 2. Check room air O2 sats; arrange for home O2 3. Continue with beta-teresita therapy 4. Cardiology/pulmonary consultation appreciated 5. Continue with diuresis 6. Strict I's and O's 7. Repeat CXR 8. Daily weights 9. Education regarding diet and treatment of congestive heart failure - Advance Directives Does patient have a Living Will: No Does patient have a Durable POA for Healthcare: No
[2023-01-07 19:23] LABS: Platelet Estimate ADEQ; White Blood Cell Scan OK (OK)
[2023-01-07 19:24] LABS: Blood Morphology Comment NOTED (NOT SEEN); Ovalocytes SLIGHT; Poikilocytosis 1+; Polychromasia SLIGHT; Teardrop Cell FEW
[2023-01-07] MEDS: ATORVASTATIN 40 MG TAB PO SCH (21:27)
[2023-01-07] MEDS: MELATONIN 5 MG TABLET PO PRN (21:36)
--- NOTE | 2023-01-08 01:22 | P.PN ---
Date of Service: 01/07/23 Subjective patient is clinically feeling much better. Swelling in the lower extremity has improved. Patient's respiratory status continues to improve. Patient overall is feeling much better. Anticipate discharge over the next 24-48 hours. Review of Systems 10-point ROS is otherwise unremarkable Physical Examination - Vital Signs Reviewed - Physical Exam General: Alert, In no apparent distress HEENT: WNL Neck: Supple, JVD not distended Respiratory: Clear to auscultation bilaterally, Normal air movement Cardiovascular: Regular rate/rhythm, Normal S1 S2 Gastrointestinal: Normal bowel sounds, No tenderness Musculoskeletal: no clubbing/ no cyanosis / minimal lower extremity edema Neurological: No focal deficits - Studies Medications List Reviewed: Yes Assessment & Plan - Problems (Diagnosis) (1) Bilateral lower extremity edema Current Visit: Yes Status: Acute (2) Acute on chronic systolic heart failure Current Visit: No Status: Acute (3) Pulmonary hypertension Current Visit: No Status: Acute (4) Hypertension Onset Date: 09/02/18 Current Visit: No Status: Chronic Qualifiers: Hypertension type: primary hypertension Qualified Code(s): I10 - Essential (primary) hypertension (5) Marijuana abuse Onset Date: 09/02/18 Current Visit: No Status: Chronic (6) COVID Status: Acute - Plan Continue with POC as mentioned below: 1. Echocardiogram in AM 2. Check room air O2 sats; arrange for home O2 3. Continue with beta-teresita therapy 4. Cardiology/pulmonary consultation appreciated 5. Continue with diuresis 6. Strict I's and O's 7. Repeat CXR 8. Daily weights 9. Education regarding diet and treatment of congestive heart failure
[2023-01-08] MEDS: ALBUTEROL 2.5 MG/3 ML NEB SOL IH SCH ×4 (02:00→19:10)
[2023-01-08] MEDS: IPRATROPIUM BROM 0.5MG/2.5ML NEB PRN (02:35)
[2023-01-08 06:19] LABS: Absolute Lymphocytes (CBC) 0.6 K/uL (0.7-4.9); Hematocrit 38.2 % (39.6-49.0); Lymphocytes % 12.5 % (15.3-44.8); MPV 10.7 fL (7.6-11.3); RBC Red Blood Cell Count 4.77 M/uL (4.33-5.43)
[2023-01-08 06:37] LABS: Potassium 4.6 mmol/L (3.5-5.1)
[2023-01-08] MEDS: METOPROLOL TAR 25 MG TAB PO SCH ×2 (06:39→18:37)
[2023-01-08 06:41] LABS: Troponin High Sensitivity 354.2 pg/mL (<58.9)
[2023-01-08] MEDS: ARFORMOTEROL TARTRATE 15 MCG/2 ML VIAL.NEB NEB SCH ×2 (08:00→19:10)
[2023-01-08] MEDS: NICOTINE 21 MG/PAT TD SCH (08:33)
[2023-01-08] MEDS: APIXABAN 5 MG TABLET PO SCH ×2 (08:34→21:30)
[2023-01-08] MEDS: CLOPIDOGREL 75 MG TABLET PO SCH (08:34)
[2023-01-08] MEDS: FUROSEMIDE 40 MG/4 ML VIAL IV SCH (08:34)
[2023-01-08] MEDS: predniSONE 20 MG TAB PO SCH ×2 (08:34→21:30)
[2023-01-08] MEDS: HYDROCODONE/CHLORPHEN 5 ML/OSYR PO PRN ×2 (11:49→21:32)
--- NOTE | 2023-01-08 12:19 | P.PN ---
Subjective Date of Service: 01/08/23 Chief Complaint: Respiratory failure Subjective: Improving (Patient is doing well has improved mated with CHF presumed underlying COPD) Review of Systems Unremarkable Respiratory: Shortness of Breath Physical Examination - Vital Signs Temperature: 96.6 F Blood Pressure: 107/83 Pulse: 82 Respirations: 18 Pulse Ox (%): 97 - Physical Exam General: Alert, Oriented x3 Respiratory: Clear to auscultation bilaterally Cardiovascular: No edema, Regular rate/rhythm - Studies Medications List Reviewed: Yes Assessment And Plan - Current Problems (Diagnosis) (1) Congestive heart failure Current Visit: Yes Status: Acute Plan: Patient has a history of severe congestive heart failure I suspect he also has underlying COPD patient is an active smoker feeling much better also tested positive for coronavirus started on trilogy low-dose prednisone 10 mg twice a day for 10 days chemistries labs reviewed VQ scan is pending at risk for thromboembolism have a history of pulmonary hypertension
--- NOTE | 2023-01-08 16:21 | P.PN ---
Subjective Date of Service: 01/08/23 Chief Complaint: Respiratory failure No acute events overnight. He reports that his shortness of breath is gradually improving, but he is still requiring nasal cannula. His shortness of breath is worse with exertion. He denies any chest pain or palpitations. Review of Systems 10-point ROS is otherwise unremarkable Respiratory: Shortness of Breath Physical Examination - Vital Signs Temperature: 96.6 F Blood Pressure: 107/83 Pulse: 82 Respirations: 18 Pulse Ox (%): 97 - Studies Medications List Reviewed: Yes Assessment And Plan - Plan - Physical Exam General: Alert, In no apparent distress, Oriented x3 HEENT: Atraumatic, PERRLA, Mucous membr. moist/pink, Sclerae nonicteric Neck: Supple, JVD not distended Respiratory: Diminished, Crackles/rales (faint bibasilar) Cardiovascular: Regular rate/rhythm, No gallops, No rubs, No murmurs, Edema (1- 2+ BLE) Gastrointestinal: Normal bowel sounds, Soft and benign, Non-distended, No tenderness, No rebound, No guarding Musculoskeletal: No clubbing Integumentary: No rashes Neurological: Normal speech, Normal affect # Acute Hypoxic Respiratory Failure suspect secondary to Acute on Chronic Decompensated Combined Systolic and Diastolic Congestive Heart Failure with Reduced Ejection Fraction # Severe Pulmonary Hypertension # COVID-19 Infection # Hypertension # Moderate Mitral/Tricuspid Regurgitation - Consult Cardiology and Pulmonology - recommendations appreciated - Ordered transthoracic echocardiogram - TTE (05/22/2022) = "severely depressed left ventricular ejection fraction 10-15%. severe global hypokinesis. moderate mitral and tricuspid regurgitation. severe diastolic dysfunction. severe pulmonary hypertension with right ventricular systolic pressure 60-65% with elevated filling pressures." - If LVEF remains low, will require a LifeVest at discharge - V/Q scan pending - Diuresis with furosemide - Continue home metoprolol - Daily weights - Strict I/O - Cardiac diet, 1.5 L fluid restriction, 2 g Na restriction - Encourage incentive spirometry # Suspect Type II Non-ST Segment Elevation Myocardial Infarction (Demand Ischem ia) secondary to above - Evaluation thus far: - EKG: reportedly without STEMI criteria, trend - Serial troponin: 376.5 -> 357.8 -> 354.2 - Ordered transthoracic echocardiogram - Chest x-ray = "no acute cardiopulmonary disease." - Management plan: - Consult Cardiology - recommendations appreciated - Continue atorvastatin, clopidogrel, metoprolol, and apixaban - Consider RALPH-inhibitor/ARB if tolerated # Tobacco Use Disorder - Continue nicotine patch Cesar Doss M.D.
--- NOTE | 2023-01-08 20:19 | RAD REPORT ---
EXAM DESCRIPTION: NM - Vent Perfusion VQ Scan - 01/08/2023 4:52 pm CLINICAL HISTORY: RO PE COMPARISON: No comparisons TECHNIQUE: 20.5mCi Xe-133 gas inhaled and 5.8mCi Tc-MAA IV. Planar ventilation scan was performed in posterior projection after Xe-133 gas inhalation (wash-in, e quilibrium, and wash-out phases) followed by perfusion scan with Tc-MAA IV in multiple projections. Examination is correlated with recent chest radiograph. FINDINGS: Normal ventilation with appropriate wash-out and no significant air-trapping. No mismatched segmental perfusion defect. Peripheral left upper lung mismatched small subsegmental perfusion defect. IMPRESSION: Normal exam or Very low probability of acute pulmonary embolism.
[2023-01-08] MEDS: ATORVASTATIN 40 MG TAB PO SCH (21:30)
[2023-01-09] MEDS: ALBUTEROL 2.5 MG/3 ML NEB SOL IH SCH ×4 (01:40→20:00)
--- NOTE | 2023-01-09 05:44 | CON ---
Date of Consultation: 01/08/2023 Reason For Consultation: Acute congestive heart failure exacerbation. History Of Present Illness: A 62-year-old male with known history of severe dilated cardiomyopathy, very low ejection fraction, presented with worsening shortness of breath, orthopnea, lower extremity edema for the past 4 days, presented in respiratory distress. The patient was tested positive for CO VID. Admitted, started on IV Lasix, and his symptoms are significantly improved. Denies having any chest pain. Past Medical History: Coronary artery disease; congestive heart failure, systolic; dyslipidemia. Medications: Refer to reconciliation sheet for detailed list. Allergies: NO KNOWN DRUG ALLERGIES. Family History: No mature coronary artery disease or cancer. Social History: Does not smoke or drink. Does not use any drugs. Review of Systems: All systems reviewed and they were negative except what is mentioned in HPI. Physical Examination: Vital Signs: Reviewed. Head and Neck: Pupils are equal and reactive to light. Intact eye movements. No JVD. No cervical lymphadenopathy. Neck is supple. Thyroid is not enlarged. Lungs: Crackles both lung rainey half the way up. No accessory muscle use or muscle retraction. Heart: Irregular. No extra sounds. Abdomen: Soft, nontender. Bowel sounds positive. No organomegaly. No masses or hernia. No rigidi ty or rebound. Extremities: 3+ pitting edema bilaterally. No clubbing or cyanosis. Intact pulses. Skin: No rash. Neurologic: Alert, awake, oriented x3. No acute focal deficits appreciated. Investigations: Troponin 354. BUN 56; creatinine 1.27, down from 1.9. Assessment And Recommendations: 1.Acute hypoxic respiratory failure due to congestive heart failure exacerbation, improved with Lasi x. Also, he is positive for COVID. Recommend to continue Lasix 40 mg IV q.12 hours. Monitor BUN, c reatinine, and electrolytes. 2.Acute renal failure. This is cardiorenal syndrome due to history of congestive heart failure and since creatinine improved with diuresis, continue to monitor. 3.Elevated troponin. This is demand ischemia. We will monitor. SR/MODL Voice ID: [id number] Report ID: [id number]
[2023-01-09 06:27] LABS: Albumin 3.2 g/dL (3.4-5.0); Protein, Total 7.3 g/dL (6.4-8.2)
[2023-01-09 06:28] LABS: Potassium 4.9 mmol/L (3.5-5.1)
[2023-01-09] MEDS: METOPROLOL TAR 25 MG TAB PO SCH ×2 (06:39→18:18)
[2023-01-09] MEDS: ARFORMOTEROL TARTRATE 15 MCG/2 ML VIAL.NEB NEB SCH ×2 (08:12→20:00)
[2023-01-09] MEDS: predniSONE 20 MG TAB PO SCH ×2 (08:18→20:17)
[2023-01-09] MEDS: CLOPIDOGREL 75 MG TABLET PO SCH (08:18)
[2023-01-09] MEDS: FUROSEMIDE 40 MG TABLET PO SCH (08:18)
[2023-01-09] MEDS: APIXABAN 5 MG TABLET PO SCH ×2 (08:18→20:17)
[2023-01-09] MEDS: NICOTINE 21 MG/PAT TD SCH (08:18)
--- NOTE | 2023-01-09 17:26 | EKG ---
Test Date: 2023-01-05 Test Time: 14:32:38 Surtass Analyst: TM MEASUREMENT RESULTS: Intervals: Rate: 77 SD: 160 QRSD: 106 QT: 434 QTc: 491 [place]ell: P: 62 SD: 160 QRS: 254 T: 146 INTERPRETIVE STATEMENTS: Normal sinus rhythm Biatrial enlargement Incomplete right bundle branch block Anterolateral infarct, age undetermined Abnormal ECG Compared to ECG 11/24/2022 13:00:41 Incomplete right bundle-branch block now present Sinus arrhythmia no longer present Left-axis deviation no longer present Myocardial infarct finding still present Electronically Signed On 01-09-23 17:16:42 GYROSCOPE REPAIRER by Gurwinder Arboleda
[2023-01-09] MEDS ORDERED: ACETAMINOPHEN 325 MG TABLET PO PRN (17:59)
--- NOTE | 2023-01-09 18:10 | P.PN ---
Subjective Date of Service: 01/09/23 Chief Complaint: Respiratory failure No acute events overnight. He reports gradual improvement in his respiratory symptoms, and he is now on room air. He denies any chest pain or palpitations. Review of Systems 10-point ROS is otherwise unremarkable Respiratory: Shortness of Breath Cardiovascular: Orthopnea, Edema Physical Examination - Vital Signs Temperature: 98.2 F Blood Pressure: 108/79 Pulse: 97 Respirations: 18 Pulse Ox (%): 91 - Studies Medications List Reviewed: Yes Assessment And Plan - Plan - Physical Exam General: Alert, In no apparent distress, Oriented x3 HEENT: Atraumatic, Mucous membr. moist/pink, Sclerae nonicteric Neck: Supple, JVD not distended Respiratory: Diminished, Crackles/rales (faint bibasilar) Cardiovascular: Regular rate/rhythm, No gallops, No rubs, No murmurs, Edema (1+ BLE) Gastrointestinal: Normal bowel sounds, Soft, Non-distended, No tenderness Musculoskeletal: No clubbing Integumentary: No rashes Neurological: Normal speech, Normal affect # Acute Hypoxic Respiratory Failure suspect secondary to Acute on Chronic Decompensated Combined Systolic and Diastolic Congestive Heart Failure with Reduced Ejection Fraction # Severe Pulmonary Hypertension # COVID-19 Infection # Hypertension # Moderate Mitral/Tricuspid Regurgitation - Consult Cardiology and Pulmonology - recommendations appreciated - Ordered transthoracic echocardiogram - TTE (05/22/2022) = "severely depressed left ventricular ejection fraction 10-15%. severe global hypokinesis. moderate mitral and tricuspid regurgitation. severe diastolic dysfunction. severe pulmonary hypertension with right ventricular systolic pressure 60-65% with elevated filling pressures." - TTE (10/09/2022) = "1. severely depressed left ventricular ejection fraction 20-25%. 2. severe global hypokinesis 3. severe mitral regurgitation. 4. moderate tricuspid regurgitation 5. severe hypertension with right ventricular systolic pressure greater than 60 mmHg 6. left atrial enlargement." - If LVEF remains low, will require a LifeVest at discharge - V/Q scan = "Normal exam or Very low probability of acute pulmonary embolism." - Diuresis with furosemide - IV furosemide switched to PO, if he does well possible discharge tomorrow - Continue home metoprolol - Daily weights - Strict I/O - Cardiac diet, 1.5 L fluid restriction, 2 g Na restriction - Encourage incentive spirometry # Suspect Type II Non-ST Segment Elevation Myocardial Infarction (Demand Ischemia) secondary to above - Evaluation thus far: - EKG: reportedly without STEMI criteria, trend - Serial troponin: 376.5 -> 357.8 -> 354.2 - Ordered transthoracic echocardiogram - Chest x-ray = "no acute cardiopulmonary disease." - Management plan: - Consult Cardiology - recommendations appreciated - Continue atorvastatin, clopidogrel, metoprolol, and apixaban - Consider RALPH-inhibitor/ARB if tolerated # Tobacco Use Disorder - Continue nicotine patch Cesar Doss M.D.
[2023-01-09] MEDS: IPRATROPIUM BROM 0.5MG/2.5ML NEB PRN (20:00)
[2023-01-09] MEDS: ATORVASTATIN 40 MG TAB PO SCH (20:17)
[2023-01-09] MEDS: HYDROCODONE/CHLORPHEN 5 ML/OSYR PO PRN (20:18)
[2023-01-09] MEDS: MELATONIN 5 MG TABLET PO PRN (20:29)
[2023-01-10] MEDS: ALBUTEROL 2.5 MG/3 ML NEB SOL IH SCH ×4 (02:00→19:15)
[2023-01-10 04:31] VITALS: BMI 22.2
[2023-01-10] MEDS: METOPROLOL TAR 25 MG TAB PO SCH ×2 (06:31→17:58)
[2023-01-10] MEDS: NICOTINE 21 MG/PAT TD SCH (08:39)
[2023-01-10] MEDS: FUROSEMIDE 40 MG TABLET PO SCH ×2 (08:40→08:41)
[2023-01-10] MEDS: CLOPIDOGREL 75 MG TABLET PO SCH (08:40)
[2023-01-10] MEDS: APIXABAN 5 MG TABLET PO SCH ×2 (08:41→21:05)
[2023-01-10] MEDS: predniSONE 20 MG TAB PO SCH ×2 (08:41→21:05)
[2023-01-10] MEDS: ARFORMOTEROL TARTRATE 15 MCG/2 ML VIAL.NEB NEB SCH ×2 (09:32→19:15)
[2023-01-10 11:43] LABS: Magnesium 2.5 mg/dL (1.6-2.4); Potassium 4.7 mmol/L (3.5-5.1)
--- NOTE | 2023-01-10 13:40 | ECHO ---
HEIGHT: 5 ft 9 in WEIGHT: 150 lb 8 oz DATE OF STUDY: 01/10/[address]: Cesar Doss MD 2-DIMENSIONAL: YES M.MODE: YES DOPPLER: YES COLOR FLOW: YES TDS: NO PORTABLE: YES DEFINITY: NO BUBBLE STUDY: NO DIAGNOSIS: CONGESTIVE HEART FAILURE CARDIAC HISTORY: CATHERIZATION:YES SURGERY: NO PROSTHETIC VALVE: NO PACEMAKER: NO MEASUREMENTS (cm) DIASTOLIC (NORMALS) SYSTOLIC (NORMALS) IVSd 0.9 (0.6-1.2) LA Diam 3.8 (1.9-4.0) LVEF 24% LVIDd 7.3 (3.5-5.7) LVIDs 6.5 (2.0-3.5) %FS 11% LVPWd 1.0 (0.6-1.2) Ao Diam 3.2 (2.0-3.7) 2 DIMENSIONAL ASSESSMENT: RIGHT ATRIUM: ENLARGED LEFT ATRIUM: ENLARGED RIGHT VENTRICLE: NORMAL LEFT VENTRICLE: SEVERELY DILATED TRICUSPID VALVE: MODERATE TR MITRAL VALVE: SEVERE MR PULMONIC VALVE: NORMAL AORTIC VALVE: NORMAL PERICARDIAL EFFUSION: NONE AORTIC ROOT: NORMAL LEFT VENTRICULAR WALL MOTION: SEVERE GLOBAL HYPOKINESIS. DOPPLER/COLOR FLOW: SEE BELOW. COMMENTS: 1. SEVERELY DEPRESSED LEFT VENTRICULAR EJECTION FRACTION 20-25%. 2. SEVERE GLOBAL HYPOKINESIS. 3. BI-ATRIAL ENLARGEMENT. 4. MODERATE TRICUSPID REGURGITATION. 5. SEVERE MITRAL REGURGITATION. 6. SEVERE PULMONARY HYPERTENSION WITH RIGHT VENTRICULAR SYSTOLIC PRESSURE >60 mmHg. 7. SEVERE DIASTOLIC DYSFUNCTION WITH ELEVATED FILLING PRESSURES. TECHNOLOGIST: Clint WIGGINS
[2023-01-10] MEDS: HYDROCODONE/CHLORPHEN 5 ML/OSYR PO PRN ×2 (13:45→22:59)
--- NOTE | 2023-01-10 18:19 | P.PN ---
Subjective Date of Service: 01/10/23 Chief Complaint: Respiratory failure Overnight, he began experiencing shortness of breath. He was re-started on nasal cannula, which was at 3 L this morning. He reports orthopnea and edema as well. He denies any chest pain or palpitations. Review of Systems 10-point ROS is otherwise unremarkable Respiratory: Shortness of Breath Cardiovascular: Orthopnea, Edema Physical Examination - Vital Signs Temperature: 97.9 F Blood Pressure: 110/70 Pulse: 93 Respirations: 16 Pulse Ox (%): 96 - Studies Medications List Reviewed: Yes Assessment And Plan - Plan - Physical Exam General: Alert, In no apparent distress, Oriented x3 HEENT: Atraumatic, Mucous membr. moist/pink, Sclerae nonicteric Neck: Supple, JVD not distended Respiratory: Diminished, Crackles/rales (faint bibasilar) Cardiovascular: Regular rate/rhythm, No murmurs, Edema (1+ BLE) Gastrointestinal: Normal bowel sounds, Soft, Non-distended, No tenderness Musculoskeletal: No clubbing Integumentary: No rashes Neurological: Normal speech, Normal affect # Acute Hypoxic Respiratory Failure suspect secondary to Acute on Chronic Decompensated Combined Systolic and Diastolic Congestive Heart Failure with Reduced Ejection Fraction # Severe Pulmonary Hypertension # COVID-19 Infection # Hypertension # Moderate Mitral/Tricuspid Regurgitation - Consult Cardiology and Pulmonology - recommendations appreciated - Ordered transthoracic echocardiogram - TTE (05/22/2022) = "severely depressed left ventricular ejection fraction 10-15%. severe global hypokinesis. moderate mitral and tricuspid regurgitation. severe diastolic dysfunction. severe pulmonary hypertension with right ventricular systolic pressure 60-65% with elevated filling pressures." - TTE (10/09/2022) = "1. severely depressed left ventricular ejection fraction 20-25%. 2. severe global hypokinesis 3. severe mitral regurgitation. 4. moderate tricuspid regurgitation 5. severe hypertension with right ventricular systolic pressure greater than 60 mmHg 6. left atrial enlargement." - If LVEF remains low, will require a LifeVest at discharge - TTE (01/10/2023) = "1. severely depressed left ventricular ejection fraction 20-25%. 2. severe global hypokinesis. 3. bi-atrial enlargement. 4. moderate tricuspid regurgitation. 5. severe mitral regurgitation. 6. severe pulmonary hypertension with right ventricular systolic pressure >60 mmHg. 7. severe diastolic dysfunction with elevated filling pressures." - V/Q scan = "Normal exam or Very low probability of acute pulmonary embolism." - Diuresis with furosemide - switched back to IV per Dr. Arboleda - Continue home metoprolol - Daily weights - Strict I/O - Cardiac diet, 1.5 L fluid restriction, 2 g Na restriction - Encourage incentive spirometry # Suspect Type II Non-ST Segment Elevation Myocardial Infarction (Demand Ischemia) secondary to above - Evaluation thus far: - EKG: reportedly without STEMI criteria, trend - Serial troponin: 376.5 -> 357.8 -> 354.2 - TTE (01/10/2023) = "1. severely depressed left ventricular ejection fraction 20-25%. 2. severe global hypokinesis. 3. bi-atrial enlargement. 4. moderate tricuspid regurgitation. 5. severe mitral regurgitation. 6. severe pulmonary hypertension with right ventricular systolic pressure >60 mmHg. 7. severe diastolic dysfunction with elevated filling pressures." - Chest x-ray = "no acute cardiopulmonary disease." - Management plan: - Consult Cardiology - recommendations appreciated - Continue atorvastatin, clopidogrel, metoprolol, and apixaban - Consider RALPH-inhibitor/ARB if tolerated # Tobacco Use Disorder - Continue nicotine patch Cesar Doss M.D.
[2023-01-10] MEDS: FUROSEMIDE 20 MG/ 2ML VIAL IV SCH (21:05)
[2023-01-10] MEDS: ATORVASTATIN 40 MG TAB PO SCH (21:05)
[2023-01-11] MEDS: ALBUTEROL 2.5 MG/3 ML NEB SOL IH SCH ×4 (01:00→21:20)
[2023-01-11 04:20] LABS: Magnesium 2.3 mg/dL (1.6-2.4); Potassium 4.7 mmol/L (3.5-5.1)
[2023-01-11] MEDS: METOPROLOL TAR 25 MG TAB PO SCH ×2 (05:30→17:01)
[2023-01-11] MEDS: APIXABAN 5 MG TABLET PO SCH ×2 (08:23→20:54)
[2023-01-11] MEDS: predniSONE 20 MG TAB PO SCH ×2 (08:23→20:54)
[2023-01-11] MEDS: FUROSEMIDE 20 MG/ 2ML VIAL IV SCH ×2 (08:23→17:02)
[2023-01-11] MEDS: CLOPIDOGREL 75 MG TABLET PO SCH (08:23)
[2023-01-11] MEDS: NICOTINE 21 MG/PAT TD SCH (08:27)
[2023-01-11] MEDS: ARFORMOTEROL TARTRATE 15 MCG/2 ML VIAL.NEB NEB SCH ×2 (09:10→21:20)
[2023-01-11] MEDS: HYDROCODONE/CHLORPHEN 5 ML/OSYR PO PRN (17:02)
--- NOTE | 2023-01-11 17:38 | P.PN ---
Subjective Date of Service: 01/11/23 Chief Complaint: Respiratory failure No acute events overnight. He was weaned down to room air. He continues to report shortness of breath with exertion, orthopnea, and edema. He denies any chest pain or palpitations. Review of Systems 10-point ROS is otherwise unremarkable Respiratory: Cough, Shortness of Breath Cardiovascular: Orthopnea, Edema Physical Examination - Vital Signs Temperature: 97.4 F Blood Pressure: 112/81 Pulse: 96 Respirations: 19 Pulse Ox (%): 96 - Studies Medications List Reviewed: Yes Assessment And Plan - Plan - Physical Exam General: Alert, In no apparent distress, Oriented x3 HEENT: Atraumatic, Mucous membr. moist/pink, Sclerae nonicteric Neck: Supple, JVD not distended Respiratory: Diminished, Crackles/rales (faint bibasilar) Cardiovascular: Regular rate/rhythm, No murmurs, Edema (1-2+ BLE) Gastrointestinal: Normal bowel sounds, Soft, Non-distended, No tenderness Musculoskeletal: No clubbing Integumentary: No rashes Neurological: Normal speech, Normal affect # Acute Hypoxic Respiratory Failure suspect secondary to Acute on Chronic Decompensated Combined Systolic and Diastolic Congestive Heart Failure with Reduced Ejection Fraction # Severe Pulmonary Hypertension # COVID-19 Infection # Hypertension # Moderate Mitral/Tricuspid Regurgitation - Consult Cardiology and Pulmonology - recommendations appreciated - Spoke with Dr. Arboleda - he feels that he would benefit from an additional 24-48 hours of IV diuresis - Ordered transthoracic echocardiogram - TTE (05/22/2022) = "severely depressed left ventricular ejection fraction 10-15%. severe global hypokinesis. moderate mitral and tricuspid regurgitation. severe diastolic dysfunction. severe pulmonary hypertension with right ventricular systolic pressure 60-65% with elevated filling pressures." - TTE (10/09/2022) = "1. severely depressed left ventricular ejection fraction 20-25%. 2. severe global hypokinesis 3. severe mitral regurgitation. 4. moderate tricuspid regurgitation 5. severe hypertension with right ventricular systolic pressure greater than 60 mmHg 6. left atrial enlargement." - If LVEF remains low, will require a LifeVest at discharge - TTE (01/10/2023) = "1. severely depressed left ventricular ejection fraction 20-25%. 2. severe global hypokinesis. 3. bi-atrial enlargement. 4. moderate tricuspid regurgitation. 5. severe mitral regurgitation. 6. severe pulmonary hypertension with right ventricular systolic pressure >60 mmHg. 7. severe diastolic dysfunction with elevated filling pressures." - V/Q scan = "Normal exam or Very low probability of acute pulmonary embolism." - Diuresis with furosemide - switched back to IV per Dr. Arboleda - Continue home metoprolol - Daily weights - Strict I/O - Cardiac diet, 1.5 L fluid restriction, 2 g Na restriction - Encourage incentive spirometry # Suspect Type II Non-ST Segment Elevation Myocardial Infarction (Demand Ischemia) secondary to above - Evaluation thus far: - EKG: reportedly without STEMI criteria, trend - Serial troponin: 376.5 -> 357.8 -> 354.2 - TTE (01/10/2023) = "1. severely depressed left ventricular ejection fraction 20-25%. 2. severe global hypokinesis. 3. bi-atrial enlargement. 4. moderate tricuspid regurgitation. 5. severe mitral regurgitation. 6. severe p ulmonary hypertension with right ventricular systolic pressure >60 mmHg. 7. severe diastolic dysfunction with elevated filling pressures." - Chest x-ray = "no acute cardiopulmonary disease." - Management plan: - Consult Cardiology - recommendations appreciated - Continue atorvastatin, clopidogrel, metoprolol, and apixaban - Consider RALPH-inhibitor/ARB if tolerated # Tobacco Use Disorder - Continue nicotine patch Cesar Doss M.D.
[2023-01-11] MEDS: ATORVASTATIN 40 MG TAB PO SCH (20:54)
--- NOTE | 2023-01-11 22:46 | PN ---
Date of Progress Note: 01/11/2023 Subjective: Seen by bedside. He is doing better, still having some cough and lower extremity edema. Review of Systems: No chest pain. Has shortness of breath and cough, and lower extremity edema. No nausea, vomiting, o r diarrhea. All other systems reviewed, they were negative. Physical Examination: Vital Signs: Reviewed. Head and Neck: Pupils are equal, reactive to light. Intact eye movements. No JVD. No cervical lym phadenopathy. Neck is supple. Thyroid is not enlarged. Lungs: Clear to auscultation bilaterally. No wheezing or crackles. He has rhonchi. Abdomen: Soft, nontender. Bowel sounds positive. No organomegaly. No masses or hernia. No rigidi ty or rebound. Extremities: 1+ pitting edema bilaterally. No clubbing, cyanosis. Intact pulses. Skin: No rashes. Neurologic: Alert, awake, oriented x3. No acute focal deficits appreciated. Investigations: BUN 53, creatinine is 1.2. Assessment/recommendation: 1.Acute on chronic systolic heart failure exacerbation. He is improving, switching to oral Lasix. In preparation for discharge tomorrow. 2.COVID-19, he is stable. 3.Elevated troponin. This is demand ischemia. SR/MODL Voice ID: [id number] Report ID: [id number]
[2023-01-12] MEDS: IPRATROPIUM BROM 0.5MG/2.5ML NEB PRN (02:00)
[2023-01-12] MEDS: ALBUTEROL 2.5 MG/3 ML NEB SOL IH SCH ×2 (02:00→08:00)
[2023-01-12] MEDS: METOPROLOL TAR 25 MG TAB PO SCH ×2 (05:19→17:13)
[2023-01-12] MEDS: APIXABAN 5 MG TABLET PO SCH ×2 (07:53→20:32)
[2023-01-12] MEDS: NICOTINE 21 MG/PAT TD SCH (07:53)
[2023-01-12] MEDS: FUROSEMIDE 20 MG/ 2ML VIAL IV SCH ×2 (07:53→17:12)
[2023-01-12] MEDS: predniSONE 20 MG TAB PO SCH ×2 (07:53→20:32)
[2023-01-12] MEDS: CLOPIDOGREL 75 MG TABLET PO SCH (07:54)
[2023-01-12] MEDS: ARFORMOTEROL TARTRATE 15 MCG/2 ML VIAL.NEB NEB SCH (08:00)
[2023-01-12] MEDS ORDERED: ARFORMOTEROL TARTRATE 15 MCG/2 ML VIAL.NEB NEB PRN ×2 (08:53→12:00)
[2023-01-12] MEDS ORDERED: ALBUTEROL 2.5 MG/3 ML NEB SOL IH PRN ×2 (08:53→12:00)
[2023-01-12] MEDS: HYDROCODONE/CHLORPHEN 5 ML/OSYR PO PRN ×2 (10:48→21:15)
--- NOTE | 2023-01-12 12:50 | P.PN ---
Subjective Date of Service: 01/12/23 Chief Complaint: Respiratory failure No acute events overnight. He appears comfortable at rest, but reports persistent shortness of breath with exertion, orthopnea, and edema. He denies any chest pain or palpitations. Review of Systems 10-point ROS is otherwise unremarkable Respiratory: SOB with Excertion Cardiovascular: Orthopnea, Edema Physical Examination - Vital Signs Temperature: 97.4 F Blood Pressure: 108/71 Pulse: 98 Respirations: 18 Pulse Ox (%): 94 - Studies Medications List Reviewed: Yes Assessment And Plan - Plan - Physical Exam General: Alert, In no apparent distress, Oriented x3 HEENT: Atraumatic, Mucous membr. 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 Arboleda - he feels that he would benefit from a additional IV diuresis - possible discharge tomorrow - Ordered transthoracic echocardiogram - TTE (05/22/2022) = "severely depressed left ventricular ejection fraction 10-15%. severe global hypokinesis. moderate mitral and tricuspid regurgitation. severe diastolic dysfunction. severe pulmonary hypertension with right ventricular systolic pressure 60-65% with elevated filling pressures." - TTE (10/09/2022) = "1. severely depressed left ventricular ejection fraction 20-25%. 2. severe global hypokinesis 3. severe mitral regurgitation. 4. moderate tricuspid regurgitation 5. severe hypertension with right ventricular systolic pressure greater than 60 mmHg 6. left atrial enlargement." - If LVEF remains low, will require a LifeVest at discharge - TTE (01/10/2023) = "1. severely depressed left ventricular ejection fraction 20-25%. 2. severe global hypokinesis. 3. bi-atrial enlargement. 4. moderate tricuspid regurgitation. 5. severe mitral regurgitation. 6. severe pulmonary hypertension with right ventricular systolic pressure >60 mmHg. 7. severe diastolic dysfunction with elevated filling pressures." - V/Q scan = "Normal exam or Very low probability of acute pulmonary embolism." - Diuresis with furosemide - Continue home metoprolol - Daily weights - Strict I/O - Cardiac diet, 1.5 L fluid restriction, 2 g Na restriction - Encourage incentive spirometry # Suspect Type II Non-ST Segment Elevation Myocardial Infarction (Demand Ischemia) secondary to above - Evaluation thus far: - EKG: reportedly without STEMI criteria, trend - Serial troponin: 376.5 -> 357.8 -> 354.2 - TTE (01/10/2023) = "1. severely depressed left ventricular ejection fraction 20-25%. 2. severe global hypokinesis. 3. bi-atrial enlargement. 4. moderate tricuspid regurgitation. 5. severe mitral regurgitation. 6. severe pulmonary hypertension with right ventricular systolic pressure >60 mmHg. 7. severe diastolic dysfunction with elevated filling pressures." - Chest x-ray = "no acute cardiopulmonary disease." - Management plan: - Consult Cardiology - recommendations appreciated - Continue atorvastatin, clopidogrel, metoprolol, and apixaban - Consider RALPH-inhibitor/ARB if tolerated # Tobacco Use Disorder - Continue nicotine patch Cesar Doss M.D.
[2023-01-12] MEDS: ATORVASTATIN 40 MG TAB PO SCH (20:32)
[2023-01-12] MEDS: MELATONIN 5 MG TABLET PO PRN (21:15)
[2023-01-13] MEDS: METOPROLOL TAR 25 MG TAB PO SCH (05:30)
--- NOTE | 2023-01-13 08:25 | P.DS ---
Admission Date: 01/05/23 Discharge Date: 01/13/23 Disposition: ROUTINE DISCHARGE Discharge Condition: GOOD Reason for Admission: Respiratory failure Consultations: 1. 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 Chad Rahman is a pleasant 62 year old male with a past medical history significant for chronic combined systolic and diastolic congestive heart failure, severe pulmonary hypertension, hypertension, and tobacco use disorder who was admitted to the [facility] on 01/05/2023 for shortness of breath. He was admitted to the Medicine service. Upon further evaluation, he was found to have an acute on chronic heart failure exacerbation. His chest x-ray revealed, "no acute cardiopulmonary disease." His transthoracic echocardiogram revealed, "1. severely depressed left ventricular ejection fraction 20-25%. 2. severe global hypokinesis. 3. bi-atrial enlargement. 4. moderate tricuspid regurgitation. 5. severe mitral regurgitation. 6. severe pulmonary hypertension with right ventricular systolic pressure >60 mmHg. 7. severe diastolic dysfunction with elevated filling pressures." His V/Q scan revealed, "normal exam or Very low probability of acute pulmonary embolism." Cardiology was consulted and he was evaluated by Dr. Arboleda. He was treated with IV diuretics, and over the course of his hospitalization, his symptoms improved significantly. He states that he has been able to ambulate around his room and independently perform his activities of daily living, without any issues. He states that he feels well and would like to be discharged home. Ideally, we would have liked to obtain a LifeVest for him prior to discharge. However, after speaking with him and our case management team, it would not be able to be arranged due to financial concerns. He stated that he would like to be discharged without it and understands the risks. He will follow-up with Dr. Arboleda to see if it can be arranged as an outpatient. On 01/13/2023, he was seen on morning rounds and deemed medically stable for discharge. He was discharged with instructions to schedule follow-up appoint ments with his PCP, with Cardiology (Dr. Arboleda), and with Pulmonology (Dr. Merino). He was provided prescriptions for furosemide and Trelegy. He was given the opportunity to ask questions and reported no further questions. Furthermore, all questions were answered to the best of my ability. A copy of this discharge summary will be sent to the above providers to facilitate continuity of care. Today, I personally spent 25 minutes on his case, of which greater than 50% of the time was spent in patient education, counseling, and coordination of care as described above. - Physical Exam General: Alert, In no apparent distress, Oriented x3 HEENT: Atraumatic, Mucous membr. moist/pink, Sclerae nonicteric Neck: Supple, JVD not distended Respiratory: Diminished, Clear to ausculation bilaterally without any wheezes, rhonchi, or rales Cardiovascular: Regular rate/rhythm, No murmurs, Edema (trace-1+ BLE) Gastrointestinal: Normal bowel sounds, Soft, Non-distended, No tenderness Musculoskeletal: No clubbing Integumentary: No rashes Neurological: Normal speech, Normal affect Vital Signs/Physical Exam: Temp Pulse Resp BP Pulse Ox 98.5 F 87 18 134/73 98 01/13/23 04:00 01/13/23 04:00 01/13/23 04:00 01/13/23 04:00 01/13/23 04:00 Laboratory Data at Discharge: WBC 5.00 K/uL (4.3-10.9) 01/08/23 05:59 Hgb 12.0 g/dL (13.6-17.9) L 01/08/23 05:59 Hct 38.2 % (39.6-49.0) L 01/08/23 05:59 Plt Count 163 K/uL (152-406) 01/08/23 05:59 Sodium 130 mmol/L (136-145) L 01/11/23 03:49 Potassium 4.7 mmol/L (3.5-5.1) 01/11/23 03:49 BUN 53 mg/dL (7-18) H 01/11/23 03:49 Creatinine 1.20 mg/dL (0.70-1.30) 01/11/23 03:49 Glucose 142 mg/dL (74-106) H 01/11/23 03:49 Magnesium 2.3 mg/dL (1.6-2.4) 01/11/23 03:49 Total Bilirubin 2.0 mg/dL (0.2-1.0) H 01/09/23 05:27 AST 68 U/L (15-37) H 01/09/23 05:27 ALT 138 U/L (16-61) H 01/09/23 05:27 Alkaline Phosphatase 65 U/L (45-117) 01/09/23 05:27 Home Medications: Atorvastatin Calcium [Lipitor] 40 mg PO BEDTIME #30 tab 10/09/22 Clopidogrel Bisulfate [Plavix*] 75 mg PO DAILY #30 tab 10/09/22 Metoprolol Tartrate [Lopressor*] 25 mg PO BID 6AM 6PM #60 tab 10/09/22 Potassium Chloride 20 meq PO DAILY #60 tab 10/09/22 Ferrous Sulfate [Iron] 325 mg PO DAILY 30 Days #30 tab 11/28/22 Fluticasone/Umeclidin/Vilanter [Trelegy Ellipta 100-62.5-25] 1 each IH DAILY 30 Days #30 aero 01/08/23 Furosemide [Lasix] 40 mg PO BIDL #60 tab 01/13/23 New Medications: Furosemide [Lasix] 40 mg PO BIDL #60 tab Fluticasone/Umeclidin/Vilanter [Trelegy Ellipta 100-62.5-25] 1 each IH DAILY 30 Days #30 aero Physician Discharge Instructions: 1. Please call and schedule a follow-up appointment with your PCP in 3-5 days 2. Please call and schedule a follow-up appointment with Cardiology (Dr. Arboleda) in 3-5 days 3. Please call and schedule a follow-up appointment with Pulmonology (Dr. Merino) in 3-5 days Diet: AHA Activity: Ad florinda Followup: Corey Merino MD [ACTIVE - CAN ADMIT] - (call to sched an appointment in 3-5 days) NONE,NONE [Primary Care Provider] - (call to schedule an appointment in 3-5 days) Gurwinder Arboleda MD [ACTIVE - CAN ADMIT] - (call to schedule an appointment in 3- 5 days) Time spent managing pt's care (in minutes): 25
[2023-01-13] MEDS: CLOPIDOGREL 75 MG TABLET PO SCH (08:33)
[2023-01-13] MEDS: predniSONE 20 MG TAB PO SCH (08:33)
[2023-01-13] MEDS: APIXABAN 5 MG TABLET PO SCH (08:33)
[2023-01-13] MEDS: NICOTINE 21 MG/PAT TD SCH (08:34)
[2023-01-13] MEDS: FUROSEMIDE 20 MG/ 2ML VIAL IV SCH (08:34)
[2023-01-13 08:35] VITALS: BP 110/76
[2023-01-13 09:29] VITALS: TEMP 97.6; O2SAT 97
== END 2023-01-13 12:37 | disposition home or self-care (01) | DRG 280 ==
LOC: ER 13:45 → ERHOLD 16:27 → 4TH 20:15
PROVIDERS: ADMIT Internal Medicine Sleep Medicine; ATTEND Internal Medicine
PROC: 5A09557 Assistance with Respiratory Ventilation, Greater than 96 Consecutive Hours, Continuous Positive Airway Pressure (ICD-10-PCS; principal; 2023-01-05)
DX: I11.0 Hypertensive heart disease with heart failure (principal); I21.A1 Myocardial infarction type 2; I50.43 Acute on chronic combined systolic (congestive) and diastolic (congestive) heart failure; U07.1 COVID-19; J96.01 Acute respiratory failure with hypoxia; N17.9 Acute kidney failure, unspecified; I27.20 Pulmonary hypertension, unspecified; I08.1 Rheumatic disorders of both mitral and tricuspid valves; E78.5 Hyperlipidemia, unspecified; F12.10 Cannabis abuse, uncomplicated; I25.10 Atherosclerotic heart disease of native coronary artery without angina pectoris; F17.210 Nicotine dependence, cigarettes, uncomplicated; I25.2 Old myocardial infarction; Z60.2 Problems related to living alone; Z95.5 Presence of coronary angioplasty implant and graft; Z56.0 Unemployment, unspecified; Z79.02 Long term (current) use of antithrombotics/antiplatelets; Z79.899 Other long term (current) drug therapy
CPT/HCPCS: 36415; 71045; 78582; 80048; 80053; 82805; 83735; 83880; 84145; 84484; 85025; 87811; 93005; 93306; 93970; 94002; 94003; 94640; 94660; 94760; 96374; 99285; J1940; J2920; J3475; J7512; J7605; J7613; J7614; J7644

== ENCOUNTER 2023-01-13 19:13 | Emergency (ER) | payer SELFPAY ==
--- OUTSIDE RECORDS SUMMARY | 2023-01-13 19:50 | XMS REPORT | Continuity of Care Document ---
:1960 Author Organization [facility] t Address [address] [place] [place] [address] Care Team Providers Name Role Phone FAITH HOLDEN Attending Clinician Unavailable FAITH HOLDEN Admitting Clinician Unavailable Problems Condition Condition Condition Status Onset Resolution Last Treating Co mments Source Name Details Category Date Date Treatment Clinician Date ST ST Disease Active [facility] 03-26 [facility] myocardial myocardial 00:00: Me dical infarction infarction 00 Ce nter involving involving left left anterior anterior descending descending (LAD) (LAD) coronary coronary artery artery Allergies, Adverse Reactions, Alerts Allergy Allergy Status Severity Reaction(s) Onset Inactive Treating Comm ents Source Name Type Date Date Clinician NO KNOWN Allergy Active [facility] Social History Social Habit Start Date [...] 2019-03-[address] [facility] pack-years 00:00:00 00:00:00 [facility] Tobacco use and 2019-03-27 2019-03-[address] [facility] kes exposure 00:00:00 00:00:00 [facility] History SDOH 2019-03-27 2019-03-[address] [facility] Alcohol Frequency 00:00:00 00:00:00 [facility] Sex Assigned At [birth year] ZEKE Miles 00:00:00 [facility]:00 [facility] Smoking Status Start Date Stop Date Source Current some day smoker 2019-03-27 00:00:00 [facility] Medications Ordered Filled Start Stop Current Ordering [...] = 627) 1.9 mg/dL 1.6-2.6 BASIC METABOLIC [id number] 06:18:00 Test Item Value Reference Range Interpretation [...] S NOT APPLICABLE FOR DIALYSIS PATIEN TS. [id number] 06:01:00 Test Item Value Reference Range Interpretation Comments PARTIAL THROMBOPLASTIN TIME 39.4 seconds 22.5-36.0 H (BEAKER) (test code = 760) 6 hours after starting heparin infusion and as indicated per sliding scaleCBC W/PLT COUNT & AUTO [id number] 05:54:00 Test Item Value Reference Range Interpretation [...] 0-1 PERCENT (BEAKER) (test code = 2801) [id number] 11:15:00 Test Item Value Reference Range Interpretation Comments PARTIAL THROMBOPLASTIN TIME 92.3 seconds 22.5-36.0 H (BEAKER) (test code = 760) TROPONIN [id number] 05:41:00 Test Item Value Reference Range Interpretation [...] failure, acidosis, acute neurological disease, and persistent tachyarrhythmia.[id number] 04:09:00 Test Item Value Reference Range Interpretation Comments MAGNESIUM (BEAKER) (test code = 1.9 mg/dL 1.6-2.6 627) BASIC METABOLIC [id number] 04:09:00 Test Item Value Reference Range Interpretation [...] APPLICABLE FOR DIALYSIS PATIEN TS. HEPATIC FUNCTION [id number] 04:09:00 Test Item Value Reference Range Interpretation [...] (test code = 25 U/L 6-55 347) [id number] 03:36:00 Test Item Value Reference Range Interpretation Comments PARTIAL THROMBOPLASTIN TIME 57.8 seconds 22.5-36.0 H (BEAKER) (test code = 760) CBC W/PLT COUNT & AUTO [id number] 03:16:00 Test Item Value Reference Range Interpretation [...] 0-1 PERCENT (BEAKER) (test code = 2801) [id number] 17:05:00 Test Item Value Reference Range Interpretation [...] 2.5-3.5 for patients with mechanical heart valves.PROTHROMBIN [id number] 17:04:00 Test Item Value Reference Range Interpretation Comments PROTIME (BEAKER) (test code = 14.4 seconds 11.7-14.7 759) INR (BEAKER) (test code = 370) 1.2 <=5.9 RECOMMENDED COUMADIN/WARFARIN INR THERAPY RANGESSTANDARD DOSE: 2.0 - 3.0 Includes: PROPHYLAXIS for venous thrombosis, systemic embolization; TREATMENT for venous thrombosis and/or pulmonary embolus.HIGH RISK: Target INR is 2.5-3.5 for patients with mechanical heart valves.CBC W/PLT COUNT & AUTO [id number] 16:50:00 Test Item Value Reference Range Interpretation [...] PERCENT (BEAKER) (test code = 2801) TROPONIN [id number] 15:28:00 Test Item Value Reference Range Interpretation [...] acidosis, acute neurological disease, and persistent tachyarrhythmia.HEMOGLOBIN [id number] 12:07:00 Test Item Value Reference Range Interpretation Comments HEMOGLOBIN A1C (BEAKER) (test code = 5.6 % 4.3-6.1 368) RAD, CHEST, 1 VIEW, NON [id number] 07:27:00Reason for exam:->chest painShould this be performed at the bedside?->YesFINAL REPORT Portable chest 03/26/2019, 0349 hours COMPARISON: None The lungs appear clear. Heart and mediastinal structures are within normal limits. No pleural effusions are seen. No significant osseous abnormalities are identified although there are some degenerative changes in both acromioclavicular joints. Signed: Lisette Green MDReport Verified Date/Time: 03/26/2019 07:27:22 Reading Location: [facility] Radiology Reading Room Electronically signed by: LISETTE GREEN M.D.on 03/26/2019 07:27 AMB-TYPE NATRIURETIC FACTOR (BNP)2019-03-26 05:27:00 Test Item Value Reference Range Interpretation Comments B-TYPE NATRIURETIC PEPTIDE (BEAKER) 798 pg/mL 0-100 H (test code = 700) [id number] 05:22:00 Test Item Value Reference Range Interpretation Comments MAGNESIUM (BEAKER) 1.8 mg/dL 1.6-2.6 Specimen slightly (test code = 627) hemolyzed BASIC METABOLIC [id number] 05:22:00 Test Item Value Reference Range Interpretation [...] PATIEN TS. CBC W/PLT COUNT & AUTO [id number] 05:07:00 Test Item Value Reference Range Interpretation [...] 0-1 PERCENT (BEAKER) (test code = 2801) [id number] 00:56:00 Test Item Value Reference Range Interpretation Comments PARTIAL THROMBOPLASTIN TIME > seconds 22.5-36.0 HH (BEAKER) (test code = 760) TROPONIN [id number] 00:36:00 Test Item Value Reference Range Interpretation [...] acidosis, acute neurological disease, and persistent tachyarrhythmia.PROTHROMBIN [id number] 00:28:00 Test Item Value Reference Range Interpretation Comments PROTIME (BEAKER) (test code = 35.8 seconds 11.7-14.7 H 759) INR (BEAKER) (test code = 370) 3.9 <=5.9 RECOMMENDED COUMADIN/WARFARIN INR THERAPY RANGESSTANDARD DOSE: 2.0 - 3.0 Includes: PROPHYLAXIS for venous thrombosis, systemic embolization; TREATMENT for venous thrombosis and/or pulmonary embolus.HIGH RISK: Target INR is 2.5-3.5 for patients with mechanical heart valves.[id number] 00:25:00 Test Item Value Reference Range Interpretation Comments MAGNESIUM (BEAKER) (test code = 1.7 mg/dL 1.6-2.6 627) COMPREHENSIVE METABOLIC [id number] 00:25:00 Test Item Value Reference Range Interpretation [...] NOT APPLICABLE FOR DIALYSIS PATIEN TS. LIPID [id number] 00:25:00 Test Item Value Reference Range Interpretation [...] Very High >=190CBC W/PLT COUNT & AUTO [id number] 00:18:00 Test Item Value Reference Range Interpretation [...]
--- NOTE | 2023-01-13 20:57 | RAD REPORT ---
EXAM DESCRIPTION: RAD - Chest Single View - 01/13/2023 8:35 pm CLINICAL HISTORY: SOB COMPARISON: Chest Single View dated 01/05/2023; Chest Single View dated 11/24/2022; Chest Single View dated 10/06/2022; Chest Single View dated 05/21/2022; Vent Perfusion VQ Scan dated 01/08/2023 FINDINGS: Lines: None. Lungs: Bilateral interstitial airspace disease that is widespread. Pleural: No significant pleural effusions or pneumothorax. Cardiac: Cardiomegaly. Mediastinum: Within normal limits. Bones: No acute fractures. Other: None IMPRESSION: Bilateral airspace disease with likely represents either pulmonary edema and/or pneumoni a.
[2023-01-13 22:15] LABS: Protime INR 5.37
[2023-01-13 22:34] LABS: Absolute Lymphocytes (CBC) 0.4 K/uL (0.7-4.9); Hematocrit 43.2 % (39.6-49.0); Lymphocytes % 5.1 % (15.3-44.8); MCV 78.8 fL (80-100); MPV 9.8 fL (7.6-11.3); RBC Red Blood Cell Count 5.48 M/uL (4.33-5.43)
[2023-01-13 22:38] LABS: Albumin 2.6 g/dL (3.4-5.0); Bilirubin Total 4.4 mg/dL (0.2-1.0); Potassium 5.2 mmol/L (3.5-5.1); Protein, Total 7.1 g/dL (6.4-8.2)
[2023-01-13] MEDS ORDERED: NA CHLORIDE 0.9% 500 ML ONE (22:45)
[2023-01-13 23:24] LABS: Anisocytosis 3+; Blood Morphology Comment NOTED (NOT SEEN); Burr Cells 2+; Macrocytosis 2+; Ovalocytes 2+; Platelet Estimate DECR; Poikilocytosis 2+; Target Cells 2+; Teardrop Cell 2+; White Blood Cell Scan OK (OK)
[2023-01-13 23:52] LABS: SARS-CoV-2 Antigen Rapid Res Positive (Negative)
--- NOTE | 2023-01-14 00:02 | ER ---
Nurse's Notes [facility] Name: Chad Rahman Age: 62 yrs Sex: Male : 1960 Arrival Date: 01/13/2023 Time: 19:18 Bed 18 Private MD: Diagnosis: Congestive heart failure;Acute liver failure;COVID-19 Presentation: 01/13 19:28 Chief complaint: Patient states: "I was just released today around one after spending vc1 about a week in the hospital with Covid. I started feeling short of breath again around 6:30 and passed out." EMS states: We were toned out to a 62M with difficulty breathing. He was diagnosed with covid around 2 weeks ago and released from the hospital today. When we arrived we couldn't get a pulse ox reading and his cap refill was between 5 and 6.". Coronavirus screen: Vaccine status: Patient reports receiving the 2nd dose of the covid vaccine. Coronavirus screen: shortness of breath, Client presents with at least one sign or symptom that may indicate coronavirus-19. Standard/surgical mask placed on the client. Client reports previous positive COVID test result. Ebola Screen: Patient negative for fever greater than or equal to 101.5 degrees Fahrenheit, and additional compatible Ebola Virus Disease symptoms Patient denies exposure to infectious person. Patient denies travel to an Ebola-affected area in the 21 days before illness onset. No symptoms or risks identified at this time. Initial Sepsis Screen: Does the patient meet any 2 criteria? RR > 20 per min. HR > 90 bpm. Yes Does the patient have a suspected source of infection? No. Patient's initial sepsis screen is negative. Risk Assessment: Do you want to hurt yourself or someone else? Patient reports no desire to harm self or others. Onset of symptoms was January 13, 2023. 19:28 Method Of Arrival: EMS: [facility] vc1 19:28 Acuity: ROSALIA 3 vc1 Triage Assessment: 19:20 General: Appears distressed, uncomfortable, ill, slender, Behavior is calm, vc1 cooperative, appropriate for age. Pain: Denies pain. EENT: No deficits noted. Neuro: Level of Consciousness is awake, lethargic, Oriented to person, place, time, situation. Cardiovascular: No deficits noted. Respiratory: Airway is patent Respiratory effort is even, labored, Respiratory pattern is tachypnea. GI: No deficits noted. No signs and/or symptoms were reported involving the gastrointestinal system. : No deficits noted. No signs and/or symptoms were reported regarding the genitourinary system. Derm: No deficits noted. No signs and/or symptoms reported regarding the dermatologic system. Musculoskeletal: No deficits noted. No signs and/or symptoms reported regarding the musculoskeletal system. Historical: - Allergies: 19:35 No Known Allergies; vc1 - Home Meds: 19:35 atorvastatin 40 mg Oral tab once daily [Active]; clopidogrel 75 mg Oral tab 1 tab once vc1 daily [Active]; furosemide 40 mg Oral tab 1 tab 2 times per day [Active]; metoprolol tartrate 25 mg Oral tab 1 tab 2 times per day [Active]; potassium chloride 20 mEq Oral TbTQ 1 tab once daily [Active]; Trelegy Ellipta 100-62.5-25 mcg inhalation dsdv 1 puff once daily [Active]; Iron CR 250 mg Oral cpER [Active]; - PMHx: 19:35 Myocardial infarction; Pancreatitis; COPD; CHF; vc1 - PSHx: 19:35 CAD; Stented artery; vc1 - Immunization history:: Client reports receiving the 2nd dose of the Covid vaccine, believes [employer]. - Social history:: Smoking status: Patient denies any tobacco usage or history of. Screenin:37 Abuse screen: Denies threats or abuse. Nutritional screening: No deficits noted. vc1 Tuberculosis screening: No symptoms or risk factors identified. 19:40 [facility] ED Fall Risk Assessment (Adult) History of falling in the last 3 months, vc1 including since admission Yes- physiologic fall (2 pts) Confusion or Disorientation No (0 pts) Intoxicated or Sedated No (0 pts) Impaired Gait No (0 pts) Mobility Assist Device Used No (0 pt) Altered Elimination No (0 pt) Score/Fall Risk Level 0 - 2 = Low Risk Oriented to surroundings, Maintained a safe environment, Educated pt \\T\\ family on fall prevention, incl call for assistance when getting out of bed. Assessment: 20:00 Reassessment: Patient and/or family updated on plan of care and expected duration. Pain vc1 level reassessed. Patient is alert, oriented x 3, equal unlabored respirations, skin warm/dry/pink. Patient states feeling better. Patient states symptoms have improved. 21:00 Reassessment: No changes from previously documented assessment. Patient and/or family vc1 updated on plan of care and expected duration. Pain level reassessed. 22:00 Reassessment: No changes from previously documented assessment. Patient and/or family vc1 updated on plan of care and expected duration. Pain level reassessed. 23:00 Reassessment: No changes from previously documented assessment. Patient and/or family vc1 updated on plan of care and expected duration. Pain level reassessed. 01/14 00:09 Reassessment: No changes from previously documented assessment. Patient and/or family vc1 updated on plan of care and expected duration. Pain level reassessed. Patient denies pain at this time. 00:11 Pain: Denies pain. vc1 02:31 Reassessment: No changes from previously documented assessment. Patient and/or family vc1 updated on plan of care and expected duration. Pain level reassessed. General: Appears in no apparent distress. Behavior is calm, cooperative, appropriate for age. 04:00 Reassessment: No changes from previously documented assessment. Patient and/or family vc1 updated on plan of care and expected duration. Pain level reassessed. Patient is alert, oriented x 3, equal unlabored respirations, skin warm/dry/pink. 05:02 Reassessment: No changes from previously documented assessment. Patient and/or family vc1 updated on plan of care and expected duration. Pain level reassessed. Patient is alert, oriented x 3, equal unlabored respirations, skin warm/dry/pink. 01/15 00:36 Reassessment: preliminary blood culture report faxed to [place] [id number] [phone]. Vital Signs: 01/13 19:28 BP 107 / 82; Pulse 96; Resp 25; Pulse Ox 98% 4 lpm ; Weight 81.65 kg; Height 5 ft. 9 vc1 in. (175.26 cm); Pain 0/10; 19:45 Temp 97(A); tw5 21:00 BP 107 / 55; Pulse 92; Resp 18; Pulse Ox 98% on 4 lpm NC; vc1 22:00 BP 107 / 87; Pulse 88; Resp 18; Pulse Ox 98% ; vc1 23:00 BP 107 / 86; Pulse 90; Resp 13; Pulse Ox 98% ; vc1 01/14 00:00 BP 96 / 72; Pulse 85; Resp 15; Pulse Ox 100% on 4 lpm NC; vc1 01:00 BP 103 / 81; Pulse 85; Resp 22; Pulse Ox 98% on 4 lpm NC; vc1 02:00 BP 112 / 92; Pulse 90; Resp 19; Pulse Ox 98% on 4 lpm NC; vc1 03:00 BP 115 / 71; Pulse 92; Resp 23; Pulse Ox 98% on 4 lpm NC; vc1 04:00 BP 125 / 97; Pulse 90; Resp 22; Pulse Ox 97% on 4 lpm NC; vc1 01/13 19:28 Body Mass Index 26.58 (81.65 kg, 175.26 cm) vc1 ED Course: 01/13 19:18 Patient arrived in ED. as6 19:32 Magy Elmore MD is Attending Physician. sd2 19:35 Triage completed. vc1 19:37 Arm band placed on right wrist. vc1 19:40 Patient has correct armband on for positive identification. Bed in low position. Call vc1 light in reach. Client placed on continuous cardiac and pulse oximetry monitoring. NIBP monitoring applied. 20:46 Sheeba Momin, EBONI is Primary Nurse. vc1 01/14 00:37 Notified ED physician of a critical lab result(s). 3.0 lac. tw5 05:03 No provider procedures requiring assistance completed. Patient transferred, IV remains vc1 in place. Administered Medications: 01/13 23:00 Drug: NS 0.9% 500 ml Route: IV; Rate: bolus; Site: right antecubital; vc1 23:30 Follow up: IV Status: Completed infusion; IV Intake: 500ml vc1 Medication: 01/14 00:12 VIS not applicable for this client. vc1 Intake: 01/13 23:30 IV: 500ml; Total: 500ml. vc1 Outcome: 01/14 00:02 ER care complete, transfer ordered by . sd2 05:03 Transferred by ground EMS to [facility], to other acute care vc1 facility: [facility]. Transfer form completed. X-rays sent w/ patient. 05:03 Condition: good 05:03 Instructed on the need for transfer. 05:09 Patient left the ED. vc1 Signatures: Jossy Phillips, RN RN Alina Wan tw5 Leandro Kirk RN RN as6 Sheeba Momin RN RN vc1 Magy Elmore MD MD sd2
--- NOTE | 2023-01-14 00:02 | EDPHYS ---
Physician Documentation [facility] [place] Name: Chad Rahman Age: 62 yrs Sex: Male : 1960 Arrival Date: 01/13/2023 Time: 19:18 Bed 18 Private MD: ED Physician Magy Elmore HPI: 01/13 20:19 This 62 yrs old Black Male presents to ER via EMS with complaints of fall. sd2 20:19 62-year-old male presents via EMS with chief complaint of fall. The patient was sd2 recently discharged from the hospital earlier today after being in the hospital for 2 weeks for a COVID infection. He was discharged on home oxygen and they had returned from [facility] picking up the patient's medications when he states he fell "onto my bottom." He denies any preceding weakness, chest pain or shortness of breath. He does recall the entire incident and did not hit his head. He does not believe that he lost consciousness. He states that he does feel improved now and has no pain to any areas from the fall. He was discharged home with Rene and renato. Reports he was supposed to have an inhaler as well that they did not receive from [facility]. Completed steroids during hospital stay.. Historical: - Allergies: 19:35 No Known Allergies; vc1 - Home Meds: 19:35 atorvastatin 40 mg Oral tab once daily [Active]; clopidogrel 75 mg Oral tab 1 tab once vc1 daily [Active]; furosemide 40 mg Oral tab 1 tab 2 times per day [Active]; metoprolol tartrate 25 mg Oral tab 1 tab 2 times per day [Active]; potassium chloride 20 mEq Oral TbTQ 1 tab once daily [Active]; Trelegy Ellipta 100-62.5-25 mcg inhalation dsdv 1 puff once daily [Active]; Iron CR 250 mg Oral cpER [Active]; - PMHx: 19:35 Myocardial infarction; Pancreatitis; COPD; CHF; vc1 - PSHx: 19:35 CAD; Stented artery; vc1 - Immunization history:: Client reports receiving the 2nd dose of the Covid vaccine, believes [employer]. - Social history:: Smoking status: Patient denies any tobacco usage or history of. ROS: 20:19 Constitutional: Negative for fever, chills, and weight loss, Eyes: Negative for injury, sd2 pain, redness, and discharge, Cardiovascular: Negative for chest pain, palpitations, and edema, Respiratory: Positive for shortness of breath, negative for cough and wheezing Abdomen/GI: Negative for abdominal pain, nausea, vomiting, diarrhea. MS/Extremity: Negative for injury and deformity, Skin: Negative for injury, rash, and discoloration, Neuro: Negative for headache, numbness and tingling. Exam: 20:19 Constitutional: This is a well developed, well nourished patient who is awake, alert, sd2 and in no acute distress. Head/Face: Normocephalic, atraumatic. Eyes: EOMI, normal conjunctiva bilaterally Neck: Trachea midline, no thyromegaly or masses palpated, and no cervical lymphadenopathy. Supple, full range of motion without nuchal rigidity, or vertebral point tenderness. No Meningismus. Chest/axilla: Normal chest wall appearance and motion. Nontender with no deformity. Cardiovascular: Regular rate and rhythm with a normal S1 and S2. No gallops, murmurs, or rubs. 2+ distal pulses. Respiratory: Lungs have equal breath sounds bilaterally, clear to auscultation and percussion. No rales, rhonchi or wheezes noted. No increased work of breathing, no retractions or nasal flaring. Abdomen/GI: Soft, non-tender, with normal bowel sounds. No guarding or rebound. No evidence of tenderness throughout. Skin: Warm, dry with normal turgor. Normal color with no rashes, no lesions, and no evidence of cellulitis. MS/ Extremity: Pulses equal, no cyanosis. Neurovascular intact. Full, normal range of motion. Ambulatory without difficulty. Psych: Awake, alert, with orientation to person, place and time. Behavior, mood, and affect are within normal limits. Vital Signs: 19:28 BP 107 / 82; Pulse 96; Resp 25; Pulse Ox 98% 4 lpm ; Weight 81.65 kg; Height 5 ft. 9 vc1 in. (175.26 cm); Pain 0/10; 19:45 Temp 97(A); tw5 21:00 BP 107 / 55; Pulse 92; Resp 18; Pulse Ox 98% on 4 lpm NC; vc1 22:00 BP 107 / 87; Pulse 88; Resp 18; Pulse Ox 98% ; vc1 23:00 BP 107 / 86; Pulse 90; Resp 13; Pulse Ox 98% ; vc1 01/14 00:00 BP 96 / 72; Pulse 85; Resp 15; Pulse Ox 100% on 4 lpm NC; vc1 01:00 BP 103 / 81; Pulse 85; Resp 22; Pulse Ox 98% on 4 lpm NC; vc1 02:00 BP 112 / 92; Pulse 90; Resp 19; Pulse Ox 98% on 4 lpm NC; vc1 03:00 BP 115 / 71; Pulse 92; Resp 23; Pulse Ox 98% on 4 lpm NC; vc1 04:00 BP 125 / 97; Pulse 90; Resp 22; Pulse Ox 97% on 4 lpm NC; vc1 01/13 19:28 Body Mass Index 26.58 (81.65 kg, 175.26 cm) vc1 MDM: 01/13 19:32 Patient medically screened. sd2 20:19 Differential Diagnosis Dehydration, electrolyte abnormality, UTI, PNA, anemia, COVID, sd2 hypoxia, doubt PE among others. Data reviewed: vital signs, nurses notes, EMS record. 01/14 02:07 Data reviewed: lab test result(s), EKG, radiologic studies. Management of patient was sd2 discussed with the following: Hospitalist: Concern for cardiac event causing syncopal episode and pt may need AICD. Recommends transfer due to not having this capability at our facility. . I considered the following discharge prescriptions or medication management in the emergency department Medications were administered in the Emergency Department. See MAR. Independent interpretation of the following test(s) in the Emergency Department EKG: See my EKG interpretation above X-Ray: My interpretation is Pulmonary edema bilaterally. Historians other than the Patient: EMS: . Daughter/Son: . External Records Reviewed: Inpatient record: Recent hospitalization discharge summary. Care significantly affected by the following chronic conditions: Congestive Heart Failure, Chronic Obstructive Pulmonary Disease. Care significantly affected by the following Social Determinants of Health: Financial hardship making it difficult for patient to pay for his medications. ED course: US with choledocholithiasis. Pt will need transfer for GI service as well. . 01/13 20:00 Order name: CBC with Diff sd2 01/13 20:00 Order name: CMP sd2 01/13 20:00 Order name: Lactate w/ 2H reflex if indic. sd2 01/13 20:00 Order name: Protime (+inr) 01/13 20:00 Order name: Ptt, Activated 01/13 20:00 Order name: ABG 01/13 20:00 Order name: BNP 01/13 20:00 Order name: Procalcitonin 01/13 21:17 Order name: PTT, Activated Partial Thromb; Complete Time: 22:31 EDMS 01/13 21:22 Order name: Lactate w/ 2H reflex if indic.; Complete Time: 21:28 EDMS 01/13 21:45 Order name: Blood Culture Adult (2) vc1 01/13 22:15 Order name: Protime (+INR); Complete Time: 22:31 EDMS 01/13 22:36 Order name: CBC with Automated Diff; Complete Time: 23:42 EDMS 01/13 22:38 Order name: Comprehensive Metabolic Panel; Complete Time: 23:02 EDMS 01/13 20:00 Order name: Chest Single View XRAY 01/13 20:57 Order name: RAD; Complete Time: 21:06 EDMS 01/13 22:38 Order name: NT PRO-BNP; Complete Time: 23:02 EDMS 01/13 23:04 Order name: Procalcitonin; Complete Time: 23:05 EDMS 01/13 23:12 Order name: Magnesium 01/13 23:12 Order name: US Abdomen Limited 01/13 23:23 Order name: Magnesium; Complete Time: 23:42 EDMS 01/13 23:23 Order name: SARS RAPID 01/13 23:24 Order name: CBC Smear Scan; Complete Time: 23:42 EDMS 01/13 23:31 Order name: Lactate w/ 2H reflex if indic. 4 01/13 23:52 Order name: SARS-COV-2 Antigen Rapid; Complete Time: 00:49 EDMS 01/14 00:06 Order name: Troponin HS 4 01/14 00:35 Order name: ABG Arterial Blood Gas; Complete Time: 00:49 EDMS 01/14 00:39 Order name: Lactate w/ 2H reflex if indic.; Complete Time: 00:49 EDMS 01/14 00:50 Order name: Troponin High Sensitivity; Complete Time: 02:04 EDMS 01/13 20:00 Order name: EKG; Complete Time: 20:01 01/13 20:00 Order name: Accucheck; Complete Time: 23:30 01/13 20:00 Order name: Cardiac monitoring; Complete Time: 20:48 01/13 20:00 Order name: EKG - Nurse/Tech; Complete Time: 20:25 01/13 20:00 Order name: IV Saline Lock - Large Bore; Complete Time: 20:46 01/13 20:00 Order name: Labs collected and sent; Complete Time: 20:46 01/13 20:00 Order name: O2 Per Protocol; Complete Time: 20:46 01/13 20:00 Order name: O2 Sat Monitoring; Complete Time: 20:46 01/13 20:00 Order name: Vital Signs; Complete Time: 20:48 01/13 21:20 Order name: Labs - recollect needed: green, purple; Complete Time: 21:46 iw Administered Medications: 01/13 23:00 Drug: NS 0.9% 500 ml Route: IV; Rate: bolus; Site: right antecubital; vc1 23:30 Follow up: IV Status: Completed infusion; IV Intake: 500ml vc1 Disposition Summary: 01/14/23 00:02 Transfer Ordered Transfer Location: [facility] sd2 Reason: Higher level of care sd2 Condition: Stable sd2 Problem: new sd2 Symptoms: have improved sd2 Accepting Physician: Dr. Caceres(01/14/23 05:09) vc1 Diagnosis - Congestive heart failure sd2 - Acute liver failure sd2 - COVID-19 sd2 Forms: - Medication Reconciliation Form sd2 - SBAR form sd2 Critical care time excluding procedures: 01/14 02:09 Critical care time: Bedside Care: 20 minutes, Consultation: 20 minutes, Family sd2 Intervention: 5 minutes. Total time: 45 minutes Signatures: Dispatcher [employer] EDOlga Larry RN RN iw Attema, Lee, FNP-C FNP-Cla1 Sheeba Momin RN RN vc1 Magy Elmore MD MD sd2 Corrections: (The following items were deleted from the chart) 02:07 00:[address] [facility] Physician sd2 sd2 05:09 02:07 Dr. Ilyas sd2 vc1
[2023-01-14 00:32] LABS: Arterial Blood Carboxyhemoglob 1.5 % (0-1.5); Blood Gas Oxyhemoglobin 96.3 % (94-97); Blood O2 Saturation 98.8 % (92-98.5)
[2023-01-14 05:19] VITALS: TEMP 97
[2023-01-14 05:28] VITALS: BP 125/97; O2SAT 97
--- NOTE | 2023-01-15 12:40 | EKG ---
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
--- NOTE | 2023-01-15 14:00 | RAD REPORT ---
EXAM DESCRIPTION: US - Abdomen Exam Limited - 01/14/2023 12:35 am CLINICAL HISTORY: The patient is 62 years old and is Male; elevated LFTs TECHNIQUE: Real-time ultrasound of the right upper quadrant with image documentation. COMPARISON: No relevant prior studies available. FINDINGS: GALLBLADDER: Even allowing for relative decompressed appearance, gallbladder wall thick ening with posterior shadowing stone demonstrated in the gallbladder neck. Sludge noted within the gallbladder lumen. No pericholecystic free fluid or edema. COMMON BILE DUCT: Common bile duct is prominent measuring 0.7 cm in diameter. No common bile gayle t stone is seen. No common ductal stone is visualized. OTHER FINDINGS: Phrygian cap. IMPRESSION: 1. Gallbladder wall thickening with cholelithiasis noted in the gallbladder neck with intraluminal sludge, suspicious for acute cholecystitis. Correlation with Quintanilla sign and clinical pr esentation recommended. If felt clinically necessary to confirm acute cholecystitis, or to evaluate f or chronic cholecystitis or biliary dyskinesia, further evaluation by HIDA scan could be performed. 2. Common bile duct is prominent measuring 0.7 cm in diameter, although a common bile duct stone is not seen. Electronically signed by: Abdias Noble MD 01/14/2023 1:34 AM [employer]INE[employer]ER Due to temporary technical issues with the PACS/Fluency reporting system, reports are being signed by the in house radiologists without review as a courtesy to insure prompt reporting. The interpreting radiologist is fully responsible for the content of the report.
== END 2023-01-14 05:09 | disposition short-term general hospital (02) ==
LOC: ER 19:13
DX: I50.9 Heart failure, unspecified (principal); U07.1 COVID-19; K72.00 Acute and subacute hepatic failure without coma
CPT/HCPCS: 36415; 71045; 76705; 80053; 82805; 83605; 83735; 83880; 84145; 84484; 85025; 85610; 85730; 87040; 87205; 87811; 93005; 99285; J7040